=== PATIENT | female | born 1960 | race Caucasian/White ===

== ENCOUNTER 2016-04-06 10:37 | Inpatient (IN) | payer MEDICARE, OTHER ==
[2016-04-06] MEDS ORDERED: IPRATROPIUM-ALBUTEROL 3 ML NEB INHALATION STA (10:44)
[2016-04-06] MEDS ORDERED: SODIUM CHLORIDE 0.9% 1,000 ML IV STA (10:44)
--- NOTE | 2016-04-06 10:55 | ED ---
SOB HPI - General Stated Complaint: CHEST AND ABDOMINAL PAIN Time Seen by Provider: 04/06/16 10:37 Source: patient, EMS, RN notes reviewed Mode of arrival: EMS Limitations: physical limitation - History of Present Illness Initial Comments: This is a 55-year-old female with a recent history of myocardial infarction who states she had the onset at 11 AM yesterday of some nausea some abdominal pain and some shortness of breath. She states it yet worse this morning with associated chest pain about 5:30 AM. She has been dry heaving his apnea keep any fluids down. She was brought in by EMS she was given 4 mg morphine with improvement of the pain from 8/10 down to 6/10. She's had fevers chills and sweats some yellowish phlegm production. No other complaints at this time MD Complaint: shortness of breath, cough - Related Data Home Medications Medication Instructions Recorded Confirmed Amitriptyline HCl [Elavil] 25 mg PO HS 08/28/13 04/06/16 Spironolactone [Aldactone] 12.5 mg PO DAILY 08/28/13 04/06/16 oxyCODONE-APAP 10-325MG [Percocet 1 tab PO QID 08/28/13 04/06/16 10-325 mg] ALPRAZolam [Xanax] 0.5 mg PO HS 10/06/15 04/06/16 Aspirin 81 mg PO HS 10/06/15 04/06/16 Clopidogrel [Plavix] 75 mg PO DAILY 10/06/15 04/06/16 Fish Oil/Dha/Epa [Fish Oil 1,200 3 cap PO TID 10/06/15 04/06/16 mg Fish Oil] Insulin Degludec [Tresiba 56 unit SQ HS 10/06/15 04/06/16 Flextouch U-100] Insulin Lispro [humaLOG Kwikpen] 20 unit SQ W/BRKFST 10/06/15 04/06/16 Morphine Sulfate ER [Ms Contin] 15 mg PO BID 10/06/15 04/06/16 QUEtiapine FUMARATE [SEROquel XR] 50 mg PO HS 10/06/15 04/06/16 Insulin Lispro [humaLOG Kwikpen] 12 unit SQ W/SUPPER 03/02/16 04/06/16 Insulin Lispro [humaLOG Kwikpen] 20 unit SQ W/LUNCH 03/02/16 04/06/16 FLUoxetine HCL [PROzac] 60 mg PO DAILY 04/06/16 04/06/16 Previous Rx's Medication Instructions Recorded Furosemide [Lasix] 40 mg PO DAILY 30 Days 03/07/16 Atorvastatin [Lipitor] 80 mg PO HS #30 tab 03/25/16 Gabapentin [Neurontin] 200 mg PO TID #90 cap 03/25/16 Metoprolol Tartrate [Lopressor] 25 mg PO BID #60 tab 03/25/16 Nitroglycerin Sl Tabs [Nitrostat] 0.4 mg SUBLINGUAL Q5M PRN #25 tab 03/25/16 Allergies Allergy/AdvReac Type Severity Reaction Status Date / Time vancomycin Allergy Rash/Hives Verified 04/06/16 12:57 ciprofloxacin [From Cipro] AdvReac Nausea & Verified 04/06/16 12:57 Vomiting ciprofloxacin HCl AdvReac Nausea & Verified 04/06/16 12:57 [From Cipro] Vomiting Review of Systems ROS Statement: Those systems with pertinent positive or pertinent negative responses have been documented in the HPI. ROS Other: All systems not noted in ROS Statement are negative. Past Medical History Past Medical History: Coronary Artery Disease (CAD), Heart Failure, Diabetes Mellitus, Fibromyalgia, GERD/Reflux, Hearing Disorder / Deafness, Hyperlipidemia , Hypertension, Myocardial Infarction (GA), Musculoskeletal Disorder, Osteoarthritis (OA), Skin Disorder Additional Past Medical History / Comment(s): Coronary artery disease with previous myocardial infarction discussed above. The patient has multiple coronary stents inserted, ischemic myopathy, biventricular AICD, chronic renal failure, nephrolithiasis and kidney stones, peripheral vascular disease with a above-knee amputation on the right, degenerative disc disease, diabetes mellitus , hyperlipidemia, hypertension, fibromyalgia, GERD, chronic back pain, diabetic foot ulcer involving the left lower extremity. Last Myocardial Infarction Date:: 2006 History of Any Multi-Drug Resistant Organisms: MRSA Date of last positivie culture/infection: 02/24/16 LT FOOT-VERIFIED PER DR VASQUEZ OFFICE MDRO Source:: LT FOOT Past Surgical History: AICD, Section, Heart Catheterization, Heart Catheterization With Stent, Orthopedic Surgery, Pacemaker, Tonsillectomy Additional Past Surgical History / Comment(s): Right rotator cuff surgery 2, bilateral carpal tunnel release, cardiac catheterization multiple occasions and insertion of multiple stents, above-knee amputation of the right lower extremity , incision and debridement of diabetic wounds, Biventricular AICD placement Past Anesthesia/Blood Transfusion Reactions: No Reported Reaction Date of Last Stent Placement:: 2006 Type of Cardiac Device: AICD Device Placement Date:: 2010 Past Psychological History: Anxiety, Depression Smoking Status: Former smoker Past Alcohol Use History: None Reported Additional Past Alcohol Use History / Comment(s): SMOKED 20 YEARS, 1 PPD, QUIT . Past Drug Use History: Marijuana Additional Drug Use History / Comment(s): OCC MEDICAL MARIJUANA - Past Family History Sister(s) Family Medical History: Cancer Additional Family Medical History / Comment(s): 2 SISTERS Mother Family Medical History: Coronary Artery Disease (CAD), Hyperlipidemia, Hypertension Additional Family Medical History / Comment(s): CABG Father Family Medical History: CVA/TIA, Hyperlipidemia, Hypertension, Myocardial Infarction (GA) General Exam - General Exam Comments Initial Comments: This is a well-developed well-nourished awake alert oriented 3 female Limitations: physical limitation General appearance: alert, in no apparent distress Head exam: Present: atraumatic, normocephalic, normal inspection Eye exam: Present: normal appearance, PERRL, EOMI. Absent: scleral icterus, conjunctival injection, periorbital swelling ENT exam: Present: mucous membranes dry Neck exam: Present: normal inspection. Absent: tenderness, meningismus, lymphadenopathy Respiratory exam: Present: decreased breath sounds, other (Left lower lobe crackles). Absent: respiratory distress, wheezes, rales, rhonchi, stridor Cardiovascular Exam: Present: regular rate, normal rhythm, normal heart sounds. Absent: systolic murmur, diastolic murmur, rubs, gallop, clicks GI/Abdominal exam: Present: soft, tenderness (Some epigastric tenderness also some right left lower quadrant crampy pain), normal bowel sounds. Absent: distended, guarding, rebound, rigid Extremities exam: Present: full ROM, normal capillary refill, other (Right lower extremity above the knee"). Absent: tenderness, pedal edema, joint swelling, calf tenderness Back exam: Present: normal inspection Neurological exam: Present: alert, oriented X3, CN II-XII intact Psychiatric exam: Present: normal affect, normal mood Skin exam: Present: warm, dry, intact, normal color. Absent: rash Course Vital Signs 04/06/16 04/06/16 04/06/16 10:38 11:00 11:01 Temperature 99.9 F H Pulse Rate 84 76 Respiratory 20 20 Rate Blood Pressure 134/72 O2 Sat by Pulse 92 L Oximetry 04/06/16 04/06/16 04/06/16 11:08 12:10 13:40 Temperature 98.5 F Pulse Rate 76 78 86 Respiratory 20 16 Rate Blood Pressure 108/55 119/64 O2 Sat by Pulse 95 92 L Oximetry - Reevaluation(s) Reevaluation #1: 04/06/16 14:45 Evaluation after the initial updraft reveals some improvement the patient did demonstrate bilateral basilar rales Reevaluation #2: 04/06/16 14:45 I did reevaluate the patient she had some more improvement. Medical Decision Making - Medical Decision Making I did reveal the findings to the patient regarding the x-rays and labs. Patient is feeling somewhat better no chest pain she will be admitted I did discuss the case with Dr. Nelson. Patient be started on treatment for congestive heart failure additionally due to the fever and the symptoms - Lab Data Result diagrams: 04/06/16 10:55 04/06/16 10:55 Lab Results 04/06/16 04/06/16 04/06/16 Range/Units 10:55 10:55 10:55 WBC 9.1 (3.8-10.6) k/uL RBC 3.04 L (3.80-5.40) m/uL Hgb 9.3 L (11.4-16.0) gm/dL Hct 29.9 L (34.0-46.0) % MCV 98.3 (80.0-100.0) fL MCH 30.4 (25.0-35.0) pg MCHC 31.0 (31.0-37.0) g/dL RDW 20.0 H (11.5-15.5) % Plt Count 262 (150-450) k/uL Neutrophils % 87 % Lymphocytes % 8 % Monocytes % 3 % Eosinophils % 0 % Basophils % 0 % Neutrophils # 7.9 H (1.3-7.7) k/uL Lymphocytes # 0.8 L (1.0-4.8) k/uL Monocytes # 0.3 (0-1.0) k/uL Eosinophils # 0.0 (0-0.7) k/uL Basophils # 0.0 (0-0.2) k/uL Hypochromasia Moderate Poikilocytosis Slight Anisocytosis Moderate Macrocytosis Slight PT (9.0-12.0) sec INR (<1.1) APTT (22.0-30.0) sec Sodium 141 (137-145) mmol/L Potassium 4.1 (3.5-5.1) mmol/L Chloride 105 (98-107) mmol/L Carbon Dioxide 23 (22-30) mmol/L Anion Gap 13 mmol/L BUN 37 H (7-17) mg/dL Creatinine 1.30 H (0.52-1.04) mg/dL Est GFR (MDRD) Af Amer 51 (>60 ml/min/1.73 sqM) Est GFR (MDRD) Non-Af 42 (>60 ml/min/1.73 sqM) Glucose 213 H (74-99) mg/dL Calcium 9.6 (8.4-10.2) mg/dL Magnesium 1.9 (1.6-2.3) mg/dL Total Bilirubin 0.9 (0.2-1.3) mg/dL AST 30 (14-36) U/L ALT 33 (9-52) U/L Alkaline Phosphatase 76 (38-126) U/L Total Creatine Kinase 103 (30-135) U/L CK-MB (CK-2) 1.4 (0.0-2.4) ng/mL CK-MB (CK-2) Rel Index 1.4 Troponin I 0.040 H* (0.000-0.034) ng/mL NT-Pro-B Natriuret Pep pg/mL Total Protein 7.0 (6.3-8.2) g/dL Albumin 3.9 (3.5-5.0) g/dL Amylase 55 (30-110) U/L Lipase 103 (23-300) U/L 04/06/16 04/06/16 Range/Units 10:55 10:55 WBC (3.8-10.6) k/uL RBC (3.80-5.40) m/uL Hgb (11.4-16.0) gm/dL Hct (34.0-46.0) % MCV (80.0-100.0) fL MCH (25.0-35.0) pg MCHC (31.0-37.0) g/dL RDW (11.5-15.5) % Plt Count (150-450) k/uL Neutrophils % % Lymphocytes % % Monocytes % % Eosinophils % % Basophils % % Neutrophils # (1.3-7.7) k/uL Lymphocytes # (1.0-4.8) k/uL Monocytes # (0-1.0) k/uL Eosinophils # (0-0.7) k/uL Basophils # (0-0.2) k/uL Hypochromasia Poikilocytosis Anisocytosis Macrocytosis PT 12.1 H (9.0-12.0) sec INR 1.2 (<1.1) APTT 23.3 (22.0-30.0) sec Sodium (137-145) mmol/L Potassium (3.5-5.1) mmol/L Chloride (98-107) mmol/L Carbon Dioxide (22-30) mmol/L Anion Gap mmol/L BUN (7-17) mg/dL Creatinine (0.52-1.04) mg/dL Est GFR (MDRD) Af Amer (>60 ml/min/1.73 sqM) Est GFR (MDRD) Non-Af (>60 ml/min/1.73 sqM) Glucose (74-99) mg/dL Calcium (8.4-10.2) mg/dL Magnesium (1.6-2.3) mg/dL Total Bilirubin (0.2-1.3) mg/dL AST (14-36) U/L ALT (9-52) U/L Alkaline Phosphatase (38-126) U/L Total Creatine Kinase (30-135) U/L CK-MB (CK-2) (0.0-2.4) ng/mL CK-MB (CK-2) Rel Index Troponin I (0.000-0.034) ng/mL NT-Pro-B Natriuret Pep 82693 pg/mL Total Protein (6.3-8.2) g/dL Albumin (3.5-5.0) g/dL Amylase (30-110) U/L Lipase (23-300) U/L - EKG Data -: EKG Interpreted by Me (Pacer rhythm rate was 79. Interval 176 QRS duration 114 daily since QTC of) - Radiology Data Radiology results: report reviewed (I did review the x-ray report is evidence of CHF exacerbation with worsening cardiomegaly no alveolar edema is suspected) , image reviewed Critical Care Time Critical Care Time: Yes Critical Care Time: 39 minutes of critical care time which included the initial a bolus report as well as discussion with paramedics history physical x-ray and labs review the above. Repeat evaluation to responsive therapy. This review of old charts. Discussion with the admitting physician. Documentation of the above. Disposition Clinical Impression: Congestive heart failure (CHF), Pneumonitis, Acute exacerbation of chronic obstructive airways disease Disposition: ADMITTED IP TO THIS HOSP Condition: Stable
[2016-04-06 11:14] LABS: Anisocytosis Moderate; Basophils % (A) 0 %; CH 31.2; CHCM 32.2; Eosinophils % (A) 0 %; HCT 29.9 % (34.0-46.0); HGB 9.3 gm/dL (11.4-16.0); Hypochromasia Moderate; Luc # (Auto) 0.08; Luc % (Auto) 1; Lymphocytes # (A) 0.8 k/uL (1.0-4.8); Lymphocytes % (A) 8 %; MCH 30.4 pg (25.0-35.0); MCV 98.3 fL (80.0-100.0); Macrocytosis Slight; Mean Platelet Volume 8.2; Monocytes # (A) 0.3 k/uL (0-1.0); Monocytes % (A) 3 %; Neutrophils # (A) 7.9 k/uL (1.3-7.7); Neutrophils % (A) 87 %; Poikilocytosis Slight; RBC 3.04 m/uL (3.80-5.40); WBC 9.1 k/uL (3.8-10.6); WBC (Perox) 9.62
[2016-04-06 11:25] LABS: Calcium 9.6 mg/dL (8.4-10.2); INR 1.2 (<1.1); Magnesium 1.9 mg/dL (1.6-2.3); Partial Thromboplastin Time 23.3 sec (22.0-30.0); Potassium 4.1 mmol/L (3.5-5.1); Prothrombin Time 12.1 sec (9.0-12.0); Total Bilirubin 0.9 mg/dL (0.2-1.3)
--- NOTE | 2016-04-06 11:48 | XR ---
EXAMINATION TYPE: XR chest 2V DATE OF EXAM: 04/06/2016 11:39 AM COMPARISON: Chest x-ray March 23, 2016 HISTORY: History of COPD presents with shortness of breath TECHNIQUE: Frontal and lateral views of the chest are obtained. FINDINGS: There is persistent cardiomegaly with multilead pacemaker/AICD that is more prominent. Ther e is worsening perihilar opacities felt to reflect moderate central vascular congestion and central e vanessa. No new large pleural effusion or pneumothorax is seen bilaterally. There is partial visualizati on of surgical change in the right humeral head. Underlying emphysematous change is felt present. IMPRESSION: Suspect CHF exacerbation as there is worsening cardiomegaly with new moderate central vas cular congestion and mild central alveolar edema suspected. Clinical correlation advised.
[2016-04-06 11:50] LABS: Creatine Kinase MB 1.4 ng/mL (0.0-2.4)
[2016-04-06 11:54] LABS: Troponin I 0.04 ng/mL (0.000-0.034)
[2016-04-06] MEDS ORDERED: NITROGLYCERIN OINT 1 INCH/GM PACKET TOPICAL STA (12:09)
[2016-04-06] MEDS ORDERED: FUROSEMIDE 10 MG/ML 4 ML VIAL IV STA (12:09)
[2016-04-06] MEDS ORDERED: ACETAMINOPHEN TAB 500 MG TAB PO STA (13:37)
[2016-04-06] MEDS ORDERED: DHA PO SCH (16:00)
[2016-04-06] MEDS ORDERED: FISH OIL PO SCH (16:00)
[2016-04-06] MEDS ORDERED: EPA PO SCH (16:00)
[2016-04-06] MEDS: SODIUM CHLORIDE 0.9% 1,000 ML IV SCH (18:23)
[2016-04-06] MEDS: oxyCODONE-APAP 10-325MG 1 EACH TAB PO SCH (18:28)
[2016-04-06] MEDS: HEPARIN SODIUM,PORCINE 5,000 UNIT/ML 1 ML VIAL SQ SCH ×2 (18:29→21:23)
[2016-04-06] MEDS: INSULIN LISPRO (humaLOG) 300 UNIT/3 ML VIAL SQ SCH (18:44)
[2016-04-06] MEDS: GABAPENTIN 100 MG CAP PO SCH ×2 (18:45→21:22)
[2016-04-06] MEDS: NITROGLYCERIN OINT 1 INCH/GM PACKET TOPICAL SCH ×2 (18:45→21:23)
[2016-04-06] MEDS: IPRATROPIUM-ALBUTEROL 3 ML NEB INHALATION SCH ×2 (21:02)
[2016-04-06] MEDS ORDERED: IPRATROPIUM-ALBUTEROL 3 ML NEB INHALATION PRN (21:04)
[2016-04-06 21:10] LABS: Glucose,Whole Blood 128 mg/dL (75-99)
[2016-04-06] MEDS: AMITRIPTYLINE HCL 25 MG TAB PO SCH (21:21)
[2016-04-06] MEDS: FUROSEMIDE 10 MG/ML 4 ML VIAL IV SCH (21:22)
[2016-04-06] MEDS: ASPIRIN 81 MG CHEW PO SCH (21:22)
[2016-04-06] MEDS: ATORVASTATIN 80 MG TAB PO SCH (21:22)
[2016-04-06] MEDS: METOPROLOL TARTRATE 25 MG TAB PO SCH (21:22)
[2016-04-06] MEDS: MORPHINE SULFATE ER 15 MG TABLET PO SCH (21:34)
[2016-04-06] MEDS: ALPRAZolam 0.5 MG TAB PO SCH (21:34)
[2016-04-06] MEDS: INSULIN DEGLUDEC 56 UNIT SQ SCH (21:35)
--- NOTE | 2016-04-06 21:40 | HP ---
DATE OF ADMISSION: 04/06/2016 CHIEF COMPLAINTS: Chest pain and abdominal pain. HISTORY OF PRESENT ILLNESS: This 55-year-old woman with a past medical history of multiple medical problems, including CAD, history of CHF, diabetes mellitus, fibromyalgia, GERD, hypertension, hyperlipidemia, history of myocardial infarction, history of AICD, being followed by Dr. Thomas in the outpatient setting, was recently admitted to [facility] last month with CHF as well as acute myocardial infarction. Patient underwent cardiac catheterization, PTCA and stenting of a complex calcified lesion involving the circumflex coronary artery in 3 separate areas using a drug-eluting stent by Dr. Bradley Gibson. The patient went home. Currently the patient is complaining of vomiting for the last 2 days. Today the patient had significant shortness of breath. Patient came to [facility] and was admitted for further evaluation and treatment. Patient was found CHF, acute exacerbation. The most recent chest x-ray showed worsening cardiomegaly as well as central venous congestion also noted. There is no history of any fever, rigors, chills. No history of headache, loss of consciousness, seizures. PAST MEDICAL HISTORY: 1. History of recent myocardial infarction and stent. 2. CAD. 3. CHF. 4. History of cardiomyopathy. 5. History of fibromyalgia. 6. GERD. 7. Hearing deficit. 8. Hypertension. 9. History of myocardial infarction. 10. History of AICD. 11. History of multiple stents. 12. History of DJD. HOME MEDICATIONS: 1. Tresiba Flextouch 56 at bedtime. 2. Percocet 10 mg q.i.d. 3. Aldactone 12.5 mg daily. 4. Humalog 20 units subcutaneously with lunch and 12 units with supper and 20 units with breakfast. 5. Seroquel XR 50 mg at bedtime. 6. MS Contin 15 mg b.i.d. 7. Lasix 40 mg p.o. daily. 8. Fish oil 3 capsules p.o. t.i.d. 9. Prozac 60 mg p.o. daily. 10. Plavix 75 mg p.o. daily. 11. Nitrostat 0.4 sublingually p.r.n. 12. Lopressor 25 mg p.o. b.i.d. 13. Aspirin 81 mg p.o. at bedtime. 14. Elavil 25 mg at bedtime. 15. Xanax 0.5 mg at bedtime. 16. Neurontin 200 mg p.o. t.i.d. 17. Lipitor 80 mg p.o. at bedtime. ALLERGIES: 1. VANCOMYCIN. 2. CIPROFLOXACIN. FAMILY HISTORY: History of cancer in 2 sisters. SOCIAL HISTORY: Previous history of smoking. Occasional THC. REVIEW OF SYSTEMS: ENT: No diminished hearing. No diminished vision. CARDIOVASCULAR: As mentioned earlier. RESPIRATORY: As mentioned earlier. GI: As mentioned earlier. : No dysuria. NERVOUS SYSTEM: No numbness or weakness. ALLERGY/IMMUNOLOGY: No asthma or hayfever. MUSCULOSKELETAL: As mentioned earlier. HEMATOLOGY/ONCOLOGY: No history of anemia. ENDOCRINE: Diabetes mellitus. CONSTITUTIONAL: As mentioned earlier. DERMATOLOGY: Negative. RHEUMATOLOGY: Negative. PSYCHIATRY: As mentioned earlier. PHYSICAL EXAMINATION: Alert and oriented x3. Pulse 72, blood pressure 134/52, respiration 18, temperature 98.8, pulse ox 96% on 2 L. HEENT: Conjunctivae normal. Oral mucosa moist. NECK: No jugular venous distention. No carotid bruit. No lymph node enlargement. CARDIOVASCULAR SYSTEM: S1, S2 muffled. No S3. No S4. RESPIRATORY: Breath sounds diminished at the bases. A few bilateral scattered rhonchi and crackles. ABDOMEN: Soft, obese, nontender. No mass palpable. No guarding. No rigidity. LEGS: No edema. No swelling. Right above-knee amputation. Left foot wound also present. NERVOUS SYSTEM: Higher functions as mentioned earlier. Moves all 4 limbs. No focal motor or sensory deficit. LYMPHATICS: No lymph node palpable in neck, axillae or groin. SKIN: No ulcer, rash or bleeding. LABS: WBC 9.1, hemoglobin 9.3. Chest x-ray reviewed. Creatinine is 1.30. Glucose 213. Troponin 0.040. ASSESSMENT: 1. Congestive heart failure, acute exacerbation, with acute on chronic systolic dysfunction, ejection fraction 20% to 25%, with cardiomyopathy, ischemic. 2. Vomiting; possibly acute gastritis. 3. Anemia, normocytic; anemia of chronic disease. 4. Left foot wound and cellulitis. 5. Increased creatinine with possible chronic kidney disease, stage III. 6. Diabetes mellitus, type 2. 7. Troponin 0.046, indeterminate from previous recent myocardial infarction. 8. History of recent acute [id number]-elevation myocardial infarction, status post cardiac catheterization and stenting of the circumflex x3. 9. Anemia, normocytic. 10. History of obesity; body mass index 31.6. 11. Congestive heart failure. 12. Diabetes mellitus. 13. Fibromyalgia. 14. Gastroesophageal reflux disease. 15. Hypertension. 16. Hyperlipidemia. 17. Myocardial infarction. 18. History of degenerative joint disease. 19. History of automatic implantable cardioverter defibrillator. 20. History of nephrolithiasis. 21. History of peripheral arteritis. 22. Above-knee amputation on the right. 23. Chronic back pain. 24. History of diabetic foot ulcer. 25. Anxiety, depression not otherwise specified. 26. Remote history of nicotine dependence. 27. FULL CODE. RECOMMENDATIONS AND DISCUSSION: In this 55-year-old woman who presented with multiple complex medical issues, we will monitor the patient closely, continue the current medication, continue symptomatic treatment. Will initiate IV diuretics. Monitor fluid/electrolyte balance closely. Otherwise, monitor blood sugars closely. Empiric antibiotics have been initiated. Continue to monitor. Prognosis is guarded because of multiple complex medical issues. Home medications have been continued. Further recommendations to follow. MTDD
[2016-04-07] MEDS: oxyCODONE-APAP 10-325MG 1 EACH TAB PO SCH ×5 (00:05→21:58)
[2016-04-07 06:26] LABS: Glucose,Whole Blood 89 mg/dL (75-99)
[2016-04-07 06:52] LABS: Calcium 9.2 mg/dL (8.4-10.2); Potassium 4.1 mmol/L (3.5-5.1)
[2016-04-07] MEDS: INSULIN LISPRO (humaLOG) 300 UNIT/3 ML VIAL SQ SCH ×3 (07:03→17:20)
[2016-04-07 07:12] LABS: Anisocytosis Slight; Basophils % (A) 1 %; CH 30.7; CHCM 31.4; Eosinophils # (A) 0.2 k/uL (0-0.7); Eosinophils % (A) 3 %; HCT 27.8 % (34.0-46.0); HGB 8.6 gm/dL (11.4-16.0); Hypochromasia Marked; Luc # (Auto) 0.19; Luc % (Auto) 3; Lymphocytes # (A) 2.2 k/uL (1.0-4.8); Lymphocytes % (A) 32 %; MCH 30.5 pg (25.0-35.0); MCHC 30.8 g/dL (31.0-37.0); MCV 98.9 fL (80.0-100.0); Macrocytosis Moderate; Mean Platelet Volume 7.5; Monocytes # (A) 0.4 k/uL (0-1.0); Monocytes % (A) 6 %; Neutrophils # (A) 3.8 k/uL (1.3-7.7); Neutrophils % (A) 56 %; Poikilocytosis Slight; RBC 2.81 m/uL (3.80-5.40); RDW 19.7 % (11.5-15.5); WBC 6.8 k/uL (3.8-10.6); WBC (Perox) 7.13
[2016-04-07 08:25] LABS: Appearance,Urine Clear (Clear); Bilirubin,Urine Negative (Negative); Glucose,Urine (UA) Negative (Negative); Ketones,Urine Negative (Negative); Leukocyte Esterase,Urine Negative (Negative); Nitrite,Urine Negative (Negative); PH, Urine 6.5 (5.0-8.0); Protein,Urine Trace (Negative); Specific Gravity,Urine 1.008 (1.001-1.035); UA Billing (MACRO vs. MICRO) CHEM; Urobilinogen,Urine <2.0 mg/dL (<2.0)
[2016-04-07] MEDS: MORPHINE SULFATE ER 15 MG TABLET PO SCH ×2 (08:44→21:58)
[2016-04-07] MEDS: GABAPENTIN 100 MG CAP PO SCH ×3 (08:45→21:27)
[2016-04-07] MEDS: FUROSEMIDE 10 MG/ML 4 ML VIAL IV SCH ×3 (08:45→21:29)
[2016-04-07] MEDS: METOPROLOL TARTRATE 25 MG TAB PO SCH ×2 (08:45→21:27)
[2016-04-07] MEDS: CLOPIDOGREL 75 MG TAB PO SCH (08:46)
[2016-04-07] MEDS: FLUoxetine HCL 20 MG CAP PO SCH (08:46)
[2016-04-07] MEDS: SPIRONOLACTONE 25 MG TAB PO SCH (08:46)
[2016-04-07] MEDS: NITROGLYCERIN OINT 1 INCH/GM PACKET TOPICAL SCH ×4 (08:47→21:27)
[2016-04-07] MEDS: HEPARIN SODIUM,PORCINE 5,000 UNIT/ML 1 ML VIAL SQ SCH ×3 (08:47→21:29)
[2016-04-07] MEDS: IPRATROPIUM-ALBUTEROL 3 ML NEB INHALATION SCH ×4 (08:52→21:34)
[2016-04-07] MEDS ORDERED: FUROSEMIDE 40 MG TAB PO SCH (09:00)
[2016-04-07 09:05] VITALS: RESP 18
--- NOTE | 2016-04-07 09:59 | P.CRDCN ---
History of Present Illness Consult date: 04/07/16 Chief complaint: Shortness of breath History of present illness: This is a pleasant 55-year-old female patient with an extensive past medical history consistent of CAD and prior angioplasty and stenting, severe ischemic cardiomyopathy and status post ICD, PAD and status post right above-the -knee amputation, diabetes, hypertension, and chronic kidney disease, presented to the hospital back complaining of dyspnea. The patient describes progressive exertional dyspnea and orthopnea. She has no edema in the left lower extremities. She denies having any chest pain or chest discomfort. The chest x-ray showed pulmonary vascular congestions. The BNP came in to be quite elevated and more than 20,000's. The cardiac enzymes came in to be slightly elevated but the patient did not experience any symptoms of chest pain or chest discomfort. The EKG showed biventricular pacing. The patient was diagnosed with congestive heart failure exacerbation secondary to systolic dysfunction. She was started on Lasix IV. Past Medical History Past Medical History: Coronary Artery Disease (CAD), Heart Failure, Diabetes Mellitus, Fibromyalgia, GERD/Reflux, Hearing Disorder / Deafness, Hyperlipidemia , Hypertension, Myocardial Infarction (AL), Musculoskeletal Disorder, Osteoarthritis (OA), Skin Disorder Additional Past Medical History / Comment(s): NSTEMI MAR 2016 Coronary artery disease with previous myocardial infarction discussed above. The patient has multiple coronary stents inserted, ischemic myopathy, biventricular AICD, chronic renal failure, nephrolithiasis and kidney stones, peripheral vascular disease with a above-knee amputation on the right, degenerative disc disease, diabetes mellitus, hyperlipidemia, hypertension, fibromyalgia, GERD, chronic back pain, diabetic foot ulcer involving the left lower extremity, WEARS UPPER DENTURE Last Myocardial Infarction Date:: 2015 History of Any Multi-Drug Resistant Organisms: MRSA Date of last positivie culture/infection: 02/24/16 LT FOOT-VERIFIED PER DR VASQUEZ OFFICE MDRO Source:: LT FOOT Past Surgical History: AICD, Section, Heart Catheterization, Heart Catheterization With Stent, Orthopedic Surgery, Pacemaker, Tonsillectomy Additional Past Surgical History / Comment(s): Right rotator cuff surgery 2, bilateral carpal tunnel release, cardiac catheterization multiple occasions and insertion of multiple stents, above-knee amputation of the right lower extremity , incision and debridement of diabetic wounds, Biventricular AICD placement Past Anesthesia/Blood Transfusion Reactions: No Reported Reaction, Motion Sickness Additional Past Anesthesia/Blood Transfusion Reaction / Comment(s): CLAUSTERPHOBIA. PAST BLOOD TRANSFUSION-NO REACTION Date of Last Stent Placement:: 2006 Type of Cardiac Device: AICD Device Placement Date:: 2010 Past Psychological History: Anxiety, Depression Additional Psychological History / Comment(s): PT LIVES AT HOME WITH HER SPOUSE , USES W/C. PT RECEIVING [facility] Smoking Status: Former smoker Past Alcohol Use History: None Reported Additional Past Alcohol Use History / Comment(s): SMOKED 20 YEARS, 1 PPD, QUIT . Past Drug Use History: Marijuana Additional Drug Use History / Comment(s): OCC MEDICAL MARIJUANA - Past Family History Sister(s) Family Medical History: Cancer Additional Family Medical History / Comment(s): 2 SISTERS Mother Family Medical History: Coronary Artery Disease (CAD), Hyperlipidemia, Hypertension Additional Family Medical History / Comment(s): CABG Father Family Medical History: CVA/TIA, Hyperlipidemia, Hypertension, Myocardial Infarction (AL) Medications and Allergies Home Medications Medication Instructions Recorded Confirmed Type Amitriptyline HCl [Elavil] 25 mg PO HS 08/28/13 04/06/16 History Spironolactone [Aldactone] 12.5 mg PO DAILY 08/28/13 04/06/16 History oxyCODONE-APAP 10-325MG [Percocet 1 tab PO QID 08/28/13 04/06/16 History 10-325 mg] ALPRAZolam [Xanax] 0.5 mg PO HS 10/06/15 04/06/16 History Aspirin 81 mg PO HS 10/06/15 04/06/16 History Clopidogrel [Plavix] 75 mg PO DAILY 10/06/15 04/06/16 History Fish Oil/Dha/Epa [Fish Oil 1,200 3 cap PO TID 10/06/15 04/06/16 History mg Fish Oil] Insulin Degludec [Tresiba 56 unit SQ HS 10/06/15 04/06/16 History Flextouch U-100] Insulin Lispro [humaLOG Kwikpen] 20 unit SQ W/BRKFST 10/06/15 04/06/16 History Morphine Sulfate ER [Ms Contin] 15 mg PO BID 10/06/15 04/06/16 History QUEtiapine FUMARATE [SEROquel XR] 50 mg PO HS 10/06/15 04/06/16 History Insulin Lispro [humaLOG Kwikpen] 12 unit SQ W/SUPPER 03/02/16 04/06/16 History Insulin Lispro [humaLOG Kwikpen] 20 unit SQ W/LUNCH 03/02/16 04/06/16 History FLUoxetine HCL [PROzac] 60 mg PO DAILY 04/06/16 04/06/16 History Allergies Allergy/AdvReac Type Severity Reaction Status Date / Time vancomycin Allergy Rash/Hives Verified 04/06/16 12:57 ciprofloxacin [From Cipro] AdvReac Nausea & Verified 04/06/16 12:57 Vomiting ciprofloxacin HCl AdvReac Nausea & Verified 04/06/16 12:57 [From Cipro] Vomiting Physical Exam Vitals: Vital Signs Temp Pulse Pulse Resp BP BP Pulse Ox 04/07/16 09:02 80 04/07/16 08:54 76 04/07/16 08:00 97.5 F L 78 18 102/57 97 04/07/16 04:00 98.2 F 76 17 137/72 95 04/06/16 23:23 98.7 F 70 18 115/63 97 04/06/16 21:06 88 04/06/16 20:55 88 04/06/16 20:00 99.0 F 77 19 115/59 95 04/06/16 18:35 97.8 F 75 18 127/68 97 04/06/16 16:43 97.4 F L 84 18 111/56 95 Intake and Output 04/06/16 04/07/16 04/07/16 22:59 06:59 14:59 Intake Total 100 Output Total 1100 Balance -1000 Intake: IV 100 Sodium Chloride 0.9% 1, 100 000 ml @ 20 mls/hr IV . Q24H [facility] Rx#:[id number] Output: Urine 1100 Other: Voiding Method Bedside Commode Bedside Commode Weight 91 kg - Constitutional General appearance: no acute distress - Respiratory Respiratory: bilateral: diminished - Cardiovascular Rhythm: regular Heart sounds: normal: S1, S2 Results 04/07/16 06:08 04/07/16 06:08 Cardiac Enzymes 04/06/16 04/07/16 Range/Units 19:10 00:54 Troponin I 0.041 H* 0.035 H* (0.000-0.034) ng/mL CBC 04/07/16 Range/Units 06:08 WBC 6.8 (3.8-10.6) k/uL RBC 2.81 L (3.80-5.40) m/uL Hgb 8.6 L (11.4-16.0) gm/dL Hct 27.8 L (34.0-46.0) % Plt Count 245 (150-450) k/uL Comprehensive Metabolic Panel 04/07/16 Range/Units 06:08 Sodium 140 (137-145) mmol/L Potassium 4.1 (3.5-5.1) mmol/L Chloride 103 (98-107) mmol/L Carbon Dioxide 27 (22-30) mmol/L BUN 37 H (7-17) mg/dL Creatinine 1.40 H (0.52-1.04) mg/dL Glucose 88 (74-99) mg/dL Calcium 9.2 (8.4-10.2) mg/dL Current Medications Generic Name Dose Route Start Last Admin Trade Name Freq PRN Reason Stop Dose Admin Albuterol/Ipratropium 3 ml 04/06/16 21:04 Duoneb 0.5 Mg-3 Mg/3 Ml Soln INHALATION RT-QID PRN Shortness Of Breath Or Wheezing Albuterol/Ipratropium 3 ml 04/07/16 08:00 04/07/16 08:52 Duoneb 0.5 Mg-3 Mg/3 Ml Soln INHALATION 3 ml RT-QID [facility] Administration Alprazolam 0.5 mg 04/06/16 21:00 04/06/16 21:34 Xanax PO 0.5 mg HS [facility] Administration Amitriptyline HCl 25 mg 04/06/16 21:00 04/06/16 21:21 Elavil PO 25 mg HS [facility] Administration Aspirin 81 mg 04/06/16 21:00 04/06/16 21:22 Aspirin PO 81 mg HS [facility] Administration Atorvastatin Calcium 80 mg 04/06/16 21:00 04/06/16 21:22 Lipitor PO 80 mg HS [facility] Administration Clopidogrel Bisulfate 75 mg 04/07/16 09:00 04/07/16 08:46 Plavix PO 75 mg DAILY [facility] Administration Fluoxetine HCl 60 mg 04/07/16 09:00 04/07/16 08:46 Prozac PO 60 mg DAILY [facility] Administration Furosemide 40 mg 04/07/16 00:00 04/07/16 08:45 Lasix IV 40 mg Q8HR [facility] Administration Gabapentin 200 mg 04/06/16 16:00 04/07/16 08:45 Neurontin PO 200 mg TID [facility] Administration Heparin Sodium (Porcine) 5,000 unit 04/06/16 16:00 04/07/16 08:47 Heparin SQ 5,000 unit Q8HR [facility] Administration Sodium Chloride 1,000 mls @ 20 mls/hr 04/06/16 10:44 04/06/16 10:55 Saline 0.9% IV 04/07/16 10:43 20 mls/hr .Q24H [facility] Administration Sodium Chloride 1,000 mls @ 20 mls/hr 04/06/16 15:15 04/06/16 18:23 Saline 0.9% IV Not Given .Q24H [facility] Ceftriaxone Sodium 1,000 mg/ 50 mls @ 100 mls/hr 04/07/16 09:00 04/07/16 08: 47 Sodium Chloride IVPB 100 mls/hr Q24HR [facility] Administration Insulin Human Lispro 20 unit 04/07/16 12:30 Humalog SQ W/LUNCH [facility] Insulin Human Lispro 20 unit 04/07/16 07:30 04/07/16 07:03 Humalog SQ 20 unit W/BRKFST [facility] Administration Insulin Human Lispro 12 unit 04/06/16 17:30 04/06/16 18:44 Humalog SQ 12 unit W/SUPPER [facility] Administration Metoprolol Tartrate 25 mg 04/06/16 21:00 04/07/16 08:45 Lopressor PO 25 mg BID [facility] Administration Morphine Sulfate 15 mg 04/06/16 21:00 04/07/16 08:44 Ms Contin PO 15 mg BID [facility] Administration Nitroglycerin 0.5 inch 04/06/16 18:00 04/07/16 08:47 Nitro-Bid Oint TOPICAL Not Given QID [facility] Patient's Own Med: ( 56 unit 04/06/16 21:00 04/06/16 21:35 Insulin Degludec [ SQ 56 unit Tresiba Flextouch U- HS [facility] Administration 200] 56 Unit) Oxycodone/Acetaminophen 1 each 04/06/16 18:00 04/07/16 08:45 Percocet 10-325 PO 1 each QID [facility] Administration Quetiapine Fumarate 50 mg 04/06/16 21:00 04/06/16 21:22 Seroquel Xr PO 50 mg HS [facility] Administration Spironolactone 12.5 mg 04/07/16 09:00 04/07/16 08:46 Aldactone PO 12.5 mg DAILY [facility] Administration Intake and Output 04/06/16 04/07/16 04/07/16 22:59 06:59 14:59 Intake Total 100 Output Total 1100 Balance -1000 Intake: IV 100 Sodium Chloride 0.9% 1, 100 000 ml @ 20 mls/hr IV . Q24H [facility] Rx#:[id number] Output: Urine 1100 Other: Voiding Method Bedside Commode Bedside Commode Weight 91 kg 04/07/16 06:08 04/07/16 06:08 Assessment and Plan Plan: Assessment #1 congestive heart failure exacerbation secondary to systolic dysfunction #2 severe ischemic cardiomyopathy and status post ICD #3 severe CAD and prior angioplasty and stenting #4 chronic kidney disease #5 status post right [id number] amputation #6 multiple comorbid conditions. Plan #1 continue the Lasix IV with continue monitor the kidney function and electrolytes #2 no need for echocardiogram since the patient is known to have cardiomyopathy with an ejection fraction below 35% #3 we'll continue following up with her.
[2016-04-07 10:43] VITALS: BMI 33.3
[2016-04-07 11:46] LABS: Glucose,Whole Blood 90 mg/dL (75-99)
[2016-04-07] MEDS: SODIUM CHLORIDE 0.9% 1,000 ML IV SCH (14:34)
[2016-04-07 16:37] LABS: Glucose,Whole Blood 65 mg/dL (75-99)
[2016-04-07 16:59] LABS: Glucose,Whole Blood 76 mg/dL (75-99)
[2016-04-07 20:59] LABS: Glucose,Whole Blood 88 mg/dL (75-99)
[2016-04-07] MEDS: INSULIN DEGLUDEC 56 UNIT SQ SCH (21:25)
[2016-04-07] MEDS: ASPIRIN 81 MG CHEW PO SCH (21:26)
[2016-04-07] MEDS: AMITRIPTYLINE HCL 25 MG TAB PO SCH (21:26)
[2016-04-07] MEDS: ATORVASTATIN 80 MG TAB PO SCH (21:26)
[2016-04-07] MEDS: ALPRAZolam 0.5 MG TAB PO SCH (21:58)
[2016-04-08 06:37] LABS: Glucose,Whole Blood 124 mg/dL (75-99)
[2016-04-08 07:04] LABS: Anisocytosis Slight; Basophils % (A) 1 %; CH 30.8; CHCM 31.3; Eosinophils # (A) 0.3 k/uL (0-0.7); Eosinophils % (A) 5 %; HCT 31.6 % (34.0-46.0); HDW 3.85; HGB 9.7 gm/dL (11.4-16.0); Hypochromasia Marked; Luc # (Auto) 0.12; Luc % (Auto) 2; Lymphocytes # (A) 1.4 k/uL (1.0-4.8); Lymphocytes % (A) 22 %; MCH 30.7 pg (25.0-35.0); MCHC 30.8 g/dL (31.0-37.0); MCV 99.6 fL (80.0-100.0); Macrocytosis Moderate; Mean Platelet Volume 7.3; Monocytes # (A) 0.3 k/uL (0-1.0); Monocytes % (A) 5 %; Neutrophils # (A) 4.2 k/uL (1.3-7.7); Neutrophils % (A) 66 %; Poikilocytosis Slight; RBC 3.17 m/uL (3.80-5.40); RDW 19.4 % (11.5-15.5); WBC 6.4 k/uL (3.8-10.6); WBC (Perox) 6.83
[2016-04-08 07:15] LABS: Calcium 9.6 mg/dL (8.4-10.2)
--- NOTE | 2016-04-08 08:12 | CONS ---
DATE OF CONSULTATION: 04/07/2016 REASON FOR CONSULTATION: Left diabetic foot ulcer. HISTORY OF PRESENT ILLNESS: The patient is a 55-year-old female who recently had been admitted to [facility] where the patient did have [place]. the patient did have PTCA and stenting to the circumflex artery. At that time the patient also followed by Dr. Hunter for a left diabetic foot ulcer on the dorsum that was treated with Medihoney. Patient said that she did follow with Dr. Hunter on and that the wound was healed up and she did have protective dressing on it. The patient is now presenting back to the [facility] ER with chief complaints of some nausea and abdominal pain and shortness of breath that apparently got worse that morning. The patient also having some dry heaving and unable to keep anything down. Subsequently, the patient has been evaluated by the ER physician. She did have a chest x-ray suggestive of congestive heart failure. The patient's urine was negative. She did have a normal white count. Because of her left foot ulcer, ID was consulted for further recommendation regarding antibiotic therapy. Patient is feeling better at the time of my evaluation this afternoon. The pat denied any pain to the left foot area. There was no significant drainage from it. The dressing has not been changed since when evaluated at the Wound Care. REVIEW OF SYSTEMS: CONSTITUTIONAL: Positive for weakness but no fever has been recorded EYES: No complaint. ENT: No complaint. RESPIRATORY: As per HPI. CARDIOVASCULAR: As per HPI. GENITOURINARY: No complaint. GASTROINTESTINAL: As per HPI. MUSCULOSKELETAL: No complaint. INTEGUMENTARY: As per HPI. PSYCHOLOGICAL: No complaint. ENDOCRINE: No complaint. NEUROLOGICAL: No complaint. PAST MEDICAL HISTORY: Significant for left diabetic foot ulcer, previous history of infection to the right leg requiring amputation, coronary artery disease, diabetes mellitus, fibromyalgia, gastroesophageal reflux disease, hyperlipidemia, hypertension, [place]. PAST SURGICAL HISTORY: Recent PTCA and stenting, AICD placement, , pacemaker placement, tonsillectomy, right rotator cuff repair, bilateral carpal tunnel release, right [id number] amputation, I&D of the diabetic wound. SOCIAL HISTORY: Positive for smoking. She quit back in July 2014. Admits to marijuana use. No drinking. FAMILY HISTORY: Two sisters with history of cancer. Mother with history of coronary artery disease. Father with history of a stroke. ALLERGIES: VANCOMYCIN AND CIPROFLOXACIN. Medications currently include the patient is on DuoNeb, Xanax, Elavil, aspirin, Lipitor, ceftriaxone, Plavix, Prozac, Lasix, Neurontin, heparin, Humalog, Lopressor, MS Contin, Nitro-Bid, Seroquel, Aldactone. On examination, blood pressure is 96/55 with a pulse of 67, temperature 97.2. She is 98% on 2-L nasal cannula. General description is a middle-age female lying in bed in no distress. No tachypnea or accessory muscle of respiration use. HEENT examination showed no pallor or scleral icterus. Oral mucous membranes dry. NECK: Trachea is central. No thyromegaly. LUNGS: Unlabored breathing. Clear to auscultation anteriorly. HEART: S1, S2 regular rate and rhythm. ABDOMEN: Soft, no tenderness. EXTREMITIES: No edema of feet. Examination of the left foot shows a small wound on dorsal aspect with very minimal slough tissue and no surrounding erythema. NEUROLOGICAL: Patient is awake, alert, oriented x3. Mood and affect normal. LABS: BUN of 37, creatinine 1.40, hemoglobin is 8.6, white count 6.8. Chest x-ray with features of CHF. Urine has been negative. DIAGNOSTIC IMPRESSION AND PLAN: Patient admitted with diabetic foot ulcer currently with very minimal slough tissue, but no cellulitis. Recommend local wound care with Medihoney and no need for any systemic antibiotic. PLAN: 1. Rocephin can be safely discontinued. 2. Would apply Medihoney to the left diabetic foot and keep area off the pressure. 3. Patient will be signed out to Dr. Hunter on Saturday as the patient is known to him from the Wound Care. [facility]
[2016-04-08] MEDS: MORPHINE SULFATE ER 15 MG TABLET PO SCH ×2 (08:27→21:17)
[2016-04-08] MEDS: IPRATROPIUM-ALBUTEROL 3 ML NEB INHALATION SCH ×4 (08:27→19:24)
[2016-04-08] MEDS: oxyCODONE-APAP 10-325MG 1 EACH TAB PO SCH ×4 (08:27→21:15)
[2016-04-08] MEDS: GABAPENTIN 100 MG CAP PO SCH ×3 (08:28→21:18)
[2016-04-08] MEDS: CLOPIDOGREL 75 MG TAB PO SCH (08:28)
[2016-04-08] MEDS: SPIRONOLACTONE 25 MG TAB PO SCH (08:28)
[2016-04-08] MEDS: FUROSEMIDE 10 MG/ML 4 ML VIAL IV SCH ×2 (08:29→17:09)
[2016-04-08] MEDS: HEPARIN SODIUM,PORCINE 5,000 UNIT/ML 1 ML VIAL SQ SCH ×2 (08:29→17:09)
[2016-04-08] MEDS: FLUoxetine HCL 20 MG CAP PO SCH (08:29)
[2016-04-08] MEDS: INSULIN LISPRO (humaLOG) 300 UNIT/3 ML VIAL SQ SCH ×3 (08:29→17:13)
[2016-04-08] MEDS: METOPROLOL TARTRATE 25 MG TAB PO SCH ×2 (08:30→21:17)
[2016-04-08] MEDS: NITROGLYCERIN OINT 1 INCH/GM PACKET TOPICAL SCH ×4 (08:30→21:18)
--- NOTE | 2016-04-08 10:40 | PN ---
DATE OF SERVICE: 04/07/2016 This 55-year-old woman was admitted with chest pain, abdominal pain, had features of congestive heart failure exacerbation , severe cardiomyopathy. The patient was vomiting yesterday. Currently the patient is feeling slightly better. Cardiology has seen the patient and recommended to continue with IV diuretics with IV Lasix. The severe CAD was also noted at this time. Lab-calvert the blood sugars have been monitored at this time. Otherwise, hemoglobin is 8.6. Past medical history reviewed. REVIEW OF SYSTEMS: CARDIOVASCULAR: No angina or palpitations. RESPIRATORY: As mentioned earlier. GI: No nausea or vomiting. : No dysuria. Nervous system: No numbness, weakness. ALLERGY/IMMUNOLOGY: No history of asthma or hayfever. The current medications are reviewed and include: 1. DuoNeb q.i.d. and p.r.n. 2. Xanax 0.25 q.h.s. 3. Elavil 25 mg. 4. Aspirin 81 mg. 5. Lipitor 80 mg. 6. Rocephin 1 gram IV daily. 7. Plavix 75 milligrams daily. 8. Prozac 60 mg. 9. Lasix 40 mg IV q.8. 10. Neurontin 200 mg p.o. t.i.d. 11. Heparin 5000 subcu q8. 12. Humalog scale. 13. Lopressor 25 mg b.i.d. 14. MS Contin 15 mg b.i.d., 15. Nitro-Bid ointment. 16. Seroquel XR 50 mg q.h.s. 17. Aldactone 12.5 mg p.o. daily. PHYSICAL EXAMINATION: Patient is alert and oriented times three. Pulse 68, blood pressure 96/52, respiratory rate 18. Temperature 97.5. pulse ox 98% on 2 L. HEENT: Conjunctivae normal. NECK: No jugular venous distention. CARDIOVASCULAR: S1, S2 muffled. RESPIRATORY: Breath sounds diminished at the bases. Bilateral scattered rhonchi, no crackles. ABDOMEN: Soft, obese, nontender. No mass palpable. LEGS: No edema. No swelling. CENTRAL NERVOUS SYSTEM: Higher functions as mentioned earlier. No focal deficits. LABS: Hemoglobin 8.6, creatinine is 1.40. Troponins noted. ASSESSMENT: 1. Congestive heart failure acute exacerbation, with acute on chronic systolic dysfunction, ejection fraction 20-25% with cardiomyopathy, ischemic. 2. vomiting, possible gastritis. 3. Anemia, normocytic anemia of chronic disease. 4. Left foot wound and cellulitis. 5. Increased creatinine with possible chronic kidney disease, stage III. 6. Diabetes mellitus type 2. 7. Troponin 0.040 indeterminate recent myocardial infarction. 8. History of recent acute non-ST segment elevation myocardial infarction, status post cardiac catheterization and stenting of the circumflex x3. 9. Anemia, normocytic. 10. History of obesity, body mass index of 31.6. 11. History of congestive heart failure. 12. Diabetes mellitus type 2. 13. History of fibromyalgia. 14. Gastroesophageal reflux disease. 15. Hypertension. 16. Hyperlipidemia. 17. History of myocardial infarction. 18. History of degenerative joint disease. 19. History of automatic implantable cardioverter-defibrillator. 21. History of peripheral 22. Above knee amputation on the right. 23. Chronic back pain. 24. History of diabetic foot ulcer. 25. Anxiety, depression, not otherwise. 26. Remote history of nicotine dependence. 27. FULL CODE. RECOMMENDATIONS AND DISCUSSION: Recommend to continue with current medications, continue with monitoring, symptomatic treatment. Otherwise, continue current medications. Continue with antibiotics otherwise, I would also recommend . Follow closely with cardiology. The patient is on Lasix 40 mg IV q.8. Intake/output to be managed closely. The is showing however, patient feeling much better. Limit fluid intake. Guarded prognosis because of multiple complex medical issues. Further recommendations to follow. MTDD
[2016-04-08 11:19] LABS: Hemoglobin A1C 5.7 % (4.2-6.1)
[2016-04-08 11:38] LABS: Glucose,Whole Blood 81 mg/dL (75-99)
[2016-04-08] MEDS: SODIUM CHLORIDE 0.9% 1,000 ML IV SCH (14:13)
--- NOTE | 2016-04-08 14:30 | P.PN ---
Subjective Principal diagnosis: CHF This is a pleasant 55-year-old female patient with an extensive past medical history consistent of CAD and prior angioplasty and stenting, severe ischemic cardiomyopathy and status post ICD, PAD and status post right above-the -knee amputation, diabetes, hypertension, and chronic kidney disease, presented to the hospital back complaining of dyspnea. The patient describes progressive exertional dyspnea and orthopnea. She has no edema in the left lower extremities. She denies having any chest pain or chest discomfort. The chest x-ray showed pulmonary vascular congestions. The BNP came in to be quite elevated and more than 20,000's. The cardiac enzymes came in to be slightly elevated but the patient did not experience any symptoms of chest pain or chest discomfort. The EKG showed biventricular pacing. The patient was started on Lasix IV yesterday. On follow-up with her today, she is feeling better. The shortness of breath has improved significantly. She continues not to have any chest pain or discomfort. I am going to continue the patient on IV Lasix for additional 24 hours. She still have bilateral expiratory wheezing. We'll continue monitor the kidney function and electrolytes. Objective - Vital Signs Vital signs: Vital Signs Temp 97.6 F 04/08/16 12:00 Pulse 76 04/08/16 12:00 Resp 18 04/08/16 12:00 BP 124/68 04/08/16 12:00 Pulse Ox 96 04/08/16 12:00 Intake & Output 04/07/16 04/08/16 04/08/16 18:59 06:59 18:59 Intake Total 1334 1398 Output Total 1850 1400 1600 Balance -516 -1400 -202 Weight 91 kg 86 kg Intake: IV 120 160 Sodium Chloride 0.9% 1, 120 160 000 ml @ 20 mls/hr IV . Q24H [facility] Rx#:[id number] Oral 1214 1238 Output: Urine 1850 1400 1600 Other: Voiding Method Bedside Commode - Constitutional General appearance: Present: no acute distress - Respiratory Respiratory: bilateral: wheezing - Cardiovascular Heart sounds: normal: S1, S2 - Labs CBC & Chem 7: 04/08/16 06:40 04/08/16 06:40 Labs: Abnormal Lab Results - Last 24 Hours (Table) 04/07/16 04/08/16 04/08/16 Range/Units 16:34 06:08 06:40 RBC 3.17 L (3.80-5.40) m/uL Hgb 9.7 L (11.4-16.0) gm/dL Hct 31.6 L (34.0-46.0) % MCHC 30.8 L (31.0-37.0) g/dL RDW 19.4 H (11.5-15.5) % BUN (7-17) mg/dL Creatinine (0.52-1.04) mg/dL Glucose (74-99) mg/dL POC Glucose (mg/dL) 65 L 124 H (75-99) mg/dL 04/08/16 Range/Units 06:40 RBC (3.80-5.40) m/uL Hgb (11.4-16.0) gm/dL Hct (34.0-46.0) % MCHC (31.0-37.0) g/dL RDW (11.5-15.5) % BUN 38 H (7-17) mg/dL Creatinine 1.40 H (0.52-1.04) mg/dL Glucose 140 H (74-99) mg/dL POC Glucose (mg/dL) (75-99) mg/dL Assessment and Plan Plan: Assessment #1 acute exacerbation of congestive heart failure secondary to systolic dysfunction #2 severe cardiomyopathy and status post AICD #3 severe underlying CAD #4 severe underlying PAD #5 multiple comorbid conditions Plan #1 the patient dyspnea has improved already #2 she still have bilateral expiratory wheezing #3 I will continue the Lasix IV for additional 24 hours #4 continue following up with her
[2016-04-08 16:40] LABS: Glucose,Whole Blood 83 mg/dL (75-99)
--- NOTE | 2016-04-08 20:19 | XR ---
EXAMINATION TYPE: XR chest 1V portable DATE OF EXAM: 04/08/2016 8:07 PM COMPARISON: 04/06/2016 HISTORY: Heart failure TECHNIQUE: Single frontal view of the chest is obtained. FINDINGS: There is no heart failure nor confluent pneumonic infiltrate. There is a left axillary pac emaker with the lead tips in the right ventricle. There are no hilar masses. There is no pleural effu ar. IMPRESSION: No active cardiopulmonary disease. There is clearing of the mild heart failure compared to old exam.
[2016-04-08 20:57] LABS: Glucose,Whole Blood 95 mg/dL (75-99)
[2016-04-08] MEDS: ATORVASTATIN 80 MG TAB PO SCH (21:15)
[2016-04-08] MEDS: ALPRAZolam 0.5 MG TAB PO SCH (21:15)
[2016-04-08] MEDS: AMITRIPTYLINE HCL 25 MG TAB PO SCH (21:16)
[2016-04-08] MEDS: ASPIRIN 81 MG CHEW PO SCH (21:17)
[2016-04-08] MEDS: INSULIN DEGLUDEC 56 UNIT SQ SCH (21:17)
[2016-04-09 06:45] LABS: Anisocytosis Slight; Basophils # (A) 0.1 k/uL (0-0.2); Basophils % (A) 1 %; CH 31.1; CHCM 31.7; Eosinophils # (A) 0.4 k/uL (0-0.7); Eosinophils % (A) 6 %; HDW 3.78; HGB 11.1 gm/dL (11.4-16.0); Hypochromasia Moderate; Luc # (Auto) 0.13; Luc % (Auto) 2; Lymphocytes # (A) 1.8 k/uL (1.0-4.8); Lymphocytes % (A) 27 %; MCH 29.7 pg (25.0-35.0); MCV 99.2 fL (80.0-100.0); Macrocytosis Moderate; Monocytes # (A) 0.4 k/uL (0-1.0); Monocytes % (A) 7 %; Neutrophils # (A) 3.7 k/uL (1.3-7.7); Neutrophils % (A) 57 %; Poikilocytosis Slight; RBC 3.73 m/uL (3.80-5.40); WBC 6.5 k/uL (3.8-10.6); WBC (Perox) 6.99
[2016-04-09 06:56] LABS: Calcium 10.2 mg/dL (8.4-10.2); Potassium 4.1 mmol/L (3.5-5.1)
[2016-04-09 07:12] LABS: Glucose,Whole Blood 124 mg/dL (75-99)
[2016-04-09] MEDS: INSULIN LISPRO (humaLOG) 300 UNIT/3 ML VIAL SQ SCH ×3 (07:21→17:22)
[2016-04-09] MEDS: IPRATROPIUM-ALBUTEROL 3 ML NEB INHALATION SCH ×4 (08:12→20:29)
[2016-04-09] MEDS: FUROSEMIDE 10 MG/ML 4 ML VIAL IV SCH ×2 (09:09)
[2016-04-09] MEDS: CLOPIDOGREL 75 MG TAB PO SCH (09:09)
[2016-04-09] MEDS: FLUoxetine HCL 20 MG CAP PO SCH (09:10)
[2016-04-09] MEDS: HEPARIN SODIUM,PORCINE 5,000 UNIT/ML 1 ML VIAL SQ SCH ×4 (09:10→23:43)
[2016-04-09] MEDS: GABAPENTIN 100 MG CAP PO SCH ×3 (09:10→21:12)
[2016-04-09] MEDS: SPIRONOLACTONE 25 MG TAB PO SCH (09:11)
[2016-04-09] MEDS: NITROGLYCERIN OINT 1 INCH/GM PACKET TOPICAL SCH ×2 (09:11→11:36)
[2016-04-09] MEDS: METOPROLOL TARTRATE 25 MG TAB PO SCH ×2 (09:12→21:11)
[2016-04-09] MEDS: oxyCODONE-APAP 10-325MG 1 EACH TAB PO SCH ×4 (09:15→21:12)
[2016-04-09] MEDS: MORPHINE SULFATE ER 15 MG TABLET PO SCH ×2 (09:15→21:11)
[2016-04-09 11:50] LABS: Glucose,Whole Blood 78 mg/dL (75-99)
--- NOTE | 2016-04-09 13:18 | P.PN ---
Subjective Principal diagnosis: Systolic congestive heart failure This is a pleasant 55-year-old female with known history of ischemic cardiomyopathy prior AICD implantation, CAD with prior stent placements, hypertension, PAD status post right qyizj-vjf-bgkf amputation, diabetes, chronic kidney disease, hyperlipidemia, she presented to the hospital with symptoms of progressively worsening shortness of breath. Chest x-ray revealed congestive cardiac failure and her BNP came back elevated. Patient was initiated on IV Lasix, her weight today is down 1 kg, creatinine 1.6. At the time of my examination this morning patient states she is feeling much better today, breathing much improved. Objective - Vital Signs Vital signs: Vital Signs Temp 96.4 F L 04/09/16 12:00 Pulse 61 04/09/16 12:00 Resp 18 04/09/16 12:00 BP 133/60 04/09/16 12:00 Pulse Ox 96 04/09/16 12:00 Intake & Output 04/08/16 04/09/16 04/09/16 18:59 06:59 18:59 Intake Total 1856 10 180 Output Total 5019 398 0326 Balance 256 690 -1820 Weight 85.7 kg Intake: IV 160 10 Sodium Chloride 0.9% 1, 160 10 000 ml @ 20 mls/hr IV . Q24H [facility] Rx#:[id number] Oral 1696 180 Output: Urine 6308 085 1193 Other: Voiding Method Bedside Commode # Voids 1 - Exam PHYSICAL EXAMINATION: HEENT: Head is atraumatic, normocephalic. Pupils equal, round. Neck is supple. There is no elevated jugular venous pressure. HEART EXAMINATION: Heart S1, S2 normal. No murmur or gallop heard. CHEST EXAMINATION: Lungs are clear to auscultation and precussion. No chest wall tenderness is noted on palpation or with deep breathing. ABDOMEN: Soft, nontender. Bowel sounds are heard. No organomegaly noted. EXTREMITIES:[1+ peripheral pulses to the left lower extremity with a trace of peripheral edema, patient has a right above the knee amputation NEUROLOGIC patient is awake, alert and oriented -3. . - Labs CBC & Chem 7: 04/09/16 06:18 04/09/16 06:18 Labs: Abnormal Lab Results - Last 24 Hours (Table) 04/09/16 04/09/16 04/09/16 Range/Units 06:18 06:18 06:54 RBC 3.73 L (3.80-5.40) m/uL Hgb 11.1 L (11.4-16.0) gm/dL MCHC 30.0 L (31.0-37.0) g/dL RDW 19.0 H (11.5-15.5) % BUN 47 H (7-17) mg/dL Creatinine 1.66 H (0.52-1.04) mg/dL Glucose 121 H (74-99) mg/dL POC Glucose (mg/dL) 124 H (75-99) mg/dL Assessment and Plan (1) Systolic CHF, acute on chronic Status: Acute (2) CAD (coronary artery disease) Status: Acute (3) AICD (automatic cardioverter/defibrillator) present Status: Acute (4) Ischemic cardiomyopathy Status: Acute (5) PAD (peripheral artery disease) Status: Acute (6) History of right above knee amputation Status: Acute (7) HTN (hypertension) Status: Acute (8) Diabetes Status: Acute (9) Hyperlipemia Status: Acute (10) Renal insufficiency Status: Acute Plan: From cardiology's perspective, repeat chest x-ray performed yesterday did show improvement in congestive cardiac failure. Creatinine today is 1.6, up from 1.3 on admission. We will discontinue the IV Lasix after her second dose today. national coverage specialist to oral diuretics. Check lytes BUN and creatinine in the morning plan for possible discharge home in 24 hours if stable. DNP note has been reviewed, I agree with a documented findings and plan of care. Patient was seen and examined.
--- NOTE | 2016-04-09 13:47 | PN ---
DATE OF SERVICE: 04/08/2016 REASON FOR FOLLOWUP: Left foot wound. INTERVAL HISTORY: The patient is afebrile . The patient is breathing comfortably. Denies having any chest pain or shortness of breath. No cough or diarrhea. On examination, blood pressure is 128/73 with a pulse of 74, temperature 97.6. She is 96% on room air. General description is a middle-age female up in the chair in no distress. RESPIRATORY SYSTEM: Unlabored breathing. Clear to auscultation. HEART: S1, S2. Regular rate and rhythm. ABDOMEN: Soft. No tenderness. The left foot, medial border with the some slough tissue. No surrounding erythema. LABS: Hemoglobin 9.7, white count 6.4. BUN of 38, creatinine 1.4. DIAGNOSTIC IMPRESSION: Patient with left foot ulcer without any surrounding cellulitis. Continue local wound care with [facility]. No need for systemic antibiotic therapy Dr. Hunter will follow this patient as of tomorrow. Continue supportive care. MARGA
[2016-04-09] MEDS: FUROSEMIDE 40 MG TAB PO SCH (15:43)
[2016-04-09] MEDS ORDERED: FUROSEMIDE 10 MG/ML 10 ML VIAL IV STA (16:31)
--- NOTE | 2016-04-09 16:45 | PN ---
DATE OF SERVICE: 04/08/2016 This 55 -year-old woman was admitted with chest pain, and CHF acute exacerbation, is being closely monitored. The patient also has vomiting, acute , The patient improving significantly. No chest pain. No palpitations. No fever. On exam alert and oriented times three. Pulse 74, blood pressure 128/76, respiratory rate 16, temperature 97.6, pulse ox 97% on room air. HEENT: Conjunctivae normal. NECK: No jugular venous distention. CARDIOVASCULAR: S1, S2 muffled. RESPIRATORY: Breath sounds diminished at the bases. A few scattered rhonchi and crackles. ABDOMEN: Soft, obese, nontender. No mass palpable. Legs: No edema, no swelling. Nervous system: Higher functions as mentioned earlier. Labs at this time shows the chest x-ray personally, the initial chest x-ray reviewed. Other labs are shows WBC 6.9, hemoglobin 9.7, creatinine 1.40. ASSESSMENT: 1. Congestive heart failure, acute exacerbation, with acute on chronic systolic dysfunction, ejection fraction 20-25%. 2. Cardiomyopathy, possibly ischemic. 3. Vomiting, possible acute gastritis, present on admission. 4. Anemia, normocytic, anemia of chronic disease. 5. Left foot wound and cellulitis. 6. Increased creatinine with possible chronic kidney disease, stage III. 7. Diabetes mellitus, type II. 8. Troponin 0.046, indeterminate with recent myocardial infarction. 9. History of recent acute non-ST segment elevation myocardial infarction, status post cardiac catheterization and stenting of the circumflex x3. 10. Anemia, normocytic. 11. History of obesity, body mass index 31.6. 12. Congestive heart failure. 13. Diabetes mellitus type 2. 14. History of fibromyalgia. 15. Gastroesophageal reflux disease. 16. Hypertension. 17. Hyperlipidemia. 18. History of myocardial infarction. 19. History of degenerative joint disease. 20. History of automatic implantable cardioverter defibrillator. 21. History of peripheral neuropathy . 22. Above knee amputation on the right. 23. Chronic back pain, degenerative joint disease. 24. History of diabetic foot ulcer. 25. Anxiety, depression, not otherwise specified. 26. Remote history of nicotine dependence. 27. FULL CODE. RECOMMENDATIONS AND DISCUSSION: Recommend to continue current medications. Continue with monitoring. Symptomatic treatment. Otherwise, at this time, continue with diuretics. Monitor renal function closely which is rather stable at this time. Continue the rest of the medications. Guarded prognosis. Further recommendations to follow. Closely follow with cardiology. MARGA
[2016-04-09 17:17] LABS: Glucose,Whole Blood 67 mg/dL (75-99)
[2016-04-09 17:17] LABS: Glucose,Whole Blood 81 mg/dL (75-99)
--- NOTE | 2016-04-09 18:54 | P.PN ---
Subjective Principal diagnosis: Shortness of breath This is a 55-year-old female. She has an extensive history of gangrene of the right foot with necrotizing fasciitis with multiple surgeries including extensive debridements and malleolar amputation. Patient subsequently underwent ujlxi-smc-[id number] amputation with Dr. Valenzuela in October 2013. She now has a diabetic wound on the dorsal surface of the left foot. She has been treated by her primary care physician for approximately the last 3 months and initially was placed on Bactrim followed by clindamycin and was told she had MRSA and E. coli in the wound. She states she completed that course of antibiotics and the wound size seemed to be improving and smaller. Was recently hospitalized and had the ulcer treated with therahoney. The patient was recently Hospital as which point in time she had an acute myocardial infarction. Cardiac catheterization was performed and multiple stents were placed. She has some difficulty to her right groin and this is now doing well this time. Is now presenting to hospital with the significant shortness of breath. Evidence of congestive heart failure by her chest x-ray and a BNP of greater than 20,000.. Considerably better today. Objective - Vital Signs Vital signs: Vital Signs Temp 97.5 F L 04/09/16 16:00 Pulse 63 04/09/16 16:00 Resp 18 04/09/16 16:00 BP 99/64 04/09/16 16:00 Pulse Ox 93 L 04/09/16 16:00 Intake & Output 04/08/16 04/09/16 04/09/16 18:59 06:59 18:59 Intake Total 1856 10 402 Output Total 2769 857 4251 Balance 328 -856 -4224 Weight 85.7 kg Intake: IV 160 10 Sodium Chloride 0.9% 1, 160 10 000 ml @ 20 mls/hr IV . Q24H [facility] Rx#:[id number] Oral 1696 402 Output: Urine 9022 884 7161 Other: Voiding Method Bedside Commode # Voids 1 - Exam Gen: This is a 55-year-old female. She is sitting up in bed and appears to be in no acute distress. HEENT: Head is atraumatic, normocephalic. Pupils equal, round. Sclerae is anicteric. Conjunctiva slightly pale. Mucous members of the mouth are somewhat dry. NECK: Supple. No JVD. No lymphadenopathy. No thyromegaly. LUNGS: Occasional inspiratory wheeze and a few crackles.. No intercostal retractions. HEART: Regular rate and rhythm. Systolic murmur. AICD noted at the left anterior upper chest wall with no signs of tenderness. ABDOMEN: Soft. Bowel sounds are present. No masses. No tenderness. EXTREMITIES: Right pseci-fjh-dhoi amputation. Stump has no signs of erythema, wound. To the left foot, no pedal edema. Diabetic ulcer on the dorsal surface of the left foot at the proximal first metatarsal/mid metatarsal. Measures at 1.3 x 1.2 x 0.1 cm Mild erythema, no purulent drainage. NEUROLOGICAL: Patient is awake, alert and oriented x3 - Labs CBC & Chem 7: 04/09/16 06:18 04/09/16 06:18 Labs: Abnormal Lab Results - Last 24 Hours (Table) 04/09/16 04/09/16 04/09/16 Range/Units 06:18 06:18 06:54 RBC 3.73 L (3.80-5.40) m/uL Hgb 11.1 L (11.4-16.0) gm/dL MCHC 30.0 L (31.0-37.0) g/dL RDW 19.0 H (11.5-15.5) % BUN 47 H (7-17) mg/dL Creatinine 1.66 H (0.52-1.04) mg/dL Glucose 121 H (74-99) mg/dL POC Glucose (mg/dL) 124 H (75-99) mg/dL 04/09/16 Range/Units 16:59 RBC (3.80-5.40) m/uL Hgb (11.4-16.0) gm/dL MCHC (31.0-37.0) g/dL RDW (11.5-15.5) % BUN (7-17) mg/dL Creatinine (0.52-1.04) mg/dL Glucose (74-99) mg/dL POC Glucose (mg/dL) 67 L (75-99) mg/dL Laboratory Results WBC 6.5 k/uL (3.8-10.6) 04/09/16 06:18 RBC 3.73 m/uL (3.80-5.40) L 04/09/16 06:18 Hgb 11.1 gm/dL (11.4-16.0) L 04/09/16 06:18 Hct 37.0 % (34.0-46.0) 04/09/16 06:18 MCV 99.2 fL (80.0-100.0) 04/09/16 06:18 MCH 29.7 pg (25.0-35.0) 04/09/16 06:18 MCHC 30.0 g/dL (31.0-37.0) L 04/09/16 06:18 RDW 19.0 % (11.5-15.5) H 04/09/16 06:18 Plt Count 285 k/uL (150-450) 04/09/16 06:18 Neutrophils % 57 % 04/09/16 06:18 Lymphocytes % 27 % 04/09/16 06:18 Monocytes % 7 % 04/09/16 06:18 Eosinophils % 6 % 04/09/16 06:18 Basophils % 1 % 04/09/16 06:18 Neutrophils # 3.7 k/uL (1.3-7.7) 04/09/16 06:18 Lymphocytes # 1.8 k/uL (1.0-4.8) 04/09/16 06:18 Monocytes # 0.4 k/uL (0-1.0) 04/09/16 06:18 Eosinophils # 0.4 k/uL (0-0.7) 04/09/16 06:18 Basophils # 0.1 k/uL (0-0.2) 04/09/16 06:18 Hypochromasia Moderate 04/09/16 06:18 Poikilocytosis Slight 04/09/16 06:18 Anisocytosis Slight 04/09/16 06:18 Macrocytosis Moderate 04/09/16 06:18 PT 12.1 sec (9.0-12.0) H 04/06/16 10:55 INR 1.2 (<1.1) 04/06/16 10:55 APTT 23.3 sec (22.0-30.0) 04/06/16 10:55 Sodium 142 mmol/L (137-145) 04/09/16 06:18 Potassium 4.1 mmol/L (3.5-5.1) 04/09/16 06:18 Chloride 101 mmol/L (98-107) 04/09/16 06:18 Carbon Dioxide 27 mmol/L (22-30) 04/09/16 06:18 Anion Gap 14 mmol/L 04/09/16 06:18 BUN 47 mg/dL (7-17) H 04/09/16 06:18 Creatinine 1.66 mg/dL (0.52-1.04) H 04/09/16 06:18 Est GFR (MDRD) Af Amer 39 (>60 ml/min/1.73 sqM) 04/09/16 06:18 Est GFR (MDRD) Non-Af 32 (>60 ml/min/1.73 sqM) 04/09/16 06:18 Glucose 121 mg/dL (74-99) H 04/09/16 06:18 POC Glucose (mg/dL) 81 mg/dL (75-99) 04/09/16 17:15 POC Glu [place] SUPRIYA Vera Bedolla 04/09/16 17:[address] Glu mg/dL 117 mg/dL 04/08/16 06:40 Hemoglobin A1c 5.7 % (4.2-6.1) 04/08/16 06:40 Calcium 10.2 mg/dL (8.4-10.2) 04/09/16 06:18 Magnesium 1.9 mg/dL (1.6-2.3) 04/06/16 10:55 Total Bilirubin 0.9 mg/dL (0.2-1.3) 04/06/16 10:55 AST 30 U/L (14-36) 04/06/16 10:55 ALT 33 U/L (9-52) 04/06/16 10:55 Alkaline Phosphatase 76 U/L (38-126) 04/06/16 10:55 Total Creatine Kinase 103 U/L (30-135) 04/06/16 10:55 CK-MB (CK-2) 1.4 ng/mL (0.0-2.4) 04/06/16 10:55 CK-MB (CK-2) Rel Index 1.4 04/06/16 10:55 Troponin I 0.035 ng/mL (0.000-0.034) H* 04/07/16 00:54 NT-Pro-B Natriuret Pep 52132 pg/mL 04/06/16 10:55 Total Protein 7.0 g/dL (6.3-8.2) 04/06/16 10:55 Albumin 3.9 g/dL (3.5-5.0) 04/06/16 10:55 Amylase 55 U/L (30-110) 04/06/16 10:55 Lipase 103 U/L (23-300) 04/06/16 10:55 Urine Color Yellow 04/07/16 07:50 Urine Appearance Clear (Clear) 04/07/16 07:50 Urine pH 6.5 (5.0-8.0) 04/07/16 07:50 Ur Specific [place] 1.008 (1.001-1.035) 04/07/16 07:50 Urine Protein Trace (Negative) H 04/07/16 07:50 Urine Glucose (UA) Negative (Negative) 04/07/16 07:50 Urine Ketones Negative (Negative) 04/07/16 07:50 Urine Blood Negative (Negative) 04/07/16 07:50 Urine Nitrate Negative (Negative) 04/07/16 07:50 Urine Bilirubin Negative (Negative) 04/07/16 07:50 Urine Urobilinogen <2.0 mg/dL (<2.0) 04/07/16 07:50 Ur Leukocyte Esterase Negative (Negative) 04/07/16 07:50 Microbiology 04/06/16 10:55 Blood Blood Culture - Preliminary No Growth after 72 hours Assessment and Plan (1) Congestive heart failure (CHF) Status: Acute (2) Diabetic foot ulcer associated with type 2 diabetes mellitus, with fat layer exposed Narrative/Plan: Pleasant 55 show a presents to Hospital significant shortness of breath. Find evidence of the study and worsening of her congestive heart failure. Is working with her primary care physician and cardiology to determine the best possible course of her diuretic therapy. The chronic kidney disease been somewhat difficult to find a good balance between dehydration and volume overload. Is having some enhanced diuretic therapy and is now considerably improved. Ulceration foot is doing very well. The Iriderm product can be applied to this area to protect it and to allow him to further heal. It is not any significant debridement this point in time. It is not with any evidence of infection and she does not require antibiotic therapy at this point in time. Status: Acute
[2016-04-09] MEDS: SODIUM CHLORIDE 0.9% 1,000 ML IV SCH (19:36)
--- NOTE | 2016-04-09 20:04 | PN ---
DATE OF SERVICE: 04/09/2016 PRESENTING COMPLAINT: Short of breath. INTERVAL HISTORY: This patient presented with CHF exacerbation, exacerbation. The patient was recently in the hospital. Was actually discharged on and has a known ejection fraction 20% to 25%; also diabetic. On last admission had completed a course of antibiotic for left foot dorsum infection. Patient also has underlying chronic kidney disease. Breathing is better. Patient is able to lay down. Edema is going down. Review of systems done for constitutional, cardiovascular, GI, pulmonary; relevant findings as above. Current medications include p.o. Lasix. On examination, temperature 96.4, pulse 53, respiration 18, blood pressure 133/68, pulse ox 96% on room air. GENERAL APPEARANCE: Lying in bed, not in distress. EYES: Pupils equal. Conjunctivae normal. NECK: JVD not raised. RESPIRATORY: Effort normal. LUNGS: Mild wheezing. CARDIOVASCULAR: First and second sounds normal. Decreased edema. ABDOMEN: Soft, nontender. Liver and spleen not palpable. PSYCHIATRY: Alert and oriented x3. Mood and affect normal. INVESTIGATIONS: White count 6.5, hemoglobin 11.1. Potassium 4.1, BUN 47, creatinine 1.66. ASSESSMENT: 1. Acute on chronic congestive heart failure exacerbation from systolic and diastolic dysfunction; ejection fraction 25% from underlying coronary artery disease present on admission. 2. Diabetes mellitus type 2, chronically on insulin, causing peripheral neuropathy. 3. Essential hypertension, chronic. 4. Chronic fibromyalgia. 5. Automatic implantable cardioverter defibrillator, chronic. 6. Primary osteoarthritis of multiple joints. 7. Hyperlipidemia. 8. Chronic right above-knee amputation back in 2013. 9. Left foot dorsum infection, with Methicillin-resistant Staph aureus recently treated and complete course of antibiotic. 10. Chronic kidney disease. 11. Chronic kidney disease probably from diabetic nephropathy and hypertensive nephrosclerosis. 12. Acute non-Q-wave myocardial infarction in a patient with known coronary disease within the last 30 days. 13. Coronary artery disease with history of stent. PLAN: Care was discussed with the patient. The patient is feeling overall better. Accu-Cheks are noted. Patient already on Aldactone. If remains good could hopefully maybe even be discharged tomorrow.
[2016-04-09 20:37] LABS: Glucose,Whole Blood 146 mg/dL (75-99)
[2016-04-09] MEDS: INSULIN DEGLUDEC 56 UNIT SQ SCH (21:10)
[2016-04-09] MEDS: ATORVASTATIN 80 MG TAB PO SCH (21:11)
[2016-04-09] MEDS: ALPRAZolam 0.5 MG TAB PO SCH (21:12)
[2016-04-09] MEDS: AMITRIPTYLINE HCL 25 MG TAB PO SCH (21:13)
[2016-04-09] MEDS: ASPIRIN 81 MG CHEW PO SCH (21:13)
[2016-04-10 06:29] LABS: Glucose,Whole Blood 148 mg/dL (75-99)
--- NOTE | 2016-04-10 07:03 | XR ---
EXAMINATION TYPE: XR chest 2V DATE OF EXAM: 04/10/2016 6:24 AM COMPARISON: 04/08/2016 HISTORY: CHF FINDINGS: The lungs are clear and there is no pneumothorax, pleural effusion, or focal pneumonia. Cardiomegal y and cardiac device noted with coarsened interstitium. Underlying COPD suspected and there is eviden ce of previous surgery involving the right shoulder. IMPRESSION: 1. Stable left perihilar coarse interstitial patchy infiltrate.
[2016-04-10] MEDS: INSULIN LISPRO (humaLOG) 300 UNIT/3 ML VIAL SQ SCH ×2 (07:09→12:27)
[2016-04-10 07:36] LABS: Anisocytosis Slight; Basophils # (A) 0.1 k/uL (0-0.2); Basophils % (A) 1 %; CH 30.7; CHCM 30.9; Eosinophils # (A) 0.5 k/uL (0-0.7); Eosinophils % (A) 7 %; HCT 37.1 % (34.0-46.0); HDW 3.61; HGB 11.5 gm/dL (11.4-16.0); Hypochromasia Marked; Luc # (Auto) 0.21; Luc % (Auto) 3; Lymphocytes # (A) 2.3 k/uL (1.0-4.8); Lymphocytes % (A) 30 %; MCH 31.2 pg (25.0-35.0); MCV 100.7 fL (80.0-100.0); Macrocytosis Moderate; Mean Platelet Volume 7.7; Monocytes # (A) 0.5 k/uL (0-1.0); Monocytes % (A) 6 %; Neutrophils # (A) 4.1 k/uL (1.3-7.7); Neutrophils % (A) 54 %; Poikilocytosis Slight; RBC 3.68 m/uL (3.80-5.40); RDW 18.6 % (11.5-15.5); WBC 7.7 k/uL (3.8-10.6); WBC (Perox) 8.16
[2016-04-10 07:37] LABS: Calcium 10.1 mg/dL (8.4-10.2); Potassium 4.5 mmol/L (3.5-5.1)
[2016-04-10] MEDS: FUROSEMIDE 40 MG TAB PO SCH (09:09)
[2016-04-10] MEDS: HEPARIN SODIUM,PORCINE 5,000 UNIT/ML 1 ML VIAL SQ SCH (09:09)
[2016-04-10] MEDS: CLOPIDOGREL 75 MG TAB PO SCH (09:09)
[2016-04-10] MEDS: FLUoxetine HCL 20 MG CAP PO SCH (09:09)
[2016-04-10] MEDS: GABAPENTIN 100 MG CAP PO SCH (09:10)
[2016-04-10] MEDS: METOPROLOL TARTRATE 25 MG TAB PO SCH (09:10)
[2016-04-10] MEDS: SPIRONOLACTONE 25 MG TAB PO SCH (09:11)
[2016-04-10] MEDS: MORPHINE SULFATE ER 15 MG TABLET PO SCH (09:17)
[2016-04-10] MEDS: oxyCODONE-APAP 10-325MG 1 EACH TAB PO SCH ×2 (09:17→12:32)
[2016-04-10] MEDS: IPRATROPIUM-ALBUTEROL 3 ML NEB INHALATION SCH ×2 (09:40→13:44)
--- NOTE | 2016-04-10 11:14 | P.PN ---
Subjective Principal diagnosis: Systolic congestive heart failure This is a pleasant 55-year-old female with known history of ischemic cardiomyopathy prior AICD implantation, CAD with prior stent placements, hypertension, PAD status post right uwhvn-ust-jdkc amputation, diabetes, chronic kidney disease, hyperlipidemia, she presented to the hospital with symptoms of progressively worsening shortness of breath. Chest x-ray revealed congestive cardiac failure and her BNP came back elevated. Patient was initiated on IV Lasix, her weight today is down 0.5kg, creatinine 1.9. At the time of my examination this morning patient states she is feeling much better today, breathing much improved. We will discontinue the IV Lasix today, and start the patient on oral diuretics. Objective - Vital Signs Vital signs: Vital Signs Temp 99.6 F 04/10/16 08:00 Pulse 76 04/10/16 09:53 Resp 18 04/10/16 08:00 BP 106/63 04/10/16 08:00 Pulse Ox 96 04/10/16 08:00 Intake & Output 04/09/16 04/10/16 04/10/16 18:59 06:59 18:59 Intake Total 402 10 Output Total 2000 Balance -1598 10 Weight 85.5 kg Intake: IV 10 Sodium Chloride 0.9% 1, 10 000 ml @ 20 mls/hr IV . Q24H [facility] Rx#:[id number] Oral 402 Output: Urine 1999 Other: Voiding Method Bedside Commode Bedside Commode - Exam PHYSICAL EXAMINATION: HEENT: Head is atraumatic, normocephalic. Pupils equal, round. Neck is supple. There is no elevated jugular venous pressure. HEART EXAMINATION: Heart S1, S2 normal. No murmur or gallop heard. CHEST EXAMINATION: Lungs are clear with fine expiratory wheezes . No chest wall tenderness is noted on palpation or with deep breathing. ABDOMEN: Soft, nontender. Bowel sounds are heard. No organomegaly noted. EXTREMITIES:[1+ peripheral pulses to the left lower extremity with a trace of peripheral edema, patient has a right above the knee amputation, small ulcerated area noted on the left foot. NEUROLOGIC patient is awake, alert and oriented -3. . - Labs CBC & Chem 7: 04/10/16 06:54 04/10/16 06:46 Labs: Abnormal Lab Results - Last 24 Hours (Table) 04/09/16 04/09/16 04/10/16 Range/Units 16:59 20:35 06:28 RBC (3.80-5.40) m/uL MCV (80.0-100.0) fL RDW (11.5-15.5) % Sodium (137-145) mmol/L Carbon Dioxide (22-30) mmol/L BUN (7-17) mg/dL Creatinine (0.52-1.04) mg/dL Glucose (74-99) mg/dL POC Glucose (mg/dL) 67 L 146 H 148 H (75-99) mg/dL 04/10/16 04/10/16 Range/Units 06:46 06:54 RBC 3.68 L (3.80-5.40) m/uL MCV 100.7 H (80.0-100.0) fL RDW 18.6 H (11.5-15.5) % Sodium 136 L (137-145) mmol/L Carbon Dioxide 21 L (22-30) mmol/L BUN 64 H (7-17) mg/dL Creatinine 1.90 H (0.52-1.04) mg/dL Glucose 147 H (74-99) mg/dL POC Glucose (mg/dL) (75-99) mg/dL Assessment and Plan (1) Systolic CHF, acute on chronic Status: Acute (2) CAD (coronary artery disease) Status: Acute (3) AICD (automatic cardioverter/defibrillator) present Status: Acute (4) Ischemic cardiomyopathy Status: Acute (5) PAD (peripheral artery disease) Status: Acute (6) History of right above knee amputation Status: Acute (7) HTN (hypertension) Status: Acute (8) Diabetes Status: Acute (9) Hyperlipemia Status: Acute (10) Renal insufficiency Status: Acute Plan: From cardiology's perspective, we will discontinue the IV Lasix and start the patient on oral diuretics. She may be able to be discharged home today from cardiology's perspective, to follow-up in the office with Dr. Jauregui. If the patient is discharged today, we will obtain lytes BUN and creatinine in one week. DNP note has been reviewed, I agree with a documented findings and plan of care. Patient was seen and examined.
[2016-04-10 11:50] LABS: Glucose,Whole Blood 99 mg/dL (75-99)
[2016-04-10 13:34] VITALS: BP 117/68; PULSE 75; TEMP 98.3
--- NOTE | 2016-04-10 18:50 | P.PN ---
Subjective Principal diagnosis: Shortness of breath This is a 55-year-old female. She has an extensive history of gangrene of the right foot with necrotizing fasciitis with multiple surgeries including extensive debridements and malleolar amputation. Patient subsequently underwent [id number]-zui-[id number] amputation with Dr. Valenzuela in October 2013. She now has a diabetic wound on the dorsal surface of the left foot. She has been treated by her primary care physician for approximately the last 3 months and initially was placed on Bactrim followed by clindamycin and was told she had MRSA and E. coli in the wound. She states she completed that course of antibiotics and the wound size seemed to be improving and smaller. Was recently hospitalized and had the ulcer treated with therahoney. The patient was recently Hospital as which point in time she had an acute myocardial infarction. Cardiac catheterization was performed and multiple stents were placed. She has some difficulty to her right groin and this is now doing well this time. Is now presenting to hospital with the significant shortness of breath. Evidence of congestive heart failure by her chest x-ray and a BNP of greater than 20,000.. Considerably better today. Looking forward to going home. Objective - Vital Signs Vital signs: Vital Signs Temp 98.3 F 04/10/16 12:00 Pulse 75 04/10/16 12:00 Resp 18 04/10/16 12:00 BP 117/68 04/10/16 12:00 Pulse Ox 97 04/10/16 12:00 Intake & Output 04/09/16 04/10/16 04/10/16 18:59 06:59 18:59 Intake Total 402 10 744 Output Total 1999 2 Balance -1598 10 742 Weight 85.5 kg Intake: IV 10 Sodium Chloride 0.9% 1, 10 000 ml @ 20 mls/hr IV . Q24H [facility] Rx#:[id number] Oral 402 744 Output: Urine 2000 Urine/Stool Mix 2 Other: Voiding Method Bedside Commode Bedside Commode - Exam Gen: This is a 55-year-old female. She is sitting up in bed and appears to be in no acute distress. HEENT: Head is atraumatic, normocephalic. Pupils equal, round. Sclerae is anicteric. Conjunctiva slightly pale. Mucous members of the mouth are somewhat dry. NECK: Supple. No JVD. No lymphadenopathy. No thyromegaly. LUNGS: Occasional inspiratory wheeze and a few crackles.. No intercostal retractions. HEART: Regular rate and rhythm. Systolic murmur. AICD noted at the left anterior upper chest wall with no signs of tenderness. ABDOMEN: Soft. Bowel sounds are present. No masses. No tenderness. EXTREMITIES: Right [id number] amputation. Stump has no signs of erythema, wound. To the left foot, no pedal edema. Diabetic ulcer on the dorsal surface of the left foot at the proximal first metatarsal/mid metatarsal. Measures at 1.3 x 1.2 x 0.1 cm Mild erythema, no purulent drainage. NEUROLOGICAL: Patient is awake, alert and oriented x3 - Labs CBC & Chem 7: 04/10/16 06:54 04/10/16 06:46 Labs: Abnormal Lab Results - Last 24 Hours (Table) 04/09/16 04/10/16 04/10/16 Range/Units 20:35 06:28 06:46 RBC (3.80-5.40) m/uL MCV (80.0-100.0) fL RDW (11.5-15.5) % Sodium 136 L (137-145) mmol/L Carbon Dioxide 21 L (22-30) mmol/L BUN 64 H (7-17) mg/dL Creatinine 1.90 H (0.52-1.04) mg/dL Glucose 147 H (74-99) mg/dL POC Glucose (mg/dL) 146 H 148 H (75-99) mg/dL 04/10/16 Range/Units 06:54 RBC 3.68 L (3.80-5.40) m/uL MCV 100.7 H (80.0-100.0) fL RDW 18.6 H (11.5-15.5) % Sodium (137-145) mmol/L Carbon Dioxide (22-30) mmol/L BUN (7-17) mg/dL Creatinine (0.52-1.04) mg/dL Glucose (74-99) mg/dL POC Glucose (mg/dL) (75-99) mg/dL Assessment and Plan (1) Congestive heart failure (CHF) Status: Acute (2) Diabetic foot ulcer associated with type 2 diabetes mellitus, with fat layer exposed Narrative/Plan: Pleasant 55 show a presents to Hospital significant shortness of breath. Find evidence of the study and worsening of her congestive heart failure. Is working with her primary care physician and cardiology to determine the best possible course of her diuretic therapy. The chronic kidney disease been somewhat difficult to find a good balance between dehydration and volume overload. Is having some enhanced diuretic therapy and is now considerably improved. Ulceration foot is doing very well. The DuoDERM product can be applied to this area to protect it and to allow him to further heal. It is not any significant debridement this point in time. It is not with any evidence of infection and she does not require antibiotic therapy at this point in time. She may follow in the office if she has any further need after discharge. Status: Acute
--- NOTE | 2016-04-11 23:00 | DS ---
DATE OF ADMISSION: 04/06/2016 DATE OF DISCHARGE: 04/10/2016 FINAL DIAGNOSES: 1. Acute on chronic congestive heart failure exacerbation from systolic and diastolic dysfunction; ejection fraction 25%, from underlying coronary artery disease, present on admission. 2. Diabetes mellitus, type 2, chronically on insulin, causing peripheral neuropathy. 3. Essential hypertension, chronic. 4. Chronic fibromyalgia. 5. Automatic implantable cardioverter defibrillator, chronic. 6. Primary osteoarthritis in multiple joints. 7. Hyperlipidemia. 8. Chronic right above-knee amputation back in 2013. 9. Left dorsum infection, methicillin-resistant Staphylococcus aureus, recently treated and has completed a course of antibiotics. 10. Chronic kidney disease, probably from diabetic nephropathy and hypertensive nephrosclerosis. 11. Acute non-Q-wave myocardial infarction in a patient with known coronary artery disease in the last 30 days. 12. Coronary artery disease with history of stent. HOSPITAL COURSE: This patient with recent coronary intervention presented with CHF exacerbation, responded well to diuretics. Doing much better at the time of discharge. Dose of Lasix was adjusted. Patient's BUN and creatinine were 64 and 1.90 at the time of discharge. CONSULTATIONS: 1. Dr. Hunter, Infectious Disease. 2. Dr. Ceballos, Cardiology. On examination, lungs are clear. CARDIOVASCULAR: First and second sounds normal. DISCHARGE MEDICATIONS: 1. Elavil 25 mg p.o. at bedtime. 2. Percocet 10 one tablet p.o. q.i.d. 3. Xanax 0.5 p.o. at bedtime. 4. Aspirin 81 mg a day. 5. Plavix 75 mg a day. 6. Fish oil 1200 mg p.o. 3 capsules p.o. t.i.d. 7. Tresiba Flextouch U-100 56 units subcutaneously at bedtime. 8. Lispro KwikPen 20 units subcutaneously with breakfast. 9. MS Contin ER 50 mg p.o. b.i.d. 10. Seroquel XR 50 mg p.o. at bedtime. 11. Lispro 12 units with supper; 20 units with lunch. 12. Lipitor 80 mg at bedtime. 13. Lopressor 25 mg p.o. b.i.d. 14. Nitrostat 0.4 sublingually q.5 p.r.n. 15. Prozac 60 mg p.o. daily. 16. Lasix 80 mg p.o. daily. 17. Neurontin 100 mg p.o. t.i.d. 18. Aldactone 25 mg p.o. daily. Follow up with Dr. Jauregui on April 27, 2016. Follow up with Dr. Rhona Thomas on April 12, 2016. BMP in 3 days. Care was discussed in detail with the patient. Discharge planning more than 35 minutes.
== END 2016-04-10 15:17 | disposition home health service (06) | DRG 280 ==
LOC: EC 10:37 → 6SEL 15:26
PROVIDERS: ADMIT Internal Medicine; ATTEND Hospitalist
DX: I13.0 Hypertensive heart and chronic kidney disease with heart failure and stage 1 through stage 4 chronic kidney disease, or unspecified chronic kidney disease (principal); I50.43 Acute on chronic combined systolic (congestive) and diastolic (congestive) heart failure; I21.4 Non-ST elevation (NSTEMI) myocardial infarction; E11.21 Type 2 diabetes mellitus with diabetic nephropathy; E11.42 Type 2 diabetes mellitus with diabetic polyneuropathy; Z89.611 Acquired absence of right leg above knee; E11.22 Type 2 diabetes mellitus with diabetic chronic kidney disease; I25.10 Atherosclerotic heart disease of native coronary artery without angina pectoris; L97.522 Non-pressure chronic ulcer of other part of left foot with fat layer exposed; E11.621 Type 2 diabetes mellitus with foot ulcer; R74.8 Abnormal levels of other serum enzymes; I25.5 Ischemic cardiomyopathy; D63.8 Anemia in other chronic diseases classified elsewhere; I25.2 Old myocardial infarction; K29.00 Acute gastritis without bleeding; E11.51 Type 2 diabetes mellitus with diabetic peripheral angiopathy without gangrene; N18.3 Chronic kidney disease, stage 3 (moderate); E86.0 Dehydration; F41.9 Anxiety disorder, unspecified; R50.9 Fever, unspecified; R53.1 Weakness; E78.5 Hyperlipidemia, unspecified; M79.7 Fibromyalgia; M19.91 Primary osteoarthritis, unspecified site; K21.9 Gastro-esophageal reflux disease without esophagitis; G89.29 Other chronic pain; F32.9 Major depressive disorder, single episode, unspecified; M54.9 Dorsalgia, unspecified; F12.90 Cannabis use, unspecified, uncomplicated; H91.90 Unspecified hearing loss, unspecified ear; Z79.82 Long term (current) use of aspirin; Z95.5 Presence of coronary angioplasty implant and graft; Z95.810 Presence of automatic (implantable) cardiac defibrillator; Z79.4 Long term (current) use of insulin; Z87.442 Personal history of urinary calculi; Z87.891 Personal history of nicotine dependence; Z79.02 Long term (current) use of antithrombotics/antiplatelets; Z82.49 Family history of ischemic heart disease and other diseases of the circulatory system; Z86.14 Personal history of Methicillin resistant Staphylococcus aureus infection; Z88.1 Allergy status to other antibiotic agents; Z86.19 Personal history of other infectious and parasitic diseases; Z79.891 Long term (current) use of opiate analgesic; Z79.899 Other long term (current) drug therapy; Z82.3 Family history of stroke; Z80.9 Family history of malignant neoplasm, unspecified
CPT/HCPCS: 36415; 71010; 71020; 80048; 80053; 81003; 82150; 82550; 82553; 83036; 83690; 83735; 83880; 84484; 85025; 85610; 85730; 87040; 93005; 94640; 96374; 96375; 99291

== ENCOUNTER → 2016-10-13 | Outpatient (CLI) | payer MEDICARE, OTHER ==
[2016-10-13 12:07] LABS: Basophils # (A) 0.1 k/uL (0-0.2); Basophils % (A) 1 %; CH 32.4; CHCM 34.5; Eosinophils # (A) 0.5 k/uL (0-0.7); Eosinophils % (A) 4 %; HCT 39.2 % (34.0-46.0); HDW 2.87; HGB 13.4 gm/dL (11.4-16.0); Luc # (Auto) 0.25; Luc % (Auto) 2; Lymphocytes % (A) 37 %; MCH 32.3 pg (25.0-35.0); MCHC 34.2 g/dL (31.0-37.0); MCV 94.5 fL (80.0-100.0); Mean Platelet Volume 7.1; Monocytes # (A) 0.5 k/uL (0-1.0); Monocytes % (A) 5 %; Neutrophils # (A) 5.4 k/uL (1.3-7.7); Neutrophils % (A) 51 %; RBC 4.15 m/uL (3.80-5.40); RDW 15.1 % (11.5-15.5); WBC 10.8 k/uL (3.8-10.6); WBC (Perox) 10.44
[2016-10-13 12:22] LABS: Calcium 9.5 mg/dL (8.4-10.2); Magnesium 1.7 mg/dL (1.6-2.3); Phosphorous 5.1 mg/dL (2.5-4.5); Potassium 4.6 mmol/L (3.5-5.1); Total Bilirubin 0.4 mg/dL (0.2-1.3); Total Protein 7.3 g/dL (6.3-8.2)
[2016-10-13 12:39] LABS: % Iron Saturation 22.6 % (20-50)
== END | disposition home or self-care (01) ==
LOC: LABWHC1 11:36
PROVIDERS: ATTEND Internal Medicine Interventional Cardiology
DX: E78.2 Mixed hyperlipidemia (principal); N18.3 Chronic kidney disease, stage 3 (moderate); E55.9 Vitamin D deficiency, unspecified; D50.9 Iron deficiency anemia, unspecified
CPT/HCPCS: 36415; 80053; 80061; 82306; 82728; 83540; 83550; 83735; 83970; 84100; 85025

== ENCOUNTER 2017-12-12 06:40 | Day surgery (SDC) | payer MEDICARE, OTHER ==
[2017-12-06 16:01] VITALS: BMI 30.7
[~2017-12-12 06:40] MED LIST: LACTATED RINGERS 1,000 ML IV SCH; SODIUM CHLORIDE 0.9% 1,000 ML IV SCH
[2017-12-12 07:20] VITALS: PULSE 94; TEMP 98.6
[2017-12-12 07:24] LABS: Glucose,Whole Blood 97 mg/dL (75-99)
[2017-12-12] MEDS ORDERED: LIDOCAINE 1% INJ 10MG/ML (20 ML MDV) ONE (07:40)
[2017-12-12] MEDS ORDERED: MIDAZOLAM 2 MG/2 ML VIAL ONE (07:40)
[2017-12-12] MEDS ORDERED: PROPOFOL 10 MG/ML 20 ML VIAL IV ONE (07:40)
[2017-12-12 07:48] LABS: Potassium 4.1 mmol/L (3.5-5.1)
[2017-12-12] MEDS ORDERED: IOPAMIDOL-250 50ML BTL IV ONE (07:54)
[2017-12-12] MEDS ORDERED: IV FLUID CONTINUATION 450 ML IV ONE (08:08)
--- NOTE | 2017-12-12 08:28 | P.PCN ---
Preoperative Diagnosis: Diagnosis History of severe cardio myopathy with biventricular ICD, [facility] Since July 2017 has been a gradually rising trend in the impedance of the RV ICD lead as well as thresholds. I thresholds noted in the office Patient brought in for cine fluoroscopy of the leads, left upper extremity venogram for possible implantation of a new ICD lead and DFT testing to check the integrity of the ICD lead Labs reviewed sodium 141 potassium 4.1 BUN 40 creatinine 1.01 GFR 62 Biventricular ICD interrogation reveals RV pacing threshold is 6.5 V at 1.5 ms pacing impedance 7075 ohms high-voltage impedance 74 ohms R-wave sensing 8.6 mV no noise noted LV pacing threshold 2 V at 0.5 ms pacing impedance 690 ohms Cinefluoroscopy of the leads was performed No fractures or breaks noted in relation to the ICD lead Original venous access appears fairly lateral and axillary rather than subclavian Left upper extremity venogram was performed Mild stenosis in the subclavian vein with collaterals but patent enough to accommodate another DFT testing and anesthesia A DC. A shock was used to induce ventricular fibrillation. This was adequately and appropriately detected with 3 dropouts and successfully internally defibrillated with 10 J shock in the interval configuration high- voltage impedance of 74 ohms charge time 1.6 seconds no post shock noise The device was then reprogrammed MADIT RIT programming Since the RV threshold was very high, RV pacing was turned off LV pacing only 3 V at 0.7 ms Increase battery longevity in the process . Reaction time reprogrammed to medium Ventricular Noise reversion mode turned on Plan Yearly DFTs If there is further increase in the impedances, a new ICD lead will be implanted
[2017-12-12 10:41] VITALS: BP 122/70; RESP 18
== END 2017-12-12 10:34 | disposition home or self-care (01) ==
LOC: CATHEP 06:40
PROVIDERS: ATTEND Internal Medicine Clinical Cardiac Electrophysiology
DX: I12.9 Hypertensive chronic kidney disease with stage 1 through stage 4 chronic kidney disease, or unspecified chronic kidney disease (principal); E11.22 Type 2 diabetes mellitus with diabetic chronic kidney disease; N18.9 Chronic kidney disease, unspecified; E11.51 Type 2 diabetes mellitus with diabetic peripheral angiopathy without gangrene; Z79.4 Long term (current) use of insulin; E78.2 Mixed hyperlipidemia; Z95.5 Presence of coronary angioplasty implant and graft; Z82.49 Family history of ischemic heart disease and other diseases of the circulatory system; Z79.02 Long term (current) use of antithrombotics/antiplatelets; Z79.82 Long term (current) use of aspirin; Z79.899 Other long term (current) drug therapy; Z79.891 Long term (current) use of opiate analgesic
CPT/HCPCS: 36005; 93642; 75820; 76000; 80048; J2250; J2001; J2704; Q9966

== ENCOUNTER 2018-02-26 21:27 | Emergency (ER) | payer MEDICARE ==
[2018-02-26] MEDS ORDERED: MORPHINE SULFATE 4 MG/ML SYRINGE IVP STA (21:52)
--- NOTE | 2018-02-26 22:35 | XR ---
EXAMINATION TYPE: XR Hip Complete RT DATE OF EXAM: 02/26/2018 COMPARISON: NONE HISTORY: Fall. Pain. TECHNIQUE: 2 views FINDINGS: Right hip joint appears intact. I see no fracture nor dislocation. There is amputation defo rmity at the mid shaft of the femur. Acetabulum is intact. IMPRESSION: No acute abnormality of the right hip. No fracture seen.
--- NOTE | 2018-02-26 22:39 | ED ---
General Adult HPI - General Chief complaint: Extremity Injury, Lower Stated complaint: fall Time Seen by Provider: 02/26/18 21:40 Source: patient, RN notes reviewed Mode of arrival: EMS Limitations: no limitations - History of Present Illness Initial comments: 49-year-old female with complicated medical history presents to the emergency department for a chief complaint of right lower extremity pain. Patient states she was getting out of the bathtub when she caught her foot on her wheelchair and states that her right lower extremity hit the bar of her wheelchair. Patient states she has an above-knee amputation of the right leg and feels like the "stump" took the full force of the fall. She denies hitting her head or loss of consciousness. Patient denies any back pain or neck pain. She denies any pain besides her right leg. She states she has not taken her pain medications and is due. She denies any dizziness or lightheadedness preceding the fall. Patient has no other complaints at this time including shortness of breath, chest pain, abdominal pain, nausea or vomiting, headache, or visual changes. - Related Data Home Medications Medication Instructions Recorded Confirmed Amitriptyline HCl [Elavil] 25 mg PO HS 08/28/13 02/26/18 oxyCODONE-APAP 10-325MG [Percocet 1 tab PO QID 08/28/13 02/26/18 10-325 mg] ALPRAZolam [Xanax] 0.5 mg PO HS 10/06/15 02/26/18 Aspirin 81 mg PO HS 10/06/15 02/26/18 Clopidogrel [Plavix] 75 mg PO DAILY 10/06/15 02/26/18 Fish Oil/Dha/Epa [Fish Oil 1,200 1 cap PO TID 10/06/15 02/26/18 mg Fish Oil] Morphine Sulfate ER [Ms Contin] 15 mg PO BID 10/06/15 02/26/18 QUEtiapine FUMARATE [SEROquel XR] 50 mg PO HS 10/06/15 02/26/18 Insulin Lispro [humaLOG Kwikpen] 31 - 39 unit SQ TID-W/MEALS 03/02/16 02/26/18 FLUoxetine HCL [PROzac] 60 mg PO DAILY 04/06/16 02/26/18 Furosemide [Lasix] 40 mg PO DAILY 12/06/17 02/26/18 Insulin Glargine,Hum.rec.anlog 83 unit SQ BID 12/06/17 02/26/18 [Toingrid Perla] Cholecalciferol [Vitamin D3] 4,000 unit PO DAILY 02/26/18 02/26/18 Gabapentin [Neurontin] 300 mg PO DAILY 02/26/18 02/26/18 Previous Rx's Medication Instructions Recorded Atorvastatin [Lipitor] 80 mg PO HS #30 tab 03/25/16 Metoprolol Tartrate [Lopressor] 25 mg PO BID #60 tab 03/25/16 Allergies Allergy/AdvReac Type Severity Reaction Status Date / Time vancomycin Allergy Rash/Hives Verified 02/26/18 21:42 ciprofloxacin [From Cipro] AdvReac Nausea & Verified 02/26/18 21:42 Vomiting ciprofloxacin HCl AdvReac Nausea & Verified 02/26/18 21:42 [From Cipro] Vomiting Review of Systems ROS Statement: Those systems with pertinent positive or pertinent negative responses have been documented in the HPI. ROS Other: All systems not noted in ROS Statement are negative. Past Medical History Past Medical History: Coronary Artery Disease (CAD), Heart Failure, Diabetes Mellitus, Fibromyalgia, GERD/Reflux, Hearing Disorder / Deafness, Hyperlipidemia , Hypertension, Myocardial Infarction (MD), Musculoskeletal Disorder, Osteoarthritis (OA), Renal Disease, Skin Disorder, Vascular Disorder Additional Past Medical History / Comment(s): See Dr Durant's H&P, nephrolithiasis and kidney stones, peripheral vascular disease, degenerative disc disease-chronic back pain,Rt AKA-does not use prosthesis r/t phantom pain. Last Myocardial Infarction Date:: 2004,2006, 2015 History of Any Multi-Drug Resistant Organisms: MRSA Date of last positivie culture/infection: 02/24/16 LT FOOT-VERIFIED PER DR VASQUEZ OFFICE MDRO Source:: LT FOOT Past Surgical History: AICD, Section, Heart Catheterization, Heart Catheterization With Stent, Orthopedic Surgery, Pacemaker, Tonsillectomy Additional Past Surgical History / Comment(s): Right rotator cuff surgery 2, bilateral carpal tunnel release,3 cardiac catheterization ,6 stents, above-knee amputation of the right lower extremity, incision and debridement of diabetic wounds, [facility] Biventricular AICD placement Past Anesthesia/Blood Transfusion Reactions: No Reported Reaction, Motion Sickness Additional Past Anesthesia/Blood Transfusion Reaction / Comment(s): CLAUSTERPHOBIA. PAST BLOOD TRANSFUSION-NO REACTION Date of Last Stent Placement:: 2015 Type of Cardiac Device: AICD Device Placement Date:: Past Psychological History: Anxiety, Depression Smoking Status: Former smoker - Past Family History Sister(s) Family Medical History: Cancer Additional Family Medical History / Comment(s): 2 SISTERS Mother Family Medical History: Coronary Artery Disease (CAD), Hyperlipidemia, Hypertension Additional Family Medical History / Comment(s): CABG Father Family Medical History: CVA/TIA, Hyperlipidemia, Hypertension, Myocardial Infarction (MD) General Exam Limitations: no limitations General appearance: alert, in no apparent distress Head exam: Present: atraumatic, normocephalic, normal inspection Eye exam: Present: normal appearance, PERRL, EOMI. Absent: scleral icterus, conjunctival injection, periorbital swelling ENT exam: Present: normal exam, mucous membranes moist Neck exam: Present: normal inspection, full ROM. Absent: tenderness, meningismus, lymphadenopathy Respiratory exam: Present: normal lung sounds bilaterally. Absent: respiratory distress, wheezes, rales, rhonchi, stridor Cardiovascular Exam: Present: regular rate, normal rhythm, normal heart sounds. Absent: systolic murmur, diastolic murmur, rubs, gallop, clicks Extremities exam: Present: full ROM (Patient is moving the right hip without difficulty), tenderness (Tenderness noted in the right proximal lower extremity ), other (No signs of trauma noted in the right lower extremity, patient does have above knee amputation on the right lower extremity.) Course Vital Signs 02/26/18 21:29 Temperature 99.1 F Pulse Rate 66 Respiratory 20 Rate Blood Pressure 139/80 O2 Sat by Pulse 96 Oximetry Medical Decision Making - Medical Decision Making 57-year-old female with computed past medical history and above-knee patient of the right lower extremity presents to the emergency department for right lower extremity pain. Patient fell today getting out of the shower onto the right lower extremity at amputation site. She denies hitting her head or loss of consciousness. No neck or back pain. On exam no tenderness to palpation of the neck thoracic or lumbar spines. She does have some tenderness over the right lower extremity, no signs of trauma such as ecchymosis or lacerations noted. X-ray of the right femur shows no acute abnormality or fracture seen. X -ray of the pelvis shows a negative exam. Patient was given morphine which she takes at home and states her pain is much better. She feels she is ready to go home. Discussed following up with primary care in the next 1-2 days as she may need repeat x-ray if symptoms do not resolve in the next week or so. She will return here if she has any worsening symptoms which she agrees with. Disposition Clinical Impression: Leg pain, right Disposition: HOME SELF-CARE Condition: Good Instructions: Leg Pain (ED) Additional Instructions: Please rest ice and elevate the right leg. Please take your pain medications at home. Please follow-up with primary care in the next 1-2 days. Return to the emergency Department if you have any worsening symptoms. Is patient prescribed a controlled substance at d/c from ED?: No Referrals: Rhona Thomas DO [Primary Care Provider] - 1-2 days Time of Disposition: 23:07
--- NOTE | 2018-02-26 22:42 | XR ---
EXAMINATION TYPE: XR pelvis AP view DATE OF EXAM: 02/26/2018 COMPARISON: NONE HISTORY: Pain after falling TECHNIQUE: Single view FINDINGS: The pelvic ring is intact. Proximal femurs and hip joints are intact. Sacroiliac joints are intact. There is no evidence of a pelvic fracture. IMPRESSION: Negative pelvis x-ray exam.
[2018-02-26 23:17] VITALS: BP 132/75; PULSE 64; RESP 19; TEMP 98.7
== END 2018-02-26 23:32 | disposition home or self-care (01) ==
LOC: EC 21:27
DX: M79.604 Pain in right leg (principal); I25.10 Atherosclerotic heart disease of native coronary artery without angina pectoris; I11.0 Hypertensive heart disease with heart failure; I50.9 Heart failure, unspecified; E11.9 Type 2 diabetes mellitus without complications; M79.7 Fibromyalgia; I25.2 Old myocardial infarction; M19.90 Unspecified osteoarthritis, unspecified site; I73.9 Peripheral vascular disease, unspecified; F41.9 Anxiety disorder, unspecified; F32.9 Major depressive disorder, single episode, unspecified; Z89.611 Acquired absence of right leg above knee; Z86.14 Personal history of Methicillin resistant Staphylococcus aureus infection; Z95.810 Presence of automatic (implantable) cardiac defibrillator; Z95.818 Presence of other cardiac implants and grafts; Z95.5 Presence of coronary angioplasty implant and graft; Z87.891 Personal history of nicotine dependence; Z79.891 Long term (current) use of opiate analgesic; Z79.82 Long term (current) use of aspirin; Z79.02 Long term (current) use of antithrombotics/antiplatelets; Z79.4 Long term (current) use of insulin; Z79.899 Other long term (current) drug therapy; Z88.1 Allergy status to other antibiotic agents; W22.03XA Walked into furniture, initial encounter; Y92.009 Unspecified place in unspecified non-institutional (private) residence as the place of occurrence of the external cause
CPT/HCPCS: 72170; 73502; 99284; 96374; J2270

== ENCOUNTER → 2018-06-14 | Outpatient (CLI) | payer MEDICARE | LOC: LABWHC1 11:46 | PROVIDERS: ATTEND Nurse Practitioner Adult Health | DX: E78.2 Mixed hyperlipidemia (principal) | CPT/HCPCS: 36415; 80061; 84450; 84460 ==

== ENCOUNTER 2018-11-15 10:58 | Emergency (ER) | payer MEDICARE ==
[2018-11-15 11:24] VITALS: BP 175/98; PULSE 88; RESP 18; TEMP 98
[2018-11-15 12:06] LABS: Albumin 4.2 g/dL (3.5-5.0); Calcium 10.2 mg/dL (8.4-10.2); Potassium 4.4 mmol/L (3.5-5.1); Total Bilirubin 0.5 mg/dL (0.2-1.3); Total Protein 7.9 g/dL (6.3-8.2)
[2018-11-15 12:11] LABS: Basophils # (A) 0.1 k/uL (0-0.2); Basophils % (A) 1 %; Eosinophils # (A) 0.3 k/uL (0-0.7); Eosinophils % (A) 5 %; HCT 43.5 % (34.0-46.0); HGB 14.2 gm/dL (11.4-16.0); Lymphocytes % (A) 32 %; MCH 31.4 pg (25.0-35.0); MCHC 32.6 g/dL (31.0-37.0); MCV 96.2 fL (80.0-100.0); Mean Platelet Volume 6.5; Monocytes # (A) 0.4 k/uL (0-1.0); Monocytes % (A) 6 %; Neutrophils # (A) 3.5 k/uL (1.3-7.7); Neutrophils % (A) 54 %; Platelet Count 168 k/uL (150-450); RBC 4.52 m/uL (3.80-5.40); RDW 15.1 % (11.5-15.5); WBC 6.4 k/uL (3.8-10.6)
[2018-11-15] MEDS ORDERED: MORPHINE SULFATE 4 MG/ML SYRINGE IV STA (12:11)
[2018-11-15 12:39] LABS: Appearance,Urine Turbid (Clear); Bacteria,Urine Many /hpf; Bilirubin,Urine Negative (Negative); Blood,Urine Small (Negative); Color,Urine Yellow; Glucose,Urine (UA) Negative (Negative); Ketones,Urine Negative (Negative); Leukocyte Esterase,Urine Large (Negative); Mucus,Urine Rare /hpf; Nitrite,Urine Negative (Negative); PH, Urine 6.5 (5.0-8.0); Protein,Urine 3+ (Negative); RBC,Urine 5 /hpf (0-5); Specific Gravity,Urine 1.016 (1.001-1.035); Squamous Epithelial Cell,Urine 13 /hpf (0-4); Urobilinogen,Urine <2.0 mg/dL (<2.0); WBC,Urine >182 /hpf (0-5)
--- NOTE | 2018-11-15 12:47 | CT ---
EXAMINATION TYPE: CT lumbar spine wo con DATE OF EXAM: 11/15/2018 12:28 PM COMPARISON: None. HISTORY: Low back pain, difficult urination CT DLP: 1673 mGycm Automated exposure control for dose reduction was used. Unenhanced CT of the lumbar spine was performed. Bone and soft tissue window settings are submitted as well as coronal and sagittal reconstructions. FINDINGS: Visualized portions of the lungs are clear. There is moderate atheromatous calcification of the visualized vascular tree. There is a 6 mm calculus in the posterior middle pole calyx of the rig ht kidney. There is a moderate levoscoliosis. There is disc space loss and vacuum phenomena at L3-4, L4-5 and L5 -S1. There is a large partially calcified protrusion at L5-S1 deforming the thecal sac and causing mo derate central canal stenosis at this level. T12-L1, there is disc space loss. There is hypertrophic spondylosis present anteriorly. There is mild right-sided intervertebral foraminal narrowing. There is mild facet arthropathy. L1-L2: There is mild right-sided intervertebral foraminal narrowing. There is no significant compress rufino discopathy. There is facet arthropathy. There is mild trefoiling of the thecal sac. L2-L3: The intervertebral foramina are well maintained. There is a diffuse disc displacement. This hy pertrophic changes within the facets. There is mild to moderate central canal stenosis. L3-L4: There is severe disc space loss. There is hypertrophic spondylosis as well as spondylosis defo rmans. Intervertebral foramina are reasonably well-maintained. There is diffuse disc displacement. Th ere are severe degenerative change in the facets. There is moderate to severe central canal stenosis. L4-L5: Intervertebral foramina are reasonably well-maintained. There is a broad-based disc protrusion . There are hypertrophic changes in the facets. There is moderate to severe central canal compromise. L5-S1: There is severe disc space loss and a vacuum phenomena. This partially calcified broad-based d isc protrusion causing mild to moderate central canal stenosis. There are degenerative changes in the facets. IMPRESSION: 1. SEVERE FACET ARTHROPATHY AND DEGENERATIVE DISC DISEASE. 2. MODERATE LEVOSCOLIOSIS. 3. MULTILEVEL INTERVERTEBRAL FORAMINAL NARROWING. 4. VARYING DEGREES OF CENTRAL CANAL COMPROMISE MOST MARKED AT L4-5.
[2018-11-15] MEDS ORDERED: cefTRIAXone 1,000 MG VIAL (IM USE) IM STA (12:49)
--- NOTE | 2018-11-15 12:52 | ED ---
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 Patient also reports that she has lumbar back pain which is worse than normal, she claims she has numbness and tingling in left lower extremity. Also complains of some paresthesias waxing and waning in R para labial region. Denies any loss of bowel or bladder control. Denies any recent falls or trauma. Patient denies any other complaints at this time. Systemic: Pt denies fatigue, fever/chills, rash. Pt denies weakness, night sweats, weight loss. Neuro: Pt denies headache, visual disturbances, syncope or pre-syncope. HEENT: Pt denies ocular discharge or irritation, otalgia, rhinorrhea, pharyng itis or notable lymphadenopathy. Cardiopulmonary: Pt denies chest pain, SOB, heart palpitations, dyspnea on exertion. Abdominal/GI: Pt denies abdominal pain, n/v/d. : Pt denies dysuria, burning w/ urination, frequency/urgency. Denies new onset urinary or bowel incontinence. MSK: Pt denies loss of strength or function in extremities. Neuro: Pt denies new onset weakness. - Related Data Home Medications Medication Instructions Recorded Confirmed Amitriptyline HCl [Elavil] 25 mg PO HS 08/28/13 02/26/18 oxyCODONE-APAP 10-325MG [Percocet 1 tab PO QID 08/28/13 02/26/18 10-325 mg] ALPRAZolam [Xanax] 0.5 mg PO HS 10/06/15 02/26/18 Aspirin 81 mg PO HS 10/06/15 02/26/18 Clopidogrel [Plavix] 75 mg PO DAILY 10/06/15 02/26/18 Fish Oil/Dha/Epa [Fish Oil 1,200 1 cap PO TID 10/06/15 02/26/18 mg Fish Oil] Morphine Sulfate ER [Ms Contin] 15 mg PO BID 10/06/15 02/26/18 QUEtiapine FUMARATE [SEROquel XR] 50 mg PO HS 10/06/15 02/26/18 Insulin Lispro [humaLOG Kwikpen] 31 - 39 unit SQ TID-W/MEALS 03/02/16 02/26/18 FLUoxetine HCL [PROzac] 60 mg PO DAILY 04/06/16 02/26/18 Furosemide [Lasix] 40 mg PO DAILY 12/06/17 02/26/18 Insulin Glargine,Hum.rec.anlog 83 unit SQ BID 12/06/17 02/26/18 [Toujeo Solostar] Cholecalciferol [Vitamin D3] 4,000 unit PO DAILY 02/26/18 02/26/18 Gabapentin [Neurontin] 300 mg PO DAILY 02/26/18 02/26/18 Previous Rx's Medication Instructions Recorded Atorvastatin [Lipitor] 80 mg PO HS #30 tab 03/25/16 Metoprolol Tartrate [Lopressor] 25 mg PO BID #60 tab 03/25/16 Cephalexin [Keflex] 500 mg PO Q6HR 10 Days cap 11/15/18 Allergies Allergy/AdvReac Type Severity Reaction Status Date / Time vancomycin Allergy Rash/Hives Verified 11/15/18 11:21 ciprofloxacin [From Cipro] AdvReac Nausea & Verified 11/15/18 11:21 Vomiting ciprofloxacin HCl AdvReac Nausea & Verified 11/15/18 11:21 [From Cipro] Vomiting Review of Systems ROS Statement: Those systems with pertinent positive or pertinent negative responses have been documented in the HPI. ROS Other: All systems not noted in ROS Statement are negative. Past Medical History Past Medical History: Coronary Artery Disease (CAD), Heart Failure, Diabetes Mellitus, Fibromyalgia, GERD/Reflux, Hearing Disorder / Deafness, Hyperlipidemia, Hypertension, Myocardial Infarction ([place]), Musculoskeletal Disorder, Osteoarthritis (OA), Renal Disease, Skin Disorder, Vascular Disorder Additional Past Medical History / Comment(s): See Dr Durant's H&P, nephrolithiasis and kidney stones, peripheral vascular disease, degenerative disc disease-chronic back pain,Rt AKA-does not use prosthesis r/t phantom pain. Last Myocardial Infarction Date:: 2004,2006, 2015 History of Any Multi-Drug Resistant Organisms: MRSA Date of last positivie culture/infection: 02/24/16 LT FOOT-VERIFIED PER DR VASQUEZ OFFICE MDRO Source:: LT FOOT Past Surgical History: AICD, Section, Heart Catheterization, Heart C atheterization With Stent, Orthopedic Surgery, Pacemaker, Tonsillectomy Additional Past Surgical History / Comment(s): Right rotator cuff surgery 2, bilateral carpal tunnel release,3 cardiac catheterization ,6 stents, above-knee amputation of the right lower extremity, incision and debridement of diabetic wounds, [employer] Biventricular AICD placement Past Anesthesia/Blood Transfusion Reactions: No Reported Reaction, Motion Sickness Additional Past Anesthesia/Blood Transfusion Reaction / Comment(s): CLAUSTERPHOBIA. PAST BLOOD TRANSFUSION-NO REACTION Date of Last Stent Placement:: 2015 Type of Cardiac Device: AICD Device Placement Date:: Past Psychological History: Anxiety, Depression Smoking Status: Former smoker Past Alcohol Use History: None Reported Past Drug Use History: Marijuana - Past Family History Sister(s) Family Medical History: Cancer Additional Family Medical History / Comment(s): 2 SISTERS Mother Family Medical History: Coronary Artery Disease (CAD), Hyperlipidemia, Hypertension Additional Family Medical History / Comment(s): CABG Father Family Medical History: CVA/TIA, Hyperlipidemia, Hypertension, Myocardial Infarction ([place]) General Exam - General Exam Comments Initial Comments: Constitutional: NAD, AOX3, Pt has pleasant affect. HEENT: NC/AT, trachea midline, neck supple, no lymphadenopathy. Posterior pharynx non erythematous, without exudates. External ears appear normal, without discharge. Mucous membranes moist. Eyes PERRLA, EOM intact. There is no scleral icterus. No pallor noted. Cardiopulmonary: RRR, no murmurs, rubs or gallops, no JVD noted. Lungs CTAB in anterior and posterior enriquez. No peripheral edema. Abdominal exam: Abdomen soft and non-distended. Abdomen non-tender to palpation in all 4 quadrants. Bowel sounds active in LLQ. No hepatosplenomegaly. No ecchymosis Neuro: CN II-XII grossly intact. No nuchal rigidity. No raccon eyes, no simons s ign, no hemotympanum. No cervical spinal tenderness. MSK: No posterior calf tenderness bilaterally, homans sign negative bilaterally. Posterior tibialis and radial pulse LLE. Sensation intact in upper and lower extremities. Full active ROM in upper and lower extremities, 5/5 stregnth. Rectal: Good rectal tone chaperogned by [employer] Limitations: physical limitation Course Vital Signs 11/15/18 11:21 Temperature 98 F Pulse Rate 88 Respiratory 18 Rate Blood Pressure 175/98 O2 Sat by Pulse 93 L Oximetry Medical Decision Making - Medical Decision Making 58-year-old female patient past medical history of type 2 diabetes, chronic back pain, AICD placement, status post right below hip amputation secondary to infection presents ED chief complaint of straining to urinate and painful urination. Patient also reports that she has lumbar back pain which is worse than normal, she claims she has numbness and tingling in left lower extremity. Also complains of some waxing and waning in R para labial region. Denies any loss of bowel or bladder control. Denies any recent falls or trauma. Patient denies any other complaints at this time. Patient vital signs stable, afebrile. Left investigations displayed any function improved from baseline. Mild hyp erglycemia. UA displayed urinary tract infection. Physical exam displayed sensation, strength intact extremities. Good rectal tone. CT lumbar spine displayed severe facet arthropathy and degenerative disc disease, moderate levoscoliosis, multilevel intervertebral foraminal narrowing, varying degrees of central canal compromise most marked at L4-L5. Pt is previously aware of these findings however she was deemed not to be a surgical candidate when she was previously following up with an orthopedic surgeon. Patient's symptoms are chronic, likely not acute. She'll be treated for urinary tract infection, will discharge with close outpatient follow-up with orthopedic surgeon. Case discussed in depth with Dr. Cantu. - Lab Data Result diagrams: 11/15/18 11:43 11/15/18 11:43 Lab Results 11/15/18 11/15/18 11/15/18 Range/Units 11:43 11:43 12:30 WBC 6.4 (3.8-10.6) k/uL RBC 4.52 (3.80-5.40) m/uL Hgb 14.2 (11.4-16.0) gm/dL Hct 43.5 (34.0-46.0) % MCV 96.2 (80.0-100.0) fL MCH 31.4 (25.0-35.0) pg MCHC 32.6 (31.0-37.0) g/dL RDW 15.1 (11.5-15.5) % Plt Count 168 (150-450) k/uL Neutrophils % 54 % Lymphocytes % 32 % Monocytes % 6 % Eosinophils % 5 % Basophils % 1 % Neutrophils # 3.5 (1.3-7.7) k/uL Lymphocytes # 2.0 (1.0-4.8) k/uL Monocytes # 0.4 (0-1.0) k/uL Eosinophils # 0.3 (0-0.7) k/uL Basophils # 0.1 (0-0.2) k/uL Sodium 140 (137-145) mmol/L Potassium 4.4 (3.5-5.1) mmol/L Chloride 105 (98-107) mmol/L Carbon Dioxide 26 (22-30) mmol/L Anion Gap 9 mmol/L BUN 34 H (7-17) mg/dL Creatinine 1.13 H (0.52-1.04) mg/dL Est GFR (CKD-EPI)AfAm 62 (>60 ml/min/1.73 sqM) Est GFR (CKD-EPI)NonAf 53 (>60 ml/min/1.73 sqM) Glucose 230 H (74-99) mg/dL Calcium 10.2 (8.4-10.2) mg/dL Total Bilirubin 0.5 (0.2-1.3) mg/dL AST 60 H (14-36) U/L ALT 36 (9-52) U/L Alkaline Phosphatase 87 (38-126) U/L Total Protein 7.9 (6.3-8.2) g/dL Albumin 4.2 (3.5-5.0) g/dL Urine Color Yellow Urine Appearance Turbid H (Clear) Urine pH 6.5 (5.0-8.0) Ur Specific [place] 1.016 (1.001-1.035) Urine Protein 3+ H (Negative) Urine Glucose (UA) Negative (Negative) Urine Ketones Negative (Negative) Urine Blood Small H (Negative) Urine Nitrite Negative (Negative) Urine Bilirubin Negative (Negative) Urine Urobilinogen <2.0 (<2.0) mg/dL Ur Leukocyte Esterase Large H (Negative) Urine RBC 5 (0-5) /hpf Urine WBC >182 H (0-5) /hpf Urine WBC Clumps Many H (None) /hpf Ur Squamous Epith Cells 13 H (0-4) /hpf Urine Bacteria Many H (None) /hpf Urine Mucus Rare H (None) /hpf Disposition Clinical Impression: UTI (urinary tract infection), Lumbar back pain Disposition: HOME SELF-CARE Condition: Stable Instructions (If sedation given, give patient instructions): Urinary Tract Infection in Women (ED), Acute Low Back Pain (ED) Additional Instructions: Patient to adhere to previously discussed treatment plan and will take medication(s) as directed. Patient to follow up with PCP in 1-2 days. Patient to return to ED if symptoms do not improve. Follow-up with orthopedic surgeon and primary care provider on Saturday. Return to ER conditions worsen. Prescriptions: Cephalexin [Keflex] 500 mg PO Q6HR 10 Days cap Is patient prescribed a controlled substance at d/c from ED?: No Referrals: Rhona Thomas DO [Primary Care Provider] - 1-2 days Mikki Zarco DO [Doctor of Osteopathic Medicine] - 1-2 days
[2018-11-15] MEDS ORDERED: cefTRIAXone IN SWFI 1,000 MG/10 ML SYRINGE IVP STA (12:55)
== END 2018-11-15 14:13 | disposition home or self-care (01) ==
LOC: EC 10:58
DX: N39.0 Urinary tract infection, site not specified (principal); M54.5 Low back pain; M48.061 Spinal stenosis, lumbar region without neurogenic claudication; M51.36 Other intervertebral disc degeneration, lumbar region; M12.88 Other specific arthropathies, not elsewhere classified, other specified site; E11.65 Type 2 diabetes mellitus with hyperglycemia; I11.0 Hypertensive heart disease with heart failure; I50.9 Heart failure, unspecified; I25.10 Atherosclerotic heart disease of native coronary artery without angina pectoris; I25.2 Old myocardial infarction; F41.9 Anxiety disorder, unspecified; M79.7 Fibromyalgia; G89.29 Other chronic pain; F32.9 Major depressive disorder, single episode, unspecified; Z87.891 Personal history of nicotine dependence; Z79.891 Long term (current) use of opiate analgesic; Z79.02 Long term (current) use of antithrombotics/antiplatelets; Z79.4 Long term (current) use of insulin; Z79.82 Long term (current) use of aspirin; Z88.1 Allergy status to other antibiotic agents; Z87.442 Personal history of urinary calculi; Z86.14 Personal history of Methicillin resistant Staphylococcus aureus infection; Z89.611 Acquired absence of right leg above knee; Z95.810 Presence of automatic (implantable) cardiac defibrillator; Z95.5 Presence of coronary angioplasty implant and graft
CPT/HCPCS: 36415; 80053; 85025; 81001; 87086; 87077; 87186; 72131; 99284; 96374; 96375; J2270; J0696

== ENCOUNTER → 2018-12-06 | Outpatient (CLI) | payer MEDICARE ==
[2018-12-06 16:25] LABS: African American GFR (CKD) 43.7 (60.0-200.0); Albumin 3.8 g/dL (3.80-4.90); Albumin/Globulin Ratio 1.46 (1.60-3.17); Anion Gap 7.7 mmol/L (4.00-12.00); BUN/Creat Ratio 33.33 Ratio (12.00-20.00); Calcium 9.2 mg/dL (8.7-10.3); Carbon Dioxide 24.3 mmol/L (21.6-31.8); Chol/HDL Ratio 5.19; Globulin 2.6 g/dL (1.6-3.3); Potassium 4.6 mmol/L (3.5-5.5); Total Bilirubin 0.2 mg/dL (0.2-1.2); Total Protein 6.4 g/dL (6.2-8.2)
[2018-12-06 21:04] LABS: Hemoglobin A1C 8.3 % (4.0-6.0)
== END | disposition home or self-care (01) ==
LOC: LABWHC1 10:42
PROVIDERS: ATTEND Internal Medicine Interventional Cardiology
DX: E78.2 Mixed hyperlipidemia (principal); E11.65 Type 2 diabetes mellitus with hyperglycemia
CPT/HCPCS: 36415; 80053; 80061; 82043; 82570; 83036; 84443

== ENCOUNTER → 2019-01-08 | Outpatient (CLI) | payer MEDICARE ==
[2019-01-08 13:57] VITALS: BP 175/74; PULSE 80
--- NOTE | 2019-01-08 15:26 | P.PAINCN ---
History of Present Illness - Reason for Consult Consult date: 01/08/19 Requesting physician: Mikki Zarco - History of Present Illness This is a 58-year-old with multiple medical comorbidities including type 2 diabetes, ICD placement, multiple stents on Plavix, BK of the right leg. She was referred to us by Dr. Zarco, for potential interventions, she is not a good surgical candidate given her numerous medical comorbidities. She states that she had her pain got much worse one day when she was not able to urinate with straining and felt something pop. Then she has had incredible back and leg pain in bilateral legs including phantom limb pain in her right leg. Her pain is equally distributed between her legs and her back, her leg pain goes down in front of her knee to the top of the foot. However more concerning to her is her stress incontinence and then her constipation and she has been disimpacted 4 times the past month. For her pain she is taking morphine 15 twice a day and Percocet 01/01/2025 up to 4 times a day, described by her primary care doctor. She has multiple medical comorbidities which can be seen in our EMR. He has not had any interventional pain procedures. Past Medical History Past Medical History: Coronary Artery Disease (CAD), Heart Failure, Diabetes Mellitus, Fibromyalgia, GERD/Reflux, Hearing Disorder / Deafness, Hyperlipidemia, Hypertension, Myocardial Infarction ([place]), Musculoskeletal Disorder, Osteoarthritis (OA), Renal Disease, Skin Disorder, Vascular Disorder Additional Past Medical History / Comment(s): nephrolithiasis and kidney stones, peripheral vascular disease, degenerative disc disease-chronic back pain,Rt AKA- obtaining new prosthesis on 01/06/19 Last Myocardial Infarction Date:: 2004,2006, 2015 History of Any Multi-Drug Resistant Organisms: MRSA Year Discovered:: 02/24/16 LT FOOT-VERIFIED PER DR VASQUEZ OFFICE MDRO Source:: LT FOOT Past Surgical History: AICD, Section, Heart Catheterization, Heart Catheterization With Stent, Orthopedic Surgery, Pacemaker, Tonsillectomy Additional Past Surgical History / Comment(s): Right rotator cuff surgery 2, bilateral carpal tunnel release,3 cardiac catheterization ,6 stents, above-knee amputation of the right lower extremity, incision and debridement of diabetic wounds, [employer] Biventricular AICD placement Past Anesthesia/Blood Transfusion Reactions: No Reported Reaction, Motion Sickness Additional Past Anesthesia/Blood Transfusion Reaction / Comm: CLAUSTERPHOBIA. PAST BLOOD TRANSFUSION-NO REACTION Date of Last Stent Placement:: 2015 Type of Cardiac Device: AICD Device Placement Date:: Past Psychological History: Anxiety, Depression Additional Psychological History / Comment(s): use w/c Smoking Status: Former smoker Past Alcohol Use History: None Reported Additional Past Alcohol Use History / Comment(s): SMOKED 20 YEARS, 1 PPD, QUIT 07/2014. Past Drug Use History: Marijuana Additional Drug Use History / Comment(s): MEDICAL MARIJUANA-uses 3-4 nights per week - Past Family History Sister(s) Family Medical History: Cancer Additional Family Medical History / Comment(s): 2 SISTERS Mother Family Medical History: Coronary Artery Disease (CAD), Hyperlipidemia, Hypertension Additional Family Medical History / Comment(s): CABG Father Family Medical History: CVA/TIA, Hyperlipidemia, Hypertension, Myocardial Infarction ([place]) Medications and Allergies Home Medications Medication Instructions Recorded Confirmed Type Amitriptyline HCl [Elavil] 25 mg PO HS 08/28/13 01/08/19 History oxyCODONE-APAP 10-325MG [Percocet 1 tab PO QID 08/28/13 01/08/19 History 10-325 mg] ALPRAZolam [Xanax] 0.5 mg PO HS 10/06/15 01/08/19 History Aspirin 81 mg PO HS 10/06/15 01/08/19 History Clopidogrel [Plavix] 75 mg PO DAILY 10/06/15 01/08/19 History Morphine Sulfate ER [Ms Contin] 15 mg PO BID 10/06/15 01/08/19 History QUEtiapine FUMARATE [SEROquel XR] 50 mg PO HS 10/06/15 01/08/19 History Insulin Lispro [humaLOG Kwikpen] 50 unit SQ BID-W/MEALS 03/02/16 01/08/19 History Atorvastatin [Lipitor] 80 mg PO HS #30 tab 03/25/16 01/08/19 Rx Metoprolol Tartrate [Lopressor] 25 mg PO BID #60 tab 03/25/16 01/08/19 Rx FLUoxetine HCL [PROzac] 60 mg PO HS 04/06/16 01/08/19 History Insulin Glargine,Hum.rec.anlog 80 unit SQ BID 12/06/17 01/08/19 History [Marianne Perla] Gabapentin [Neurontin] 300 mg PO DAILY 02/26/18 01/08/19 History Docusate [Colace] 100 mg PO DAILY 01/05/19 01/08/19 History Ergocalciferol [Vitamin D2] 50,000 unit PO Q7D 01/05/19 01/08/19 History Famotidine 20 mg PO DAILY PRN 01/05/19 01/08/19 History Furosemide [Lasix] 40 mg PO DAILY 01/05/19 01/08/19 History Insulin Lispro [humaLOG Kwikpen] 30 unit SQ W/SUPPER 01/05/19 01/08/19 History Nitroglycerin Sl Tabs [Nitrostat] 0.4 mg SUBLINGUAL Q5M PRN 01/05/19 01/08/19 History Allergies Allergy/AdvReac Type Severity Reaction Status Date / Time vancomycin Allergy Rash/Hives Verified 01/08/19 13:04 ciprofloxacin [From Cipro] AdvReac Nausea & Verified 01/08/19 13:04 Vomiting ciprofloxacin HCl AdvReac Nausea & Verified 01/08/19 13:04 [From Cipro] Vomiting Physical Exam Vitals: Vital Signs Pulse BP 01/08/19 13:08 80 175/74 Vital Signs: Reviewed in EMR GENERAL: Well appearing, in no acute distress, PSYCH: Mood and affect is appropriate, however she was tearful later. Awake, alert, and oriented SKIN: Skin color, texture, turgor normal, no rashes or lesions HEENT: Normocephalic, atraumatic. EOM intact RESP: Respirations are unlabored, no audible wheezing GI: Abdomen non-distended MUSCULOSKELETAL: Bilateral upper and lower extremity strength is normal and symmetric. No atrophy or tone abnormalities are noted. That is post right BKA Lumbar spine: To pain to palpation over the lumbar spine and paraspinous muscles. Gait: Wheelchair bound NEUR: Cranial nerves are grossly intact. Results Results: CT of the lumbar spine reviewed in the EMR. She does have significant facet arthropathy, and moderate to severe spinal stenosis. Assessment and Plan Assessment: Assessment: 1. Spinal stenosis 2. Bowel and bladder dysfunction, she has seen a urologist. He has had a computed tomography scan since these symptoms that started. She has seen a surgeon. This is her most concerning symptoms. 3. Lumbar facet arthropathy 4. Cardiac stents on Plavix 5. ICD in place Plan: 1. Explanation: I explained to her that bowel or bladder dysfunction are very worrisome symptoms to us, she should see a cinder snapper. Cauda equina syndrome is something that was reviewed with her, she has had a computed tomography scan since he symptoms started and has seen a surgeon. 2. Opioid agreement: None 3. Counseling: The patient was counseled extensively on BODY MASS INDEX, EXERCISE. Specifically, the patient was instructed regarding the importance of weight control, and exercise in the context of both chronic pain and overall health. 4. Procedures: After discussion with her we will defer on interventions given her multiple Medical comorbidities. After her GI doctor has seen her, as it has patient may really be related to opioid use, we can reconsider interventions 5. Consultations: None 6. Investigations: Lumbar CT reviewed 7. Medications: Encouraged patient to have discussions with primary care physician 8. Disposition: We can consider seeing her back in clinic after she sees gastroenterology , PQRS Measure Charge Sheet Measure #130: Documentation of Current Meds in Medical Chart: Patient's medications documented in chart Measure #226: Tobacco Use: Screen & Cessation Intervention: Pt not a tobacco user Measure #111: Pneumonia Vaccination: Pneumococcal vaccine administered or previously received Measure #47: Advance Care Plan: Advance care planning discussed & documented, pt chose/unable to give Measure #131: Pain Assessment & Follow-up: Pain positive & plan documented, Follow-up scheduled Measure #431: Unhealthy Alcohol Use Preventative Care & Scrn: Patient not identified as an unhealthy alcohol user PQRS Narrative: Smoking Status Former smoker Blood Pressure 175/74 Pain Intensity [Lower Back] 5 Scale Used Numeric (1 - 10) Hx Alcohol Use (MH) No Home Medications: Ambulatory Orders Amitriptyline HCl [Elavil] 25 mg PO HS 08/28/13 oxyCODONE-APAP 10-325MG [Percocet 10-325 mg] 1 tab PO QID 08/28/13 ALPRAZolam [Xanax] 0.5 mg PO HS 10/06/15 Aspirin 81 mg PO HS 10/06/15 Clopidogrel [Plavix] 75 mg PO DAILY 10/06/15 Morphine Sulfate ER [Ms Contin] 15 mg PO BID 10/06/15 QUEtiapine FUMARATE [SEROquel XR] 50 mg PO HS 07/07/16 Insulin Lispro [humaLOG Kwikpen] 50 unit SQ BID-W/MEALS 03/02/16 Atorvastatin [Lipitor] 80 mg PO HS #30 tab 03/25/16 Metoprolol Tartrate [Lopressor] 25 mg PO BID #60 tab 03/25/16 FLUoxetine HCL [PROzac] 60 mg PO HS 04/06/16 Insulin Glargine,Hum.rec.anlog [Toujeo Solostar] 80 unit SQ BID 12/06/17 Gabapentin [Neurontin] 300 mg PO DAILY 02/26/18 Docusate [Colace] 100 mg PO DAILY 01/05/19 Ergocalciferol [Vitamin D2] 50,000 unit PO Q7D 01/05/19 Famotidine 20 mg PO DAILY PRN 01/05/19 Furosemide [Lasix] 40 mg PO DAILY 01/05/19 Insulin Lispro [humaLOG Kwikpen] 30 unit SQ W/SUPPER 01/05/19 Nitroglycerin Sl Tabs [Nitrostat] 0.4 mg SUBLINGUAL Q5M PRN 01/05/19
== END ==
LOC: PNWHC3 12:48
PROVIDERS: ATTEND Student in an Organized Health Care Education/Training Program
DX: M48.00 Spinal stenosis, site unspecified (principal); N31.9 Neuromuscular dysfunction of bladder, unspecified; M46.96 Unspecified inflammatory spondylopathy, lumbar region; K63.89 Other specified diseases of intestine; Z95.5 Presence of coronary angioplasty implant and graft; Z79.01 Long term (current) use of anticoagulants; Z95.810 Presence of automatic (implantable) cardiac defibrillator; Z87.891 Personal history of nicotine dependence; Z79.899 Other long term (current) drug therapy; Z79.891 Long term (current) use of opiate analgesic; Z79.82 Long term (current) use of aspirin; Z79.4 Long term (current) use of insulin; Z88.1 Allergy status to other antibiotic agents
CPT/HCPCS: 99211

== ENCOUNTER → 2019-05-16 | Outpatient (CLI) | payer MEDICARE ==
[2019-05-16 17:21] LABS: Chol/HDL Ratio 4.89; LDL Cholesterol,Calculated 41.6 mg/dL (0.0-131.0); VLDL Calculation 67.4 mg/dL (5.00-40.00)
== END | disposition home or self-care (01) ==
LOC: LABWHC1 11:43
PROVIDERS: ATTEND Internal Medicine Interventional Cardiology
DX: E78.2 Mixed hyperlipidemia (principal)
CPT/HCPCS: 36415; 80061

== ENCOUNTER → 2019-05-16 | Outpatient (CLI) | payer MEDICARE ==
[2019-05-16 12:35] LABS: Albumin 3.6 g/dL (3.5-5.0); Calcium 9.4 mg/dL (8.4-10.2); Potassium 5.8 mmol/L (3.5-5.1); Total Bilirubin 0.4 mg/dL (0.2-1.3); Total Protein 6.9 g/dL (6.3-8.2)
== END | disposition home or self-care (01) ==
LOC: LABPAT 11:47
PROVIDERS: ATTEND Internal Medicine Clinical Cardiac Electrophysiology
DX: Z01.812 Encounter for preprocedural laboratory examination (principal); I25.10 Atherosclerotic heart disease of native coronary artery without angina pectoris
CPT/HCPCS: 80053

== ENCOUNTER → 2019-05-19 | Day surgery (SDC) | payer MEDICARE ==
[2019-05-14 15:10] VITALS: BMI 32.8
[~2019-05-19] MED LIST changes: +IOPAMIDOL-370 50ML BTL INJ ONE; +PROPOFOL 10 MG/ML 20 ML VIAL IV ONE
[2019-05-19 09:22] VITALS: RESP 16; TEMP 97.8
[2019-05-19 09:47] LABS: Potassium 4.6 mmol/L (3.5-5.1)
[2019-05-19 11:36] VITALS: BP 139/85; PULSE 59
[2019-05-20 12:14] LABS: Glucose,Whole Blood 81 mg/dL (75-99)
--- NOTE | 2019-05-22 06:19 | CE ---
CARDIAC ELECTROPHYSIOLOGY REPORT More Spann is a 59-year-old female who has a biventricular [employer] ICD that was implanted many years back. There was a change in her impedance and RV thresholds noted in the office and she was brought in for DFT testing, fluoroscopy and interrogation. Cinefluoroscopy of the leads was first performed. No fractures or breaks were noted in the atrial lead, in the RV lead or in the LV lead. Left upper extremity venogram was performed and there was moderate stenosis noted in the subclavian vein, but there was definite room for a new lead placement if clinically appropriate. Venous collaterals were noted. The device was interrogated and initially it appeared that the lead thresholds were elevated, especially the RV and LV leads. However, when the patient was placed on the system, there was complete capture and what was misleading us initially was a long stim to QRS time giving in appearance that there was non capture, when there was actually complete capture. The atrial lead threshold was 0.75 V at 0.5 milliseconds. P-waves were 0.4 mV, pacing impedance 360 ohms. The RV pacing threshold was 0.5 V at 0.5 milliseconds. R-waves 8.9 mV, pacing impedance 2325 ohms. There has been a gradual increase in her pacing impedance in the RV lead. The stim to QRS time was long in the RV pacing. The LV pacing threshold was 1.75 V at 0.5 milliseconds, pacing impedance of 650 ohms. High-voltage impedance 77 ohms. Thereafter, DFT testing was performed. A DC fibber shock was used to induce ventricular fibrillation. This was adequately and appropriately detected at least sensitivity and successfully defibrillated. VF was adequately and appropriately detected at least sensitivity and successfully internally defibrillated with a 10-joule shock. Charge time 1.6 seconds. Shocking impedance 80 ohms. No post shock noise. The device was then programmed according to MADIT-RIT programming. The pacing outputs were appropriately programmed. The patient's pacing parameters were DDDR 50 to130 ppm and 3 zones of therapy were provided for tachy therapies. RESULT: 1. 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 2. High RV pacing impedance greater than 2000, which is chronic. 3. Very acceptable pacing thresholds for the atrial lead, RV lead and the LV lead. 4. DFT at or below 10 joules with appropriate detection without any dropouts. PLAN: Continue monitoring for now. No indication for implantation of a new ICD lead. MMODL / IJN: [id number] /
== END ==
LOC: CATHEP 08:38
PROVIDERS: ATTEND Internal Medicine Clinical Cardiac Electrophysiology
DX: Z45.02 Encounter for adjustment and management of automatic implantable cardiac defibrillator (principal); I25.10 Atherosclerotic heart disease of native coronary artery without angina pectoris; I13.0 Hypertensive heart and chronic kidney disease with heart failure and stage 1 through stage 4 chronic kidney disease, or unspecified chronic kidney disease; N18.9 Chronic kidney disease, unspecified; I50.9 Heart failure, unspecified; I25.5 Ischemic cardiomyopathy; Z87.891 Personal history of nicotine dependence; E78.2 Mixed hyperlipidemia; E11.51 Type 2 diabetes mellitus with diabetic peripheral angiopathy without gangrene; Z97.2 Presence of dental prosthetic device (complete) (partial); Z95.5 Presence of coronary angioplasty implant and graft; Z79.4 Long term (current) use of insulin; R06.00 Dyspnea, unspecified; M79.7 Fibromyalgia; H91.90 Unspecified hearing loss, unspecified ear; Z87.442 Personal history of urinary calculi; F40.240 Claustrophobia; Z82.49 Family history of ischemic heart disease and other diseases of the circulatory system; I25.2 Old myocardial infarction; Z79.02 Long term (current) use of antithrombotics/antiplatelets; Z79.82 Long term (current) use of aspirin; Z79.891 Long term (current) use of opiate analgesic; Z79.899 Other long term (current) drug therapy; Z88.1 Allergy status to other antibiotic agents; Z88.7 Allergy status to serum and vaccine
CPT/HCPCS: 93642; 80048; J2704; Q9967

== ENCOUNTER 2020-07-15 13:03 | Inpatient (IN) | payer MEDICARE ==
--- NOTE | 2020-07-15 13:33 | ED ---
General Adult HPI - General Chief complaint: Weakness Stated complaint: lethargy Time Seen by Provider: 07/15/20 13:19 Source: patient, EMS, RN notes reviewed Mode of arrival: EMS Limitations: no limitations - History of Present Illness Initial comments: Patient is a pleasant 60-year-old female presents emergency Department with complaints of general weakness. Onset of symptoms was just today. Patient feels somewhat weak all over. Patient is somewhat a poor historian but denies complaints other than that. Patient does not feel confused. No isolated area of weakness. No fever. No pain or dyspnea. - Related Data Home Medications Medication Instructions Recorded Confirmed Amitriptyline HCl [Elavil] 25 mg PO HS 08/28/13 07/15/20 oxyCODONE-APAP 10-325MG [Percocet 1 tab PO Q6H PRN 08/28/13 07/15/20 10-325 mg] ALPRAZolam [Xanax] 0.5 mg PO HS 10/06/15 07/15/20 Aspirin 81 mg PO DAILY 10/06/15 07/15/20 Clopidogrel [Plavix] 75 mg PO DAILY 10/06/15 07/15/20 Morphine Sulfate ER [Ms Contin] 15 mg PO BID 10/06/15 07/15/20 QUEtiapine FUMARATE [SEROquel XR] 50 mg PO HS 10/06/15 07/15/20 FLUoxetine HCL [PROzac] 60 mg PO HS 04/06/16 07/15/20 Docusate [Colace] 100 mg PO DAILY PRN 01/05/19 07/15/20 Ergocalciferol [Vitamin D2] 50,000 unit PO FR 01/05/19 07/15/20 Famotidine 20 mg PO DAILY PRN 01/05/19 07/15/20 Furosemide [Lasix] 40 mg PO DAILY 01/05/19 07/15/20 Nitroglycerin Sl Tabs [Nitrostat] 0.4 mg SUBLINGUAL Q5M PRN 01/05/19 07/15/20 lisinopriL [Zestril] 10 mg PO DAILY 05/14/19 07/15/20 Albuterol Sulfate [Proair Hfa] 2 puff INHALATION RT-Q4H PRN 07/15/20 07/15/20 INSULIN ASPART (NovoLOG) [NovoLOG See Protocol SQ AC-TID 07/15/20 07/15/20 (formulary)] Insulin Detemir (Levemir) [Levemir] See Protocol SQ DAILY 07/15/20 07/15/20 Previous Rx's Medication Instructions Recorded Atorvastatin [Lipitor] 80 mg PO HS #30 tab 03/25/16 Allergies Allergy/AdvReac Type Severity Reaction Status Date / Time vancomycin Allergy Rash/Hives Verified 07/15/20 14:05 ciprofloxacin [From Cipro] AdvReac Nausea & Verified 07/15/20 14:05 Vomiting ciprofloxacin HCl AdvReac Nausea & Verified 07/15/20 14:05 [From Cipro] Vomiting flu vaccine Allergy Rash/Hives Uncoded 07/15/20 13:09 Review of Systems ROS Statement: Those systems with pertinent positive or pertinent negative responses have been documented in the HPI. ROS Other: All systems not noted in ROS Statement are negative. Constitutional: Denies: fever Eyes: Denies: eye pain ENT: Denies: ear pain Respiratory: Denies: cough Cardiovascular: Denies: chest pain Endocrine: Reports: fatigue Gastrointestinal: Denies: abdominal pain Genitourinary: Denies: urgency Musculoskeletal: Denies: back pain Skin: Denies: rash Neurological: Denies: headache Past Medical History Past Medical History: Coronary Artery Disease (CAD), Heart Failure, Diabetes Mellitus, Fibromyalgia, GERD/Reflux, Hearing Disorder / Deafness, Hyperlipidemia, Hypertension, Myocardial Infarction (NM), Musculoskeletal Disorder, Osteoarthritis (OA), Renal Disease, Skin Disorder, Vascular Disorder Additional Past Medical History / Comment(s): See Dr Durant's H&P nephrolithiasis and kidney stones, peripheral vascular disease, degenerative disc disease-chronic back pain, Rt AKA-working on using prosthesis, going to physical therapy Last Myocardial Infarction Date:: 2004,2006, 2016 History of Any Multi-Drug Resistant Organisms: MRSA Date of last positivie culture/infection: 02/24/16 LT FOOT-VERIFIED PER DR VASQUEZ OFFICE MDRO Source:: LT FOOT Past Surgical History: AICD, Section, Heart Catheterization, Heart Catheterization With Stent, Orthopedic Surgery, Pacemaker, Tonsillectomy Additional Past Surgical History / Comment(s): Right rotator cuff surgery 2, bilateral carpal tunnel release,3 cardiac catheterization 6 stents, above-knee amputation of the right lower extremity, incision and debridement of diabetic wounds, [facility] [employer] Biventricular AICD placement Past Anesthesia/Blood Transfusion Reactions: Motion Sickness Additional Past Anesthesia/Blood Transfusion Reaction / Comment(s): CLAUSTERPHOBIA. PAST BLOOD TRANSFUSION-NO REACTION Date of Last Stent Placement:: 2015 Type of Cardiac Device: AICD Device Placement Date:: Past Psychological History: Anxiety, Depression Past Alcohol Use History: None Reported Past Drug Use History: Marijuana - Past Family History Sister(s) Family Medical History: Cancer Additional Family Medical History / Comment(s): 2 SISTERS Mother Family Medical History: Coronary Artery Disease (CAD), Hyperlipidemia, Hypertension Additional Family Medical History / Comment(s): CABG Father Family Medical History: CVA/TIA, Hyperlipidemia, Hypertension, Myocardial Infarction (NM) General Exam Limitations: no limitations General appearance: alert, in no apparent distress Head exam: Present: normocephalic Eye exam: Present: normal appearance, PERRL, EOMI ENT exam: Present: normal oropharynx Neck exam: Present: normal inspection. Absent: tenderness, meningismus Respiratory exam: Present: normal lung sounds bilaterally Cardiovascular Exam: Present: regular rate, normal rhythm GI/Abdominal exam: Present: soft. Absent: tenderness Extremities exam: Present: other (Right AKA) Neurological exam: Present: alert, oriented X3, CN II-XII intact. Absent: motor sensory deficit Expanded Neurological exam: Present: protecting the airway Patient oriented to: Present: person, place, time Speech: Present: fluid speech Cranial nerves: EOM's Intact: Normal Sensory exam: Upper Extremity Light Touch: Normal Motor strength exam: RUE: 5, LUE: 5, LLE: 5 Eye Response: (4) open spontaneously Motor Response: (6) obeys commands Verbal Response: (5) oriented Psychiatric exam: Present: normal affect, normal mood Skin exam: Present: normal color Course Vital Signs 07/15/20 13:06 Temperature 98.7 F Pulse Rate 74 Respiratory 18 Rate Blood Pressure 101/57 O2 Sat by Pulse 94 L Oximetry EKG Findings - EKG Comments: EKG Findings:: Paced rhythm with a rate of 75. ME 138. QRS 156. QT 46. QTc 542. Right axis. No acute ST change. Medical Decision Making - Medical Decision Making Patient reevaluated and updated. Case was crusted detail with Dr. Antoine, who will admit covering for Dr. Thomas. He does request nephrology consult. Medications have been provided for hyperkalemia. - Lab Data Result diagrams: 07/15/20 13:41 07/15/20 13:41 Lab Results 07/15/20 07/15/20 07/15/20 Range/Units 13:41 13:41 13:41 WBC 8.4 (3.8-10.6) k/uL RBC 4.06 (3.80-5.40) m/uL Hgb 11.1 L (11.4-16.0) gm/dL Hct 35.5 (34.0-46.0) % MCV 87.2 (80.0-100.0) fL MCH 27.3 (25.0-35.0) pg MCHC 31.3 (31.0-37.0) g/dL RDW 16.0 H (11.5-15.5) % Plt Count 194 (150-450) k/uL MPV 7.6 Neutrophils % 77 % Lymphocytes % 15 % Monocytes % 4 % Eosinophils % 3 % Basophils % 1 % Neutrophils # 6.5 (1.3-7.7) k/uL Lymphocytes # 1.3 (1.0-4.8) k/uL Monocytes # 0.3 (0-1.0) k/uL Eosinophils # 0.2 (0-0.7) k/uL Basophils # 0.0 (0-0.2) k/uL PT 10.8 (9.0-12.0) sec INR 1.0 (<1.2) APTT 24.5 (22.0-30.0) sec Sodium 131 L (137-145) mmol/L Potassium 6.4 H* (3.5-5.1) mmol/L Chloride 101 (98-107) mmol/L Carbon Dioxide 20 L (22-30) mmol/L Anion Gap 10 mmol/L BUN 51 H (7-17) mg/dL Creatinine 1.65 H (0.52-1.04) mg/dL Est GFR (CKD-EPI)AfAm 38 (>60 ml/min/1.73 sqM) Est GFR (CKD-EPI)NonAf 33 (>60 ml/min/1.73 sqM) Glucose 128 H (74-99) mg/dL Plasma Lactic Acid Jimmy (0.7-2.0) mmol/L Calcium 9.3 (8.4-10.2) mg/dL Magnesium 2.0 (1.6-2.3) mg/dL Total Bilirubin 0.4 (0.2-1.3) mg/dL AST 31 (14-36) U/L ALT 19 (4-34) U/L Alkaline Phosphatase 103 (38-126) U/L Creatine Kinase 235 H (30-135) U/L Troponin I (0.000-0.034) ng/mL Total Protein 6.9 (6.3-8.2) g/dL Albumin 3.4 L (3.5-5.0) g/dL Coronavirus (PCR) (Not Detectd) 07/15/20 07/15/20 07/15/20 Range/Units 13:41 13:48 13:48 WBC (3.8-10.6) k/uL RBC (3.80-5.40) m/uL Hgb (11.4-16.0) gm/dL Hct (34.0-46.0) % MCV (80.0-100.0) fL MCH (25.0-35.0) pg MCHC (31.0-37.0) g/dL RDW (11.5-15.5) % Plt Count (150-450) k/uL MPV Neutrophils % % Lymphocytes % % Monocytes % % Eosinophils % % Basophils % % Neutrophils # (1.3-7.7) k/uL Lymphocytes # (1.0-4.8) k/uL Monocytes # (0-1.0) k/uL Eosinophils # (0-0.7) k/uL Basophils # (0-0.2) k/uL PT (9.0-12.0) sec INR (<1.2) APTT (22.0-30.0) sec Sodium (137-145) mmol/L Potassium (3.5-5.1) mmol/L Chloride (98-107) mmol/L Carbon Dioxide (22-30) mmol/L Anion Gap mmol/L BUN (7-17) mg/dL Creatinine (0.52-1.04) mg/dL Est GFR (CKD-EPI)AfAm (>60 ml/min/1.73 sqM) Est GFR (CKD-EPI)NonAf (>60 ml/min/1.73 sqM) Glucose (74-99) mg/dL Plasma Lactic Acid Jimmy 1.5 (0.7-2.0) mmol/L Calcium (8.4-10.2) mg/dL Magnesium (1.6-2.3) mg/dL Total Bilirubin (0.2-1.3) mg/dL AST (14-36) U/L ALT (4-34) U/L Alkaline Phosphatase (38-126) U/L Creatine Kinase (30-135) U/L Troponin I <0.012 (0.000-0.034) ng/mL Total Protein (6.3-8.2) g/dL Albumin (3.5-5.0) g/dL Coronavirus (PCR) Not Detected (Not Detectd) - Radiology Data Radiology results: report reviewed (Computed tomography scan of the brain shows mild white matter ischemic changes, chronic), image reviewed (Chest x-ray does show some nonspecific increased lung markings.) Critical Care Time Critical Care Time: Yes Total Critical Care Time: 32 Disposition Clinical Impression: Renal insufficiency, Hyperkalemia Disposition: ADMITTED IP TO THIS [facility] Condition: Serious Is patient prescribed a controlled substance at d/c from ED?: No Referrals: Rhona Thomas DO [Primary Care Provider] - 1-2 days Decision Time: 14:47
[2020-07-15 14:03] LABS: Basophils % (A) 1 %; Eosinophils # (A) 0.2 k/uL (0-0.7); Eosinophils % (A) 3 %; HCT 35.5 % (34.0-46.0); HGB 11.1 gm/dL (11.4-16.0); Lymphocytes # (A) 1.3 k/uL (1.0-4.8); Lymphocytes % (A) 15 %; MCH 27.3 pg (25.0-35.0); MCHC 31.3 g/dL (31.0-37.0); MCV 87.2 fL (80.0-100.0); Mean Platelet Volume 7.6; Monocytes # (A) 0.3 k/uL (0-1.0); Monocytes % (A) 4 %; Neutrophils # (A) 6.5 k/uL (1.3-7.7); Neutrophils % (A) 77 %; Platelet Count 194 k/uL (150-450); RBC 4.06 m/uL (3.80-5.40); WBC 8.4 k/uL (3.8-10.6)
--- NOTE | 2020-07-15 14:08 | XR ---
EXAMINATION TYPE: XR chest 2V DATE OF EXAM: 07/15/2020 COMPARISON: 04/10/2016 INDICATION: Weakness short of breath TECHNIQUE: Frontal and lateral views of the chest are obtained. FINDINGS: The heart size is mildly prominent. The pulmonary vasculature is normal. Mild diffuse infiltrate is present. Pacemaker overlies left chest. IMPRESSION: 1. Mild nonspecific increased subsegmental lung markings. Consider atypical pneumonia.
[2020-07-15 14:10] LABS: Partial Thromboplastin Time 24.5 sec (22.0-30.0); Prothrombin Time 10.8 sec (9.0-12.0)
[2020-07-15 14:15] LABS: Albumin 3.4 g/dL (3.5-5.0); Calcium 9.3 mg/dL (8.4-10.2); Total Bilirubin 0.4 mg/dL (0.2-1.3); Total Protein 6.9 g/dL (6.3-8.2)
[2020-07-15] MEDS: SODIUM CHLORIDE 0.9% 1,000 ML IV STA ×2 (14:19→15:54)
[2020-07-15 14:27] LABS: Potassium 6.4 mmol/L (3.5-5.1)
--- NOTE | 2020-07-15 14:32 | CT ---
EXAMINATION TYPE: CT brain wo con DATE OF EXAM: 07/15/2020 COMPARISON: None INDICATION: weakness DLP: 1132.4 mGycm, Automated exposure control for dose reduction was used. CONTRAST: None CT of the brain is performed utilizing 3 mm thick sections through the posterior fossa and 3 mm thick sections through the remaining calvarium. Study is performed within 24 hours of arrival to the hosp ital. No abnormal hyperdensity is present to suggest an acute intracranial hemorrhage. No mass lesion is evident. No acute infarcts are evident. May be some minimal periventricular white matter hypodensity. Ventricles and sulci are appropriate for the patient age. Paranasal sinuses and mastoid air cells within the [id number] are clear. IMPRESSIONS: 1. Minimal chronic appearing periventricular white matter ischemic type changes.
[2020-07-15] MEDS ORDERED: INSULIN REGULAR 100 UNIT/ML VIAL IV ONE (14:41)
[2020-07-15] MEDS ORDERED: SODIUM POLYSTYRENE SULFONATE 15 GM/60 ML BOTTLE PO ONE (14:41)
[2020-07-15] MEDS ORDERED: CALCIUM GLUCONATE 1 GM in SODIUM CHLORIDE 0.9% 100 ML IVPB ONE (14:41)
[2020-07-15] MEDS ORDERED: ALBUTEROL NEB (CONC) 2.5 MG/0.5 ML INHALATION ONE (14:41)
[2020-07-15] MEDS ORDERED: DEXTROSE 50% SYRINGE 50 ML IVP ONE (14:41)
[2020-07-15] MEDS ORDERED: SODIUM BICARB 8.4% 50 ML SYR (1 MEQ/ML) IV ONE (14:41)
[2020-07-15] MEDS ORDERED: NALOXONE 0.4 MG/ML 1 ML VIAL IV PRN (14:47)
[2020-07-15 15:13] LABS: T4, Free (Free Thyroxine) 0.93 ng/dL (0.78-2.19)
[2020-07-15 15:42] LABS: Appearance,Urine Turbid (Clear); Bacteria,Urine Few /hpf; Bilirubin,Urine Negative (Negative); Blood,Urine Small (Negative); Color,Urine Yellow; Glucose,Urine (UA) Negative (Negative); Ketones,Urine Negative (Negative); Leukocyte Esterase,Urine Large (Negative); Nitrite,Urine Negative (Negative); PH, Urine 7.5 (5.0-8.0); Protein,Urine 2+ (Negative); RBC,Urine 1 /hpf (0-5); Specific Gravity,Urine 1.011 (1.001-1.035); Squamous Epithelial Cell,Urine 3 /hpf (0-4); Urobilinogen,Urine <2.0 mg/dL (<2.0); WBC,Urine >182 /hpf (0-5)
[2020-07-15 19:50] LABS: Calcium 9.1 mg/dL (8.4-10.2); Potassium 5.3 mmol/L (3.5-5.1)
[2020-07-15] MEDS ORDERED: ALBUTEROL NEBULIZED 2.5 MG/3 ML INHALATION PRN (21:09)
[2020-07-15] MEDS ORDERED: ERGOCALCIFEROL 1,250 MCG (50,000 IU) CAPSULE PO SCH (21:30)
[2020-07-15 21:44] LABS: Glucose,Whole Blood 197 mg/dL (75-99)
[2020-07-15] MEDS: AMITRIPTYLINE HCL 25 MG TAB PO SCH (21:53)
[2020-07-15] MEDS: INSULIN ASPART (NovoLOG) 100 UNIT/ML VIAL SQ SCH (21:53)
[2020-07-15] MEDS: ALPRAZolam 0.5 MG TAB PO SCH (21:53)
[2020-07-15] MEDS: ATORVASTATIN 80 MG TAB PO SCH (21:54)
[2020-07-15] MEDS: QUEtiapine 25 MG TAB PO SCH (21:54)
[2020-07-15] MEDS: FLUoxetine HCL 20 MG CAP PO SCH (21:54)
[2020-07-15] MEDS: oxyCODONE-APAP 10-325MG 1 EACH TAB PO PRN (22:23)
[2020-07-15] MEDS: SODIUM CHLORIDE 0.9% 1,000 ML IV SCH (22:31)
[2020-07-16] MEDS: SODIUM CHLORIDE 0.9% 1,000 ML IV SCH ×3 (06:13→20:22)
[2020-07-16 06:26] LABS: Glucose,Whole Blood 140 mg/dL (75-99)
[2020-07-16] MEDS: INSULIN ASPART (NovoLOG) 100 UNIT/ML VIAL SQ SCH ×4 (06:28→21:10)
[2020-07-16] MEDS ORDERED: FAMOTIDINE 20 MG TAB PO PRN (09:00)
[2020-07-16] MEDS: ASPIRIN 81 MG PO SCH (09:21)
[2020-07-16] MEDS: QUEtiapine 25 MG TAB PO SCH ×2 (09:21→20:26)
[2020-07-16] MEDS: CLOPIDOGREL 75 MG TAB PO SCH (09:21)
[2020-07-16] MEDS: oxyCODONE-APAP 10-325MG 1 EACH TAB PO PRN ×2 (09:38→18:13)
[2020-07-16 11:18] LABS: Glucose,Whole Blood 128 mg/dL (75-99)
[2020-07-16 12:46] LABS: Calcium 9.3 mg/dL (8.4-10.2); Potassium 5.4 mmol/L (3.5-5.1)
[2020-07-16] MEDS: ENOXAPARIN 40 MG/0.4 ML SYRINGE SQ SCH (13:08)
[2020-07-16 16:45] LABS: Glucose,Whole Blood 149 mg/dL (75-99)
--- NOTE | 2020-07-16 17:06 | CONS ---
CONSULTATION REASON FOR CONSULT: Renal failure. HISTORY OF PRESENT ILLNESS: Patient is a 60-year-old female who is admitted to the hospital with complaints of increased weakness. She was told that she had a high potassium as outpatient. Her potassium was 6.4 mEq/L when she came in here. The patient states that her kidney function has been borderline. We have a creatinine of 1.65 yesterday and it has come down to 1.08 today. Blood pressure has not been significantly low, although systolic has been around 116- 119 mmHg with further lower readings at 1:01 am mmHg on initial admission. The patient was maintained on PAGE inhibitors at home. She had been using nonsteroidal anti-inflammatory agents but not excessively. No significant change in urine output, although patient did admit to having noticed that it was decreased over the past day or so. No complaints of nausea, vomiting or diarrhea. PAST MEDICAL HISTORY: Hypertension, type 2 diabetes, coronary artery disease, history of CHF, gastroesophageal reflux disease, history of CO, osteoarthritis, nephrolithiasis, peripheral vascular disease. PAST SURGICAL HISTORY: History of AICD, , cardiac catheterization, coronary stent placement, pacemaker, tonsillectomy, right rotator cuff surgery, bilateral carpal tunnel release, right above-knee amputation, multiple I and Ds. SOCIAL HISTORY: Positive for use of marijuana. No history of smoking or drug abuse. MEDICATIONS: Medications prior to admission included Elavil, Percocet, Xanax, Plavix, MS Contin, Seroquel, Prozac Colace, vitamin D2, Pepcid, Lasix Nitrostat, Zestril, ProAir, insulin, Lipitor. ALLERGIES: Include VANCOMYCIN causes rash and hives, CIPRO causes nausea, vomiting, FLU VACCINE causes rash and hives. REVIEW OF SYSTEMS: As per HPI. Other systems negative. EXAMINATION: Patient is comfortable, awake, not in any acute distress. Blood pressure this morning 127/65, heart rate 65 per minute, she is afebrile. Examination of the heart S1, S2. Examination of the lungs, bilateral breath sounds are heard. Decreased breath sounds at bases. Abdomen is soft, nontender. Examination of lower extremities shows no significant edema left lower extremity. Patient has right AKA. ELECTROENCEPHALOGRAM TECHNOLOGIST exam grossly intact. LAB: Show sodium 137, potassium 5.4, chloride 111, CO2 is 18, BUN 45, creatinine 1.08. UA shows 2+ protein, small blood, WBCs more than 182. PCR for coronavirus is negative. ASSESSMENT: 1. Acute kidney injury, prerenal, currently improving with IV hydration. Continue to hold off on the PAGE inhibitors for now. Blood pressure was low on initial admission which also contributed to acute kidney injury. UA shows evidence of underlying urinary tract infection. Urine culture is currently pending. I will check an ultrasound of the kidneys if not done recently. 2. Hyperkalemia associated with acute kidney injury in the setting of use of PAGE inhibitors. The patient is advised against use of NSAIDs. Continue to hold off on the lisinopril for now. This was also exacerbated by underlying metabolic acidosis. Serum potassium has improved. 3. Chronic kidney disease with previous creatinine mostly around 1.1-1.3 mg/dL all the way back to 2019 with multiple episodes of acute kidney injury. Etiology is likely diabetic kidney disease and nephrosclerosis, NKF stage III. 4. Non gap metabolic acidosis associated with renal failure. I will add oral sodium bicarb if the acidosis is worse tomorrow. 5. Peripheral vascular disease. 6. Coronary artery disease with history of coronary stents. 7. History of right above knee amputation. 8. Pyuria with possible underlying urinary tract infection. Urine culture is pending. PLAN: Continue with IV fluids. Repeat labs in a.m. Check ultrasound of the kidneys. Continue to hold off on PAGE inhibitors. Thank you for this consultation. We will continue to follow the patient with you during her hospitalization. MMODL / IJN: [id number] /
--- NOTE | 2020-07-16 17:34 | US ---
EXAMINATION TYPE: US kidneys/renal and bladder DATE OF EXAM: 07/16/2020 COMPARISON: NONE CLINICAL HISTORY: rf. Abnormal labs. Patient states having an external bladder catheter. EXAM MEASUREMENTS: Right Kidney: 11.8 x 4.7 x 5.7 cm Left Kidney: 11.7 x 4.8 x 5.2 cm Right Kidney: Moderate hydronephrosis with possible debris Left Kidney: Moderate hydronephrosis with possible debris Bladder: Distended. Thickened wall. Limited visualization due to patient unable to tolerate pressur e. Bilateral Jets not seen Impression There is moderate bilateral hydronephrosis. Urinary bladder shows large area of increased echogenicit y in the dependent portion that could be blood clot and debris. This measures up to 3 cm in thickness . Bladder mass not excluded.
[2020-07-16] MEDS: FLUoxetine HCL 20 MG CAP PO SCH (20:26)
[2020-07-16] MEDS: ATORVASTATIN 80 MG TAB PO SCH (20:26)
[2020-07-16] MEDS: ALPRAZolam 0.5 MG TAB PO SCH (20:26)
[2020-07-16] MEDS: AMITRIPTYLINE HCL 25 MG TAB PO SCH (20:26)
--- NOTE | 2020-07-16 20:28 | P.HPIM ---
History of Present Illness H&P Date: 07/16/20 Chief Complaint: Tired History of presenting complaint: This is a pleasant 60-year-old patient who follows with Dr. Rhona ryan. Chronic stable medical conditions include coronary artery disease with stent, diabetes, fibromyalgia, GERD, hard of hearing, hypertension, hyperlipidemia, osteoarthritis, nephrolithiasis, peripheral arterial disease, DJD chronic back pain, AICD, pacemaker. Patient presents with feeling really weak diet lethargic for about a day. Having some urinary burning and frequency. Denies any obvious fever. Tired rundown. Decreased appetite. Patient is found to be hyperkalemic and acute kidney injury in the ER. Patient received potassium gluconate, dextrose, insulin sodium bicarbonate in the ER. Also found to have a UTI for which started IV ceftriaxone. Patient feels better this morning. Review of systems: GEN.: Tired rundown EYES: None HEENT: None NECK: None RESPIRATORY: None CARDIOVASCULAR: None GASTROINTESTINAL: None GENITOURINARY: None MUSCULOSKELETAL: Joint pains LYMPHATICS: None HEMATOLOGICAL: None PSYCHIATRY: None NEUROLOGICAL: None Past medical history to include: Coronary artery disease with stent, CHF, diabetes, fibromyalgia, GERD, hard of hearing, hypertension, hyperlipidemia, osteoarthritis, chronic kidney disease, kidney stones, peripheral arterial disease, DJD, chronic low back pain, right above-knee amputation, AICD, pacemaker, anxiety depression Social history: . Does use a wheelchair. Patient smoked a pack a day for 20 years stopped in 2014. Does medical marijuana about 3-4 nights per week. Physical examination: VITAL SIGNS: 98.7, 74, 18, 101/57, 94% room air GENERAL: BMI 31.6, laying in bed, tired. EYES: Pupils equal. Conjunctiva normal. HEENT: External appearance of nose and ears normal, oral cavity grossly normal. NECK: JVD not raised; masses not palpable. HEART: First and second heart sounds are normal; no edema. LUNGS: Respiratory rate normal; clear to auscultation. ABDOMEN: Soft, nontender, liver spleen not palpable, no masses palpable. PSYCH: [Alert and oriented x3; mood and affect tired l. MUSCULAR skeletal: Evidence of OA NEUROLOGICAL: Cranial nerves grossly intact; no facial asymmetry, power and sensation grossly intact. LYMPHATICS: No lymph nodes palpable in the axilla and neck INVESTIGATIONS, reviewed in the clinical context: July 16: Potassium 5.4 bicarb 18 bun 45 creatinine 1.08 Admission labs: WBC 8.4 hemoglobin 11.1 platelets 194 potassium 6.4 bun 51 and creatinine 1.65 Troponin I less than 0.012 UA positive for leukoesterase WBC Coronavirus [PCR]-not detected EKG tracing paced rhythm. Chest x-ray film personally reviewed by me-SAMID, some venous prominence Previous labs: Creatinine 1.1 on 07/11/2020 Assessment and plan: -Acute kidney injury, likely from decreased oral intake Hold Zestril, and Lasix. Gentle hydration. Follow H&H. Nephrology consultation -Acute UTI with cystitis IV ceftriaxone -Coronary artery disease, prior history of stent Continue Plavix Lipitor -Chronic congestive heart failure, EF not known Follow fluid status clinically -Diabetes mellitus type 2 chronically on insulin For Accu-Cheks -Chronic fibromyalgia Pain control when necessary -GERD Pepcid -Hyperlipidemia Lipitor -Essential hypertension Follow blood pressure closely -Primary osteoarthritis Pain control as needed -Chronic kidney disease stage 2 likely nephrosclerosis Follow-up renal function -Peripheral arterial disease Aspirin Lipitor -Right above-knee amputation -AICD with a pacemaker Telemetry Anxiety depression otherwise specified Seroquel XL, Prozac, a Chronic insomnia: elavil Care was discussed with the patient. Encourage oral intake. Follow labs. Nephrology consulted. Past Medical History Past Medical History: Coronary Artery Disease (CAD), Heart Failure, Diabetes Mellitus, Fibromyalgia, GERD/Reflux, Hearing Disorder / Deafness, Hyperlipidemia, Hypertension, Myocardial Infarction (GA), Musculoskeletal Disorder, Osteoarthritis (OA), Renal Disease, Skin Disorder, Vascular Disorder Additional Past Medical History / Comment(s): See Dr Durant's H&P nephrolithiasis and kidney stones, peripheral vascular disease, degenerative disc disease-chronic back pain, Rt AKA-working on using prosthesis, going to physical therapy Last Myocardial Infarction Date:: 2004,2006, 2016 History of Any Multi-Drug Resistant Organisms: MRSA Date of last positivie culture/infection: 02/24/16 LT FOOT-VERIFIED PER DR VASQUEZ OFFICE MDRO Source:: LT FOOT Past Surgical History: AICD, Section, Heart Catheterization, Heart Catheterization With Stent, Orthopedic Surgery, Pacemaker, Tonsillectomy Additional Past Surgical History / Comment(s): Right rotator cuff surgery 2, bilateral carpal tunnel release,3 cardiac catheterization 6 stents, above-knee amputation of the right lower extremity, incision and debridement of diabetic wounds, [facility] Biventricular AICD placement Past Anesthesia/Blood Transfusion Reactions: Motion Sickness Additional Past Anesthesia/Blood Transfusion Reaction / Comment(s): CLAUSTERPHOBIA. PAST BLOOD TRANSFUSION-NO REACTION Date of Last Stent Placement:: 2015 Type of Cardiac Device: AICD Device Placement Date:: Past Psychological History: Anxiety, Depression Additional Psychological History / Comment(s): . Smoking Status: Former smoker Past Alcohol Use History: None Reported Additional Past Alcohol Use History / Comment(s): SMOKED 20 YEARS, 1 PPD, QUIT 07/2014. Past Drug Use History: Marijuana Additional Drug Use History / Comment(s): MEDICAL MARIJUANA-uses 3-4 nights per week. Instructed to hold 24 hrs prior to procedure - Past Family History Sister(s) Family Medical History: Cancer Additional Family Medical History / Comment(s): 2 SISTERS Mother Family Medical History: Coronary Artery Disease (CAD), Hyperlipidemia, Hypertension Additional Family Medical History / Comment(s): CABG Father Family Medical History: CVA/TIA, Hyperlipidemia, Hypertension, Myocardial Infarction (GA) Medications and Allergies Home Medications Medication Instructions Recorded Confirmed Type Amitriptyline HCl [Elavil] 25 mg PO HS 08/28/13 07/15/20 History oxyCODONE-APAP 10-325MG [Percocet 1 tab PO Q6H PRN 08/28/13 07/15/20 History 10-325 mg] ALPRAZolam [Xanax] 0.5 mg PO HS 10/06/15 07/15/20 History Aspirin 81 mg PO DAILY 10/06/15 07/15/20 History Clopidogrel [Plavix] 75 mg PO DAILY 10/06/15 07/15/20 History Morphine Sulfate ER [Ms Contin] 15 mg PO BID 10/06/15 07/15/20 History QUEtiapine FUMARATE [SEROquel XR] 50 mg PO HS 10/06/15 07/15/20 History Atorvastatin [Lipitor] 80 mg PO HS #30 tab 03/25/16 07/15/20 Rx FLUoxetine HCL [PROzac] 60 mg PO HS 04/06/16 07/15/20 History Docusate [Colace] 100 mg PO DAILY PRN 01/05/19 07/15/20 History Ergocalciferol [Vitamin D2] 50,000 unit PO FR 01/05/19 07/15/20 History Famotidine 20 mg PO DAILY PRN 01/05/19 07/15/20 History Furosemide [Lasix] 40 mg PO DAILY 01/05/19 07/15/20 History Nitroglycerin Sl Tabs [Nitrostat] 0.4 mg SUBLINGUAL Q5M PRN 01/05/19 07/15/20 History lisinopriL [Zestril] 10 mg PO DAILY 05/14/19 07/15/20 History Albuterol Sulfate [Proair Hfa] 2 puff INHALATION RT-Q4H PRN 07/15/20 07/15/20 History INSULIN ASPART (NovoLOG) [NovoLOG See Protocol SQ AC-TID 07/15/20 07/15/20 History (formulary)] Insulin Detemir (Levemir) [Levemir] See Protocol SQ DAILY 07/15/20 07/15/20 History Allergies Allergy/AdvReac Type Severity Reaction Status Date / Time vancomycin Allergy Rash/Hives Verified 07/15/20 14:05 ciprofloxacin [From Cipro] AdvReac Nausea & Verified 07/15/20 14:05 Vomiting ciprofloxacin HCl AdvReac Nausea & Verified 07/15/20 14:05 [From Cipro] Vomiting flu vaccine Allergy Rash/Hives Uncoded 07/15/20 13:09 Physical Exam Vitals: Vital Signs Temp Pulse Pulse Resp BP BP Pulse Ox 07/16/20 09:15 98.1 F 65 16 127/65 95 07/16/20 04:30 98.2 F 65 16 119/72 94 L 07/15/20 23:50 98.1 F 60 16 116/71 95 07/15/20 21:00 98.1 F 68 18 128/64 94 L 07/15/20 18:00 98.5 F 64 18 101/55 96 07/15/20 15:40 65 07/15/20 15:25 63 07/15/20 15:00 80 18 102/56 98 07/15/20 13:06 98.7 F 74 18 101/57 94 L Intake and Output 07/15/20 07/16/20 07/16/20 22:59 06:59 14:59 Output Total 250 Balance -250 Output: Urine 250 Other: Voiding Method Bedpan Bedpan # Voids 1 8 Weight 86.183 kg 86 kg Results CBC & Chem 7: 07/15/20 13:41 07/16/20 11:10 Labs: Abnormal Lab Results - Last 24 Hours (Table) 07/15/20 07/15/20 07/15/20 Range/Units 13:41 13:41 15:19 Hgb 11.1 L (11.4-16.0) gm/dL RDW 16.0 H (11.5-15.5) % Sodium 131 L (137-145) mmol/L Potassium 6.4 H* (3.5-5.1) mmol/L Carbon Dioxide 20 L (22-30) mmol/L BUN 51 H (7-17) mg/dL Creatinine 1.65 H (0.52-1.04) mg/dL Glucose 128 H (74-99) mg/dL POC Glucose (mg/dL) (75-99) mg/dL Creatine Kinase 235 H (30-135) U/L Albumin 3.4 L (3.5-5.0) g/dL Urine Appearance Turbid H (Clear) Urine Protein 2+ H (Negative) Urine Blood Small H (Negative) Ur Leukocyte Esterase Large H (Negative) Urine WBC >182 H (0-5) /hpf Urine WBC Clumps Many H (None) /hpf Urine Bacteria Few H (None) /hpf 07/15/20 07/15/20 07/16/20 Range/Units 19:30 21:41 06:25 Hgb (11.4-16.0) gm/dL RDW (11.5-15.5) % Sodium 133 L (137-145) mmol/L Potassium 5.3 H (3.5-5.1) mmol/L Carbon Dioxide (22-30) mmol/L BUN 52 H (7-17) mg/dL Creatinine 1.53 H (0.52-1.04) mg/dL Glucose 129 H (74-99) mg/dL POC Glucose (mg/dL) 197 H 140 H (75-99) mg/dL Creatine Kinase (30-135) U/L Albumin (3.5-5.0) g/dL Urine Appearance (Clear) Urine Protein (Negative) Urine Blood (Negative) Ur Leukocyte Esterase (Negative) Urine WBC (0-5) /hpf Urine WBC Clumps (None) /hpf Urine Bacteria (None) /hpf Microbiology - Last 24 Hours (Table) 07/15/20 15:19 Urine Culture - Preliminary Urine,Voided Thrombosis Risk Factor Assmnt - Choose All That Apply Any of the Below Risk Factors Present?: Yes Each Factor Represents 1 point: History of prior major surgery (<1month), Obesity (BMI >25) Each Risk Factor Represents 2 Points: Age 61-74 years Other congenital or acquired thrombophilia - If yes, enter type in comment: No Thrombosis Risk Factor Assessment Total Risk Factor Score: 4 Thrombosis Risk Factor Assessment Level: Moderate Risk
[2020-07-16] MEDS: MORPHINE SULFATE ER 15 MG TABLET PO SCH (20:33)
[2020-07-16 20:48] LABS: Glucose,Whole Blood 134 mg/dL (75-99)
[2020-07-17] MEDS: SODIUM CHLORIDE 0.9% 1,000 ML IV SCH ×2 (02:33→11:48)
[2020-07-17 06:25] LABS: Glucose,Whole Blood 112 mg/dL (75-99)
[2020-07-17] MEDS: INSULIN ASPART (NovoLOG) 100 UNIT/ML VIAL SQ SCH ×2 (06:25→11:53)
[2020-07-17] MEDS: ASPIRIN 81 MG PO SCH (09:02)
[2020-07-17] MEDS: MORPHINE SULFATE ER 15 MG TABLET PO SCH (09:02)
[2020-07-17] MEDS: CLOPIDOGREL 75 MG TAB PO SCH (09:03)
[2020-07-17] MEDS: ENOXAPARIN 40 MG/0.4 ML SYRINGE SQ SCH (09:03)
[2020-07-17] MEDS: QUEtiapine 25 MG TAB PO SCH (09:03)
[2020-07-17 09:39] LABS: African American GFR (CKD) >90 (>60 ml/min/1.73 sqM); Anion Gap 5 mmol/L; Blood Urea Nitrogen 27 mg/dL (7-17); Calcium 8.9 mg/dL (8.4-10.2); Carbon Dioxide 19 mmol/L (22-30); Chloride 113 mmol/L (98-107); Glucose 165 mg/dL (74-99); Non-African American GFR(CKD) 80 (>60 ml/min/1.73 sqM); Potassium 4.6 mmol/L (3.5-5.1); Sodium 137 mmol/L (137-145)
[2020-07-17 11:28] LABS: Glucose,Whole Blood 156 mg/dL (75-99)
[2020-07-17] MEDS: oxyCODONE-APAP 10-325MG 1 EACH TAB PO PRN (11:48)
--- NOTE | 2020-07-17 11:59 | PN ---
PROGRESS NOTE Patient is seen for followup for acute kidney injury. She is currently doing well, overall feeling much better. The patient's renal function has improved, creatinine down to 0.8 from 1.6 on initial admission. She was maintained on IV fluids. Currently, oral intake is improved. No significant pain. PHYSICAL EXAMINATION: Blood pressure is 132/75, heart rate 83 per minute, she is afebrile. Examination of the heart S1, S2. Examination of the lungs, bilateral breath sounds are heard. Abdomen is soft, nontender. Examination of lower extremities shows right AKA. No edema noted in the left lower extremity. MEDICATION AID exam grossly intact. LAB: Show sodium 137, potassium 4.6, chloride 113, CO2 is 19, BUN 27, creatinine 0.8 mg/dL. Urine culture growing group D Enterococcus. ASSESSMENT: 1. Acute kidney injury, prerenal, currently improved with IV hydration. 2. Urinary tract infection, urine culture growing group D Enterococcus. 3. Hyperkalemia, currently improved, mostly associated with acute kidney injury, use of NSAIDs and PAGE inhibitors. 4. Chronic kidney disease, baseline creatinine 1.1 with multiple episodes of acute kidney injury most likely associated with underlying diabetic kidney disease. 5. Non gap metabolic acidosis associated with renal failure, currently improved. 6. History of right above-knee amputation. 7. Coronary artery disease with history of coronary stents. 8. Moderate bilateral hydronephrosis noted on ultrasound with an area of increased echogenicity in the bladder, we will proceed with urology consult. PLAN: Patient could technically be discharged but she needs to see Urology. Hopefully, she can be evaluated prior to discharge and then follow up with Urology as outpatient. MMODL / IJN: [id number] /
[2020-07-17 12:00] VITALS: BP 136/76; RESP 20; TEMP 98.5
[2020-07-17 12:09] VITALS: PULSE 82
--- NOTE | 2020-07-19 18:33 | P.DS ---
Providers Date of admission: 07/15/20 14:47 Expected date of discharge: 07/17/20 Attending physician: Rasheed Antoine Consults: 07/15/20 14:48 Consult Physician Routine Consulting Provider: Angeles Prado Consult Reason/Comments: Hyperkalemia Do you want consulting provider notified?: Yes 07/17/20 11:29 Consult Physician Routine Consulting Provider: Eddy Mike Consult Reason/Comments: hydronephrosis Do you want consulting provider notified?: Yes Primary care physician: Rhona Ryan [facility] Course: Chief Complaint: Tired History of presenting complaint: This is a pleasant 60-year-old patient who follows with Dr. Rhona ryan. Chronic stable medical conditions include coronary artery disease with stent, diabetes, fibromyalgia, GERD, hard of hearing, hypertension, hyperlipidemia, osteoarthritis, nephrolithiasis, peripheral arterial disease, DJD chronic back pain, AICD, pacemaker. Patient presents with feeling really weak diet lethargic for about a day. Having some urinary burning and frequency. Denies any obvious fever. Tired rundown. Decreased appetite. Patient is found to be hyperkalemic and acute kidney injury in the ER. Patient received potassium gluconate, dextrose, insulin sodium bicarbonate in the ER. Also found to have a UTI for which started IV ceftriaxone. Patient feels better this morning. Admitted with UTI with cystitis. Cultures came back showing VRE. Changed over to amoxicillin. Symptoms better. Also acute kidney injury with a creatinine of 1.65. With hydration came down to 0.8. Zestril and Lasix have been discontinued. Today: Patient feeling much better. Appetite fair. Symptoms much improved. Labs improved Consultation: Dr. Prado from nephrology Past medical history to include: Coronary artery disease with stent, CHF, diabetes, fibromyalgia, GERD, hard of hearing, hypertension, hyperlipidemia, osteoarthritis, chronic kidney disease, kidney stones, peripheral arterial disease, DJD, chronic low back pain, right above-knee amputation, AICD, pacemaker, anxiety depression Social history: . Does use a wheelchair. Patient smoked a pack a day for 20 years stopped in 2014. Does medical marijuana about 3-4 nights per week. Physical examination: VITAL SIGNS: 98.5, 68, 20, 1 36 x 76, 95% room air GENERAL: BMI 31.6, laying in bed, comfortable EYES: Pupils equal. Conjunctiva normal. HEENT: External appearance of nose and ears normal, oral cavity grossly normal. NECK: JVD not raised; masses not palpable. HEART: First and second heart sounds are normal; no edema. LUNGS: Respiratory rate normal; clear to auscultation. ABDOMEN: Soft, nontender, liver spleen not palpable, no masses palpable. PSYCH: [Alert and oriented x3; mood and affect tired l. MUSCULAR skeletal: Evidence of OA INVESTIGATIONS, reviewed in the clinical context: July 17: Potassium 4.6 creatinine 0.80 July 16: Potassium 5.4 bicarb 18 bun 45 creatinine 1.08 Admission labs: WBC 8.4 hemoglobin 11.1 platelets 194 potassium 6.4 bun 51 and creatinine 1.65 Troponin I less than 0.012 UA positive for leukoesterase WBC Urine culture: Enterococcus faecium/VRE Coronavirus [PCR]-not detected EKG tracing paced rhythm. Chest x-ray film personally reviewed by me-AICD, some venous prominence Previous labs: Creatinine 1.1 on 07/11/2020 Assessment and plan: -Acute kidney injury, likely from decreased oral intake-improved Hold Zestril, and Lasix. Gentle hydration. Follow H&H. Nephrology consultation -Acute UTI with cystitis, for VRE IV ceftriaxone-changed to amoxicillin -Coronary artery disease, prior history of stent Continue Plavix Lipitor -Chronic congestive heart failure, EF not known Follow fluid status clinically -Diabetes mellitus type 2 chronically on insulin For Accu-Cheks -Chronic fibromyalgia Pain control when necessary -GERD Pepcid -Hyperlipidemia Lipitor -Essential hypertension Follow blood pressure closely -Primary osteoarthritis Pain control as needed -Chronic kidney disease stage 2 likely nephrosclerosis Follow-up renal function -Peripheral arterial disease Aspirin Lipitor -Right above-knee amputation -AICD with a pacemaker Telemetry Anxiety depression otherwise specified Seroquel XL, Prozac, a Chronic insomnia: elavil Disposition: Home Plan - Discharge Summary Discharge Rx Participant: No New Discharge Prescriptions: New Amoxicillin 250 mg PO Q8H #21 cap Continue oxyCODONE-APAP 10-325MG [Percocet 10-325 mg] 1 tab PO Q6H PRN PRN Reason: Pain Amitriptyline HCl [Elavil] 25 mg PO HS ALPRAZolam [Xanax] 0.5 mg PO HS Aspirin 81 mg PO DAILY Clopidogrel [Plavix] 75 mg PO DAILY Morphine Sulfate ER [Ms Contin] 15 mg PO BID QUEtiapine FUMARATE [SEROquel XR] 50 mg PO HS Atorvastatin [Lipitor] 80 mg PO HS #30 tab FLUoxetine HCL [PROzac] 60 mg PO HS Docusate [Colace] 100 mg PO DAILY PRN PRN Reason: Constipation Ergocalciferol [Vitamin D2 (DRISDOL)] 50,000 unit PO FR Famotidine 20 mg PO DAILY PRN PRN Reason: reflux Nitroglycerin Sl Tabs [Nitrostat] 0.4 mg SUBLINGUAL Q5M PRN PRN Reason: Chest Pain Albuterol Sulfate [Proair Hfa] 2 puff INHALATION RT-Q4H PRN PRN Reason: Shortness Of Breath INSULIN ASPART (NovoLOG) [NovoLOG (formulary)] See Protocol SQ AC-TID Insulin Detemir (Levemir) [Levemir] See Protocol SQ DAILY Discontinued Furosemide [Lasix] 40 mg PO DAILY lisinopriL [Zestril] 10 mg PO DAILY Discharge Medication List Amitriptyline HCl [Elavil] 25 mg PO HS 08/28/13 [History] oxyCODONE-APAP 10-325MG [Percocet 10-325 mg] 1 tab PO Q6H PRN 08/28/13 [History] ALPRAZolam [Xanax] 0.5 mg PO HS 10/06/15 [History] Aspirin 81 mg PO DAILY 10/06/15 [History] Clopidogrel [Plavix] 75 mg PO DAILY 10/06/15 [History] Morphine Sulfate ER [Ms Contin] 15 mg PO BID 10/06/15 [History] QUEtiapine FUMARATE [SEROquel XR] 50 mg PO HS 10/06/15 [History] Atorvastatin [Lipitor] 80 mg PO HS #30 tab 03/25/16 [Rx] FLUoxetine HCL [PROzac] 60 mg PO HS 04/06/16 [History] Docusate [Colace] 100 mg PO DAILY PRN 01/05/19 [History] Ergocalciferol [Vitamin D2 (DRISDOL)] 50,000 unit PO FR 01/05/19 [History] Famotidine 20 mg PO DAILY PRN 01/05/19 [History] Nitroglycerin Sl Tabs [Nitrostat] 0.4 mg SUBLINGUAL Q5M PRN 01/05/19 [History] Albuterol Sulfate [Proair Hfa] 2 puff INHALATION RT-Q4H PRN 07/15/20 [History] INSULIN ASPART (NovoLOG) [NovoLOG (formulary)] See Protocol SQ AC-TID 07/15/20 [History] Insulin Detemir (Levemir) [Levemir] See Protocol SQ DAILY 07/15/20 [History] Amoxicillin 250 mg PO Q8H #21 cap 07/17/20 [Rx] Follow up Appointment(s)/Referral(s): [facility], [NON-STAFF] - () Steven Stewart MD [STAFF PHYSICIAN] - 1 Week (Pt to schedule appointment, as office is closed at time of discharge. Please notify office when calling, that this is a follow up from a hospital visit.) Rhona Ryan DO [Primary Care Provider] - 1-2 days (Pt to schedule appointment, as office is closed at time of discharge. Please notify office when calling, that this is a follow up from a hospital visit.) Patient Instructions/Handouts: Urinary Tract Infection in Women (DC), Chronic Kidney Disease (DC), Hydronephrosis (DC) Activity/Diet/Wound Care/Special Instructions: pt can leave after seen by urology - if not then will see them as outpatient Discharge Disposition: HOME SELF-CARE
== END 2020-07-17 17:09 | disposition home or self-care (01) | DRG 683 ==
LOC: EC 13:03 → 3SCARD 14:47
PROVIDERS: ADMIT Hospitalist; ATTEND Hospitalist
DX: N17.9 Acute kidney failure, unspecified (principal); E87.2 Acidosis; I13.0 Hypertensive heart and chronic kidney disease with heart failure and stage 1 through stage 4 chronic kidney disease, or unspecified chronic kidney disease; N18.2 Chronic kidney disease, stage 2 (mild); N13.6 Pyonephrosis; M79.7 Fibromyalgia; E11.22 Type 2 diabetes mellitus with diabetic chronic kidney disease; E11.51 Type 2 diabetes mellitus with diabetic peripheral angiopathy without gangrene; E78.5 Hyperlipidemia, unspecified; E87.5 Hyperkalemia; F41.8 Other specified anxiety disorders; F51.04 Psychophysiologic insomnia; G89.29 Other chronic pain; H91.90 Unspecified hearing loss, unspecified ear; I25.10 Atherosclerotic heart disease of native coronary artery without angina pectoris; I25.2 Old myocardial infarction; I50.9 Heart failure, unspecified; K21.9 Gastro-esophageal reflux disease without esophagitis; M19.91 Primary osteoarthritis, unspecified site; F12.90 Cannabis use, unspecified, uncomplicated; M54.9 Dorsalgia, unspecified; F40.240 Claustrophobia; Z20.822 Contact with and (suspected) exposure to COVID-19; Z79.02 Long term (current) use of antithrombotics/antiplatelets; Z79.82 Long term (current) use of aspirin; Z79.899 Other long term (current) drug therapy; Z82.49 Family history of ischemic heart disease and other diseases of the circulatory system; Z87.442 Personal history of urinary calculi; Z87.891 Personal history of nicotine dependence; Z89.611 Acquired absence of right leg above knee; Z95.5 Presence of coronary angioplasty implant and graft; Z95.810 Presence of automatic (implantable) cardiac defibrillator
CPT/HCPCS: 36415; 70450; 71046; 76770; 80048; 80053; 81001; 82550; 83605; 83735; 84439; 84443; 84481; 84484; 85025; 85610; 85730; 87077; 87086; 87186; 87635; 93005; 94640; 99291

== ENCOUNTER → 2020-08-11 | Outpatient (CLI) | payer MEDICARE, OTHER ==
--- NOTE | 2020-08-11 14:34 | US ---
EXAMINATION TYPE: US kidneys/renal and bladder DATE OF EXAM: 08/11/2020 COMPARISON: US CLINICAL HISTORY: N30.20 Other chronic cystitis without hematuria. diabetic, folow up hydronephrosis. EXAM MEASUREMENTS: Right Kidney: 12.1 x 6.8 x 6.2 cm Left Kidney: 11.7 x 6.1 x 4.1 cm Post Void Residual Volume: 50.5 mL Right Kidney: mild to moderate hydronephrosis Left Kidney: mild hydronephrosis Bladder: thickened wall noted anteriorly = 0.9cm Bilateral Jets seen: only left ureteral jet was seen within 3 minute observation Normal Post Void Residual: abnormal as volume is greater than 50.0ml. . IMPRESSION: Bilateral hydronephrosis.
== END | disposition home or self-care (01) ==
LOC: RADUSWWP 13:35
PROVIDERS: ATTEND Urology
DX: N30.20 Other chronic cystitis without hematuria (principal); N13.30 Unspecified hydronephrosis
CPT/HCPCS: 76770

== ENCOUNTER 2021-03-20 09:43 | Day surgery (SDC) | payer MEDICARE, OTHER ==
[2021-03-17 11:08] VITALS: BMI 29.6
[~2021-03-20 09:43] MED LIST changes: -IOPAMIDOL-370 50ML BTL INJ ONE; -PROPOFOL 10 MG/ML 20 ML VIAL IV ONE
[2021-03-20 10:25] VITALS: RESP 18; TEMP 98.3
[2021-03-20 10:27] LABS: Glucose,Whole Blood 160 mg/dL (75-99)
[2021-03-20] MEDS ORDERED: IOPAMIDOL-370 50ML BTL INJ ONE (12:12)
[2021-03-20] MEDS ORDERED: KETAMINE 10 MG/ML 20 ML VIAL ONE (12:45)
[2021-03-20] MEDS ORDERED: MIDAZOLAM 2 MG/2 ML VIAL ONE (12:45)
[2021-03-20] MEDS ORDERED: PROPOFOL 10 MG/ML 20 ML VIAL IV ONE (12:45)
--- NOTE | 2021-03-20 13:07 | P.EPPROC ---
- EP Procedure Note Electrophysiology Procedure Note: Diagnosis Edwin device D, [facility] [facility] medical, device malfunction Re: Non-capture RV pacing impedance 2600 and greater than High-voltage impedance normal LV and atrial lead function normal Procedures Left upper extremity venogram was performed. 50 mL IV dye injected in the left arm Mild stenosis at the axillary subcu injunction are fairly patent vein that can accommodate 1 more lead Collaterals noted Cinefluoroscopy of the leads did not reveal any fractures in the RV ICD lead This is a dual coil ICD lead Biventricular ICD interrogation revealed non-capture of the RV lead with pacing impedance of 2600 ohms and greater High-voltage impedance 83 ohms Device was reprogrammed to single zone therapy. There is absolutely no RV capture However RV sensing was between 8 and 9.5 mV without any noise DFT testing was performed to see if we defibrillation function is normal given the normal high-voltage impedance Ventricular fibrillation was induced, successfully detected at least sensitivity without any dropouts Successfully internally defibrillated with 10 J shock No post shock noise The device was then reprogrammed to LV pacing only, DDDR with a short AV delay RV defibrillation sensing was reprogrammed to 0.5 mV Single zone therapy provided at 200 beats a minute All antitachycardia pacing disabled Plan Implantation of a new ICD lead New ICD generator
[2021-03-20 14:43] VITALS: BP 154/74; PULSE 64
== END 2021-03-20 14:20 | disposition home or self-care (01) ==
LOC: CATHEP 09:43
PROVIDERS: ATTEND Internal Medicine Clinical Cardiac Electrophysiology
DX: T82.111A Breakdown (mechanical) of cardiac pulse generator (battery), initial encounter (principal); I25.5 Ischemic cardiomyopathy; I49.01 Ventricular fibrillation; E78.2 Mixed hyperlipidemia; I25.10 Atherosclerotic heart disease of native coronary artery without angina pectoris; Z20.822 Contact with and (suspected) exposure to COVID-19; I12.9 Hypertensive chronic kidney disease with stage 1 through stage 4 chronic kidney disease, or unspecified chronic kidney disease; E11.22 Type 2 diabetes mellitus with diabetic chronic kidney disease; N18.9 Chronic kidney disease, unspecified; M19.90 Unspecified osteoarthritis, unspecified site; Z95.5 Presence of coronary angioplasty implant and graft; Z87.891 Personal history of nicotine dependence; Z88.1 Allergy status to other antibiotic agents
CPT/HCPCS: 36005; 93642; 75820; 87635; J2250; J2704; Q9967

== ENCOUNTER 2021-05-30 10:34 | Day surgery (SDC) | payer MEDICARE, OTHER ==
[2021-05-29 10:34] VITALS: BMI 29.9
[~2021-05-30 10:34] MED LIST changes: +CLINDAMYCIN 600 MG in SODIUM CHLORIDE 0.9% 250 ML IRRIGATION PRN; +CLINDAMYCIN 900 MG in DEXTROSE 5% IN WATER 50 ML IVPB PRN; +DAPTOmycin 500 MG in SODIUM CHLORIDE 0.9% 50 ML IVPB PRN; -LACTATED RINGERS 1,000 ML IV SCH; -SODIUM CHLORIDE 0.9% 1,000 ML IV SCH; +ceFAZolin 1 GM in SODIUM CHLORIDE 0.9% IRRIG BTL 250 ML IRRIGATION PRN
[2021-05-30] MEDS ORDERED: SODIUM CHLORIDE 0.9% 1,000 ML IV ONE (10:54)
[2021-05-30 11:54] LABS: Glucose,Whole Blood 129 mg/dL (75-99)
[2021-05-30 12:25] LABS: Basophils # (A) 0.1 k/uL (0-0.2); Basophils % (A) 1 %; Eosinophils # (A) 0.6 k/uL (0-0.7); Eosinophils % (A) 6 %; HCT 37.8 % (34.0-46.0); HGB 12.6 gm/dL (11.4-16.0); Lymphocytes # (A) 2.8 k/uL (1.0-4.8); Lymphocytes % (A) 31 %; MCH 31.3 pg (25.0-35.0); MCHC 33.4 g/dL (31.0-37.0); MCV 93.8 fL (80.0-100.0); Mean Platelet Volume 7.2; Monocytes # (A) 0.5 k/uL (0-1.0); Monocytes % (A) 5 %; Neutrophils % (A) 55 %; Platelet Count 221 k/uL (150-450); RBC 4.03 m/uL (3.80-5.40); RDW 14.8 % (11.5-15.5)
[2021-05-30] MEDS ORDERED: fentaNYL (PF) 50 MCG/ML 2 ML AMP ONE (13:30)
[2021-05-30] MEDS ORDERED: PROPOFOL 10 MG/ML 20 ML VIAL IV ONE (13:30)
[2021-05-30] MEDS ORDERED: MIDAZOLAM 2 MG/2 ML VIAL ONE (13:30)
[2021-05-30] MEDS ORDERED: LIDOCAINE 1% INJ 10MG/ML (20 ML MDV) ONE (13:53)
[2021-05-30] MEDS ORDERED: IOPAMIDOL-370 50ML BTL INJ ONE (13:57)
[2021-05-30] MEDS ORDERED: LIDOCAINE 1% INJ 10MG/ML (20 ML MDV) SQ ONE ×2 (14:28→15:04)
[2021-05-30] MEDS ORDERED: ACETAMINOPHEN TAB 325 MG TAB PO PRN (16:28)
[2021-05-30] MEDS ORDERED: ALBUTEROL NEBULIZED 2.5 MG/3 ML INHALATION PRN (16:37)
[2021-05-30 17:05] LABS: Glucose,Whole Blood 94 mg/dL (75-99)
--- NOTE | 2021-05-30 17:13 | P.EPPROC ---
- EP Procedure Note Electrophysiology Procedure Note: Diagnosis RV non-capture with high impedances, likely RV ICD lead fracture Status post IV ICD implant Systolic LV dysfunction with heart failure class II Resolving infected wound in the foot Details Patient was brought to the EP lab area. She had already received IV daptomycin prior to entering the EP lab. 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 Gradual Serial Veno- Dilatation Was Performed from 5F up to 10-Micronesian size Following That an 8-Micronesian Long Sheath Was Placed into the SVC RA A [facility] [facility] ICD Was Implanted, 8-Micronesian Single Coil OPTISURE ICD lead, 58 cm in length Successfully implanted in the RV apex The old, chronic ICD lead had been implanted in the RV septum and was a safe distance away from the new lead The 2 leads were not touching each other in the RV or RA RV sensing 11.6 mV, excellent coronary injury, pacing threshold 0.75 V at 0.5 ms and pacing impedance 560 ohms The chronic atrial lead and the chronic LV lead were functioning normally The chronic LV lead is a bipolar lead The new generator was implanted An antibiotic TYRX bag was used, The leads and the generator were placed in the subfascial pocket was closed in 3 layers and dressed per protocol Defibrillation level testing was performed. Ventricular fibrillations induced and successfully detected without any dropouts and then successfully internally defibrillated with 10 J shock, Hold polarity Charge time 1.6 seconds High-voltage impedance 73 ohms No post shock noise The device was then programmed according to the [facility] programming with appropriate antitachycardia pacing cardioversion and defibrillation Pacing DDDR 50 to 130 bpm within AV delay 120 ms and simultaneous LV-RV pacing Patient tolerance the procedure well without any acute complications
[2021-05-30] MEDS: SODIUM CHLORIDE 0.9% 1,000 ML IV SCH ×12 (18:12→23:05)
[2021-05-30] MEDS: METOPROLOL SUCCINATE (ER) 50 MG TAB.ER.24H PO SCH (18:21)
[2021-05-30] MEDS ORDERED: oxyCODONE-APAP 10-325MG 1 EACH TAB PO PRN (18:38)
[2021-05-30] MEDS ORDERED: tiZANidine 4 MG TAB PO PRN (18:38)
--- NOTE | 2021-05-30 19:04 | XR ---
EXAMINATION TYPE: XR chest 1V portable DATE OF EXAM: 05/30/2021 COMPARISON: 07/15/2020 HISTORY: Check lead placement TECHNIQUE: Single view FINDINGS: Heart appears enlarged. There is left axillary pacemaker curve with the lead tips over the right ventricle. Location of the wires is difficult to evaluate with multiple overlapping wires. Ther e are chest leads. There is mild pulmonary congestion. IMPRESSION: Mild pulmonary congestion similar to last exam and could be minimal heart failure. There is change of the pacemaker compared to last exam.
[2021-05-30 20:01] LABS: Glucose,Whole Blood 187 mg/dL (75-99)
[2021-05-30] MEDS: INSULIN ASPART (NovoLOG) 100 UNIT/ML VIAL SQ SCH (20:25)
[2021-05-30] MEDS: MORPHINE SULFATE ER 30 MG TABLET PO SCH (20:26)
[2021-05-30] MEDS: QUEtiapine 25 MG TAB PO SCH (20:26)
[2021-05-30] MEDS ORDERED: FLUoxetine HCL 20 MG CAP PO SCH (21:00)
[2021-05-30] MEDS ORDERED: ALPRAZolam 0.5 MG TAB PO SCH (21:00)
[2021-05-30] MEDS ORDERED: AMITRIPTYLINE HCL 25 MG TAB PO SCH (21:00)
[2021-05-30] MEDS ORDERED: INSULIN DETEMIR (LEVEMIR) 100 UNIT/ML SYR SQ SCH (21:00)
[2021-05-30] MEDS ORDERED: ASPIRIN 81 MG PO SCH (21:00)
[2021-05-30] MEDS ORDERED: ATORVASTATIN 80 MG TAB PO SCH (21:00)
[2021-05-31] MEDS: INSULIN ASPART (NovoLOG) 100 UNIT/ML VIAL SQ SCH (06:15)
[2021-05-31 06:27] LABS: Glucose,Whole Blood 126 mg/dL (75-99)
[2021-05-31 07:57] VITALS: BP 91/59; PULSE 60; RESP 18; TEMP 97.7
[2021-05-31] MEDS: METOPROLOL SUCCINATE (ER) 50 MG TAB.ER.24H PO SCH (08:02)
[2021-05-31] MEDS: MORPHINE SULFATE ER 30 MG TABLET PO SCH (08:02)
[2021-05-31] MEDS: QUEtiapine 25 MG TAB PO SCH (08:02)
[2021-05-31] MEDS ORDERED: NON FORMULARY DRUG (Dapagliflozin Propanediol [Farxiga] 10 MG Tablet) PO SCH (09:00)
[2021-05-31] MEDS ORDERED: FAMOTIDINE 20 MG TAB PO SCH (09:00)
[2021-05-31] MEDS ORDERED: polyethylene glycoL 3350 17 GM POWD.PACK PO SCH (09:00)
[2021-05-31] MEDS ORDERED: CLOPIDOGREL 75 MG TAB PO SCH (09:00)
[2021-05-31] MEDS ORDERED: FUROSEMIDE 40 MG TAB PO SCH (09:00)
[2021-05-31] MEDS ORDERED: lisinopriL 10 MG TAB PO SCH ×2 (09:00→21:00)
[2021-05-31] MEDS ORDERED: NITROFURANTOIN MONOHYD/M-CRYST 100 MG CAP PO SCH (09:00)
--- NOTE | 2021-05-31 10:42 | P.DS ---
Providers Attending physician: Jaquan Durant Primary care physician: Rhona Selby [facility] Course: Patient is resting comfortably in bed. Minimal discomfort in the ICD incision site No chest discomfort No shortness of breath at rest in the supine position Normal heart sounds normal S1 normal S2 No murmurs Lungs decreased breath sounds bilaterally Blood pressure 106 06 9 mmHg pulse rate in the 70s afebrile Impression History of cardio myopathy and congestive heart failure class II Status post biventricular ICD many years back ICD lead fracture Implantation of a new ICD lead in the RV apex. Lead in stable position and chest x-ray Chest x-ray shows increased lung markings consistent with interstitial lung disease Patient is on nitrofurantoin chronically Suggest Patient may go home today after antibiotics are complete and biventricular ICD interrogation is within normal limits Given the finding of increased, coarse lung markings on chest x-ray, I would recommend stopping nitrofurantoin This is associated with pulmonary fibrosis and hypersensitivity pneumonitis This x-ray is abnormal and does not merely represent congestive heart failure. From a clinical standpoint this lady has very well compensated CHF I would recommend discontinuing nitrofurantoin completely Patient Condition at Discharge: Stable Plan - Discharge Summary Discharge Rx Participant: No New Discharge Prescriptions: New Metoprolol Succinate (ER) [Toprol XL] 50 mg PO DAILY #90 tab Continue oxyCODONE-APAP 10-325MG [Percocet 10-325 mg] 1 tab PO Q6H PRN PRN Reason: Pain Amitriptyline HCl [Elavil] 25 mg PO HS ALPRAZolam [Xanax] 0.5 mg PO HS Aspirin 81 mg PO HS Clopidogrel [Plavix] 75 mg PO DAILY Morphine Sulfate ER [Ms Contin] 30 mg PO BID QUEtiapine FUMARATE [SEROquel XR] 50 mg PO HS Atorvastatin [Lipitor] 80 mg PO HS #30 tab FLUoxetine HCL [PROzac] 60 mg PO HS Ergocalciferol [Vitamin D2 (DRISDOL)] 50,000 unit PO FR Famotidine 20 mg PO DAILY Nitroglycerin Sl Tabs [Nitrostat] 0.4 mg SUBLINGUAL Q5M PRN PRN Reason: Chest Pain Albuterol Sulfate [Proair Hfa] 2 puff INHALATION Q4H PRN PRN Reason: Shortness Of Breath INSULIN ASPART (NovoLOG) [NovoLOG (formulary)] See Protocol SQ AC-TID tiZANidine [Zanaflex] 4 mg PO TID PRN PRN Reason: Pain/MUSCLE SPASM Naloxone [Narcan] 2 mg IM ONETIME PRN PRN Reason: OVERDOSE polyethylene glycoL 3350 [Miralax] 17 gm PO DAILY Insulin Detemir (Levemir) [Levemir] 35 unit SQ HS Lisinopril [Zestril] 10 mg PO QAM Furosemide [Lasix] 40 mg PO QAM Nitrofurantoin Macrocrystal [Nitrofurantoin] 100 mg PO DAILY Dapagliflozin Propanediol [Farxiga] 10 mg PO DAILY Discontinued Metoprolol Tartrate [Lopressor] 50 mg PO QAM Discharge Medication List Amitriptyline HCl [Elavil] 25 mg PO HS 08/28/13 [History] oxyCODONE-APAP 10-325MG [Percocet 10-325 mg] 1 tab PO Q6H PRN 08/28/13 [History] ALPRAZolam [Xanax] 0.5 mg PO HS 10/06/15 [History] Aspirin 81 mg PO HS 10/06/15 [History] Clopidogrel [Plavix] 75 mg PO DAILY 10/06/15 [History] Morphine Sulfate ER [Ms Contin] 30 mg PO BID 10/06/15 [History] QUEtiapine FUMARATE [SEROquel XR] 50 mg PO HS 10/06/15 [History] Atorvastatin [Lipitor] 80 mg PO HS #30 tab 03/25/16 [Rx] FLUoxetine HCL [PROzac] 60 mg PO HS 04/06/16 [History] Ergocalciferol [Vitamin D2 (DRISDOL)] 50,000 unit PO FR 01/05/19 [History] Famotidine 20 mg PO DAILY 01/05/19 [History] Nitroglycerin Sl Tabs [Nitrostat] 0.4 mg SUBLINGUAL Q5M PRN 01/05/19 [History] Albuterol Sulfate [Proair Hfa] 2 puff INHALATION Q4H PRN 07/15/20 [History] INSULIN ASPART (NovoLOG) [NovoLOG (formulary)] See Protocol SQ AC-TID 07/15/20 [History] Insulin Detemir (Levemir) [Levemir] 35 unit SQ HS 07/15/20 [History] Furosemide [Lasix] 40 mg PO QAM 03/17/21 [History] Lisinopril [Zestril] 10 mg PO QAM 03/17/21 [History] Nitrofurantoin Macrocrystal [Nitrofurantoin] 100 mg PO DAILY 03/17/21 [History] tiZANidine [Zanaflex] 4 mg PO TID PRN 03/17/21 [History] Dapagliflozin Propanediol [Farxiga] 10 mg PO DAILY 05/15/21 [History] Naloxone [Narcan] 2 mg IM ONETIME PRN 05/29/21 [History] Metoprolol Succinate (ER) [Toprol XL] 50 mg PO DAILY #90 tab 05/30/21 [Rx] polyethylene glycoL 3350 [Miralax] 17 gm PO DAILY 05/30/21 [History] Follow up Appointment(s)/Referral(s): Germán Jauregui MD [STAFF PHYSICIAN] - 1 Week Patient Instructions/Handouts: Pacemaker (DC) Activity/Diet/Wound Care/Special Instructions: PATIENT EDUCATION MATERIAL Instructions following a heart rhythm device implant. 1. Keep dressing DRY for 5 DAYS. You may cover the area with Saran or Cling Wrap, prior to a shower. 2. The dressing will be removed in the Device Clinic at [facility]. Absorbable sutures were used to close the wound. 3. Avoid raising the left arm above the shoulder level. 4 week restriction 4. Avoid arm movements, like backscratching, rubbing the head, or pulling on a cord. 4 weeks restriction 5. Gentle range of motion movements of the shoulder, closest to the incision should be performed to avoid a frozen shoulder. (Pendulum exercises of the shoulder) 6. The opposite arm may be used freely. 7. Avoid driving for 7 days. 8. Avoid activities such as golfing, swimming, weed whacking, lifting more than 10 pounds weight, bowling, gymnastics and weight training/lifting. (6 weeks restriction) 9. Activities such as wood chopping with an axe, pull-ups in the gymnasium, power lifting, arc-welding, being close to home induction cooktops will always be a problem. 10. Arm sling is only a reminder not to raise the arm above the head. You do not need to keep the arm completely immobilized. Your free to move the arm and use it and for normal activities. In case of any problems, please call [facility], Roselyn Brady, @ [phone], Attention: Device Clinic Device clinic follow-up in 7 days Follow-up with primary fibrous plasterer in 2-3 months Switched to metoprolol succinate 50 mrem by mouth daily. Stop metoprolol tartrate Consider risks of nitrofurantoin namely pulmonary fibrosis, versus the benefits for chronic UTI Discussed with the patient Discharge Disposition: HOME SELF-CARE
[2021-06-02] MEDS ORDERED: ERGOCALCIFEROL 1,250 MCG (50,000 IU) CAPSULE PO SCH (09:00)
== END 2021-05-31 11:14 | disposition home or self-care (01) ==
LOC: CATHEP 10:34 → 6NMEDSUR 15:55 → 3SCARD 16:22 → 6NMEDSUR 05-31 06:35 → CATHEP 05-31 11:14
PROVIDERS: ATTEND Internal Medicine Clinical Cardiac Electrophysiology
DX: R09.89 Other specified symptoms and signs involving the circulatory and respiratory systems (principal); I50.9 Heart failure, unspecified; I25.2 Old myocardial infarction; I10 Essential (primary) hypertension; M19.90 Unspecified osteoarthritis, unspecified site; F32.A Depression, unspecified; K21.9 Gastro-esophageal reflux disease without esophagitis; Z79.82 Long term (current) use of aspirin; I73.9 Peripheral vascular disease, unspecified; Z20.822 Contact with and (suspected) exposure to COVID-19
CPT/HCPCS: 93641; 33249; 84132; 85025; 87635; 71045; C1769 ×5; C1892 ×2; C1882; C1777; J0690 ×2; J2001; Q9967

== ENCOUNTER 2023-10-23 09:22 | Inpatient (IN) | payer MEDICARE, OTHER ==
[2023-10-23] MEDS: SODIUM CHLORIDE 0.9% 1,000 ML IV STA (10:02)
[2023-10-23] MEDS: ONDANSETRON 4 MG/2 ML VIAL IVP STA (10:03)
--- NOTE | 2023-10-23 10:10 | ED ---
Abdominal Pain HPI <Oscar Garner - Last Filed: 10/23/23 11:42> - General Source: patient, EMS, RN notes reviewed Mode of arrival: EMS Limitations: no limitations <Kyrie Zambrano - Last Filed: 10/23/23 14:47> - General Chief Complaint: Abdominal Pain Stated Complaint: vomiting Time Seen by Provider: 10/23/23 09:31 - History of Present Illness Initial Comments: 63-year-old female presents emergency room via EMS chief complaint of weakness. Patient states that she has had increasing weakness, nausea vomiting. Patient has chronic Cortes because she developed kidney issues also she had a right AKA. Patient states that she is just generalized weak, fell out of bed denies any head injury she states that she is still very nauseated she been having ongoing vomiting issues. Significant other in the room states that she has had some confusion. (Kyrie Zambrano) - Related Data Home Medications Medication Instructions Recorded Confirmed Amitriptyline HCl [Elavil] 25 mg PO HS 08/28/13 10/23/23 oxyCODONE-APAP 10-325MG [Percocet 1 tab PO TID PRN 08/28/13 10/23/23 10-325 mg] ALPRAZolam [Xanax] 0.5 mg PO HS 10/06/15 10/23/23 Clopidogrel [Plavix] 75 mg PO DAILY 10/06/15 10/23/23 QUEtiapine FUMARATE [SEROquel XR] 50 mg PO HS 10/06/15 10/23/23 Nitroglycerin Sl Tabs [Nitrostat] 0.4 mg SUBLINGUAL Q5M PRN 01/05/19 10/23/23 INSULIN ASPART (NovoLOG) [NovoLOG 15 - 20 unit SQ AC-TID 07/15/20 10/23/23 (formulary)] Furosemide [Lasix] 40 mg PO DAILY 03/17/21 10/23/23 tiZANidine [Zanaflex] 4 mg PO BID PRN 03/17/21 10/23/23 Dapagliflozin Propanediol [Farxiga] 10 mg PO DAILY 05/15/21 10/23/23 Docusate [Colace] 100 mg PO Q48H 10/23/23 10/23/23 Ergocalciferol (Vitamin D2) 1,250 mcg PO FR 10/23/23 10/23/23 [Drisdol (50,000 Iu)] Escitalopram Oxalate [Lexapro] 20 mg PO HS 10/23/23 10/23/23 Finerenone [Kerendia] 5 mg PO DAILY 10/23/23 10/23/23 Insulin Degludec [Tresiba 35 units SQ HS 10/23/23 10/23/23 Flextouch U-200 Pen] Isosorbide Mononitrate ER [Imdur] 30 mg PO DAILY 10/23/23 10/23/23 Morphine Sulfate [Ms Contin] 30 mg PO Q12HR 10/23/23 10/23/23 calcitrioL [Rocaltrol] 0.25 mcg PO FR 10/23/23 10/23/23 Previous Rx's Medication Instructions Recorded Atorvastatin [Lipitor] 80 mg PO HS #30 tab 03/25/16 Metoprolol Succinate (ER) [Toprol 50 mg PO DAILY #90 tab 05/30/21 XL] Allergies Allergy/AdvReac Type Severity Reaction Status Date / Time vancomycin Allergy Rash/Hives Verified 10/23/23 13:31 ciprofloxacin [From Cipro] AdvReac Nausea & Verified 10/23/23 13:31 Vomiting ciprofloxacin HCl AdvReac Nausea & Verified 10/23/23 13:31 [From Cipro] Vomiting flu vaccine Allergy Rash/Hives Uncoded 10/23/23 13:31 Review of Systems ROS Other: All systems not noted in ROS Statement are negative. <Oscar Garner - Last Filed: 10/23/23 11:42> ROS Other: All systems not noted in ROS Statement are negative. <Kyrie Zambrano - Last Filed: 10/23/23 14:47> ROS Statement: Those systems with pertinent positive or pertinent negative responses have been documented in the HPI. Past Medical History Past Medical History: Coronary Artery Disease (CAD), Heart Failure, Diabetes Mellitus, Fibromyalgia, GERD/Reflux, Hearing Disorder / Deafness, Hyper lipidemia, Hypertension, Myocardial Infarction (RI), Musculoskeletal Disorder, Osteoarthritis (OA), Renal Disease, Skin Disorder, Vascular Disorder Additional Past Medical History / Comment(s): See Dr Durant's H&P nephrolithiasis and kidney stones- chronic Cortes, peripheral vascular disease, degenerative disc disease-chronic back pain, Rt AKA-working on using prosthesis, going to physical therapy Last Myocardial Infarction Date:: 2004,2006, 2015 History of Any Multi-Drug Resistant Organisms: MRSA Date of last positivie culture/infection: 02/24/16 LT FOOT-VERIFIED PER DR VASQUEZ OFFICE MDRO Source:: LT FOOT Past Surgical History: AICD, Section, Heart Catheterization, Heart Catheterization With Stent, Orthopedic Surgery, Pacemaker, Tonsillectomy Additional Past Surgical History / Comment(s): Right rotator cuff surgery 2, bilateral carpal tunnel release,3 cardiac catheterization 6 stents, above-knee amputation of the right lower extremity, incision and debridement of diabetic wounds, [facility] Biventricular AICD placement Past Anesthesia/Blood Transfusion Reactions: Motion Sickness Additional Past Anesthesia/Blood Transfusion Reaction / Comment(s): C LAUSTERPHOBIA. PAST BLOOD TRANSFUSION-NO REACTION Date of Last Stent Placement:: 2015 Type of Cardiac Device: AICD Device Placement Date:: Past Psychological History: Anxiety, Depression Smoking Status: Former smoker - Past Family History Sister(s) Family Medical History: Cancer Additional Family Medical History / Comment(s): 2 SISTERS HAD CANCER. Mother Family Medical History: Coronary Artery Disease (CAD), Hyperlipidemia, Hypertension Additional Family Medical History / Comment(s): CABG. Father Family Medical History: CVA/TIA, Hyperlipidemia, Hypertension, Myocardial Infarction (RI) Brother(s) Family Medical History: Cancer Additional Family Medical History / Comment(s): Breast cancer. <GhassandaljitKyrie M - Last Filed: 10/23/23 14:47> General Exam General appearance: alert, in no apparent distress Head exam: Present: atraumatic, normocephalic, normal inspection ENT exam: Present: normal exam, mucous membranes moist Neck exam: Present: normal inspection, full ROM. Absent: tenderness, men ingismus, lymphadenopathy Respiratory exam: Present: normal lung sounds bilaterally. Absent: respiratory distress, wheezes, rales, rhonchi, stridor Cardiovascular Exam: Present: regular rate, normal rhythm, normal heart sounds. Absent: systolic murmur, diastolic murmur, rubs, gallop, clicks GI/Abdominal exam: Present: soft, normal bowel sounds. Absent: distended, tenderness, guarding, rebound, rigid Extremities exam: Present: other (Right AKA) Neurological exam: Present: alert, oriented X3 <Kyrie Zambrano M - Last Filed: 10/23/23 14:47> Course Vital Signs 10/23/23 10/23/23 10/23/23 09:26 09:30 10:05 Temperature 98.4 F Pulse Rate 79 74 Respiratory 18 17 Rate Blood Pressure 101/75 106/86 82/60 O2 Sat by Pulse 90 L 97 Oximetry 10/23/23 10/23/23 10/23/23 10:30 10:45 11:02 Temperature Pulse Rate 69 Respiratory 16 Rate Blood Pressure 72/49 66/43 69/44 O2 Sat by Pulse 99 Oximetry 10/23/23 10/23/23 10/23/23 11:18 11:20 11:30 Temperature Pulse Rate 71 Respiratory 17 Rate Blood Pressure 76/56 91/58 O2 Sat by Pulse 90 L 95 Oximetry 10/23/23 10/23/23 10/23/23 11:40 11:50 12:05 Temperature Pulse Rate 69 66 Respiratory 18 17 Rate Blood Pressure 83/58 77/47 80/52 O2 Sat by Pulse 98 97 Oximetry 10/23/23 10/23/23 10/23/23 12:06 12:25 12:30 Temperature 97.9 F Pulse Rate 81 Respiratory 18 Rate Blood Pressure 79/57 119/77 105/55 O2 Sat by Pulse 99 Oximetry 10/23/23 10/23/23 10/23/23 12:45 13:00 13:15 Temperature Pulse Rate Respiratory Rate Blood Pressure 114/70 114/66 108/68 O2 Sat by Pulse Oximetry 10/23/23 10/23/23 10/23/23 13:25 13:45 14:00 Temperature Pulse Rate 75 Respiratory 18 Rate Blood Pressure 108/55 111/62 110/67 O2 Sat by Pulse 97 Oximetry 10/23/23 14:28 Temperature 97.7 F Pulse Rate 80 Respiratory 20 Rate Blood Pressure 110/72 O2 Sat by Pulse 97 Oximetry Procedures - Central Line Placement Right Femoral Consent Obtained: verbal consent, emergent situation Patient Placed on Monitor/Pulse Ox: Yes Prep: mask, gown, gloves Central Line Prep: Chlorhexidine scrub Local Anesthesia Used: Lidocaine 1%, Lidocaine 2%, with Epi Ultrasound Used for Placement: Yes Central Line Lumen Inserted: triple Bloods Obtained for Lab: No Central Line Position: good blood return, all ports aspirated, flushed, capped, sutured in place with 3-0 nylon Dressing Applied: Tegaderm Post Procedure X-Ray: tip of catheter in good position Patient Tolerated Procedure: well Complications: none <Oscar Garner - Last Filed: 10/23/23 11:42> - Sepsis Sepsis Focused Exam #1 Sepsis Focused Exam Date: 10/23/23 Sepsis Focused Exam Time: 11:38 Sepsis Focused Exam Complete: Yes Vital Signs & RN Notes Reviewed: Yes Capillary Refill: < 2 Seconds: Fingers, Toes (Only assessed on the left patient had right AKA) Peripheral Pulses: Absent: Posterior Tibialis (R), Dorsalis Pedis (R), Weak: Posterior Tibialis (L), Dorsalis Pedis (L), Normal: Radial (R), Radial (L) Skin Color: Normal for Patient Respiratory Exam: normal lung sounds, respiratory distress Cardiovascular Exam: regular rate, normal rhythm <Kyrie Zambrano - Last Filed: 10/23/23 14:47> Medical Decision Making - Lab Data Result diagrams: 10/23/23 09:55 10/23/23 09:55 <Oscar Garner - Last Filed: 10/23/23 11:42> - Lab Data Result diagrams: 10/23/23 09:55 10/23/23 09:55 - EKG Data -: EKG Interpreted by Me EKG shows normal: sinus rhythm <Kyrie Zambrano - Last Filed: 10/23/23 14:47> - Medical Decision Making Patient seen along with physician golf player assistantKyrie. Briefly, patient 63-year-old female presents very ill-appearing. Suspect urosepsis. Patient has had low blood pressures despite fluid hydration. Patient had central venous catheter line placed in the right femoral groin. Critical care time 77 minutes (Oscar Garner) Was pt. sent in by a medical professional or institution ([facility]UB[facility] Lind, [employer], urgent care, hospital, or [place] health care facility...) When possible be specific @ -No Did you speak to anyone other than the patient for history (EMS, parent, family, police, friend...)? What history was obtained from this source @ -No Did you review nursing and triage notes (agree or disagree)? Why? @ -I reviewed and agree with nursing and triage notes Were old charts reviewed (outside hosp., previous admission, EMS record, old EKG, old radiological studies, urgent care reports/EKG's, [place] health care facility records)? Report findings @ -[Reviewed urinalysis, CBC and comp Differential Diagnosis (chest pain, altered mental status, abdominal pain women, abdominal pain men, vaginal bleeding, weakness, fever, dyspnea, syncope, headache, dizziness, GI bleed, back pain, seizure, CVA, palpatations, mental hea lth, musculoskeletal)? @ -Differential Weakness: Hypoglycemia, shock, sepsis, hyponatremia, anemia, infection, RI, ETOH, adverse medicine reaction, overdose, stroke, this is not meant to be an all-inclusive list. EKG interpreted by me (3pts min.). @ -As above X-rays interpreted by me (1pt min.). @ -Chest shows left lower lobe pneumonia CT interpreted by me (1pt min.). @ -None done U/S interpreted by me (1pt. min.). @ -None done What testing was considered but not performed or refused? (CT, X-rays, U/S, labs)? Why? @ -None What meds were considered but not given or refused? Why? @ -None Did you discuss the management of the patient with other professionals (professionals i.e. , PA, [employer], lab, RT, psych nurse, social media community manager, newspaper managing editor, teacher, animal control officer, nurse case manager)? Give summary @ -[facility] for admission, Dr. Harvey for ICU Was smoking cessation discussed for >3mins.? @ -No Was critical care preformed (if so, how long)? @ -77 Were there social determinants of health that impacted care today? How? (Homelessness, low income, unemployed, alcoholism, drug addiction, transportation, low edu. Level, literacy, decrease access to med. care, prison, rehab)? @ -No Was there de-escalation of care discussed even if they declined (Discuss DNR or withdrawal of care, Hospice)? DNR status @ -No What co-morbidities impacted this encounter? (DM, HTN, Smoking, COPD, CAD, Cancer, CVA, ARF, Chemo, Hep., AIDS, mental health diagnosis, sleep apnea, morbid obesity)? @ -[HTN, CHF, DM, renal disease Was patient admitted / discharged? Hospital course, mention meds given and route, prescriptions, significant lab abnormalities, going to OR and other pertinent info. @ -Admitted patient presented for increasing weakness, abdominal pain, nausea vomiting. Patient has Cortes catheter that needs to be exchanged. Patient has UTI patient developed hypotension throughout her hospitalization after IV fluid hydration. Patient was started on IV pressors Levophed Case discussed with admitting EM, Dr. Allen ICU patient was blood cultures, mild lactic acidosis, patient given 2 g Rocephin patient appears to have hepatorenal syndrome with moderately elevated LFTs no localized right upper quadrant pain. Undiagnosed new problem with uncertain prognosis? @ -No Drug Therapy requiring intensive monitoring for toxicity (Heparin, Nitro, Insulin, Cardizem)? @ -No Were any procedures done? @ -No Diagnosis/symptom? @ -UTI, sepsis, acute on chronic renal failure, Acute, or Chronic, or Acute on Chronic? @ -Acute Uncomplicated (without systemic symptoms) or Complicated (systemic symptoms)? @ -Complicated Side effects of treatment? @ -No Exacerbation, Progression, or Severe Exacerbation? @ -No Poses a threat to life or bodily function? How? (Chest pain, USA, RI, pneumonia, PE, COPD, DKA, ARF, appy, cholecystitis, CVA, Diverticulitis, Homicidal, Suicidal, threat to staff... and all critical care pts) @ -Yes urosepsis (Kyrie Zambrano) - Lab Data Lab Results 10/23/23 10/23/23 10/23/23 Range/Units 09:55 09:55 09:55 WBC 8.2 (3.8-10.6) k/uL RBC 3.46 L (3.80-5.40) m/uL Hgb 9.3 L (11.4-16.0) gm/dL Hct 30.1 L (34.0-46.0) % MCV 87.0 (80.0-100.0) fL MCH 26.8 (25.0-35.0) pg MCHC 30.8 L (31.0-37.0) g/dL RDW 17.2 H (11.5-15.5) % Plt Count 217 (150-450) k/uL MPV 8.0 Neutrophils % 80 % Lymphocytes % 11 % Monocytes % 6 % Eosinophils % 0 % Basophils % 0 % Neutrophils # 6.5 (1.3-7.7) k/uL Lymphocytes # 0.9 L (1.0-4.8) k/uL Monocytes # 0.5 (0-1.0) k/uL Eosinophils # 0.0 (0-0.7) k/uL Basophils # 0.0 (0-0.2) k/uL Hypochromasia Marked Anisocytosis Slight Sodium 131 L (137-145) mmol/L Potassium 4.0 (3.5-5.1) mmol/L Chloride 102 (98-107) mmol/L Carbon Dioxide 16 L (22-30) mmol/L Anion Gap 13 mmol/L BUN 60 H (7-17) mg/dL Creatinine 2.54 H (0.52-1.04) mg/dL Est GFR (CKD-EPI)AfAm 22 (>60 ml/min/1.73 sqM) Est GFR (CKD-EPI)NonAf 19 (>60 ml/min/1.73 sqM) Glucose 266 H (74-99) mg/dL Lactic Ac Sepsis Rflx Plasma Lactic Acid Jimmy (0.7-2.0) mmol/L Calcium 8.7 (8.4-10.2) mg/dL Total Bilirubin 0.7 (0.2-1.3) mg/dL AST 485 H (14-36) U/L ALT 321 H (4-34) U/L Alkaline Phosphatase 111 (38-126) U/L Total Protein 6.9 (6.3-8.2) g/dL Albumin 3.0 L (3.5-5.0) g/dL Lipase 130 (23-300) U/L Urine Color Yellow Urine Appearance Turbid H (Clear) Urine pH 5.5 (5.0-8.0) Ur Specific Waller 1.015 (1.001-1.035) Urine Protein 2+ H (Negative) Urine Glucose (UA) 2+ H (Negative) Urine Ketones Negative (Negative) Urine Blood Moderate H (Negative) Urine Nitrite Negative (Negative) Urine Bilirubin Negative (Negative) Urine Urobilinogen <2.0 (<2.0) mg/dL Ur Leukocyte Esterase Large H (Negative) Urine RBC 62 H (0-5) /hpf Urine WBC >182 H (0-5) /hpf Urine WBC Clumps Many H (None) /hpf Urine Bacteria Many H (None) /hpf Urine Mucus Few H (None) /hpf 10/23/23 10/23/23 Range/Units 09:55 11:03 WBC (3.8-10.6) k/uL RBC (3.80-5.40) m/uL Hgb (11.4-16.0) gm/dL Hct (34.0-46.0) % MCV (80.0-100.0) fL MCH (25.0-35.0) pg MCHC (31.0-37.0) g/dL RDW (11.5-15.5) % Plt Count (150-450) k/uL MPV Neutrophils % % Lymphocytes % % Monocytes % % Eosinophils % % Basophils % % Neutrophils # (1.3-7.7) k/uL Lymphocytes # (1.0-4.8) k/uL Monocytes # (0-1.0) k/uL Eosinophils # (0-0.7) k/uL Basophils # (0-0.2) k/uL Hypochromasia Anisocytosis Sodium (137-145) mmol/L Potassium (3.5-5.1) mmol/L Chloride (98-107) mmol/L Carbon Dioxide (22-30) mmol/L Anion Gap mmol/L BUN (7-17) mg/dL Creatinine (0.52-1.04) mg/dL Est GFR (CKD-EPI)AfAm (>60 ml/min/1.73 sqM) Est GFR (CKD-EPI)NonAf (>60 ml/min/1.73 sqM) Glucose (74-99) mg/dL Lactic Ac Sepsis Rflx Y Plasma Lactic Acid Jimmy 3.2 H* (0.7-2.0) mmol/L Calcium (8.4-10.2) mg/dL Total Bilirubin (0.2-1.3) mg/dL AST (14-36) U/L ALT (4-34) U/L Alkaline Phosphatase (38-126) U/L Total Protein (6.3-8.2) g/dL Albumin (3.5-5.0) g/dL Lipase (23-300) U/L Urine Color Urine Appearance (Clear) Urine pH (5.0-8.0) Ur Specific Waller (1.001-1.035) Urine Protein (Negative) Urine Glucose (UA) (Negative) Urine Ketones (Negative) Urine Blood (Negative) Urine Nitrite (Negative) Urine Bilirubin (Negative) Urine Urobilinogen (<2.0) mg/dL Ur Leukocyte Esterase (Negative) Urine RBC (0-5) /hpf Urine WBC (0-5) /hpf Urine WBC Clumps (None) /hpf Urine Bacteria (None) /hpf Urine Mucus (None) /hpf - EKG Data EKG Comments: EKG performed at 9: 38 ventricular paced rate of 79 NM 99 QRS 201 QT/QTc 439/474 (Kyrie Zambrano) Critical Care Time Critical Care Time: Yes Total Critical Care Time: 77 <Kyrie Zambrano - Last Filed: 10/23/23 14:47> Critical Care Time: 77 (Kyrie Zambrano) Disposition <Oscar Garner - Last Filed: 10/23/23 11:42> Time of Disposition: 12:21 <Kyrie Zambrano - Last Filed: 10/23/23 14:47> Clinical Impression: UTI (urinary tract infection), Sepsis, Hypotension, Pneumonia Disposition: ADMITTED IP TO THIS HOSP Condition: Serious
--- NOTE | 2023-10-23 10:26 | XR ---
EXAMINATION TYPE: XR chest 2V DATE OF EXAM: 10/23/2023 COMPARISON: 05/30/2021 TECHNIQUE: PA and lateral views submitted. HISTORY: Weakness FINDINGS: Heart size enlarged as a multilead cardiac device. Diffuse interstitial pattern with findings suggest rufino of COPD. Previous rotator cuff repair surgery on the right. Degenerative changes of the spine. IMPRESSION: 1. Cardiomegaly correlate for mild venous congestion or chronic interstitial lung disease\pulmonary f ibrosis. 2. More confluent area of consolidation in the left perihilar and upper lobe. Early infiltrate or johnna plasm not excluded. Consider follow-up CT chest.
[2023-10-23 10:50] LABS: Appearance,Urine Turbid (Clear); Bacteria,Urine Many /hpf; Bilirubin,Urine Negative (Negative); Blood,Urine Moderate (Negative); Color,Urine Yellow; Glucose,Urine (UA) 2+ (Negative); Ketones,Urine Negative (Negative); Leukocyte Esterase,Urine Large (Negative); Mucus,Urine Few /hpf; Nitrite,Urine Negative (Negative); PH, Urine 5.5 (5.0-8.0); Protein,Urine 2+ (Negative); RBC,Urine 62 /hpf (0-5); Specific Gravity,Urine 1.015 (1.001-1.035); Urobilinogen,Urine <2.0 mg/dL (<2.0); WBC,Urine >182 /hpf (0-5)
[2023-10-23 11:02] LABS: ALT 321 U/L (4-34); AST 485 U/L (14-36); African American GFR (CKD) 22 (>60 ml/min/1.73 sqM); Alkaline Phosphatase 111 U/L (38-126); Anion Gap 13 mmol/L; Blood Urea Nitrogen 60 mg/dL (7-17); Calcium 8.7 mg/dL (8.4-10.2); Carbon Dioxide 16 mmol/L (22-30); Chloride 102 mmol/L (98-107); Glucose 266 mg/dL (74-99); Lipase 130 U/L (23-300); Non-African American GFR(CKD) 19 (>60 ml/min/1.73 sqM); Sodium 131 mmol/L (137-145); Total Bilirubin 0.7 mg/dL (0.2-1.3); Total Protein 6.9 g/dL (6.3-8.2)
[2023-10-23] MEDS: SODIUM CHLORIDE 0.9% 500 ML 500 ML IV ONE (11:09)
[2023-10-23 11:17] LABS: Anisocytosis Slight; Basophils % (A) 0 %; Eosinophils % (A) 0 %; HCT 30.1 % (34.0-46.0); HGB 9.3 gm/dL (11.4-16.0); Hypochromasia Marked; Lymphocytes # (A) 0.9 k/uL (1.0-4.8); Lymphocytes % (A) 11 %; MCH 26.8 pg (25.0-35.0); MCHC 30.8 g/dL (31.0-37.0); Monocytes # (A) 0.5 k/uL (0-1.0); Monocytes % (A) 6 %; Neutrophils # (A) 6.5 k/uL (1.3-7.7); Neutrophils % (A) 80 %; Platelet Count 217 k/uL (150-450); RBC 3.46 m/uL (3.80-5.40); RDW 17.2 % (11.5-15.5); WBC 8.2 k/uL (3.8-10.6)
[2023-10-23] MEDS: NOREPINEPHRINE 32 MG in SODIUM CHLORIDE 0.9% 218 ML IV ONE (11:42)
[2023-10-23] MEDS ORDERED: NALOXONE 0.4 MG/ML 1 ML VIAL IV PRN ×2 (12:23→13:54)
[2023-10-23] MEDS ORDERED: ACETAMINOPHEN TAB 325 MG TAB PO PRN (12:23)
[2023-10-23] MEDS: SODIUM CHLORIDE 0.9% 1,000 ML IV SCH (12:29)
[2023-10-23] MEDS ORDERED: DEXTROSE 50% SYRINGE 50 ML IVP PRN ×2 (13:53)
--- NOTE | 2023-10-23 13:54 | P.HPIM ---
History of Present Illness H&P Date: 10/23/23 History of present illness; patient is 63-year-old lady with past medical history significant for coronary artery disease with stent placement, diabetes mellitus, fibromyalgia, GERD, hypertension, hyperlipidemia, osteoarthritis, who presented to hospital for generalized weakness. Patient relates she has not been feeling her usual self for the last 3 to 4 days. Patient complains of increased weakness. Patient also having nausea and vomiting. Patient was also complaining of lower quadrant abdominal pain. Patient history of chronic Cortes in the last Cortes was changed 2 weeks back. Patient denied any fever but complaining of chills at home. Patient was also complaining of loss of appetite . Denied any chest pain or shortness of breath. Patient was complaining of being confused and lethargic as well. Because of the symptoms, patient was brought to the ER Initial lab work done in the ER showed WBC 8.2, hemoglobin 9.3, platelet count 217, sodium 131, potassium 4, BUN 60, creatinine 2.54, glucose 266, lactate 3.2 AST 485, ALT 321, Chest x-ray done in the ER showed cardiomegaly: From mild venous congestion or chronic distal lung disease/pulm fibrosis Patient admitted to internal medicine service REVIEW OF SYSTEMS: CONSTITUTIONAL: As mentioned above HEENT: No recent visual problems or hearing problems. Denied any sore throat. CARDIOVASCULAR: No chest pain, orthopnea, PND, no palpitations, no syncope. PULMONARY: As mentioned above GASTROINTESTINAL: As mentioned above NEUROLOGICAL: No headaches, no weakness, no numbness. HEMATOLOGICAL: Denies any bleeding or petechiae. GENITOURINARY: As mentioned above MUSCULOSKELETAL/RHEUMATOLOGICAL: Denies any joint pain, swelling, or any muscle pain. ENDOCRINE: Denies any polyuria or polydipsia. The rest of the 14-point review of systems is negative. PHYSICAL EXAMINATION: GENERAL: The patient is alert but lethargic. Ill looking HEENT: Pupils are round and equally reacting to light. EOMI. No scleral icterus. Dry oral mucosa CARDIOVASCULAR: S1 and S2 present. No murmurs, rubs, or gallops. PULMONARY: Chest is clear to auscultation, no wheezing or crackles. ABDOMEN: Soft, nontender, nondistended, normoactive bowel sounds. No palpable organomegaly. MUSCULOSKELETAL: No joint swelling or deformity. EXTREMITIES: No cyanosis, clubbing, right AKA NEUROLOGICAL: Gross neurological examination did not reveal any focal deficits. SKIN: No rashes. Assessment and plan Septic shock UTI PACHECO Lactic acidosis Acute transaminitis Diabetes mellitus Coronary artery disease Hypertension Hyperlipidemia GERD Monitor vital signs Monitor CBC Monitor CMP Continue telemetry monitoring Ordered blood cultures Order urine culture Serial lactate levels Ordered CRP, ESR, Pro-Chuck Ordered IV antibiotics Ordered IV pressors Ordered IV fluids Ordered ultrasound kidneys Ordered ultrasound abdomin Consult ID Consult nephrology Consult ICU for critical care management Labs and medication were reviewed.. Continue same treatment. Continue with symptomatic treatment. Resume home medication. Monitor labs and vitals. DVT and GI prophylaxis. Further recommendations as per clinical course of the patient Dictation was produced using inD[employer] dictation software. please excuse any grammatical, word or spelling errors. Past Medical History Past Medical History: Coronary Artery Disease (CAD), Heart Failure, Diabetes Mellitus, Fibromyalgia, GERD/Reflux, Hearing Disorder / Deafness, Hyperlip idemia, Hypertension, Myocardial Infarction ([place]), Musculoskeletal Disorder, Osteoarthritis (OA), Renal Disease, Skin Disorder, Vascular Disorder Additional Past Medical History / Comment(s): See Dr Durant's H&P nephrolithiasis and kidney stones- chronic Cortes, peripheral vascular disease, degenerative disc disease-chronic back pain, Rt AKA-working on using prosthesis, going to physical therapy Last Myocardial Infarction Date:: 2004,2006, 2015 History of Any Multi-Drug Resistant Organisms: MRSA Date of last positivie culture/infection: 02/24/16 LT FOOT-VERIFIED PER DR VASQUEZ OFFICE MDRO Source:: LT FOOT Past Surgical History: AICD, Section, Heart Catheterization, Heart Catheterization With Stent, Orthopedic Surgery, Pacemaker, Tonsillectomy Additional Past Surgical History / Comment(s): Right rotator cuff surgery 2, bilateral carpal tunnel release,3 cardiac catheterization 6 stents, above-knee amputation of the right lower extremity, incision and debridement of diabetic wounds, [facility] Biventricular AICD placement Past Anesthesia/Blood Transfusion Reactions: Motion Sickness Additional Past Anesthesia/Blood Transfusion Reaction / Comment(s): MADELYN STERPHOBIA. PAST BLOOD TRANSFUSION-NO REACTION Date of Last Stent Placement:: 2015 Type of Cardiac Device: AICD Device Placement Date:: Past Psychological History: Anxiety, Depression Smoking Status: Former smoker - Past Family History Sister(s) Family Medical History: Cancer Additional Family Medical History / Comment(s): 2 SISTERS HAD CANCER. Mother Family Medical History: Coronary Artery Disease (CAD), Hyperlipidemia, Hypertension Additional Family Medical History / Comment(s): CABG. Father Family Medical History: CVA/TIA, Hyperlipidemia, Hypertension, Myocardial Infarction ([place]) Brother(s) Family Medical History: Cancer Additional Family Medical History / Comment(s): Breast cancer. Medications and Allergies Home Medications Medication Instructions Recorded Confirmed Type Amitriptyline HCl [Elavil] 25 mg PO HS 08/28/13 05/30/21 History oxyCODONE-APAP 10-325MG [Percocet 1 tab PO Q6H PRN 08/28/13 05/30/21 History 10-325 mg] ALPRAZolam [Xanax] 0.5 mg PO HS 10/06/15 05/30/21 History Aspirin 81 mg PO HS 10/06/15 05/30/21 History Clopidogrel [Plavix] 75 mg PO DAILY 10/06/15 05/30/21 History Morphine Sulfate ER [Ms Contin] 30 mg PO BID 10/06/15 05/30/21 History QUEtiapine FUMARATE [SEROquel XR] 50 mg PO HS 10/06/15 05/30/21 History Atorvastatin [Lipitor] 80 mg PO HS #30 tab 03/25/16 05/30/21 Rx FLUoxetine HCL [PROzac] 60 mg PO HS 04/06/16 05/30/21 History Ergocalciferol [Vitamin D2 50,000 unit PO FR 01/05/19 05/30/21 History (DRISDOL)] Famotidine 20 mg PO DAILY 01/05/19 05/30/21 History Nitroglycerin Sl Tabs [Nitrostat] 0.4 mg SUBLINGUAL Q5M PRN 01/05/19 05/29/21 History Albuterol Sulfate [Proair Hfa] 2 puff INHALATION Q4H PRN 07/15/20 05/30/21 History INSULIN ASPART (NovoLOG) [NovoLOG See Protocol SQ AC-TID 07/15/20 05/30/21 Hi story (formulary)] Insulin Detemir (Levemir) [Levemir] 35 unit SQ HS 07/15/20 05/30/21 History Furosemide [Lasix] 40 mg PO QAM 03/17/21 05/30/21 History lisinopriL [Zestril] 10 mg PO QAM 03/17/21 05/30/21 History nitrofurantoin macrocrystaL 100 mg PO DAILY 03/17/21 05/30/21 History tiZANidine [Zanaflex] 4 mg PO TID PRN 03/17/21 05/30/21 History Dapagliflozin Propanediol [Farxiga] 10 mg PO DAILY 05/15/21 05/29/21 History Naloxone [Narcan] 2 mg IM ONETIME PRN 05/29/21 05/29/21 History Metoprolol Succinate (ER) [Toprol 50 mg PO DAILY #90 tab 05/30/21 Rx XL] polyethylene glycoL 3350 [Miralax] 17 gm PO DAILY 05/30/21 05/30/21 History Allergies Allergy/AdvReac Type Severity Reaction Status Date / Time vancomycin Allergy Rash/Hives Verified 10/23/23 13:31 ciprofloxacin [From Cipro] AdvReac Nausea & Verified 10/23/23 13:31 Vomiting ciprofloxacin HCl AdvReac Nausea & Verified 10/23/23 13:31 [From Cipro] Vomiting flu vaccine Allergy Rash/Hives Uncoded 10/23/23 13:31 Physical Exam Vitals: Vital Signs Temp Pulse Resp BP Pulse Ox 10/23/23 13:25 75 18 108/55 97 10/23/23 13:15 108/68 10/23/23 13:00 114/66 10/23/23 12:45 114/70 10/23/23 12:30 105/55 10/23/23 12:25 97.9 F 81 18 119/77 99 10/23/23 12:06 79/57 10/23/23 12:05 66 17 80/52 97 10/23/23 11:50 69 18 77/47 98 10/23/23 11:40 83/58 10/23/23 11:30 91/58 10/23/23 11:20 71 17 76/56 95 10/23/23 11:18 90 L 10/23/23 11:02 69 16 69/44 99 10/23/23 10:45 66/43 10/23/23 10:30 72/49 10/23/23 10:05 74 17 82/60 97 10/23/23 09:30 106/86 10/23/23 09:26 98.4 F 79 18 101/75 90 L Intake and Output 10/22/23 10/23/23 10/23/23 22:59 06:59 14:59 Intake Total 0.444 Output Total 5 Balance -4.556 Intake: Intake, IV Titration 0.444 Amount Norepinephrine 32 mg In 0.444 Sodium Chloride 0.9% 218 ml @ 0.03 MCG/KG/MIN 1. 065 mls/hr IV .Q24H ONE Rx#:[id number] Output: Urine 5 Uretheral (Cortes) 5 Other: Weight 75.75 kg Results CBC & Chem 7: 10/23/23 09:55 10/23/23 09:55 Labs: Abnormal Lab Results - Last 24 Hours (Table) 10/23/23 10/23/23 10/23/23 Range/Units 09:55 09:55 09:55 RBC 3.46 L (3.80-5.40) m/uL Hgb 9.3 L (11.4-16.0) gm/dL Hct 30.1 L (34.0-46.0) % MCHC 30.8 L (31.0-37.0) g/dL RDW 17.2 H (11.5-15.5) % Lymphocytes # 0.9 L (1.0-4.8) k/uL Sodium 131 L (137-145) mmol/L Carbon Dioxide 16 L (22-30) mmol/L BUN 60 H (7-17) mg/dL Creatinine 2.54 H (0.52-1.04) mg/dL Glucose 266 H (74-99) mg/dL Plasma Lactic Acid Jimmy (0.7-2.0) mmol/L AST 485 H (14-36) U/L ALT 321 H (4-34) U/L Albumin 3.0 L (3.5-5.0) g/dL Urine Appearance Turbid H (Clear) Urine Protein 2+ H (Negative) Urine Glucose (UA) 2+ H (Negative) Urine Blood Moderate H (Negative) Ur Leukocyte Esterase Large H (Negative) Urine RBC 62 H (0-5) /hpf Urine WBC >182 H (0-5) /hpf Urine WBC Clumps Many H (None) /hpf Urine Bacteria Many H (None) /hpf Urine Mucus Few H (None) /hpf 10/23/23 Range/Units 09:55 RBC (3.80-5.40) m/uL Hgb (11.4-16.0) gm/dL Hct (34.0-46.0) % MCHC (31.0-37.0) g/dL RDW (11.5-15.5) % Lymphocytes # (1.0-4.8) k/uL Sodium (137-145) mmol/L Carbon Dioxide (22-30) mmol/L BUN (7-17) mg/dL Creatinine (0.52-1.04) mg/dL Glucose (74-99) mg/dL Plasma Lactic Acid Jimmy 3.2 H* (0.7-2.0) mmol/L AST (14-36) U/L ALT (4-34) U/L Albumin (3.5-5.0) g/dL Urine Appearance (Clear) Urine Protein (Negative) Urine Glucose (UA) (Negative) Urine Blood (Negative) Ur Leukocyte Esterase (Negative) Urine RBC (0-5) /hpf Urine WBC (0-5) /hpf Urine WBC Clumps (None) /hpf Urine Bacteria (None) /hpf Urine Mucus (None) /hpf
--- NOTE | 2023-10-23 15:05 | US ---
EXAMINATION TYPE: US abd limited kidneys/bladder DATE OF EXAM: 10/23/2023 COMPARISON: 08/11/20 CLINICAL INDICATION: Female, 63 years old with history of LFTs elevated; elevated LFT's TECHNIQUE: Multiple sonographic images of the right upper quadrant, bilateral kidneys, and bladder ar e obtained. FINDINGS: EXAM MEASUREMENTS: Liver Length: 16.7 cm Gallbladder Wall: 0.22 cm CBD: 0.73 cm Right Kidney: 10.8 x 4.4 x 5.0 cm Left Kidney: 12.7 x 3.9 x 5.4 cm Pancreas: duct measuring 2.5mm Liver: wnl Gallbladder: pericholecystic fluid seen, GB filled with echogenic sludge CBD: Slightly dilated at 7 mm Right Kidney: hydro seen (hx of hydro) Left Kidney: Mild hydro seen Bladder: Not seen due to grider Bilateral Jets Seen No IMPRESSION: 1. There is pericholecystic fluid and gallbladder sludge. Distal CBD is dilated measuring 7 mm. Dista l obstruction not excluded. Correlate for cholecystitis. Consider follow-up HIDA scan. 2. Mild bilateral hydronephrosis.
[2023-10-23] MEDS: HEPARIN SODIUM,PORCINE 5,000 UNIT/ML 1 ML VIAL SQ SCH (15:10)
--- NOTE | 2023-10-23 15:12 | P.CNPUL ---
History of Present Illness Consult date: 10/23/23 Requesting physician: Montana Butterfield Reason for consult: other (Critical care management) Chief complaint: Generalized weakness, nausea, vomiting History of present illness: This is a 63-year-old female patient with a known history of coronary artery disease with multiple previous stent placements, cardiomyopathy status post AICD placement, nephrolithiasis, hearing disorder, hypertension, hyperlipidemia, diabetes mellitus, [id number] amputation on the right, former smoker, chronic Cortes due to kidney issues. She presented here to the emergency room earlier this morning with complaints of generalized weakness, nausea vomiting and fall. Chest x-ray revealed cardiomegaly with mild venous congestion or chronic interstitial lung disease/pulmonary fibrosis. More confluent area of consolidation in the left perihilar and upper lobes. Neoplasm not excluded. EKG reveals atrial sensing and ventricular pacing. Ultrasound of the abdomen/bladder is pending. White count 8.2. Hemoglobin 9.3. Platelets 217. Sodium 131. Potassium 4.0. Bicarb 16. BUN 60. Creatinine 2.54. Lactic acid 3.2. Glucose 266. AST 45. ALT 321. Urinalysis turbid with moderate blood. Large leukocyte esterase, greater than 182 WBCs many WBC clumps many bacteria. Culture pending. Procalcitonin pending. She has been initiated on ceftriaxone. She is seen today in consultation in the emergency department. She was having issues with hypotension and is requiring norepinephrine and ICU admission. She is awake and alert. Maintaining O2 saturations in the 90s on 2 L/min per nasal cannula. Currently on norepinephrine at 0.02 mcg/kg/min. He has received 1.5 L of fluid resuscitation. Normal saline at 75 MLS per hour. Review of Systems REVIEW OF SYSTEMS: CONSTITUTIONAL: Positive for generalized weakness. Denies any recent significant weight loss or weight gain. EYES: Denies change in vision. EARS, NOSE, MOUTH, THROAT: Denies headaches, denies sore throat. CARDIOVASCULAR: Denies chest pain, palpitations or syncopal episodes. RESPIRATORY: Denies shortness of breath, cough, congestion or hemoptysis. GASTROINTESTINAL: Positive for nausea and vomiting GENITOURINARY: Positive for infections. MUSKULOSKELETAL: Denies pain, denies swelling. INTEGUMENTARY: Denies rash, denies eczema. NEUROLOGICAL: Denies recent memory loss, no recent seizure activity. PSYCHIATRIC: Denies anxiety, denies depression. HEMATOLOGIC/LYMPHATIC: Denies anemia, denies enlarged lymph nodes. Past Medical History Past Medical History: Coronary Artery Disease (CAD), Heart Failure, Diabetes Mellitus, Fibromyalgia, GERD/Reflux, Hearing Disorder / Deafness, Hyperlipidemia, Hypertension, Myocardial Infarction ([place]), Musculoskeletal Disorder, Osteoarthritis (OA), Renal Disease, Skin Disorder, Vascular Disorder Additional Past Medical History / Comment(s): See Dr Durant's H&P nephrolithiasis and kidney stones- chronic Cortes, peripheral vascular disease, degenerative disc disease-chronic back pain, Rt AKA-working on using prosthesis, going to physical therapy Last Myocardial Infarction Date:: 2004,2006, 2015 History of Any Multi-Drug Resistant Organisms: MRSA Date of last positivie culture/infection: 02/24/16 LT FOOT-VERIFIED PER DR VASQUEZ OFFICE MDRO Source:: LT FOOT Past Surgical History: AICD, Section, Heart Catheterization, Heart Catheterization With Stent, Orthopedic Surgery, Pacemaker, Tonsillectomy Additional Past Surgical History / Comment(s): Right rotator cuff surgery 2, bilateral carpal tunnel release,3 cardiac catheterization 6 stents, above-knee amputation of the right lower extremity, incision and debridement of diabetic wounds, [facility] Biventricular AICD placement Past Anesthesia/Blood Transfusion Reactions: Motion Sickness Additional Past Anesthesia/Blood Transfusion Reaction / Comment(s): CLAUSTERPHOBIA. PAST BLOOD TRANSFUSION-NO REACTION Date of Last Stent Placement:: 2015 Type of Cardiac Device: AICD Device Placement Date:: Past Psychological History: Anxiety, Depression Smoking Status: Former smoker - Past Family History Sister(s) Family Medical History: Cancer Additional Family Medical History / Comment(s): 2 SISTERS HAD CANCER. Mother Family Medical History: Coronary Artery Disease (CAD), Hyperlipidemia, Hypertension Additional Family Medical History / Comment(s): CABG. Father Family Medical History: CVA/TIA, Hyperlipidemia, Hypertension, Myocardial Infarction ([place]) Brother(s) Family Medical History: Cancer Additional Family Medical History / Comment(s): Breast cancer. Medications and Allergies Home Medications Medication Instructions Recorded Confirmed Type Amitriptyline HCl [Elavil] 25 mg PO HS 08/28/13 10/23/23 History oxyCODONE-APAP 10-325MG [Percocet 1 tab PO TID PRN 08/28/13 10/23/23 History 10-325 mg] ALPRAZolam [Xanax] 0.5 mg PO HS 10/06/15 10/23/23 History Clopidogrel [Plavix] 75 mg PO DAILY 10/06/15 10/23/23 History QUEtiapine FUMARATE [SEROquel XR] 50 mg PO HS 10/06/15 10/23/23 History Atorvastatin [Lipitor] 80 mg PO HS #30 tab 03/25/16 10/23/23 Rx Nitroglycerin Sl Tabs [Nitrostat] 0.4 mg SUBLINGUAL Q5M PRN 01/05/19 10/23/23 History INSULIN ASPART (NovoLOG) [NovoLOG 15 - 20 unit SQ AC-TID 07/15/20 10/23/23 Hi story (formulary)] Furosemide [Lasix] 40 mg PO DAILY 03/17/21 10/23/23 History tiZANidine [Zanaflex] 4 mg PO BID PRN 03/17/21 10/23/23 History Dapagliflozin Propanediol [Farxiga] 10 mg PO DAILY 05/15/21 10/23/23 History Metoprolol Succinate (ER) [Toprol 50 mg PO DAILY #90 tab 05/30/21 10/23/23 Rx XL] Docusate [Colace] 100 mg PO Q48H 10/23/23 10/23/23 History Ergocalciferol (Vitamin D2) 1,250 mcg PO FR 10/23/23 10/23/23 History [Drisdol (50,000 Iu)] Escitalopram Oxalate [Lexapro] 20 mg PO HS 10/23/23 10/23/23 History Finerenone [Kerendia] 5 mg PO DAILY 10/23/23 10/23/23 History Insulin Degludec [Tresiba 35 units SQ HS 10/23/23 10/23/23 History Flextouch U-200 Pen] Isosorbide Mononitrate ER [Imdur] 30 mg PO DAILY 10/23/23 10/23/23 History Morphine Sulfate [Ms Contin] 30 mg PO Q12HR 10/23/23 10/23/23 History calcitrioL [Rocaltrol] 0.25 mcg PO FR 10/23/23 10/23/23 History Allergies Allergy/AdvReac Type Severity Reaction Status Date / Time vancomycin Allergy Rash/Hives Verified 10/23/23 13:31 ciprofloxacin [From Cipro] AdvReac Nausea & Verified 10/23/23 13:31 Vomiting ciprofloxacin HCl AdvReac Nausea & Verified 10/23/23 13:31 [From Cipro] Vomiting flu vaccine Allergy Rash/Hives Uncoded 10/23/23 13:31 Physical Exam Vitals: Vital Signs Temp Pulse Resp BP Pulse Ox 10/23/23 14:45 74 18 107/67 96 10/23/23 14:28 97.7 F 80 20 110/72 97 10/23/23 14:00 110/67 10/23/23 13:45 111/62 10/23/23 13:25 75 18 108/55 97 10/23/23 13:15 108/68 10/23/23 13:00 114/66 10/23/23 12:45 114/70 10/23/23 12:30 105/55 10/23/23 12:25 97.9 F 81 18 119/77 99 10/23/23 12:06 79/57 10/23/23 12:05 66 17 80/52 97 10/23/23 11:50 69 18 77/47 98 10/23/23 11:40 83/58 10/23/23 11:30 91/58 10/23/23 11:20 71 17 76/56 95 10/23/23 11:18 90 L 10/23/23 11:02 69 16 69/44 99 10/23/23 10:45 66/43 10/23/23 10:30 72/49 10/23/23 10:05 74 17 82/60 97 10/23/23 09:30 106/86 10/23/23 09:26 98.4 F 79 18 101/75 90 L Intake and Output 10/22/23 10/23/23 10/23/23 22:59 06:59 14:59 Intake Total 3.042 Output Total 5 Balance -1.958 Intake: Intake, IV Titration 3.042 Amount Norepinephrine 32 mg In 3.042 Sodium Chloride 0.9% 218 ml @ 0.03 MCG/KG/MIN 1. 065 mls/hr IV .Q24H ONE Rx#:[id number] Output: Urine 5 Uretheral (Cortes) 5 Other: Weight 75.75 kg GENERAL EXAM: Alert, 63-year-old female, on 2 L nasal cannula, fairly comfortable in no apparent distress. HEAD: Normocephalic. EYES: Normal reaction of pupils, equal size. NOSE: Clear with pink turbinates. THROAT: No erythema or exudates. NECK: No masses, no JVD. CHEST: No chest wall deformity. LUNGS: Equal air entry with few scattered rhonchi. CVS: S1 and S2 normal with no audible murmur, regular rhythm. ABDOMEN: No hepatosplenomegaly, normal bowel sounds, no guarding or rigidity. SPINE: No scoliosis or deformity SKIN: No rashes CENTRAL NERVOUS SYSTEM: No focal deficits, tone is normal in all 4 extremities. EXTREMITIES: Right [id number] amputation. There is no peripheral edema. No clubbing, no cyanosis. Peripheral pulses are intact. Results - Laboratory Findings CBC and BMP: 10/23/23 09:55 10/23/23 09:55 Abnormal lab findings: Abnormal Labs 10/23/23 10/23/23 10/23/23 09:55 09:55 09:55 RBC 3.46 L Hgb 9.3 L Hct 30.1 L MCHC 30.8 L RDW 17.2 H Lymphocytes # 0.9 L Sodium 131 L Carbon Dioxide 16 L BUN 60 H Creatinine 2.54 H Glucose 266 H Plasma Lactic Acid Jimmy AST 485 H ALT 321 H Albumin 3.0 L Urine Appearance Turbid H Urine Protein 2+ H Urine Glucose (UA) 2+ H Urine Blood Moderate H Ur Leukocyte Esterase Large H Urine RBC 62 H Urine WBC >182 H Urine WBC Clumps Many H Urine Bacteria Many H Urine Mucus Few H 10/23/23 09:55 RBC Hgb Hct MCHC RDW Lymphocytes # Sodium Carbon Dioxide BUN Creatinine Glucose Plasma Lactic Acid Jimmy 3.2 H* AST ALT Albumin Urine Appearance Urine Protein Urine Glucose (UA) Urine Blood Ur Leukocyte Esterase Urine RBC Urine WBC Urine WBC Clumps Urine Bacteria Urine Mucus - Diagnostic Findings Chest x-ray: image reviewed Assessment and Plan Assessment: Generalized weakness with fall, nausea vomiting suspect secondary to urinary tract infection Acute urinary tract infection, culture pending Chronic Cortes due to urinary retention Sepsis with septic shock requiring pressor support secondary to above Acute hypoxemic respiratory failure secondary to mild venous congestion Coronary artery disease with multiple stent placements Ischemic cardiomyopathy status post biventricular AICD placement Obesity Diabetes mellitus Peripheral vascular disease [id number] amputation of the right lower extremity Hyperlipidemia Anxiety/depression Plan: The patient was seen and evaluated Chest x-ray, labs and medications reviewed Will plan for CT scan of the chest possibly tomorrow Continue with ceftriaxone Check a procalcitonin Urine culture pending, blood cultures pending Titrate the norepinephrine as tolerated Admit to the intensive care unit We will continue to follow and make further recommendations based on her clinical status I have personally seen and examined the patient, performed the documentation and the assessment and plan as written. Number of minutes spent on the visit: 20.
[2023-10-23 15:56] LABS: C Reactive Protein 21.9 mg/dL (<1.0)
[2023-10-23 16:44] LABS: Glucose,Whole Blood 294 mg/dL (70-110)
[2023-10-23] MEDS: INSULIN ASPART (NovoLOG) 100 UNIT/ML VIAL SQ SCH (16:52)
[2023-10-23] MEDS: HEPARIN SOD,PORK IN 0.45% NACL 25,000 UNIT in 0.45% NACL 1 250ML.BAG IV SCH (16:55)
[2023-10-23] MEDS: HEPARIN SODIUM 1,000 UN/ML (10ML VL) IV ONE (16:55)
[2023-10-23] MEDS: HYDROcodone/APAP 5-325MG 1 EACH TAB PO PRN (19:36)
[2023-10-23 21:02] LABS: Glucose,Whole Blood 277 mg/dL (70-110)
[2023-10-24] MEDS: oxyCODONE-APAP 10-325MG 1 EACH TAB PO PRN (01:07)
--- NOTE | 2023-10-24 07:02 | P.CONS ---
History of Present Illness - Reason for Consult Consult date: 10/23/23 Sepsis Requesting physician: Montana Butterfield - Chief Complaint Weakness and nausea vomiting x few days - History of Present Illness Patient is a 63-year-old female with a past medical history significant for diabetes mellitus hypertension hyperlipidemia coronary artery disease, did have history of right diabetic foot infection requiring right [id number] amputation patient presenting to the hospital for evaluation of weakness that has been progressive getting worse for the last few days also complaining of nausea and vomiting patient denies having abdominal pain and denies having any diarrhea or constipation patient did have some chills denies high-grade fever no headache or URI symptoms no chest pain shortness of breath or cough patient presenting to the hospital was afebrile patient was not tachycardic he was mildly hypotensive and hypoxic requiring supplemental oxygen patient did have a white count of 8.2 BUN/creatinine has been mildly elevated liver isms mildly elevated urine has been positive blood urine culture has been amputation currently pending patient was started on Rocephin infectious disease was consulted for further management of antibiotic therapy patient did have a chest x-ray cardiomegaly correlate for mild venous congestion more confluent area of consolidation left perihilar and upper lobe early infiltrate or neoplasm not excluded patient did have a ultrasound of the gallbladder concerning for pericholecystic fluid and gallbladder sludge mild bilateral hydronephrosis Review of Systems Positive point and negatives has been mentioned in the HPI, complete review of systems was performed and all other systems are negative Past Medical History Past Medical History: Coronary Artery Disease (CAD), Heart Failure, Diabetes Mellitus, Fibromyalgia, GERD/Reflux, Hearing Disorder / Deafness, Hyperlipidemia, Hypertension, Myocardial Infarction (GA), Musculoskeletal Disorder, Osteoarthritis (OA), Renal Disease, Skin Disorder, Vascular Disorder Additional Past Medical History / Comment(s): See Dr Durant's H&P nephrolithiasis and kidney stones- chronic Cortes, peripheral vascular disease, degenerative disc disease-chronic back pain, Rt AKA-working on using prosthesis, going to physical therapy Last Myocardial Infarction Date:: 2004,2006, 2016 History of Any Multi-Drug Resistant Organisms: MRSA Year Discovered:: 02/24/16 LT FOOT-VERIFIED PER DR VASQUEZ OFFICE MDRO Source:: LT FOOT Past Surgical History: AICD, Section, Heart Catheterization, Heart Catheterization With Stent, Orthopedic Surgery, Pacemaker, Tonsillectomy Additional Past Surgical History / Comment(s): Right rotator cuff surgery 2, bilateral carpal tunnel release,3 cardiac catheterization 6 stents, above-knee amputation of the right lower extremity, incision and debridement of diabetic wounds, [facility] Biventricular AICD placement Past Anesthesia/Blood Transfusion Reactions: Motion Sickness Additional Past Anesthesia/Blood Transfusion Reaction / Comm: CLAUSTERPHOBIA. PAST BLOOD TRANSFUSION-NO REACTION Date of Last Stent Placement:: 2015 Type of Cardiac Device: AICD Device Placement Date:: Past Psychological History: Anxiety, Depression Smoking Status: Former smoker - Past Family History Sister(s) Family Medical History: Cancer Additional Family Medical History / Comment(s): 2 SISTERS HAD CANCER. Mother Family Medical History: Coronary Artery Disease (CAD), Hyperlipidemia, Hypertension Additional Family Medical History / Comment(s): CABG. Father Family Medical History: CVA/TIA, Hyperlipidemia, Hypertension, Myocardial Infarction ([place]) Brother(s) Family Medical History: Cancer Additional Family Medical History / Comment(s): Breast cancer. Medications and Allergies Home Medications Medication Instructions Recorded Confirmed Type Amitriptyline HCl [Elavil] 25 mg PO HS 08/28/13 10/23/23 History oxyCODONE-APAP 10-325MG [Percocet 1 tab PO TID PRN 08/28/13 10/23/23 History 10-325 mg] ALPRAZolam [Xanax] 0.5 mg PO HS 10/06/15 10/23/23 History Clopidogrel [Plavix] 75 mg PO DAILY 10/06/15 10/23/23 History QUEtiapine FUMARATE [SEROquel XR] 50 mg PO HS 10/06/15 10/23/23 History Atorvastatin [Lipitor] 80 mg PO HS #30 tab 03/25/16 10/23/23 Rx Nitroglycerin Sl Tabs [Nitrostat] 0.4 mg SUBLINGUAL Q5M PRN 01/05/19 10/23/23 History INSULIN ASPART (NovoLOG) [NovoLOG 15 - 20 unit SQ AC-TID 07/15/20 10/23/23 History (formulary)] Furosemide [Lasix] 40 mg PO DAILY 03/17/21 10/23/23 History tiZANidine [Zanaflex] 4 mg PO BID PRN 03/17/21 10/23/23 History Dapagliflozin Propanediol [Farxiga] 10 mg PO DAILY 05/15/21 10/23/23 History Metoprolol Succinate (ER) [Toprol 50 mg PO DAILY #90 tab 05/30/21 10/23/23 Rx XL] Docusate [Colace] 100 mg PO Q48H 10/23/23 10/23/23 History Ergocalciferol (Vitamin D2) 1,250 mcg PO FR 10/23/23 10/23/23 History [Drisdol (50,000 Iu)] Escitalopram Oxalate [Lexapro] 20 mg PO HS 10/23/23 10/23/23 History Finerenone [Kerendia] 5 mg PO DAILY 10/23/23 10/23/23 History Insulin Degludec [Tresiba 35 units SQ HS 10/23/23 10/23/23 History Flextouch U-200 Pen] Isosorbide Mononitrate ER [Imdur] 30 mg PO DAILY 10/23/23 10/23/23 History Morphine Sulfate [Ms Contin] 30 mg PO Q12HR 10/23/23 10/23/23 History calcitrioL [Rocaltrol] 0.25 mcg PO FR 10/23/23 10/23/23 History Allergies Allergy/AdvReac Type Severity Reaction Status Date / Time vancomycin Allergy Rash/Hives Verified 10/23/23 13:31 ciprofloxacin [From Cipro] AdvReac Nausea & Verified 10/23/23 13:31 Vomiting ciprofloxacin HCl AdvReac Nausea & Verified 10/23/23 13:31 [From Cipro] Vomiting flu vaccine Allergy Rash/Hives Uncoded 10/23/23 13:31 Physical Exam Vitals: Vital Signs Temp Pulse Resp BP Pulse Ox 10/23/23 16:15 76 17 99/68 96 10/23/23 16:03 97.6 F 74 17 104/63 98 10/23/23 15:45 116/74 10/23/23 15:30 80 17 103/64 98 10/23/23 15:15 106/80 10/23/23 15:00 97.5 F L 68 16 86/58 95 10/23/23 14:45 74 18 107/67 96 10/23/23 14:28 97.7 F 80 20 110/72 97 10/23/23 14:00 110/67 10/23/23 13:45 111/62 10/23/23 13:25 75 18 108/55 97 10/23/23 13:15 108/68 10/23/23 13:00 114/66 10/23/23 12:45 114/70 10/23/23 12:30 105/55 10/23/23 12:25 97.9 F 81 18 119/77 99 10/23/23 12:06 79/57 10/23/23 12:05 66 17 80/52 97 10/23/23 11:50 69 18 77/47 98 10/23/23 11:40 83/58 10/23/23 11:30 91/58 10/23/23 11:20 71 17 76/56 95 10/23/23 11:18 90 L 10/23/23 11:02 69 16 69/44 99 10/23/23 10:45 66/43 10/23/23 10:30 72/49 10/23/23 10:05 74 17 82/60 97 10/23/23 09:30 106/86 10/23/23 09:26 98.4 F 79 18 101/75 90 L Intake and Output 10/23/23 10/23/23 10/23/23 06:59 14:59 22:59 Intake Total 3.042 1.479 Output Total 5 60 Balance -1.958 -58.521 Intake: Intake, IV Titration 3.042 1.479 Amount Norepinephrine 32 mg In 3.042 1.479 Sodium Chloride 0.9% 218 ml @ 0.03 MCG/KG/MIN 1. 065 mls/hr IV .Q24H ONE Rx#:[id number] Output: Urine 5 60 Uretheral (Cortes) 5 60 Other: Weight 75.75 kg GENERAL DESCRIPTION: Middle-aged female lying in bed, no distress. No tachypnea or accessory muscle of respiration use. HEENT: Shows Pallor , no scleral icterus. Oral mucous membrane is dry. No pharyngeal erythema or thrush NECK: Trachea central, no thyromegaly. LUNGS: Unlabored breathing. Decreased breath sound the base HEART: S1, S2, regular rate and rhythm. No loud murmur ABDOMEN: Soft, no tenderness , guarding or rigidity, EXTREMITIES: No edema of left foot. SKIN: No rash, no masses palpable. NEUROLOGICAL: The patient is awake, alert, oriented x3, mood and affect normal. Results CBC & Chem 7: 10/23/23 09:55 10/23/23 09:55 Labs: Abnormal Lab Results - Last 24 Hours (Table) 10/23/23 10/23/23 10/23/23 Range/Units 09:55 09:55 09:55 RBC 3.46 L (3.80-5.40) m/uL Hgb 9.3 L (11.4-16.0) gm/dL Hct 30.1 L (34.0-46.0) % MCHC 30.8 L (31.0-37.0) g/dL RDW 17.2 H (11.5-15.5) % Lymphocytes # 0.9 L (1.0-4.8) k/uL Sodium 131 L (137-145) mmol/L Carbon Dioxide 16 L (22-30) mmol/L BUN 60 H (7-17) mg/dL Creatinine 2.54 H (0.52-1.04) mg/dL Glucose 266 H (74-99) mg/dL Plasma Lactic Acid Jimmy (0.7-2.0) mmol/L AST 485 H (14-36) U/L ALT 321 H (4-34) U/L Troponin I (0.000-0.034) ng/mL C-Reactive Protein (<1.0) mg/dL Albumin 3.0 L (3.5-5.0) g/dL Urine Appearance Turbid H (Clear) Urine Protein 2+ H (Negative) Urine Glucose (UA) 2+ H (Negative) Urine Blood Moderate H (Negative) Ur Leukocyte Esterase Large H (Negative) Urine RBC 62 H (0-5) /hpf Urine WBC >182 H (0-5) /hpf Urine WBC Clumps Many H (None) /hpf Urine Bacteria Many H (None) /hpf Urine Mucus Few H (None) /hpf 10/23/23 10/23/23 10/23/23 Range/Units 09:55 14:43 14:43 RBC (3.80-5.40) m/uL Hgb (11.4-16.0) gm/dL Hct (34.0-46.0) % MCHC (31.0-37.0) g/dL RDW (11.5-15.5) % Lymphocytes # (1.0-4.8) k/uL Sodium (137-145) mmol/L Carbon Dioxide (22-30) mmol/L BUN (7-17) mg/dL Creatinine (0.52-1.04) mg/dL Glucose (74-99) mg/dL Plasma Lactic Acid Jimmy 3.2 H* (0.7-2.0) mmol/L AST (14-36) U/L ALT (4-34) U/L Troponin I 15.800 H* (0.000-0.034) ng/mL C-Reactive Protein 21.9 H (<1.0) mg/dL Albumin (3.5-5.0) g/dL Urine Appearance (Clear) Urine Protein (Negative) Urine Glucose (UA) (Negative) Urine Blood (Negative) Ur Leukocyte Esterase (Negative) Urine RBC (0-5) /hpf Urine WBC (0-5) /hpf Urine WBC Clumps (None) /hpf Urine Bacteria (None) /hpf Urine Mucus (None) /hpf Assessment and Plan (1) Sepsis Current Visit: Yes Status: Acute Code(s): A41.9 - SEPSIS, UNSPECIFIED ORGANISM SNOMED Code(s): 49337150 (2) UTI (urinary tract infection) Current Visit: Yes Status: Acute Code(s): N39.0 - URINARY TRACT INFECTION, SITE NOT SPECIFIED SNOMED Code(s): 67429827 (3) Allergy to multiple antibiotics Current Visit: Yes Status: Acute Code(s): Z88.1 - ALLERGY STATUS TO OTHER ANTIBIOTIC AGENTS SNOMED Code(s): 655477405 Plan: 1patient presented to hospital with sepsis in this patient who did have a hypotension generalized weakness most likely combination of catheters urinary tract infection" cholecystitis not entirely excluded however the patient did not have significant tenderness to the right upper quadrant area 2-patient with multiple antibiotic ALLERGIES that would limit the number of antibiotic safe to use 3-Rocephin 2 g daily while waiting for the culture and workup to be completed We will follow on clinical condition and cultures to further adjust medication if needed Thank you for this consultation we will follow the patient along with you Dictation was produced using [employer] dictation software. please excuse any grammatical, word or spelling errors. Time with Patient: Greater than 30
[2023-10-24 07:21] LABS: Glucose,Whole Blood 136 mg/dL (70-110)
[2023-10-24 07:33] LABS: Anisocytosis Slight; HCT 28.3 % (34.0-46.0); HGB 8.3 gm/dL (11.4-16.0); Hypochromasia Marked; MCHC 29.2 g/dL (31.0-37.0); Mean Platelet Volume 7.9; Platelet Count 216 k/uL (150-450); RBC 3.07 m/uL (3.80-5.40); RDW 16.9 % (11.5-15.5); WBC 6.4 k/uL (3.8-10.6)
[2023-10-24 07:41] LABS: INR 1.4 (<1.2); Prothrombin Time 14.4 sec (10.0-12.5)
[2023-10-24 07:53] LABS: MCV 92.2 fL (80.0-100.0)
[2023-10-24 07:57] LABS: ALT 229 U/L (4-34); AST 191 U/L (14-36); African American GFR (CKD) 21 (>60 ml/min/1.73 sqM); Albumin 2.6 g/dL (3.5-5.0); Alkaline Phosphatase 91 U/L (38-126); Anion Gap 9 mmol/L; Blood Urea Nitrogen 65 mg/dL (7-17); Calcium 8.5 mg/dL (8.4-10.2); Carbon Dioxide 16 mmol/L (22-30); Chloride 106 mmol/L (98-107); Glucose 127 mg/dL (74-99); Non-African American GFR(CKD) 18 (>60 ml/min/1.73 sqM); Potassium 3.8 mmol/L (3.5-5.1); Sodium 131 mmol/L (137-145); Total Bilirubin 0.5 mg/dL (0.2-1.3); Total Protein 6.2 g/dL (6.3-8.2)
[2023-10-24 08:35] LABS: Band Neutrophils % 1 %; Lymphocytes # (M) 1.66 k/uL (1.0-4.8); Monocytes # (M) 0.26 k/uL (0-1.0); Neutrophils % (M) 69 %; Nucleated Red Blood Cells 0 /100 WBC (0-0); Total Cells Counted 100
[2023-10-24] MEDS: HEPARIN SODIUM 1,000 UN/ML (10ML VL) IV PRN (08:35)
--- NOTE | 2023-10-24 09:01 | CDI ---
Documentation Clarification Form Date: 10/24/2023 From: Maricarmen Juarez Phone: [phone] Admit Date: 10/23/2023 01:30:00 PM Patient Name: More Spann Visit Number: [id number] Discharge Date: ATTENTION: The Clinical Documentation Specialists (CDI) and [facility] Coding Staff appreciate your assistance in clarifying documentation. Please respond to the clarification below the line at the bottom and electronically sign. The CDI & [facility] Coding staff will review the response and follow-up if needed. Please note: Queries are made part of the Legal Health Record. If you have any questions, please contact the author of this message via ITS. Doctor/Provider: Montana Butterfield MD: UTI is documented in the H&P 10/22 and patient has a chronic indwelling Cortes catheter. Additional clarification regarding the etiology of the UTI is requested. History/Risk Factors: 63-year-old female with a history of CAD, DM2, HTN and chronic indwelling Cortes catheter who presented with generalized weakness found to have UTI Clinical Indicators: 10/22 H&P, HPI: "Patient history of chronic Cortes in the last Cortes was changed 2 weeks back." Assessment and plan: "UTI" 10/22 ID Consult, Plan:" 1patient presented to hospital with sepsis in this patient who did have a hypotension generalized weakness most likely combination of catheters urinary tract infection" 10/22, 10/23 WBC: 8.2, 6.4 10/22 Lactic acid: 3.2, 1.9 10/22 Urinalysis: Color: Yellow, Appearance: Turbid, Protein: 2+, Blood: Moderate, Leukocyte Esterase: Large, RBC: 62, WBC:>182, Bacteria: Many, Mucus: Few Treatment: Consult ID Normal Saline IV 75cc/hour start 10/22 Rocephin 2gram IV once 10/22 then Q24 hours to start 10/23 Please clarify the etiology of the UTI, if known: [x ] Cortes catheter [ ] UTI not related to catheter [ ] Other condition, please specify [ ] Unable to determine MTDD
[2023-10-24] MEDS: CEFEPIME 2 GM in SODIUM CHLORIDE 0.9% 100 ML IVPB SCH (09:12)
--- NOTE | 2023-10-24 09:13 | CDI ---
Documentation Clarification Form Date: 10/24/2023 From: Maricarmen Juarez Phone: [phone] Admit Date: 10/23/2023 01:30:00 PM Patient Name: More Spann Visit Number: [id number] Discharge Date: ATTENTION: The Clinical Documentation Specialists (CDI) and [facility] Coding Staff appreciate your assistance in clarifying documentation. Please respond to the clarification below the line at the bottom and electronically sign. The CDI & [facility] Coding staff will review the response and follow-up if needed. Please note: Queries are made part of the Legal Health Record. If you have any questions, please contact the author of this message via ITS. Doctor/Provider: Montana Butterfield MD: Pneumonia is documented in the ED note 10/22 but is not noted in subsequent documentation. Clarification is requested. History/Risk Factors: 63-year-old female with a history of CAD, DM2, HTN and chronic indwelling Cortes catheter who presented with generalized weakness found to have UTI Clinical Indicators: 10/22 Triage VS: 101/75, 98.4, 79, 18, 90% room air 10/22 ED note, Clinical Impression: "UTI (urinary tract infection), Sepsis, Hypotension, Pneumonia" 10/22 Pulmonary consult, Assessment: "Acute hypoxemic respiratory failure secondary to mild venous congestion." 10/22, 10/23 WBC: 8.2, 6.4 10/22 Lactic acid: 3.2, 1.9 10/22 Procalcitonin: 2.06 C-Reactive Protein: 21.9 10/22 Chest X Ray, Impression: "1. Cardiomegaly correlate for mild venous congestion or chronic interstitial lung disease pulmonary fibrosis. 2. More confluent area of consolidation in the left perihilar and upper lobe. Early infiltrate or neoplasm not excluded." Treatment: Normal Saline IV 75cc/hour start 10/22 Rocephin 2gram IV once 10/22 then Q24 hours to start 10/23 Please clarify if the pneumonia is: [ x ] Pneumonia confirmed, remains under treatment [ ] Pneumonia confirmed, resolved [ ] Pneumonia ruled out [ ] Other condition, please specify [ ] Unable to determine MTDD
[2023-10-24 10:03] LABS: Glucose,Whole Blood 113 mg/dL (70-110)
[2023-10-24] MEDS: ASPIRIN 81 MG PO SCH (10:21)
[2023-10-24] MEDS: CLOPIDOGREL 75 MG TAB PO SCH (10:21)
[2023-10-24] MEDS: METOPROLOL TARTRATE 12.5 MG TAB PO SCH (10:21)
--- NOTE | 2023-10-24 12:06 | P.CRDCN ---
History of Present Illness History of present illness: HISTORY OF PRESENT ILLNESS: This is a 63 year old female with a past medical history significant for coronary artery disease with previous stenting, peripheral vascular disease, hypertension, hyperlipidemia, and diabetes. Patient follows in the office with Dr. Jauregui. We have been asked to see the patient in consultation for evaded troponin. Patient examined at the bedside. Patient states on Saturday she had a family republican and after everybody left she began to have episodes of nausea and vomiting. She also reports after she was vomiting she began to have pain in her chest. She states it felt like a stabbing sensation that lasted for about 15 minutes. Patient was initially hypotensive and requiring vasopressor support which has since been weaned off. She currently denies chest pain or pressure. She denies shortness of breath. DIAGNOSTICS: - EKG reveals paced rhythm with right bundle branch block. - Chest xray cardiomegaly. Correlate for mild venous congestion or chronic interstitial lung disease/pulmonary fibrosis. - Laboratory data: WBC 6.4. Hemoglobin 8.3. Platelet count 216. Sodium 131. Potassium 3.8. BUN 65. Creatinine 2.71. AST 191. ALT 229. Troponin 15.8. 14.4. - Current home cardiac medications include Lipitor 80 mg at night, Plavix 75 mg daily, Farxiga 10 mg daily, Lasix 40 mg daily, Imdur 30 mg daily, metoprolol succinate 50 mg daily. - Most recent echocardiogram obtained in March 2022 revealed ejection fraction 37%, moderate MR, moderate AR, mild TR - Cardiac catheterization history: 2016 with stenting of the circumflex. Patient was found to have widely patent LAD at the site of previous stenting. RCA at the site of stenting is patent but distally there is 60 to 70% significant stenosis. Circumflex has separate areas of disease, one is 60 to 70% the next two are about 80 to 90%. REVIEW OF SYSTEMS: At the time of my exam: CONSTITUTIONAL: Denies fever or chills. HEENT: Denies blurred vision, vision changes, or eye pain. Denies hemoptysis CARDIOVASCULAR: Denies chest pain. Denies orthopnea. Denies PND. Denies palpitations RESPIRATORY: Denies shortness of breath. GASTROINTESTINAL: Denies abdominal pain. Denies nausea or vomiting. HEMATOLOGIC: Denies bleeding disorders. GENITOURINARY: Denies any blood in urine. SKIN: Denies pruitis. Denies rash. PHYSICAL EXAM: VITAL SIGNS: Reviewed. GENERAL: Well-developed in no acute distress. HEENT: Head is normocephalic. Pupils are equal, round. Sclerae anicteric. Mucous membranes of the mouth are moist. Neck supple. No JVD or thyromegaly LUNGS: Respirations even and unlabored. Lungs essentially clear to auscultation bilaterally. HEART: Regular rate and rhythm. S1 and S2 heard. Systolic murmur noted. ABDOMEN: Soft. Nondistended. Nontender. EXTREMITIES: Normal range of motion. No clubbing or cyanosis. Peripheral pulses intact. Right [id number] amputation NEUROLOGIC: Awake and alert. Oriented x 3. ASSESSMENT: Sepsis with septic shock requiring vasopressor support Urinary tract infection with chronic indwelling urinary catheter Non-STEMI Acute on chronic kidney disease Transaminitis Coronary artery disease with previous stenting, most recently in 2016 to the circumflex Ischemic cardiomyopathy, ejection fraction 37% History of AICD implantation Hypertension Hyperlipidemia Diabetes Right [id number] amputation, patient states unable to walk due to lack of prosthetic PLAN: Obtain 2D echo to assess cardiac structure and function Continue IV heparin Add aspirin 81 mg daily and Plavix 75 mg daily Hold statin therapy secondary to transaminitis Begin low-dose metoprolol 12.5mg BID Hold home antihypertensive medications No plans for cardiac catheterization at this time due to multiple acute issues. Continue with conservative management. Further recommendations pending patient course Nurse practitioner note has been reviewed by physician. Signing provider agrees with the documented findings, assessment, and plan of care documented by ACCOUNTING PROFESSIONAL as a scribe. Past Medical History Past Medical History: Coronary Artery Disease (CAD), Heart Failure, Diabetes Mellitus, Fibromyalgia, GERD/Reflux, Hyperlipidemia, Hypertension, Myocardial Infarction (DE), Musculoskeletal Disorder, Osteoarthritis (OA), Renal Disease, Skin Disorder, Vascular Disorder Additional Past Medical History / Comment(s): Nephrolithiasis and kidney stones- chronic Cortes, peripheral vascular disease, degenerative disc disease-chronic back pain, going to physical therapy, DM type 2, LLE neuropathy Last Myocardial Infarction Date:: 2004,2006, 2015 History of Any Multi-Drug Resistant Organisms: MRSA Date of last positivie culture/infection: 02/24/16 LT FOOT MDRO Source:: LT FOOT Past Surgical History: AICD, Section, Heart Catheterization, Heart Catheterization With Stent, Orthopedic Surgery, Pacemaker, Tonsillectomy Additional Past Surgical History / Comment(s): Right rotator cuff surgery 2, bilateral carpal tunnel release, 3 cardiac catheterization 6 stents, above-knee amputation of the right lower extremity, incision and debridement of diabetic wounds, [facility] [employer] Biventricular AICD placement, Right AKA in 2013 Past Anesthesia/Blood Transfusion Reactions: No Reported Reaction Additional Past Anesthesia/Blood Transfusion Reaction / Comment(s): CLAUSTERPHOBIA. PAST BLOOD TRANSFUSION-NO REACTION Date of Last Stent Placement:: 2015 Type of Cardiac Device: AICD Device Placement Date:: Past Psychological History: Anxiety, Depression Smoking Status: Former smoker Past Alcohol Use History: None Reported Additional Past Alcohol Use History / Comment(s): SMOKED 20 YEARS, 1 PPD, QUIT 2013 Past Drug Use History: Marijuana Additional Drug Use History / Comment(s): MEDICAL MARIJUANA-uses 3-4 nights per week. - Past Family History Sister(s) Family Medical History: Cancer Additional Family Medical History / Comment(s): 2 SISTERS HAD CANCER. Mother Family Medical History: Coronary Artery Disease (CAD), Hyperlipidemia, Hypertension Additional Family Medical History / Comment(s): CABG, heart disease Father Family Medical History: CVA/TIA, Hyperlipidemia, Hypertension, Myocardial Infar ction (DE) Brother(s) Family Medical History: Cancer Additional Family Medical History / Comment(s): Breast cancer. Medications and Allergies Home Medications Medication Instructions Recorded Confirmed Type Amitriptyline HCl [Elavil] 25 mg PO HS 08/28/13 10/23/23 History oxyCODONE-APAP 10-325MG [Percocet 1 tab PO TID PRN 08/28/13 10/23/23 History 10-325 mg] ALPRAZolam [Xanax] 0.5 mg PO HS 10/06/15 10/23/23 History Clopidogrel [Plavix] 75 mg PO DAILY 10/06/15 10/23/23 History QUEtiapine FUMARATE [SEROquel XR] 50 mg PO HS 10/06/15 10/23/23 History Atorvastatin [Lipitor] 80 mg PO HS #30 tab 03/25/16 10/23/23 Rx Nitroglycerin Sl Tabs [Nitrostat] 0.4 mg SUBLINGUAL Q5M PRN 01/05/19 10/23/23 History INSULIN ASPART (NovoLOG) [NovoLOG 15 - 20 unit SQ AC-TID 07/15/20 10/23/23 History (formulary)] Furosemide [Lasix] 40 mg PO DAILY 03/17/21 10/23/23 History tiZANidine [Zanaflex] 4 mg PO BID PRN 03/17/21 10/23/23 History Dapagliflozin Propanediol [Farxiga] 10 mg PO DAILY 05/15/21 10/23/23 History Metoprolol Succinate (ER) [Toprol 50 mg PO DAILY #90 tab 05/30/21 10/23/23 Rx XL] Docusate [Colace] 100 mg PO Q48H 10/23/23 10/23/23 History Ergocalciferol (Vitamin D2) 1,250 mcg PO FR 10/23/23 10/23/23 History [Drisdol (50,000 Iu)] Escitalopram Oxalate [Lexapro] 20 mg PO HS 10/23/23 10/23/23 History Finerenone [Kerendia] 5 mg PO DAILY 10/23/23 10/23/23 History Insulin Degludec [Tresiba 35 units SQ HS 10/23/23 10/23/23 History Flextouch U-200 Pen] Isosorbide Mononitrate ER [Imdur] 30 mg PO DAILY 10/23/23 10/23/23 History Morphine Sulfate [Ms Contin] 30 mg PO Q12HR 10/23/23 10/23/23 History calcitrioL [Rocaltrol] 0.25 mcg PO FR 10/23/23 10/23/23 History Allergies Allergy/AdvReac Type Severity Reaction Status Date / Time vancomycin Allergy Rash/Hives Verified 10/23/23 13:31 ciprofloxacin [From Cipro] AdvReac Nausea & Verified 10/23/23 13:31 Vomiting ciprofloxacin HCl AdvReac Nausea & Verified 10/23/23 13:31 [From Cipro] Vomiting flu vaccine Allergy Rash/Hives Uncoded 10/23/23 13:31 Physical Exam Vitals: Vital Signs Temp Pulse Pulse Resp BP BP Pulse Ox 10/24/23 10:56 91 10/24/23 10:27 97.6 F 91 16 114/65 100 10/24/23 09:17 98 20 120/70 100 10/24/23 08:00 97.9 F 72 15 102/56 98 07//24 07:14 75 16 102/56 96 24 07:00 71 14 111/65 99 10/23/24 06:45 74 13 118/67 99 07//24 06:30 79 14 118/67 100 //24 06:15 72 14 115/71 100 07//24 06:00 73 13 111/54 99 10/23/24 05:45 64 13 112/54 100 10/23/24 05:30 70 13 109/51 100 07//24 05:15 70 14 106/61 100 07//24 05:00 69 14 114/70 100 10/23/24 04:45 67 13 116/66 100 10/23/24 04:30 63 14 115/63 100 10/23/24 04:15 65 14 123/68 99 24 04:00 68 14 122/67 100 10/23/24 03:45 73 13 118/62 100 24 03:30 66 15 114/62 100 24 03:15 64 15 105/51 100 24 03:00 72 18 108/56 100 10/23/24 02:30 70 16 100/57 99 10/24/23 02:15 74 16 109/66 99 10/24/23 02:00 74 16 102/52 99 10/23/24 01:45 75 15 110/63 98 10/24/23 01:30 78 17 107/66 98 10/24/23 01:15 77 19 123/101 100 24 01:08 85 16 122/68 98 24 01:00 122/80 100 0724 00:45 107/64 100 24 00:30 73 110/78 99 10/23/24 00:23 78 18 93/64 99 24 00:15 0 L 100/67 100 24 00:00 75 93/64 98 07/24 23:45 78 102/65 98 24 23:30 71 16 81/56 99 10/22/24 23:20 79 18 80/54 97 24 23:15 78 34 H 81/55 80 L 10/23/23 23:00 68 22 74/47 99 10/23/23 22:45 74 15 84/52 98 10/23/23 22:30 73 13 84/38 98 10/23/23 22:15 77 18 93/62 100 10/23/23 22:00 78 15 83/53 99 10/23/23 21:45 71 19 89/54 98 10/23/23 21:30 73 20 90/55 97 10/23/23 21:15 80 22 111/69 98 10/23/23 21:00 80 13 99/63 97 10/23/23 20:56 84 18 99/63 96 10/23/23 20:45 79 21 104/66 98 10/23/23 20:30 81 23 81/51 97 10/23/23 20:17 69 16 81/51 97 10/23/23 20:15 70 18 86/53 97 10/23/23 20:00 72 20 102/61 98 10/23/23 19:45 86 21 107/57 97 10/23/23 19:31 83 19 107/57 98 10/23/23 19:30 80 11 L 70/47 98 10/23/23 19:28 84 18 70/47 97 10/23/23 19:15 80 10 L 82/58 95 10/23/23 19:05 97.9 F 75 18 82/58 96 10/23/23 19:00 74 30 H 99/50 96 10/23/23 18:45 83 6 L 112/55 87 L 10/23/23 18:30 92 16 113/69 98 10/23/23 18:15 81 13 106/66 97 10/23/23 18:00 97.8 F 82 23 102/65 96 10/23/23 17:45 84 0 L 112/71 97 10/23/23 17:30 80 20 104/80 76 L 10/23/23 17:15 80 26 H 106/71 91 L 10/23/23 17:03 97.7 F 78 18 106/71 98 10/23/23 17:00 80 17 95/64 98 10/23/23 16:45 81 6 L 92/61 98 10/23/23 16:30 77 14 99/68 96 10/23/23 16:15 79 6 L 104/63 97 10/23/23 16:03 97.6 F 74 17 104/63 98 10/23/23 16:00 74 19 116/74 97 10/23/23 15:45 76 26 H 103/64 98 10/23/23 15:30 76 12 106/80 97 10/23/23 15:15 86 20 86/58 95 10/23/23 15:00 97.5 F L 72 17 107/67 95 10/23/23 14:45 74 18 107/67 96 10/23/23 14:28 97.7 F 80 20 110/72 97 10/23/23 14:00 110/67 10/23/23 13:45 111/62 10/23/23 13:25 75 18 108/55 97 10/23/23 13:15 108/68 10/23/23 13:00 114/66 10/23/23 12:45 114/70 10/23/23 12:30 105/55 10/23/23 12:25 97.9 F 81 18 119/77 99 10/23/23 12:06 79/57 10/23/23 12:05 66 17 80/52 97 Intake and Output 10/23/23 10/24/23 10/24/23 22:59 06:59 14:59 Intake Total 1.905 5.734 142.107 Output Total 160 50 125 Balance -158.095 -44.266 17.107 Intake: Intake, IV Titration 1.905 5.734 142.107 Amount Heparin Sod,Pork in 0.45% 142.107 NaCl 25,000 unit In 0.45 % NaCl 1 250ml.bag @ 12 UNITS/KG/HR 9.09 mls/hr IV .Q24H [facility] Rx#: [id number] Norepinephrine 32 mg In 1.905 5.734 Sodium Chloride 0.9% 218 ml @ 0.03 MCG/KG/MIN 1. 065 mls/hr IV .Q24H ONE Rx#:[id number] Output: Urine 160 50 125 Uretheral (Cortes) 160 50 Other: Voiding Method Indwelling Catheter Weight 75.75 kg Results 10/24/23 06:14 10/24/23 06:14 Cardiac Enzymes 10/23/23 10/23/23 10/24/23 Range/Units 14:43 17:50 06:14 AST 191 H (14-36) U/L Troponin I 15.800 H* 14.400 H* (0.000-0.034) ng/mL Coagulation 10/23/23 10/24/23 10/24/23 Range/Units 23:12 06:14 06:14 PT 14.4 H (10.0-12.5) sec APTT 45.4 H 33.9 H (22.0-30.0) sec CBC 10/24/23 Range/Units 06:14 WBC 6.4 (3.8-10.6) k/uL RBC 3.07 L (3.80-5.40) m/uL Hgb 8.3 L (11.4-16.0) gm/dL Hct 28.3 L (34.0-46.0) % Plt Count 216 (150-450) k/uL Comprehensive Metabolic Panel 10/24/23 Range/Units 06:14 Sodium 131 L (137-145) mmol/L Potassium 3.8 (3.5-5.1) mmol/L Chloride 106 (98-107) mmol/L Carbon Dioxide 16 L (22-30) mmol/L BUN 65 H (7-17) mg/dL Creatinine 2.71 H (0.52-1.04) mg/dL Glucose 127 H (74-99) mg/dL Calcium 8.5 (8.4-10.2) mg/dL AST 191 H (14-36) U/L ALT 229 H (4-34) U/L Alkaline Phosphatase 91 (38-126) U/L Total Protein 6.2 L (6.3-8.2) g/dL Albumin 2.6 L (3.5-5.0) g/dL Current Medications Generic Name Dose Route Start Last Admin Trade Name Freq PRN Reason Stop Dose Admin Acetaminophen 650 mg 10/23/23 12:23 Acetaminophen Tab 325 Mg Tab PO Q4HR PRN Fever and/or Mild Pain Al Hydroxide/Mg Hydroxide 15 ml 10/23/23 13:54 Mag Hydrox/Al Hydrox/Simeth 30 Ml Cup PO Q6HR PRN Indigestion Aspirin 81 mg 10/24/23 10:00 10/24/23 10:21 Aspirin 81 Mg PO 81 mg DAILY KOMAL Administration Clopidogrel Bisulfate 75 mg 10/24/23 10:15 10/24/23 10:21 Clopidogrel 75 Mg Tab PO 75 mg DAILY KOMAL Administration Dextrose/Water 25 ml 10/23/23 13:53 Dextrose 50% Syringe 50 Ml IVP PER PROTOCOL PRN Hypoglycemia Protocol Dextrose/Water 50 ml 10/23/23 13:53 Dextrose 50% Syringe 50 Ml IVP PER PROTOCOL PRN Hypoglycemia Protocol Heparin Sodium (Porcine) 0 unit 10/23/23 16:43 10/24/23 08:35 Heparin Sodium 1,000 Un/Ml (10ml Vl) IV 3,787 unit PER PROTOCOL PRN Administration Low PTT Protocol Sodium Chloride 1,000 mls @ 75 mls/hr 10/23/23 12:30 10/24/23 10:27 Saline 0.9% IV 75 mls/hr .[id number] KOMAL Administration Heparin Sodium/Sodium Chloride 250 mls @ 9.09 mls/hr 10/23/23 16:45 10/24/23 08:33 25,000 unit/ Sodium Chloride IV 15 units/kg/hr .Q24H KOMAL 11.363 mls/hr Titration Protocol 12 UNITS/KG/HR Cefepime HCl 2 gm/ Sodium 100 mls @ 25 mls/hr 10/24/23 09:15 10/24/23 09:12 Chloride IVPB 25 mls/hr Q12HR KOMAL Administration Insulin Aspart 0 unit 10/23/23 17:30 10/24/23 11:15 Insulin Aspart (Novolog) 100 Unit/Ml Vial SQ Not Given ACHS KOMAL Protocol Melatonin 3 mg 10/23/23 13:54 Melatonin 3 Mg Tablet PO HS PRN Insomnia Metoprolol Tartrate 12.5 mg 10/24/23 10:15 10/24/23 10:21 Metoprolol Tartrate 12.5 Mg Tab PO 12.5 mg BID KOMAL Administration Naloxone HCl 0.2 mg 10/23/23 12:23 Naloxone 0.4 Mg/Ml 1 Ml Vial IV Q2M PRN Opioid Reversal Naloxone HCl 0.2 mg 10/23/23 13:54 Naloxone 0.4 Mg/Ml 1 Ml Vial IV Q2M PRN Opioid Reversal Oxycodone/Acetaminophen 1 each 10/24/23 00:57 10/24/23 10:21 Oxycodone-Apap 10-325mg 1 Each Tab PO 1 each Q6HR PRN Administration Pain Intake and Output 10/23/23 10/24/23 10/24/23 22:59 06:59 14:59 Intake Total 1.905 5.734 142.107 Output Total 160 50 125 Balance -158.095 -44.266 17.107 Intake: Intake, IV Titration 1.905 5.734 142.107 Amount Heparin Sod,Pork in 0.45% 142.107 NaCl 25,000 unit In 0.45 % NaCl 1 250ml.bag @ 12 UNITS/KG/HR 9.09 mls/hr IV .Q24H [facility] Rx#: [id number] Norepinephrine 32 mg In 1.905 5.734 Sodium Chloride 0.9% 218 ml @ 0.03 MCG/KG/MIN 1. 065 mls/hr IV .Q24H [facility] Rx#:[id number] Output: Urine 160 50 125 Uretheral (Cortes) 160 50 Other: Voiding Method Indwelling Catheter Weight 75.75 kg Patient Weight 10/25/23 06:59 Weight 75.75 kg 10/24/23 06:14 10/24/23 06:14
--- NOTE | 2023-10-24 12:16 | P.PN ---
Subjective Progress Note Date: 10/24/23 This is a 63-year-old female patient with a known history of coronary artery disease with multiple previous stent placements, cardiomyopathy status post AICD placement, nephrolithiasis, hearing disorder, hypertension, hyperlipidemia, diabetes mellitus, [id number]-azzr amputation on the right, former smoker, chronic Cortes due to kidney issues. She presented here to the emergency room earlier this morning with complaints of generalized weakness, nausea vomiting and fall. Chest x-ray revealed cardiomegaly with mild venous congestion or chronic interstitial lung disease/pulmonary fibrosis. More confluent area of consolidation in the left perihilar and upper lobes. Neoplasm not excluded. EKG reveals atrial sensing and ventricular pacing. Ultrasound of the abdomen/bladder is pending. White count 8.2. Hemoglobin 9.3. Platelets 217. Sodium 131. Potassium 4.0. Bicarb 16. BUN 60. Creatinine 2.54. Lactic acid 3.2. Glucose 266. AST 45. ALT 321. Urinalysis turbid with moderate blood. L arge leukocyte esterase, greater than 182 WBCs many WBC clumps many bacteria. Culture pending. Procalcitonin pending. She has been initiated on ceftriaxone. She is seen today in consultation in the emergency department. She was having issues with hypotension and is requiring norepinephrine and ICU admission. She is awake and alert. Maintaining O2 saturations in the 90s on 2 L/min per nasal cannula. Currently on norepinephrine at 0.02 mcg/kg/min. He has received 1.5 L of fluid resuscitation. Normal saline at 75 MLS per hour. The patient is seen today October 24, 2023 in follow-up in the emergency department. She is currently awake and alert in no acute distress. She is feeling a bit better today compared to yesterday. She did have issues with chest pain yesterday and was found to have elevated troponins and is currently on a heparin drip. Her mean arterial pressures have been in the 70s and 80s. She is off the norepinephrine. She is afebrile. She is maintaining good O2 sa turations up to 100% on 3 L/min per nasal cannula. She is afebrile. Hemodynamically stable. White count 6.4. Hemoglobin 8.3. Platelets 216. Sodium 131. Potassium 3.8. Bicarb 16. BUN 65. Creatinine 2.71. Glucose 127. AST 191. ALT 229. Blood cultures are positive for gram-negative bacilli. She remains. Objective - Vital Signs Vital signs: Vital Signs Temp 97.6 F 10/24/23 10:27 Pulse 91 10/24/23 10:56 Resp 16 10/24/23 10:27 BP 114/65 10/24/23 10:27 Pulse Ox 100 10/24/23 10:27 FiO2 Intake & Output 10/23/23 10/24/23 10/24/23 18:59 06:59 18:59 Intake Total 4.947 5.734 142.107 Output Total 65 150 125 Balance -60.053 -144.266 17.107 Weight 75.75 kg 75.75 kg Intake: Intake, IV Titration 4.947 5.734 142.107 Amount Heparin Sod,Pork in 0.45% 142.107 NaCl 25,000 unit In 0.45 % NaCl 1 250ml.bag @ 12 UNITS/KG/HR 9.09 mls/hr IV .Q24H [facility] Rx#: [id number] Norepinephrine 32 mg In 4.947 5.734 Sodium Chloride 0.9% 218 ml @ 0.03 MCG/KG/MIN 1. 065 mls/hr IV .Q24H [facility] Rx#:[id number] Output: Urine 65 150 125 Uretheral (Cortes) 65 150 Other: Voiding Method Indwelling Catheter - Exam GENERAL EXAM: Alert, pleasant 63-year-old female, on 2 L nasal cannula, comfortable in no apparent distress. HEAD: Normocephalic. EYES: Normal reaction of pupils, equal size. NOSE: Clear with pink turbinates. THROAT: No erythema or exudates. NECK: No masses, no JVD. CHEST: No chest wall deformity. LUNGS: Equal air entry with few scattered rhonchi. CVS: S1 and S2 normal with no audible murmur, regular rhythm. ABDOMEN: No hepatosplenomegaly, normal bowel sounds, no guarding or rigidity. SPINE: No scoliosis or deformity SKIN: No rashes CENTRAL NERVOUS SYSTEM: No focal deficits, tone is normal in all 4 extremities. EXTREMITIES: Right zrpuu-mdz-[id number] amputation. There is no peripheral edema. No clubbing, no cyanosis. Peripheral pulses are intact. - Labs CBC & Chem 7: 10/24/23 06:14 10/24/23 06:14 Labs: Abnormal Lab Results - Last 24 Hours (Table) 10/23/23 10/23/23 10/23/23 Range/Units 14:43 14:43 14:43 RBC (3.80-5.40) m/uL Hgb (11.4-16.0) gm/dL Hct (34.0-46.0) % MCHC (31.0-37.0) g/dL RDW (11.5-15.5) % ESR 48 H (0-30) mm/Hr PT (10.0-12.5) sec INR (<1.2) APTT (22.0-30.0) sec Sodium (137-145) mmol/L Carbon Dioxide (22-30) mmol/L BUN (7-17) mg/dL Creatinine (0.52-1.04) mg/dL Glucose (74-99) mg/dL POC Glucose (mg/dL) (70-110) mg/dL Hemoglobin A1c (<=6.0) % AST (14-36) U/L ALT (4-34) U/L Troponin I (0.000-0.034) ng/mL C-Reactive Protein 21.9 H (<1.0) mg/dL Total Protein (6.3-8.2) g/dL Albumin (3.5-5.0) g/dL Procalcitonin 2.06 H (0.02-0.09) ng/mL 10/23/23 10/23/23 10/23/23 Range/Units 14:43 16:42 17:50 RBC (3.80-5.40) m/uL Hgb (11.4-16.0) gm/dL Hct (34.0-46.0) % MCHC (31.0-37.0) g/dL RDW (11.5-15.5) % ESR (0-30) mm/Hr PT (10.0-12.5) sec INR (<1.2) APTT (22.0-30.0) sec Sodium (137-145) mmol/L Carbon Dioxide (22-30) mmol/L BUN (7-17) mg/dL Creatinine (0.52-1.04) mg/dL Glucose (74-99) mg/dL POC Glucose (mg/dL) 294 H (70-110) mg/dL Hemoglobin A1c (<=6.0) % AST (14-36) U/L ALT (4-34) U/L Troponin I 15.800 H* 14.400 H* (0.000-0.034) ng/mL C-Reactive Protein (<1.0) mg/dL Total Protein (6.3-8.2) g/dL Albumin (3.5-5.0) g/dL Procalcitonin (0.02-0.09) ng/mL 10/23/23 10/23/23 10/24/23 Range/Units 20:59 23:12 06:14 RBC (3.80-5.40) m/uL Hgb (11.4-16.0) gm/dL Hct (34.0-46.0) % MCHC (31.0-37.0) g/dL RDW (11.5-15.5) % ESR (0-30) mm/Hr PT (10.0-12.5) sec INR (<1.2) APTT 45.4 H (22.0-30.0) sec Sodium (137-145) mmol/L Carbon Dioxide (22-30) mmol/L BUN (7-17) mg/dL Creatinine (0.52-1.04) mg/dL Glucose (74-99) mg/dL POC Glucose (mg/dL) 277 H (70-110) mg/dL Hemoglobin A1c 7.7 H (<=6.0) % AST (14-36) U/L ALT (4-34) U/L Troponin I (0.000-0.034) ng/mL C-Reactive Protein (<1.0) mg/dL Total Protein (6.3-8.2) g/dL Albumin (3.5-5.0) g/dL Procalcitonin (0.02-0.09) ng/mL 10/24/23 10/24/23 10/24/23 Range/Units 06:14 06:14 06:14 RBC 3.07 L (3.80-5.40) m/uL Hgb 8.3 L (11.4-16.0) gm/dL Hct 28.3 L (34.0-46.0) % MCHC 29.2 L (31.0-37.0) g/dL RDW 16.9 H (11.5-15.5) % ESR (0-30) mm/Hr PT 14.4 H (10.0-12.5) sec INR 1.4 H (<1.2) APTT (22.0-30.0) sec Sodium 131 L (137-145) mmol/L Carbon Dioxide 16 L (22-30) mmol/L BUN 65 H (7-17) mg/dL Creatinine 2.71 H (0.52-1.04) mg/dL Glucose 127 H (74-99) mg/dL POC Glucose (mg/dL) (70-110) mg/dL Hemoglobin A1c (<=6.0) % AST 191 H (14-36) U/L ALT 229 H (4-34) U/L Troponin I (0.000-0.034) ng/mL C-Reactive Protein (<1.0) mg/dL Total Protein 6.2 L (6.3-8.2) g/dL Albumin 2.6 L (3.5-5.0) g/dL Procalcitonin (0.02-0.09) ng/mL 10/24/23 10/24/23 10/24/23 Range/Units 06:14 07:20 10:01 RBC (3.80-5.40) m/uL Hgb (11.4-16.0) gm/dL Hct (34.0-46.0) % MCHC (31.0-37.0) g/dL RDW (11.5-15.5) % ESR (0-30) mm/Hr PT (10.0-12.5) sec INR (<1.2) APTT 33.9 H (22.0-30.0) sec Sodium (137-145) mmol/L Carbon Dioxide (22-30) mmol/L BUN (7-17) mg/dL Creatinine (0.52-1.04) mg/dL Glucose (74-99) mg/dL POC Glucose (mg/dL) 136 H 113 H (70-110) mg/dL Hemoglobin A1c (<=6.0) % AST (14-36) U/L ALT (4-34) U/L Troponin I (0.000-0.034) ng/mL C-Reactive Protein (<1.0) mg/dL Total Protein (6.3-8.2) g/dL Albumin (3.5-5.0) g/dL Procalcitonin (0.02-0.09) ng/mL Microbiology - Last 24 Hours (Table) 10/23/23 11:45 Blood Culture Gram Stain - Preliminary Blood Blood Culture - Preliminary Molecular ID 10/23/23 11:30 Blood Culture Gram Stain - Preliminary Blood Assessment and Plan Assessment: Generalized weakness with fall, nausea, vomiting suspect secondary to urinary tract infection Acute urinary tract infection, culture pending Acute kidney injury secondary to dehydration, hypotension Chronic Cortes due to urinary retention Bacteremia secondary to gram-negative bacilli, currently on cefepime Sepsis with septic shock requiring pressor support secondary to above, improved and off pressors Acute hypoxemic respiratory failure secondary to mild venous congestion Non-ST segment elevation myocardial infarction, currently on a heparin drip Transaminitis, statins on hold Coronary artery disease with multiple stent placements Ischemic cardiomyopathy status post biventricular AICD placement Obesity Diabetes mellitus Peripheral vascular disease 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 Continue with cefepime Currently stable and off pressors Could downgrade to the selective care unit Condition is guarded due to the above-mentioned multiple comorbidities We will continue to follow I have personally seen and examined the patient, performed the documentation and the assessment and plan as written. Number of minutes spent on the visit: 10.
[2023-10-24] MEDS: LACTULOSE 20 GM/30 ML CUP PO ONE (12:27)
--- NOTE | 2023-10-24 12:56 | P.NPCON ---
History of Present Illness - Reason for Consult acute renal failure - History of Present Illness Patient is a 63-year-old female with history of chronic kidney disease stage IV with baseline creatinine about 1.8-1.7 mg/dL secondary to diabetic kidney disease. Patient is admitted to the hospital with complaints of increased weakness and fatigue. She has also had decreased oral intake associated with nausea and vomiting. Patient has a chronic indwelling Cortes catheter since November 2022 for urinary retention. She has a home visiting nurse and the catheter is changed every 4 weeks. Blood cultures are positive for gram-negative bacilli. UA is positive for significant pyuria. Patient was hypotensive on admission with systolic blood pressure as low as 70 mmHg. Currently maintained on IV fluids and antibiotics. Patient states she is feeling better. Review of Systems as per HPI Past Medical History Past Medical History: Coronary Artery Disease (CAD), Heart Failure, Diabetes Mellitus, Fibromyalgia, GERD/Reflux, Hyperlipidemia, Hypertension, Myocardial Infarction (NM), Musculoskeletal Disorder, Osteoarthritis (OA), Renal Disease, Skin Disorder, Vascular Disorder Additional Past Medical History / Comment(s): Nephrolithiasis and kidney stones- chronic Cortes, peripheral vascular disease, degenerative disc disease-chronic back pain, going to physical therapy, DM type 2, LLE neuropathy Last Myocardial Infarction Date:: 2004,2006, 2015 History of Any Multi-Drug Resistant Organisms: MRSA Date of last positivie culture/infection: 02/24/16 LT FOOT MDRO Source:: LT FOOT Past Surgical History: AICD, Section, Heart Catheterization, Heart Catheterization With Stent, Orthopedic Surgery, Pacemaker, Tonsillectomy Additional Past Surgical History / Comment(s): Right rotator cuff surgery 2, bilateral carpal tunnel release, 3 cardiac catheterization 6 stents, above-knee amputation of the right lower extremity, incision and debridement of diabetic wounds, [facility] Biventricular AICD placement, Right AKA in 2013 Past Anesthesia/Blood Transfusion Reactions: No Reported Reaction Additional Past Anesthesia/Blood Transfusion Reaction / Comment(s): CLAUSTERPHOBIA. PAST BLOOD TRANSFUSION-NO REACTION Date of Last Stent Placement:: 2015 Type of Cardiac Device: AICD Device Placement Date:: Past Psychological History: Anxiety, Depression Smoking Status: Former smoker Past Alcohol Use History: None Reported Additional Past Alcohol Use History / Comment(s): SMOKED 20 YEARS, 1 PPD, QUIT 2013 Past Drug Use History: Marijuana Additional Drug Use History / Comment(s): MEDICAL MARIJUANA-uses 3-4 nights per week. - Past Family History Sister(s) Family Medical History: Cancer Additional Family Medical History / Comment(s): 2 SISTERS HAD CANCER. Mother Family Medical History: Coronary Artery Disease (CAD), Hyperlipidemia, Hypertension Additional Family Medical History / Comment(s): CABG, heart disease Father Family Medical History: CVA/TIA, Hyperlipidemia, Hypertension, Myocardial Infarc tion (NM) Brother(s) Family Medical History: Cancer Additional Family Medical History / Comment(s): Breast cancer. Medications and Allergies Home Medications Medication Instructions Recorded Confirmed Type Amitriptyline HCl [Elavil] 25 mg PO HS 08/28/13 10/23/23 History oxyCODONE-APAP 10-325MG [Percocet 1 tab PO TID PRN 08/28/13 10/23/23 History 10-325 mg] ALPRAZolam [Xanax] 0.5 mg PO HS 10/06/15 10/23/23 History Clopidogrel [Plavix] 75 mg PO DAILY 10/06/15 10/23/23 History QUEtiapine FUMARATE [SEROquel XR] 50 mg PO HS 10/06/15 10/23/23 History Atorvastatin [Lipitor] 80 mg PO HS #30 tab 03/25/16 10/23/23 Rx Nitroglycerin Sl Tabs [Nitrostat] 0.4 mg SUBLINGUAL Q5M PRN 01/05/19 10/23/23 History INSULIN ASPART (NovoLOG) [NovoLOG 15 - 20 unit SQ AC-TID 07/15/20 10/23/23 History (formulary)] Furosemide [Lasix] 40 mg PO DAILY 03/17/21 10/23/23 History tiZANidine [Zanaflex] 4 mg PO BID PRN 03/17/21 10/23/23 History Dapagliflozin Propanediol [Farxiga] 10 mg PO DAILY 05/15/21 10/23/23 History Metoprolol Succinate (ER) [Toprol 50 mg PO DAILY #90 tab 05/30/21 10/23/23 Rx XL] Docusate [Colace] 100 mg PO Q48H 10/23/23 10/23/23 History Ergocalciferol (Vitamin D2) 1,250 mcg PO FR 10/23/23 10/23/23 History [Drisdol (50,000 Iu)] Escitalopram Oxalate [Lexapro] 20 mg PO HS 10/23/23 10/23/23 History Finerenone [Kerendia] 5 mg PO DAILY 10/23/23 10/23/23 History Insulin Degludec [Tresiba 35 units SQ HS 10/23/23 10/23/23 History Flextouch U-200 Pen] Isosorbide Mononitrate ER [Imdur] 30 mg PO DAILY 10/23/23 10/23/23 History Morphine Sulfate [Ms Contin] 30 mg PO Q12HR 10/23/23 10/23/23 History calcitrioL [Rocaltrol] 0.25 mcg PO FR 10/23/23 10/23/23 History Allergies Allergy/AdvReac Type Severity Reaction Status Date / Time vancomycin Allergy Rash/Hives Verified 10/23/23 13:31 ciprofloxacin [From Cipro] AdvReac Nausea & Verified 10/23/23 13:31 Vomiting ciprofloxacin HCl AdvReac Nausea & Verified 10/23/23 13:31 [From Cipro] Vomiting flu vaccine Allergy Rash/Hives Uncoded 10/23/23 13:31 Physical Exam Vitals: Vital Signs Temp Pulse Pulse Resp BP BP Pulse Ox 10/24/23 11:29 97.5 F L 85 16 102/67 99 10/24/23 10:56 91 10/24/23 10:27 97.6 F 91 16 114/65 100 10/24/23 09:17 98 20 120/70 100 10/24/23 08:00 97.9 F 72 15 102/56 98 10/24/23 07:14 75 16 102/56 96 10/24/23 07:00 71 14 111/65 99 10/24/23 06:45 74 13 118/67 99 10/24/23 06:30 79 14 118/67 100 10/24/23 06:15 72 14 115/71 100 10/24/23 06:00 73 13 111/54 99 10/24/23 05:45 64 13 112/54 100 10/24/23 05:30 70 13 109/51 100 10/24/23 05:15 70 14 106/61 100 10/24/23 05:00 69 14 114/70 100 07/25/24 04:45 67 13 116/66 100 07//24 04:30 63 14 115/63 100 07/24 04:15 65 14 123/68 99 24 04:00 68 14 122/67 100 07/24 03:45 73 13 118/62 100 10/23/24 03:30 66 15 114/62 100 07/24 03:15 64 15 105/51 100 24 03:00 72 18 108/56 100 24 02:30 70 16 100/57 99 24 02:15 74 16 109/66 99 24 02:00 74 16 102/52 99 24 01:45 75 15 110/63 98 10/24/23 01:30 78 17 107/66 98 10/24/23 01:15 77 19 123/101 100 10/24/23 01:08 85 16 122/68 98 10/24/23 01:00 122/80 100 10/24/23 00:45 107/64 100 10/24/23 00:30 73 110/78 99 24 00:23 78 18 93/64 99 24 00:15 0 L 100/67 100 24 00:00 75 93/64 98 24 23:45 78 102/65 98 24 23:30 71 16 81/56 99 24 23:20 79 18 80/54 97 10/22/24 23:15 78 34 H 81/55 80 L 10/23/23 23:00 68 22 74/47 99 24 22:45 74 15 84/52 98 10/22/24 22:30 73 13 84/38 98 10/22/24 22:15 77 18 93/62 100 07/24 22:00 78 15 83/53 99 24 21:45 71 19 89/54 98 10/22/24 21:30 73 20 90/55 97 10/22/24 21:15 80 22 111/69 98 //24 21:00 80 13 99/63 97 /24/24 20:56 84 18 99/63 96 10/22/24 20:45 79 21 104/66 98 07/24/24 20:30 81 23 81/51 97 10/23/23 20:17 69 16 81/51 97 10/23/23 20:15 70 18 86/53 97 10/23/23 20:00 72 20 102/61 98 10/23/23 19:45 86 21 107/57 97 10/23/23 19:31 83 19 107/57 98 10/23/23 19:30 80 11 L 70/47 98 10/23/23 19:28 84 18 70/47 97 10/23/23 19:15 80 10 L 82/58 95 10/23/23 19:05 97.9 F 75 18 82/58 96 10/23/23 19:00 74 30 H 99/50 96 10/23/23 18:45 83 6 L 112/55 87 L 10/23/23 18:30 92 16 113/69 98 10/23/23 18:15 81 13 106/66 97 10/23/23 18:00 97.8 F 82 23 102/65 96 10/23/23 17:45 84 0 L 112/71 97 10/23/23 17:30 80 20 104/80 76 L 10/23/23 17:15 80 26 H 106/71 91 L 10/23/23 17:03 97.7 F 78 18 106/71 98 10/23/23 17:00 80 17 95/64 98 10/23/23 16:45 81 6 L 92/61 98 10/23/23 16:30 77 14 99/68 96 10/23/23 16:15 79 6 L 104/63 97 10/23/23 16:03 97.6 F 74 17 104/63 98 10/23/23 16:00 74 19 116/74 97 10/23/23 15:45 76 26 H 103/64 98 10/23/23 15:30 76 12 106/80 97 10/23/23 15:15 86 20 86/58 95 10/23/23 15:00 97.5 F L 72 17 107/67 95 10/23/23 14:45 74 18 107/67 96 10/23/23 14:28 97.7 F 80 20 110/72 97 10/23/23 14:00 110/67 10/23/23 13:45 111/62 10/23/23 13:25 75 18 108/55 97 10/23/23 13:15 108/68 10/23/23 13:00 114/66 Intake and Output 10/23/23 10/24/23 10/24/23 22:59 06:59 14:59 Intake Total 1.905 5.734 142.107 Output Total 160 50 125 Balance -158.095 -44.266 17.107 Intake: Intake, IV Titration 1.905 5.734 142.107 Amount Heparin Sod,Pork in 0.45% 142.107 NaCl 25,000 unit In 0.45 % NaCl 1 250ml.bag @ 12 UNITS/KG/HR 9.09 mls/hr IV .Q24H [facility] Rx#: [id number] Norepinephrine 32 mg In 1.905 5.734 Sodium Chloride 0.9% 218 ml @ 0.03 MCG/KG/MIN 1. 065 mls/hr IV .Q24H ONE Rx#:[id number] Output: Urine 160 50 125 Uretheral (Cortes) 160 50 Other: Voiding Method Indwelling Catheter Weight 75.75 kg patient is awake, comfortable, no acute distress. 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 Acute kidney injury, ATN secondary to sepsis and hypotension, nonoliguric. UA is suggestive of UTI.ultrasound shows mild bilateral hydronephrosis. This is not new and patient has chronic indwelling Cortes catheter. 2. UTI with sepsis 3. Gram-negative sepsis with blood cultures growing gram-negative bacilli 4. Peripheral vascular disease status post right AKA 5. CK D stage IV secondary to diabetic kidney disease. Baseline creatinine 1.7-1.8 mg/dL. 6. Non-gap metabolic acidosis secondary to acute kidney injury 7. Anemia rule out iron deficiency. Component of anemia of chronic disease as well as Plan: change IV fluids to Ringer lactate Add oral sodium bicarb Continue with antibiotics Continue with indwelling Cortes catheter. Repeat labs in a.m. Continue to avoid nephrotoxic agents Check iron profile Add Aranesp next Thank you for the consultation. We will continue to follow the patient with you during her hospitalization.
[2023-10-24] MEDS: LACTATED RINGERS 1,000 ML IV SCH (13:49)
[2023-10-24] MEDS: DARBEPOETIN ALFA 60 MCG/0.3 ML SYRINGE SQ SCH (14:28)
--- NOTE | 2023-10-24 15:30 | P.PN ---
Subjective Progress Note Date: 10/24/23 Principal diagnosis: Reason for follow-up is UTI and bacteremia Patient is a 63-year-old female with a past medical history significant for diabetes mellitus hypertension hyperlipidemia coronary artery disease, did have history of right diabetic foot infection requiring right [id number] amputation also with a history of urinary Retention requiring Cortes catheter placed that was last changed about 10 days before presentation to the hospital patient presenting with weakness and has been diagnosed with sepsis secondary To UTI blood cultures came back positive with Enterobacter. On today's evaluation that is 10/24/2023, patient has been afebrile, patient is breathing comfortably and is currently on 3 L nasal cannula oxygen, patient denies having any significant cough no chest pain shortness of breath, patient denies nausea vomiting or diarrhea and no abdominal pain. Patient white count 6.4 creatinine is 2.71 blood culture with Enterobacter Objective - Vital Signs Vital signs: Vital Signs Temp 97.5 F L 10/24/23 11:29 Pulse 85 10/24/23 13:40 Resp 16 10/24/23 11:29 BP 102/67 10/24/23 11:29 Pulse Ox 99 10/24/23 11:29 FiO2 Intake & Output 10/23/23 10/24/23 10/24/23 18:59 06:59 18:59 Intake Total 4.947 5.734 217.482 Output Total 65 150 550 Balance -60.053 -144.266 -332.518 Weight 75.75 kg 75.75 kg Intake: Intake, IV Titration 4.947 5.734 217.482 Amount Heparin Sod,Pork in 0.45% 217.482 NaCl 25,000 unit In 0.45 % NaCl 1 250ml.bag @ 12 UNITS/KG/HR 9.09 mls/hr IV .Q24H [facility] Rx#: [id number] Norepinephrine 32 mg In 4.947 5.734 Sodium Chloride 0.9% 218 ml @ 0.03 MCG/KG/MIN 1. 065 mls/hr IV .Q24H ONE Rx#:[id number] Output: Urine 65 150 550 Uretheral (Cortes) 65 150 Other: Voiding Method Indwelling Catheter - Exam GENERAL DESCRIPTION: Middle-aged female up in the chair in no distress RESPIRATORY SYSTEM: Unlabored breathing , decreased breath sounds at bases HEART: S1 S2 regular rate and rhythm , ABDOMEN: Soft , no tenderness EXTREMITIES: No edema feet - Labs CBC & Chem 7: 10/24/23 06:14 10/24/23 06:14 Labs: Abnormal Lab Results - Last 24 Hours (Table) 10/23/23 10/23/23 10/23/23 Range/Units 14:43 14:43 14:43 RBC (3.80-5.40) m/uL Hgb (11.4-16.0) gm/dL Hct (34.0-46.0) % MCHC (31.0-37.0) g/dL RDW (11.5-15.5) % ESR 48 H (0-30) mm/Hr PT (10.0-12.5) sec INR (<1.2) APTT (22.0-30.0) sec Sodium (137-145) mmol/L Carbon Dioxide (22-30) mmol/L BUN (7-17) mg/dL Creatinine (0.52-1.04) mg/dL Glucose (74-99) mg/dL POC Glucose (mg/dL) (70-110) mg/dL Hemoglobin A1c (<=6.0) % AST (14-36) U/L ALT (4-34) U/L Troponin I (0.000-0.034) ng/mL C-Reactive Protein 21.9 H (<1.0) mg/dL Total Protein (6.3-8.2) g/dL Albumin (3.5-5.0) g/dL Procalcitonin 2.06 H (0.02-0.09) ng/mL 10/23/23 10/23/23 10/23/23 Range/Units 14:43 16:42 17:50 RBC (3.80-5.40) m/uL Hgb (11.4-16.0) gm/dL Hct (34.0-46.0) % MCHC (31.0-37.0) g/dL RDW (11.5-15.5) % ESR (0-30) mm/Hr PT (10.0-12.5) sec INR (<1.2) APTT (22.0-30.0) sec Sodium (137-145) mmol/L Carbon Dioxide (22-30) mmol/L BUN (7-17) mg/dL Creatinine (0.52-1.04) mg/dL Glucose (74-99) mg/dL POC Glucose (mg/dL) 294 H (70-110) mg/dL Hemoglobin A1c (<=6.0) % AST (14-36) U/L ALT (4-34) U/L Troponin I 15.800 H* 14.400 H* (0.000-0.034) ng/mL C-Reactive Protein (<1.0) mg/dL Total Protein (6.3-8.2) g/dL Albumin (3.5-5.0) g/dL Procalcitonin (0.02-0.09) ng/mL 10/23/23 10/23/23 10/24/23 Range/Units 20:59 23:12 06:14 RBC (3.80-5.40) m/uL Hgb (11.4-16.0) gm/dL Hct (34.0-46.0) % MCHC (31.0-37.0) g/dL RDW (11.5-15.5) % ESR (0-30) mm/Hr PT (10.0-12.5) sec INR (<1.2) APTT 45.4 H (22.0-30.0) sec Sodium (137-145) mmol/L Carbon Dioxide (22-30) mmol/L BUN (7-17) mg/dL Creatinine (0.52-1.04) mg/dL Glucose (74-99) mg/dL POC Glucose (mg/dL) 277 H (70-110) mg/dL Hemoglobin A1c 7.7 H (<=6.0) % AST (14-36) U/L ALT (4-34) U/L Troponin I (0.000-0.034) ng/mL C-Reactive Protein (<1.0) mg/dL Total Protein (6.3-8.2) g/dL Albumin (3.5-5.0) g/dL Procalcitonin (0.02-0.09) ng/mL 10/24/23 10/24/23 10/24/23 Range/Units 06:14 06:14 06:14 RBC 3.07 L (3.80-5.40) m/uL Hgb 8.3 L (11.4-16.0) gm/dL Hct 28.3 L (34.0-46.0) % MCHC 29.2 L (31.0-37.0) g/dL RDW 16.9 H (11.5-15.5) % ESR (0-30) mm/Hr PT 14.4 H (10.0-12.5) sec INR 1.4 H (<1.2) APTT (22.0-30.0) sec Sodium 131 L (137-145) mmol/L Carbon Dioxide 16 L (22-30) mmol/L BUN 65 H (7-17) mg/dL Creatinine 2.71 H (0.52-1.04) mg/dL Glucose 127 H (74-99) mg/dL POC Glucose (mg/dL) (70-110) mg/dL Hemoglobin A1c (<=6.0) % AST 191 H (14-36) U/L ALT 229 H (4-34) U/L Troponin I (0.000-0.034) ng/mL C-Reactive Protein (<1.0) mg/dL Total Protein 6.2 L (6.3-8.2) g/dL Albumin 2.6 L (3.5-5.0) g/dL Procalcitonin (0.02-0.09) ng/mL 10/24/23 10/24/23 10/24/23 Range/Units 06:14 07:20 10:01 RBC (3.80-5.40) m/uL Hgb (11.4-16.0) gm/dL Hct (34.0-46.0) % MCHC (31.0-37.0) g/dL RDW (11.5-15.5) % ESR (0-30) mm/Hr PT (10.0-12.5) sec INR (<1.2) APTT 33.9 H (22.0-30.0) sec Sodium (137-145) mmol/L Carbon Dioxide (22-30) mmol/L BUN (7-17) mg/dL Creatinine (0.52-1.04) mg/dL Glucose (74-99) mg/dL POC Glucose (mg/dL) 136 H 113 H (70-110) mg/dL Hemoglobin A1c (<=6.0) % AST (14-36) U/L ALT (4-34) U/L Troponin I (0.000-0.034) ng/mL C-Reactive Protein (<1.0) mg/dL Total Protein (6.3-8.2) g/dL Albumin (3.5-5.0) g/dL Procalcitonin (0.02-0.09) ng/mL Microbiology - Last 24 Hours (Table) 10/23/23 09:55 Urine Culture - Preliminary Urine,Voided Gram Neg Bacilli 10/23/23 11:45 Blood Culture Gram Stain - Preliminary Blood Blood Culture - Preliminary Molecular ID 10/23/23 11:30 Blood Culture Gram Stain - Preliminary Blood Assessment and Plan (1) Sepsis Current Visit: Yes Status: Acute Code(s): A41.9 - SEPSIS, UNSPECIFIED ORGANISM SNOMED Code(s): 36087886 (2) UTI (urinary tract infection) Current Visit: Yes Status: Acute Code(s): N39.0 - URINARY TRACT INFECTION, SITE NOT SPECIFIED SNOMED Code(s): 78010506 (3) Allergy to multiple antibiotics Current Visit: Yes Status: Acute Code(s): Z88.1 - ALLERGY STATUS TO OTHER ANTIBIOTIC AGENTS SNOMED Code(s): 633440308 (4) Bacteremia Current Visit: Yes Status: Acute Code(s): R78.81 - BACTEREMIA SNOMED Code(s): 7560924 Plan: 1patient presented to hospital with sepsis in this patient who did have a hypotension generalized weakness most likely combination of catheters urinary tract infection" cholecystitis not entirely excluded however the patient did not have significant tenderness to the right upper quadrant area 2-patient with multiple antibiotic ALLERGIES that would limit the number of antibiotic safe to use 3-blood culture positive for Enterobacter that is resistant to Rocephin 4Rocephin has been discontinued cefepime has been added will monitor clinical course closely Dictation was produced using [employer] dictation software. please excuse any grammatical, word or spelling errors. Time with Patient: Less than 30
[2023-10-24] MEDS ORDERED: tiZANidine 4 MG TAB PO PRN (16:21)
[2023-10-24 16:23] LABS: Glucose,Whole Blood 256 mg/dL (70-110)
--- NOTE | 2023-10-24 16:32 | P.PN ---
Progress Note - Text Progress Note Date: 10/24/23 History of present illness; patient is 63-year-old lady with past medical history significant for coronary artery disease with stent placement, diabetes mellitus, fibromyalgia, GERD, hypertension, hyperlipidemia, osteoarthritis, who presented to hospital for generalized weakness. Patient relates she has not been feeling her usual self for the last 3 to 4 days. Patient complains of increased weakness. Patient also having nausea and vomiting. Patient was also complaining of lower quadrant abdominal pain. Patient history of chronic Cortes in the last Cortes was changed 2 weeks back. Patient denied any fever but complaining of chills at home. Patient was also complaining of loss of appe tite. Denied any chest pain or shortness of breath. Patient was complaining of being confused and lethargic as well. Because of the symptoms, patient was brought to the ER Initial lab work done in the ER showed WBC 8.2, hemoglobin 9.3, platelet count 217, sodium 131, potassium 4, BUN 60, creatinine 2.54, glucose 266, lactate 3.2 AST 485, ALT 321, Chest x-ray done in the ER showed cardiomegaly: From mild venous congestion or chronic distal lung disease/pulm fibrosis Patient admitted to internal medicine service October 23: Admitted with septic shock. UTI. Now on the medical floor. Patient's had a Cortes catheter since January 2023. Does feel a bit depressed. Has a powered wheelchair at home. at home is good stage IV cancer. Feeling Roxanna low and a bit suicidal earlier today. Discussed at length. Sitter. Psychiatry consulted. Social history: . Does use a motorized wheelchair. Patient smoked a pack a day for 20 years stopped in 2014. Physical examination: VITAL SIGNS: 97.5, 85, 16, 102/67, 99% on 3 L GENERAL: Laying in bed, tired, bed withdrawn EYES: Pupils equal. Conjunctiva normal. HEENT: External appearance of nose and ears normal, oral cavity grossly normal. NECK: JVD not raised; masses not palpable. HEART: First and second heart sounds are normal; no edema. LUNGS: Respiratory rate normal; clear to auscultation. ABDOMEN: Soft, nontender, liver spleen not palpable, no masses palpable. Cortes catheter PSYCH: [Alert and oriented x3; mood and affect low MUSCULAR skeletal: Evidence of OA INVESTIGATIONS, reviewed in the clinical context: October 23: White count 6.4 hemoglobin 8.3 platelets 216 sodium 131 potassium 3.8 BUN 65 creatinine 2.71 AST 191 ALT 229 October 22: AST 45 ALT 321 troponin I 14.4 UA positive for leukoesterase Urine culture: Gram-negative bacilli Blood culture: Gram-negative bacilli Abdominal ultrasound: Pericholecystic fluid and gallbladder sludge. Distal CBD's dilated at 7 mm. Distal obstruction was occluded. Mild bilateral hydronephrosis Previous labs: May 2023 creatinine 1.7 Assessment and plan: -Septic shock secondary to bacteremia from UTI: Better Patient required pressors, fluids -Sepsis with blood cultures positive for gram-negative bacilli IV fluids. IV cefepime -Acute kidney injury, ATN from septic shock: Slow to respond Baseline creatinine 1.7 in May 2023. -Acute UTI with cystitis, secondary to chronic Cortes catheter, causing septic shock IV cefepime -Coronary artery disease, prior history of stent Aspirin Plavix -Chronic congestive heart failure, EF not known Follow clinically -Diabetes mellitus type 2 chronically on insulin For Accu-Cheks with sliding scale -Chronic fibromyalgia Pain control when necessary -Chronic Cortes catheter for bladder dysfunction since January 2023 -Acute non-ST elevation OR. Precipitated by septic shock. Known underlying CAD. IV heparin. Plavix. Aspirin. Lopressor Cardiology following -IV heparin monitoring Follow PTT -GERD Pepcid -Hyperlipidemia Lipitor-hold for now because of elevated LFTs -Essential hypertension Lopressor -Acute ischemic hepatitis from septic shock: Slowly improving -Primary osteoarthritis Pain control -Chronic kidney disease stage 3 likely nephrosclerosis and diabetic nephropathy Creatinine 1.06 June 2023 -Peripheral arterial disease Aspirin Lipitor -Right above-knee amputation -AICD with a pacemaker Telemetry Anxiety depression otherwise specified, for some acute flareup, with some suicidal ideation Consult psychiatry add sitter Resume home medications Lexapro, Seroquel, Xanax, Chronic insomnia: elavil -Chronic medical debility. Does use a motorized wheelchair -Full code Care discussed at length with the patient. Past Medical History Past Medical History: Coronary Artery Disease (CAD), Heart Failure, Diabetes Mellitus, Fibromyalgia, GERD/Reflux, Hearing Disorder / Deafness, Hyperlipidemia, Hypertension, Myocardial Infarction (OR), Musculoskeletal Disorder, Osteoarthritis (OA), Renal Disease, Skin Disorder, Vascular Disorder Additional Past Medical History / Comment(s): See Dr Durant's H&P nephrolithiasis and kidney stones- chronic Cortes, peripheral vascular disease, degenerative disc disease-chronic back pain, Rt AKA-working on using prosthesis, going to physical therapy Last Myocardial Infarction Date:: 2004,2006, 2015 History of Any Multi-Drug Resistant Organisms: MRSA Date of last positivie culture/infection: 02/24/16 LT FOOT-VERIFIED PER DR VASQUEZ OFFICE MDRO Source:: LT FOOT Past Surgical History: AICD, Section, Heart Catheterization, Heart Catheterization With Stent, Orthopedic Surgery, Pacemaker, Tonsillectomy Additional Past Surgical History / Comment(s): Right rotator cuff surgery 2, bilateral carpal tunnel release,3 cardiac catheterization 6 stents, above-knee amputation of the right lower extremity, incision and debridement of diabetic wounds, [facility] Biventricular AICD placement Past Anesthesia/Blood Transfusion Reactions: Motion Sickness Additional Past Anesthesia/Blood Transfusion Reaction / Comment(s): CLAUSTERPHOBIA. PAST BLOOD TRANSFUSION-NO REACTION Date of Last Stent Placement:: 2015 Type of Cardiac Device: AICD Device Placement Date:: Past Psychological History: Anxiety, Depression Smoking Status: Former smoker
[2023-10-24] MEDS: INSULIN ASPART (NovoLOG) 100 UNIT/ML VIAL SQ SCH (16:33)
[2023-10-24] MEDS: DAPAGLIFLOZIN PROPANEDIOL 10 MG TABLET PO SCH (16:33)
--- NOTE | 2023-10-24 17:20 | CA ---
Transthoracic Echo Report Name: More Spann Age: 63 Gender: F : 1960 Exam Date: 10/24/2023 15:39 Exam Location: [facility] Ht (in): 65 Wt (lb): 167 Ordering Physician: Yosef Jones Attending/Referring Phys: Gmat Tutor Monserrat Hernandez RDCS Procedure CPT: Indications: evaluate LV function Cardiac Hx: Technical Quality: Technically difficult study Contrast 1: Definity Total Dose (mL): 2 Contrast 2: Total Dose (mL): MEASUREMENTS (Male / Female) Normal Values 2D ECHO LV Diastolic Diameter PLAX 5.4 cm 4.2 - 5.9 / 3.9 - 5.3 cm LV Systolic Diameter PLAX 4.3 cm IVS Diastolic Thickness 1.1 cm 0.6 - 1.0 / 0.6 - 0.9 cm LVPW Diastolic Thickness 1.2 cm 0.6 - 1.0 / 0.6 - 0.9 cm LV Relative Wall Thickness 0.4 RV Internal Dim ED PLAX 3.0 cm LV Diastolic Volume MOD BP 119.0 cm??? 67 - 155 / 56 - 104 cm??? LV Systolic Volume MOD BP 104.0 cm??? 22 - 58 / 19 - 49 cm??? LV Ejection Fraction MOD BP 12.5 % >= 55 % LV Cardiac Index MOD BP 626.2 cm???/min???m??? LV Diastolic Volume MOD 4C 163.0 cm??? LV Systolic Volume MOD 4C 138.0 cm??? LV Ejection Fraction MOD 4C 15.3 % LV Cardiac Index MOD 4C 1049.2 cm???/min???m??? LV Diastolic Length 4C 9.1 cm LV Systolic Length 4C 9.0 cm LV Diastolic Volume MOD 2C 70.2 cm??? LV Systolic Volume MOD 2C 70.5 cm??? LV Ejection Fraction MOD 2C -0.4 % LV Cardiac Index MOD 2C -13.2 cm???/min???m??? LV Diastolic Length 2C 7.3 cm LV Systolic Length 2C 7.8 cm LA Volume 65.1 cm??? 18 - 58 / 22 - 52 cm??? LA Volume Index 34.6 cm???/m??? 16 - 28 cm???/m??? M-MODE Aortic Root Diameter MM 3.2 cm LA Systolic Diameter MM 4.8 cm LA Ao Ratio MM 1.5 AV Cusp Separation MM 1.4 cm DOPPLER AV Peak Velocity 122.8 cm/s AV Peak Gradient 6.0 mmHg AV Mean Velocity 75.8 cm/s AV Mean Gradient 2.8 mmHg AV Velocity Time Integral 19.9 cm AI Peak Velocity 302.6 cm/s AI Peak Gradient 36.6 mmHg AI Pressure Half Time 564.4 ms LVOT Peak Velocity 85.0 cm/s LVOT Peak Gradient 2.9 mmHg LVOT Velocity Time Integral 13.4 cm MV Area PHT 4.1 cm??? Mitral E Point Velocity 80.3 cm/s Mitral A Point Velocity 97.4 cm/s Mitral E to A Ratio 0.8 MV Deceleration Time 186.1 ms TR Peak Velocity 308.5 cm/s TR Peak Gradient 38.1 mmHg Right Ventricular Systolic Press 43.1 mmHg FINDINGS Left Ventricle Mildly increased septal wall thickness. Mildly increased posterior wall thickness. Moderately increased left ventricular diastolic volume. Severely increased left ventricular systolic volume. Severely decreased left ventricular ejection fraction. Severely reduced global left ventricular systolic function. Left ventricular ejection fraction is estimated at 20-25 %. Grade 2 diastolic dysfunction. Right Ventricle Normal right ventricular size and function. Mild pulmonary hypertension. Right Atrium Normal right atrial size. Left Atrium Moderately increased left atrial volume. Mitral Valve Structurally normal mitral valve. Mitral valve thickened. Moderate mitral annular calcification. Erqbmyrr-vs-zyhqzr mitral regurgitation. Aortic Valve No aortic stenosis. Vtog-pe-tyiqpugc aortic regurgitation. Tricuspid Valve Structurally normal tricuspid valve. Zhmv-mm-ptlskhbt tricuspid regurgitation. Pulmonic Valve Structurally normal pulmonic valve. Pericardium No pericardial effusion. Aorta Normal size aortic root and proximal ascending aorta. CONCLUSIONS Severe LV systolic dysfunction with an ejection fraction of 20-25% Moderate to severe mitral regurgitation Mild to moderate tricuspid regurgitation Mild to moderate aortic regurgitation Previewed by: Dr. Jose Milian MD (Electronically Signed) Final Date: 24 October 2023 17:19
[2023-10-24 19:57] LABS: Glucose,Whole Blood 258 mg/dL (70-110)
[2023-10-24] MEDS: ALPRAZolam 0.5 MG TAB PO SCH (20:08)
[2023-10-24] MEDS: ESCITALOPRAM 20 MG TAB PO SCH (20:08)
[2023-10-24] MEDS: SODIUM BICARBONATE TAB 650 MG TAB PO SCH (20:08)
[2023-10-24] MEDS: INSULIN DETEMIR (LEVEMIR) 100 UNIT/ML SYR SQ SCH (20:09)
[2023-10-24] MEDS: QUEtiapine 25 MG TAB PO SCH (20:09)
[2023-10-24] MEDS: AMITRIPTYLINE HCL 25 MG TAB PO SCH (20:09)
[2023-10-24] MEDS: NYSTATIN 100,000 UNIT/GM POWD 15 GM TOPICAL SCH (20:10)
[2023-10-25 02:58] LABS: % Iron Saturation 12.15 (12.00-45.00)
[2023-10-25 05:51] LABS: Glucose,Whole Blood 133 mg/dL (70-110)
[2023-10-25 07:03] LABS: ALT 168 U/L (4-34); AST 86 U/L (14-36); African American GFR (CKD) 25 (>60 ml/min/1.73 sqM); Albumin 2.6 g/dL (3.5-5.0); Alkaline Phosphatase 126 U/L (38-126); Anion Gap 9 mmol/L; Blood Urea Nitrogen 63 mg/dL (7-17); Calcium 8.2 mg/dL (8.4-10.2); Carbon Dioxide 18 mmol/L (22-30); Chloride 108 mmol/L (98-107); Glucose 117 mg/dL (74-99); Non-African American GFR(CKD) 22 (>60 ml/min/1.73 sqM); Potassium 3.6 mmol/L (3.5-5.1); Sodium 135 mmol/L (137-145); Total Bilirubin 0.5 mg/dL (0.2-1.3); Total Protein 6.2 g/dL (6.3-8.2)
--- NOTE | 2023-10-25 07:51 | XR ---
EXAMINATION TYPE: XR chest 1V portable DATE OF EXAM: 10/25/2023 COMPARISON: 10/23/2023 HISTORY: Shortness of breath TECHNIQUE: Single frontal view of the chest is obtained. FINDINGS: Heart size enlarged and there is a multilead cardiac device. Diffuse interstitial pattern with findings suggestive of COPD. Previous rotator cuff repair surgery on the right. Degenerative kyung nges of the spine. IMPRESSION: 1. Cardiomegaly with findings suggestive of pulmonary fibrosis. More localized consolidation or mass in the left lobe. Findings stable.
[2023-10-25 09:16] LABS: Anisocytosis Slight; Basophils % (A) 0 %; Eosinophils # (A) 0.2 k/uL (0-0.7); Eosinophils % (A) 2 %; HCT 28.3 % (34.0-46.0); HGB 8.7 gm/dL (11.4-16.0); Hypochromasia Marked; Lymphocytes # (A) 1.4 k/uL (1.0-4.8); Lymphocytes % (A) 18 %; MCH 27.6 pg (25.0-35.0); MCHC 30.6 g/dL (31.0-37.0); MCV 89.9 fL (80.0-100.0); Mean Platelet Volume 8.1; Monocytes # (A) 0.5 k/uL (0-1.0); Monocytes % (A) 7 %; Neutrophils # (A) 5.9 k/uL (1.3-7.7); Neutrophils % (A) 72 %; Platelet Count 241 k/uL (150-450); RBC 3.14 m/uL (3.80-5.40); RDW 17.2 % (11.5-15.5); WBC 8.3 k/uL (3.8-10.6)
--- NOTE | 2023-10-25 11:17 | P.PN ---
Subjective Progress Note Date: 10/25/23 Principal diagnosis: This is a 63-year-old female patient with a known history of coronary artery disease with multiple previous stent placements, cardiomyopathy status post AICD placement, nephrolithiasis, hearing disorder, hypertension, hyperlipidemia, diabetes mellitus, whevf-[id number] amputation on the right, former smoker, chronic Grider due to kidney issues. She presented here to the emergency room earlier this morning with complaints of generalized weakness, nausea vomiting and fall. Chest x-ray revealed cardiomegaly with mild venous congestion or chronic interstitial lung disease/pulmonary fibrosis. More confluent area of consolidation in the left perihilar and upper lobes. Neoplasm not excluded. EKG reveals atrial sensing and ventricular pacing. Ultrasound of the abdomen/bladder is pending. White count 8.2. Hemoglobin 9.3. Platelets 217. Sodium 131. Potassium 4.0. Bicarb 16. BUN 60. Creatinine 2.54. Lactic acid 3.2. Glucose 266. AST 45. ALT 321. Urinalysis turbid with moderate blood. Large leukocyte esterase, greater than 182 WBCs many WBC clumps many bacteria. Culture pending. Procalcitonin pending. She has been initiated on ceftriaxone. She is seen today in consultation in the emergency department. She was having issues with hypotension and is requiring norepinephrine and ICU admission. She is awake and alert. Maintaining O2 saturations in the 90s on 2 L/min per nasal cannula. Currently on norepinephrine at 0.02 mcg/kg/min. He has received 1.5 L of fluid resuscitation. Normal saline at 75 MLS per hour. The patient is seen today October 24, 2023 in follow-up in the emergency department. She is currently awake and alert in no acute distress. She is feeling a bit better today compared to yesterday. She did have issues with chest pain yesterday and was found to have elevated troponins and is currently on a heparin drip. Her mean arterial pressures have been in the 70s and 80s. She is off the norepinephrine. She is afebrile. She is maintaining good O2 saturations up to 100% on 3 L/min per nasal cannula. She is afebrile. Hemodynamically stable. White count 6.4. Hemoglobin 8.3. Platelets 216. Sodium 131. Potassium 3.8. Bicarb 16. BUN 65. Creatinine 2.71. Glucose 127. AST 191. ALT 229. Blood cultures are positive for gram-negative bacilli. She remains on Cefepime. Patient is seen today October 25, 2023 in room 374. She is resting comfortably in bed this morning eating her breakfast. She is satting well on room air. She states her breathing is comfortable and denies any shortness of breath or chest pain. She remains on the heparin drip for the elevated troponins. She remains afebrile. She is hemodynamically stable. White count 8.3. Hemogrlobin 8.7. Platelets 241. Sodium 135, Potassium 3.6, Bicard 18. BUN 63. Creatinine 2.29. Glucose 117. Blood cultures show gram-negative bacilli & Enterobacter Cloacae. She remains on Cefepime. Objective - Vital Signs Vital signs: Vital Signs Temp 98.0 F 10/25/23 08:54 Pulse 94 10/25/23 08:55 Resp 18 10/25/23 08:55 BP 137/85 10/25/23 08:54 Pulse Ox 92 L 10/25/23 08:56 FiO2 Intake & Output 10/24/23 10/25/23 10/25/23 18:59 06:59 18:59 Intake Total 399.482 240 358 Output Total 775 800 Balance -375.518 -560 358 Weight 75.75 kg 72 kg Intake: Intake, IV Titration 217.482 Amount Heparin Sod,Pork in 0.45% 217.482 NaCl 25,000 unit In 0.45 % NaCl 1 250ml.bag @ 12 UNITS/KG/HR 9.09 mls/hr IV .Q24H [facility] Rx#: [id number] Oral 182 240 358 Output: Urine 775 800 Other: Voiding Method Indwelling Catheter Indwelling Catheter Indwelling Catheter # Bowel Movements 1 - Exam GENERAL EXAM: Alert, pleasant 63-year-old female, comfortable in no apparent distress. HEAD: Normocephalic. EYES: Normal reaction of pupils, equal size. NOSE: Clear with pink turbinates. THROAT: No erythema or exudates. NECK: No masses, no JVD. CHEST: No chest wall deformity. LUNGS: Equal air entry with few scattered rhonchi. CVS: S1 and S2 normal with no audible murmur, regular rhythm. ABDOMEN: No hepatosplenomegaly, normal bowel sounds, no guarding or rigidity. SPINE: No scoliosis or deformity SKIN: No rashes CENTRAL NERVOUS SYSTEM: No focal deficits, tone is normal in all 4 extremities. EXTREMITIES: Right wbfle-iwf-tqqz amputation. There is no peripheral edema. No clubbing, no cyanosis. Peripheral pulses are intact. - Labs CBC & Chem 7: 10/25/23 05:42 10/25/23 05:42 Labs: Abnormal Lab Results - Last 24 Hours (Table) 10/24/23 10/24/23 10/24/23 Range/Units 06:14 15:34 15:34 RBC (3.80-5.40) m/uL Hgb (11.4-16.0) gm/dL Hct (34.0-46.0) % MCHC (31.0-37.0) g/dL RDW (11.5-15.5) % APTT 53.8 H (22.0-30.0) sec Sodium (137-145) mmol/L Chloride (98-107) mmol/L Carbon Dioxide (22-30) mmol/L BUN (7-17) mg/dL Creatinine (0.52-1.04) mg/dL Glucose (74-99) mg/dL POC Glucose (mg/dL) (70-110) mg/dL Hemoglobin A1c 7.7 H (<=6.0) % Calcium (8.4-10.2) mg/dL Iron 26 L (50-170) UG/DL TIBC 214 L (228-460) UG/DL Transferrin 153.0 L (204.0-354.0) mg/dL AST (14-36) U/L ALT (4-34) U/L Total Protein (6.3-8.2) g/dL Albumin (3.5-5.0) g/dL 10/24/23 10/24/23 10/25/23 Range/Units 16:21 19:56 05:42 RBC 3.14 L (3.80-5.40) m/uL Hgb 8.7 L (11.4-16.0) gm/dL Hct 28.3 L (34.0-46.0) % MCHC 30.6 L (31.0-37.0) g/dL RDW 17.2 H (11.5-15.5) % APTT (22.0-30.0) sec Sodium (137-145) mmol/L Chloride (98-107) mmol/L Carbon Dioxide (22-30) mmol/L BUN (7-17) mg/dL Creatinine (0.52-1.04) mg/dL Glucose (74-99) mg/dL POC Glucose (mg/dL) 256 H 258 H (70-110) mg/dL Hemoglobin A1c (<=6.0) % Calcium (8.4-10.2) mg/dL Iron (50-170) UG/DL TIBC (228-460) UG/DL Transferrin (204.0-354.0) mg/dL AST (14-36) U/L ALT (4-34) U/L Total Protein (6.3-8.2) g/dL Albumin (3.5-5.0) g/dL 10/25/23 10/25/23 10/25/23 Range/Units 05:42 05:42 05:48 RBC (3.80-5.40) m/uL Hgb (11.4-16.0) gm/dL Hct (34.0-46.0) % MCHC (31.0-37.0) g/dL RDW (11.5-15.5) % APTT 51.9 H (22.0-30.0) sec Sodium 135 L (137-145) mmol/L Chloride 108 H (98-107) mmol/L Carbon Dioxide 18 L (22-30) mmol/L BUN 63 H (7-17) mg/dL Creatinine 2.29 H (0.52-1.04) mg/dL Glucose 117 H (74-99) mg/dL POC Glucose (mg/dL) 133 H (70-110) mg/dL Hemoglobin A1c (<=6.0) % Calcium 8.2 L (8.4-10.2) mg/dL Iron (50-170) UG/DL TIBC (228-460) UG/DL Transferrin (204.0-354.0) mg/dL AST 86 H (14-36) U/L ALT 168 H (4-34) U/L Total Protein 6.2 L (6.3-8.2) g/dL Albumin 2.6 L (3.5-5.0) g/dL Microbiology - Last 24 Hours (Table) 10/23/23 11:45 Blood Culture Gram Stain - Preliminary Blood Blood Culture - Preliminary Molecular ID 10/23/23 09:55 Urine Culture - Preliminary Urine,Voided Gram Neg Bacilli 10/23/23 11:30 Blood Culture Gram Stain - Preliminary Blood Assessment and Plan Assessment: Weakness, nausea, vomiting suspected secondarily to UTI Acute UTI suspect chronic grider PACHECO secondary to hypotension, dehydration Elevated troponins r/o ACS Chronic grider d/t urinary retention Hx of CAD multiple stents Hx of obesity, DM, PVD, HLD Plan: Labs & Medications Reviewed Chest XR reviewed Continue Cefepime Heparin drip for elevated troponins Cardio following added Plavix & Aspirin, no plans for cardiac cath at this time Nephro following added Aranesp & Bicarb Will continue to follow
--- NOTE | 2023-10-25 11:22 | P.PN ---
Subjective HISTORY OF PRESENT ILLNESS: This is a 63 year old female with a past medical history significant for coronary artery disease with previous stenting, peripheral vascular disease, hypertension, hyperlipidemia, and diabetes. Patient follows in the office with Dr. Jauregui. We have been asked to see the patient in consultation for evaded troponin. Patient examined at the bedside. Patient states on Saturday she had a family libertarian and after everybody left she began to have episodes of nausea and vomiting. She also reports after she was vomiting she began to have pain in her chest. She states it felt like a stabbing sensation that lasted for about 15 minutes. Patient was initially hypotensive and requiring vasopressor support which has since been weaned off. She currently denies chest pain or pressure. She denies shortness of breath. DIAGNOSTICS: - EKG reveals paced rhythm with right bundle branch block. - Chest xray cardiomegaly. Correlate for mild venous congestion or chronic interstitial lung disease/pulmonary fibrosis. - Laboratory data: WBC 6.4. Hemoglobin 8.3. Platelet count 216. Sodium 131. Potassium 3.8. BUN 65. Creatinine 2.71. AST 191. ALT 229. Troponin 15.8. 14.4. - Current home cardiac medications include Lipitor 80 mg at night, Plavix 75 mg daily, Farxiga 10 mg daily, Lasix 40 mg daily, Imdur 30 mg daily, metoprolol succinate 50 mg daily. - Most recent echocardiogram obtained in March 2022 revealed ejection fraction 37%, moderate MR, moderate AR, mild TR - Cardiac catheterization history: 2016 with stenting of the circumflex. Patient was found to have widely patent LAD at the site of previous stenting. RCA at the site of stenting is patent but distally there is 60 to 70% significant stenosis. Circumflex has separate areas of disease, one is 60 to 70% the next two are about 80 to 90%. 10/25/2023 Patient examined this morning at the bedside. Patient currently denies chest pain or pressure. She denies shortness of breath. Vital signs are stable. Telemetry reveals paced rhythm. Echocardiogram completed revealing ejection fraction 20 to 25%, mild pulmonary hypertension, moderate to severe MR, mild to moderate TR PHYSICAL EXAM: VITAL SIGNS: Reviewed. GENERAL: Well-developed in no acute distress. HEENT: Head is normocephalic. Pupils are equal, round. Sclerae anicteric. Mucous membranes of the mouth are moist. Neck supple. No JVD or thyromegaly LUNGS: Respirations even and unlabored. Lungs essentially clear to auscultation bilaterally. HEART: Regular rate and rhythm. S1 and S2 heard. Systolic murmur noted. ABDOMEN: Soft. Nondistended. Nontender. EXTREMITIES: Normal range of motion. No clubbing or cyanosis. Peripheral pulses intact. Right sorve-isa-hquy amputation NEUROLOGIC: Awake and alert. Oriented x 3. ASSESSMENT: Sepsis with septic shock requiring vasopressor support Urinary tract infection with chronic indwelling urinary catheter Non-STEMI Acute on chronic kidney disease Transaminitis Coronary artery disease with previous stenting, most recently in 2015 to the circumflex Ischemic cardiomyopathy, ejection fraction 37%, now 2024 History of AICD implantation Hypertension Hyperlipidemia Diabetes Right lphvr-tjn-kxix amputation, patient states unable to walk due to lack of prosthetic Moderate to severe mitral regurgitation PLAN: Continue IV heparin until this afternoon which will be 48 hours. Then begin heparin subcu Hold statin therapy secondary to transaminitis Continue current dose of metoprolol Hold home antihypertensive medications due to hypotension upon admission requiring vasopressors No plans for cardiac catheterization at this time due to multiple acute issues. Continue with conservative management. Further recommendations pending patient course Nurse practitioner note has been reviewed by physician. Signing provider agrees with the documented findings, assessment, and plan of care documented by STREET SUPERINTENDENT as a scribe. Objective - Vital Signs Vital signs: Vital Signs Temp 98.0 F 10/25/23 08:54 Pulse 94 10/25/23 08:55 Resp 18 10/25/23 08:55 BP 137/85 10/25/23 08:54 Pulse Ox 92 L 10/25/23 08:56 FiO2 Intake & Output 10/24/23 10/25/23 10/25/23 18:59 06:59 18:59 Intake Total 399.482 240 358 Output Total 775 800 Balance -375.518 -560 358 Weight 75.75 kg 72 kg Intake: Intake, IV Titration 217.482 Amount Heparin Sod,Pork in 0.45% 217.482 NaCl 25,000 unit In 0.45 % NaCl 1 250ml.bag @ 12 UNITS/KG/HR 9.09 mls/hr IV .Q24H [facility] Rx#: [id number] Oral 182 240 358 Output: Urine 775 800 Other: Voiding Method Indwelling Catheter Indwelling Catheter Indwelling Catheter # Bowel Movements 1 - Labs CBC & Chem 7: 10/25/23 05:42 10/25/23 05:42 Labs: Abnormal Lab Results - Last 24 Hours (Table) 10/24/23 10/24/23 10/24/23 Range/Units 15:34 15:34 16:21 RBC (3.80-5.40) m/uL Hgb (11.4-16.0) gm/dL Hct (34.0-46.0) % MCHC (31.0-37.0) g/dL RDW (11.5-15.5) % APTT 53.8 H (22.0-30.0) sec Sodium (137-145) mmol/L Chloride (98-107) mmol/L Carbon Dioxide (22-30) mmol/L BUN (7-17) mg/dL Creatinine (0.52-1.04) mg/dL Glucose (74-99) mg/dL POC Glucose (mg/dL) 256 H (70-110) mg/dL Calcium (8.4-10.2) mg/dL Iron 26 L (50-170) UG/DL TIBC 214 L (228-460) UG/DL Transferrin 153.0 L (204.0-354.0) mg/dL AST (14-36) U/L ALT (4-34) U/L Total Protein (6.3-8.2) g/dL Albumin (3.5-5.0) g/dL 10/24/23 10/25/23 10/25/23 Range/Units 19:56 05:42 05:42 RBC 3.14 L (3.80-5.40) m/uL Hgb 8.7 L (11.4-16.0) gm/dL Hct 28.3 L (34.0-46.0) % MCHC 30.6 L (31.0-37.0) g/dL RDW 17.2 H (11.5-15.5) % APTT (22.0-30.0) sec Sodium 135 L (137-145) mmol/L Chloride 108 H (98-107) mmol/L Carbon Dioxide 18 L (22-30) mmol/L BUN 63 H (7-17) mg/dL Creatinine 2.29 H (0.52-1.04) mg/dL Glucose 117 H (74-99) mg/dL POC Glucose (mg/dL) 258 H (70-110) mg/dL Calcium 8.2 L (8.4-10.2) mg/dL Iron (50-170) UG/DL TIBC (228-460) UG/DL Transferrin (204.0-354.0) mg/dL AST 86 H (14-36) U/L ALT 168 H (4-34) U/L Total Protein 6.2 L (6.3-8.2) g/dL Albumin 2.6 L (3.5-5.0) g/dL 10/25/23 10/25/23 Range/Units 05:42 05:48 RBC (3.80-5.40) m/uL Hgb (11.4-16.0) gm/dL Hct (34.0-46.0) % MCHC (31.0-37.0) g/dL RDW (11.5-15.5) % APTT 51.9 H (22.0-30.0) sec Sodium (137-145) mmol/L Chloride (98-107) mmol/L Carbon Dioxide (22-30) mmol/L BUN (7-17) mg/dL Creatinine (0.52-1.04) mg/dL Glucose (74-99) mg/dL POC Glucose (mg/dL) 133 H (70-110) mg/dL Calcium (8.4-10.2) mg/dL Iron (50-170) UG/DL TIBC (228-460) UG/DL Transferrin (204.0-354.0) mg/dL AST (14-36) U/L ALT (4-34) U/L Total Protein (6.3-8.2) g/dL Albumin (3.5-5.0) g/dL Microbiology - Last 24 Hours (Table) 10/23/23 09:55 Urine Culture - Final Urine,Voided Klebsiella pneumoniae Pseudomonas aeruginosa 10/23/23 11:30 Blood Culture Gram Stain - Preliminary Blood Blood Culture - Preliminary Enterobacter cloacae Complex 10/23/23 11:45 Blood Culture Gram Stain - Preliminary Blood Blood Culture - Preliminary Enterobacter cloacae Complex Molecular ID
[2023-10-25 11:28] LABS: Glucose,Whole Blood 195 mg/dL (70-110)
--- NOTE | 2023-10-25 13:19 | P.PN ---
Subjective patient is seen for follow-up for acute kidney injury and chronic kidney disease. She is feeling better. Maintained on antibiotics for gram-negative sepsis. Blood cultures are growing Enterobacter cloacae and urine cultures is growing Klebsiella pneumonia and Pseudomonas serum creatinine decreased to 2.29. Good urine output. Objective - Vital Signs Vital signs: Vital Signs Temp 98.0 F 10/25/23 08:54 Pulse 84 10/25/23 12:14 Resp 18 10/25/23 12:14 BP 110/71 10/25/23 12:14 Pulse Ox 92 L 10/25/23 12:14 FiO2 Intake & Output 10/24/23 10/25/23 10/25/23 18:59 06:59 18:59 Intake Total 399.482 240 358 Output Total 775 800 Balance -375.518 -560 358 Weight 75.75 kg 72 kg Intake: Intake, IV Titration 217.482 Amount Heparin Sod,Pork in 0.45% 217.482 NaCl 25,000 unit In 0.45 % NaCl 1 250ml.bag @ 12 UNITS/KG/HR 9.09 mls/hr IV .Q24H [facility] Rx#: [id number] Oral 182 240 358 Output: Urine 775 800 Other: Voiding Method Indwelling Catheter Indwelling Catheter Indwelling Catheter # Bowel Movements 1 - Exam patient is awake, comfortable, no acute distress. Examination of the heart S1 and S2 Examination of the lungs bilateral breath sounds are heard Abdomen is soft nontender Examination of lower extremities shows no edema, right AKA FUNCTIONAL TESTER exam grossly intact - Labs CBC & Chem 7: 10/25/23 05:42 10/25/23 05:42 Labs: Abnormal Lab Results - Last 24 Hours (Table) 10/24/23 10/24/23 10/24/23 Range/Units 15:34 15:34 16:21 RBC (3.80-5.40) m/uL Hgb (11.4-16.0) gm/dL Hct (34.0-46.0) % MCHC (31.0-37.0) g/dL RDW (11.5-15.5) % APTT 53.8 H (22.0-30.0) sec Sodium (137-145) mmol/L Chloride (98-107) mmol/L Carbon Dioxide (22-30) mmol/L BUN (7-17) mg/dL Creatinine (0.52-1.04) mg/dL Glucose (74-99) mg/dL POC Glucose (mg/dL) 256 H (70-110) mg/dL Calcium (8.4-10.2) mg/dL Iron 26 L (50-170) UG/DL TIBC 214 L (228-460) UG/DL Transferrin 153.0 L (204.0-354.0) mg/dL AST (14-36) U/L ALT (4-34) U/L Total Protein (6.3-8.2) g/dL Albumin (3.5-5.0) g/dL 10/24/23 10/25/23 10/25/23 Range/Units 19:56 05:42 05:42 RBC 3.14 L (3.80-5.40) m/uL Hgb 8.7 L (11.4-16.0) gm/dL Hct 28.3 L (34.0-46.0) % MCHC 30.6 L (31.0-37.0) g/dL RDW 17.2 H (11.5-15.5) % APTT (22.0-30.0) sec Sodium 135 L (137-145) mmol/L Chloride 108 H (98-107) mmol/L Carbon Dioxide 18 L (22-30) mmol/L BUN 63 H (7-17) mg/dL Creatinine 2.29 H (0.52-1.04) mg/dL Glucose 117 H (74-99) mg/dL POC Glucose (mg/dL) 258 H (70-110) mg/dL Calcium 8.2 L (8.4-10.2) mg/dL Iron (50-170) UG/DL TIBC (228-460) UG/DL Transferrin (204.0-354.0) mg/dL AST 86 H (14-36) U/L ALT 168 H (4-34) U/L Total Protein 6.2 L (6.3-8.2) g/dL Albumin 2.6 L (3.5-5.0) g/dL 10/25/23 10/25/23 10/25/23 Range/Units 05:42 05:48 11:27 RBC (3.80-5.40) m/uL Hgb (11.4-16.0) gm/dL Hct (34.0-46.0) % MCHC (31.0-37.0) g/dL RDW (11.5-15.5) % APTT 51.9 H (22.0-30.0) sec Sodium (137-145) mmol/L Chloride (98-107) mmol/L Carbon Dioxide (22-30) mmol/L BUN (7-17) mg/dL Creatinine (0.52-1.04) mg/dL Glucose (74-99) mg/dL POC Glucose (mg/dL) 133 H 195 H (70-110) mg/dL Calcium (8.4-10.2) mg/dL Iron (50-170) UG/DL TIBC (228-460) UG/DL Transferrin (204.0-354.0) mg/dL AST (14-36) U/L ALT (4-34) U/L Total Protein (6.3-8.2) g/dL Albumin (3.5-5.0) g/dL Microbiology - Last 24 Hours (Table) 10/23/23 09:55 Urine Culture - Final Urine,Voided Klebsiella pneumoniae Pseudomonas aeruginosa 10/23/23 11:30 Blood Culture Gram Stain - Preliminary Blood Blood Culture - Preliminary Enterobacter cloacae Complex 10/23/23 11:45 Blood Culture Gram Stain - Preliminary Blood Blood Culture - Preliminary Enterobacter cloacae Complex Molecular ID Assessment and Plan Assessment: 1. Acute kidney injury, ATN secondary to sepsis and hypotension, nonoliguric. UA is suggestive of UTI. ultrasound shows mild bilateral hydronephrosis. This is not new and patient has chronic indwelling Cortes catheter. 2. UTI with sepsis, urine culture is growing Klebsiella pneumonia and Pseudomonas 3. Gram-negative sepsis with blood cultures growing Enterobacter cloacae 4. Peripheral vascular disease status post right AKA 5. CK D stage IV secondary to diabetic kidney disease. Baseline creatinine 1.7-1.8 mg/dL. 6. Non-gap metabolic acidosis secondary to acute kidney injury 7. Anemia rule out iron deficiency. Component of anemia of chronic disease as well as Plan: continue with IV fluids continue oral sodium bicarb Continue with antibiotics Continue with indwelling Cortes catheter. Repeat labs in a.m. Continue to avoid nephrotoxic agents continue Aranesp
[2023-10-25] MEDS: ONDANSETRON 4 MG/2 ML VIAL IVP PRN (13:46)
--- NOTE | 2023-10-25 16:14 | P.PN ---
Subjective Progress Note Date: 10/25/23 Principal diagnosis: Reason for follow-up is UTI and bacteremia Patient is a 63-year-old female with a past medical history significant for diabetes mellitus hypertension hyperlipidemia coronary artery disease, did have history of right diabetic foot infection requiring right xiymn-jmv-gxdy amputation also with a history of urinary Retention requiring Cortes catheter placed that was last changed about 10 days before presentation to the hospital patient presenting with weakness and has been diagnosed with sepsis secondary To UTI blood cultures came back positive with Enterobacter. On today's evaluation that is 10/25/2023, Patient is afebrile this morning patient denies having any chest pain shortness of breath or cough, the patient is breathing comfortably and currently on room air, patient denies any abdominal pain no diarrhea no nausea no vomiting, mention feeling better. Patient white count is 8.3, creatinine is 2.29 urine with Klebsiella and Pseudomonas blood culture with Enterobacter Objective - Vital Signs Vital signs: Vital Signs Temp 97.3 F L 10/25/23 15:13 Pulse 83 10/25/23 15:13 Resp 18 10/25/23 15:13 BP 121/78 10/25/23 15:13 Pulse Ox 97 10/25/23 15:13 FiO2 Intake & Output 10/24/23 10/25/23 10/25/23 18:59 06:59 18:59 Intake Total 399.482 240 607.986 Output Total 775 800 Balance -375.518 -560 607.986 Weight 75.75 kg 72 kg Intake: Intake, IV Titration 217.482 249.986 Amount Heparin Sod,Pork in 0.45% 217.482 249.986 NaCl 25,000 unit In 0.45 % NaCl 1 250ml.bag @ 12 UNITS/KG/HR 9.09 mls/hr IV .Q24H [facility] Rx#: [id number] Oral 182 240 358 Output: Urine 775 800 Other: Voiding Method Indwelling Catheter Indwelling Catheter Indwelling Catheter # Bowel Movements 1 - Exam GENERAL DESCRIPTION: Middle-aged female up in the chair in no distress RESPIRATORY SYSTEM: Unlabored breathing , decreased breath sounds at bases HEART: S1 S2 regular rate and rhythm , ABDOMEN: Soft , no tenderness EXTREMITIES: No edema feet - Labs CBC & Chem 7: 10/25/23 05:42 10/25/23 05:42 Labs: Abnormal Lab Results - Last 24 Hours (Table) 10/24/23 10/24/23 10/24/23 Range/Units 15:34 15:34 16:21 RBC (3.80-5.40) m/uL Hgb (11.4-16.0) gm/dL Hct (34.0-46.0) % MCHC (31.0-37.0) g/dL RDW (11.5-15.5) % APTT 53.8 H (22.0-30.0) sec Sodium (137-145) mmol/L Chloride (98-107) mmol/L Carbon Dioxide (22-30) mmol/L BUN (7-17) mg/dL Creatinine (0.52-1.04) mg/dL Glucose (74-99) mg/dL POC Glucose (mg/dL) 256 H (70-110) mg/dL Calcium (8.4-10.2) mg/dL Iron 26 L (50-170) UG/DL TIBC 214 L (228-460) UG/DL Transferrin 153.0 L (204.0-354.0) mg/dL AST (14-36) U/L ALT (4-34) U/L Total Protein (6.3-8.2) g/dL Albumin (3.5-5.0) g/dL 10/24/23 10/25/23 10/25/23 Range/Units 19:56 05:42 05:42 RBC 3.14 L (3.80-5.40) m/uL Hgb 8.7 L (11.4-16.0) gm/dL Hct 28.3 L (34.0-46.0) % MCHC 30.6 L (31.0-37.0) g/dL RDW 17.2 H (11.5-15.5) % APTT (22.0-30.0) sec Sodium 135 L (137-145) mmol/L Chloride 108 H (98-107) mmol/L Carbon Dioxide 18 L (22-30) mmol/L BUN 63 H (7-17) mg/dL Creatinine 2.29 H (0.52-1.04) mg/dL Glucose 117 H (74-99) mg/dL POC Glucose (mg/dL) 258 H (70-110) mg/dL Calcium 8.2 L (8.4-10.2) mg/dL Iron (50-170) UG/DL TIBC (228-460) UG/DL Transferrin (204.0-354.0) mg/dL AST 86 H (14-36) U/L ALT 168 H (4-34) U/L Total Protein 6.2 L (6.3-8.2) g/dL Albumin 2.6 L (3.5-5.0) g/dL 10/25/23 10/25/23 10/25/23 Range/Units 05:42 05:48 11:27 RBC (3.80-5.40) m/uL Hgb (11.4-16.0) gm/dL Hct (34.0-46.0) % MCHC (31.0-37.0) g/dL RDW (11.5-15.5) % APTT 51.9 H (22.0-30.0) sec Sodium (137-145) mmol/L Chloride (98-107) mmol/L Carbon Dioxide (22-30) mmol/L BUN (7-17) mg/dL Creatinine (0.52-1.04) mg/dL Glucose (74-99) mg/dL POC Glucose (mg/dL) 133 H 195 H (70-110) mg/dL Calcium (8.4-10.2) mg/dL Iron (50-170) UG/DL TIBC (228-460) UG/DL Transferrin (204.0-354.0) mg/dL AST (14-36) U/L ALT (4-34) U/L Total Protein (6.3-8.2) g/dL Albumin (3.5-5.0) g/dL Microbiology - Last 24 Hours (Table) 10/23/23 09:55 Urine Culture - Final Urine,Voided Klebsiella pneumoniae Pseudomonas aeruginosa 10/23/23 11:30 Blood Culture Gram Stain - Preliminary Blood Blood Culture - Preliminary Enterobacter cloacae Complex 10/23/23 11:45 Blood Culture Gram Stain - Preliminary Blood Blood Culture - Preliminary Enterobacter cloacae Complex Molecular ID Assessment and Plan (1) Sepsis Current Visit: Yes Status: Acute Code(s): A41.9 - SEPSIS, UNSPECIFIED ORGANI SM SNOMED Code(s): 84729471 (2) UTI (urinary tract infection) Current Visit: Yes Status: Acute Code(s): N39.0 - URINARY TRACT INFECTION, SITE NOT SPECIFIED SNOMED Code(s): 58812655 (3) Allergy to multiple antibiotics Current Visit: Yes Status: Acute Code(s): Z88.1 - ALLERGY STATUS TO OTHER ANTIBIOTIC AGENTS SNOMED Code(s): 199780346 (4) Bacteremia Current Visit: Yes Status: Acute Code(s): R78.81 - BACTEREMIA SNOMED Code(s): 1820782 Plan: 1patient presented to hospital with sepsis in this patient who did have a hypotension generalized weakness most likely combination of catheters urinary tract infection" cholecystitis not entirely excluded however the patient did not have significant tenderness to the right upper quadrant area 2-patient with multiple antibiotic ALLERGIES that would limit the number of antibiotic safe to use 3-blood culture positive for Enterobacter urine is growing Enterobacter and Pseudomonas 4patient to continue with cefepime and monitor clinical course closely Dictation was produced using [employer] dictation software. please excuse any grammatical, word or spelling errors. Time with Patient: Less than 30
[2023-10-25 16:50] LABS: Glucose,Whole Blood 163 mg/dL (70-110)
--- NOTE | 2023-10-25 17:14 | P.PN ---
Progress Note - Text Progress Note Date: 10/25/23 History of present illness; patient is 63-year-old lady with past medical history significant for coronary artery disease with stent placement, diabetes mellitus, fibromyalgia, GERD, hypertension, hyperlipidemia, osteoarthritis, who presented to hospital for generalized weakness. Patient relates she has not been feeling her usual self for the last 3 to 4 days. Patient complains of increased weakness. Patient also having nausea and vomiting. Patient was also complaining of lower quadrant abdominal pain. Patient history of chronic Cortes in the last Cortes was changed 2 weeks back. Patient denied any fever but complaining of chills at home. Patient was also complaining of loss of appe tite. Denied any chest pain or shortness of breath. Patient was complaining of being confused and lethargic as well. Because of the symptoms, patient was brought to the ER Initial lab work done in the ER showed WBC 8.2, hemoglobin 9.3, platelet count 217, sodium 131, potassium 4, BUN 60, creatinine 2.54, glucose 266, lactate 3.2 AST 485, ALT 321, Chest x-ray done in the ER showed cardiomegaly: From mild venous congestion or chronic distal lung disease/pulm fibrosis Patient admitted to internal medicine service October 23: Admitted with septic shock. UTI. Now on the medical floor. Patient's had a Cortes catheter since January 2023. Does feel a bit depressed. Has a powered wheelchair at home. at home is good stage IV cancer. Feeling Roxanna low and a bit suicidal earlier today. Discussed at length. Sitter. Psychiatry consulted. October 24: Patient feeling better this morning. Did eat better. Did sit up in a chair yesterday. Blood culture positive for Enterobacter cloacae and urine culture positive for Klebsiella pneumonia and Pseudomonas. Antibiotics to continue. LFTs coming down Active Medications Acetaminophen (Acetaminophen Tab 325 Mg Tab) 650 mg PO Q4HR PRN PRN Reason: Fever and/or Mild Pain Al Hydroxide/Mg Hydroxide (Mag Hydrox/Al Hydrox/Simeth 30 Ml Cup) 15 ml PO Q6HR PRN PRN Reason: Indigestion Alprazolam (Alprazolam 0.5 Mg Tab) 0.5 mg PO [facility] Last Admin: 10/24/23 20:08 Dose: 0.5 mg Amitriptyline HCl (Amitriptyline Hcl 25 Mg Tab) 25 mg PO [facility] Last Admin: 10/24/23 20:09 Dose: 25 mg Aspirin (Aspirin 81 Mg) 81 mg PO DAILY [facility] Last Admin: 10/25/23 08:59 Dose: 81 mg Calcitriol (Calcitriol 0.25 Mcg Cap) 0.25 mcg PO FR [facility] Last Admin: 10/25/23 08:59 Dose: 0.25 mcg Clopidogrel Bisulfate (Clopidogrel 75 Mg Tab) 75 mg PO DAILY [facility] Last Admin: 10/25/23 08:59 Dose: 75 mg Dapagliflozin (Dapagliflozin Propanediol 10 Mg Tablet) 10 mg PO DAILY [facility] Last Admin: 10/25/23 08:59 Dose: 10 mg Darbepoetin Karl (Darbepoetin Karl 60 Mcg/0.3 Ml Syringe) 60 mcg SQ Q7D [facility] Last Admin: 10/24/23 14:28 Dose: 60 mcg Dextrose/Water (Dextrose 50% Syringe 50 Ml) 25 ml IVP PER PROTOCOL PRN; Protocol PRN Reason: Hypoglycemia Dextrose/Water (Dextrose 50% Syringe 50 Ml) 50 ml IVP PER PROTOCOL PRN; Protocol PRN Reason: Hypoglycemia Escitalopram Oxalate (Escitalopram 20 Mg Tab) 20 mg PO [facility] Last Admin: 10/24/23 20:08 Dose: 20 mg Heparin Sodium (Porcine) (Heparin Sodium,Porcine 5,000 Unit/Ml 1 Ml Vial) 5,000 unit SQ Q8HR [facility] Cefepime HCl 2 gm/ Sodium (Chloride) 100 mls @ 25 mls/hr IVPB Q12HR [facility] Last Admin: 10/25/23 08:59 Dose: 25 mls/hr Lactated Ringer's (Lactated Ringers) 1,000 mls @ 75 mls/hr IV .[id number] [facility] Last Admin: 10/25/23 05:50 Dose: 75 mls/hr Insulin Aspart (Insulin Aspart (Novolog) 100 Unit/Ml Vial) 0 unit SQ ACHS [facility]; Protocol Last Admin: 10/25/23 12:15 Dose: 1 unit Insulin Aspart (Insulin Aspart (Novolog) 100 Unit/Ml Vial) 5 unit SQ AC-TID [facility] Last Admin: 10/25/23 14:27 Dose: Not Given Insulin Detemir (Insulin Detemir (Levemir) 100 Unit/Ml Syr) 20 unit SQ [facility] Last Admin: 10/24/23 20:09 Dose: 20 unit Melatonin (Melatonin 3 Mg Tablet) 3 mg PO HS PRN PRN Reason: Insomnia Metoprolol Tartrate (Metoprolol Tartrate 12.5 Mg Tab) 12.5 mg PO BID [facility] Last Admin: 10/25/23 08:59 Dose: 12.5 mg Naloxone HCl (Naloxone 0.4 Mg/Ml 1 Ml Vial) 0.2 mg IV Q2M PRN PRN Reason: Opioid Reversal Nystatin (Nystatin 100,000 Unit/Gm Powd 15 Gm) 1 applic TOPICAL BID [facility]; Protocol Last Admin: 10/25/23 09:00 Dose: 1 applic Ondansetron HCl (Ondansetron 4 Mg/2 Ml Vial) 4 mg IVP Q8HR PRN PRN Reason: Nausea And Vomiting Last Admin: 10/25/23 13:46 Dose: 4 mg Oxycodone/Acetaminophen (Oxycodone-Apap 10-325mg 1 Each Tab) 1 each PO Q6HR PRN PRN Reason: Pain Last Admin: 10/25/23 07:05 Dose: 1 each Quetiapine Fumarate (Quetiapine 25 Mg Tab) 25 mg PO BID [facility] Last Admin: 10/25/23 08:59 Dose: 25 mg Sodium Bicarbonate (Sodium Bicarbonate Tab 650 Mg Tab) 650 mg PO BID [facility] Last Admin: 10/25/23 08:59 Dose: 650 mg Tizanidine HCl (Tizanidine 4 Mg Tab) 4 mg PO BID PRN PRN Reason: Muscle pain/spasm Social history: . Does use a motorized wheelchair. Patient smoked a pack a day for 20 years stopped in 2014. Physical examination: VITAL SIGNS: 97.3, 83, 18, 121/78, 97% room air GENERAL: Laying in bed, tired, appears a bit more cheerful EYES: Pupils equal. Conjunctiva normal. HEENT: External appearance of nose and ears normal, oral cavity grossly normal. NECK: JVD not raised; masses not palpable. HEART: First and second heart sounds are normal; no edema. LUNGS: Respiratory rate normal; clear to auscultation. ABDOMEN: Soft, nontender, liver spleen not palpable, no masses palpable. Cortes catheter PSYCH: [Alert and oriented x3; mood and affect l are better MUSCULAR skeletal: Evidence of OA INVESTIGATIONS, reviewed in the clinical context: October 24: White count 8.3 hemoglobin 8.7 platelets 241 sodium 135 BUN 63 creatinine 2.29. AST 86 ALT 168 October 23: White count 6.4 hemoglobin 8.3 platelets 216 sodium 131 potassium 3.8 BUN 65 creatinine 2.71 AST 191 ALT 229 October 22: AST 45 ALT 321 troponin I 14.4 UA positive for leukoesterase Urine culture: Klebsiella pneumoniae, Pseudomonas aeruginosa Blood culture: Enterobacter cloacae Abdominal ultrasound: Pericholecystic fluid and gallbladder sludge. Distal CBD's dilated at 7 mm. Distal obstruction was occluded. Mild bilateral hydronephrosis Previous labs: May 2023 creatinine 1.7 Assessment and plan: -Septic shock secondary to bacteremia from UTI: Better Patient required pressors, fluids -Sepsis with blood cultures positive for Enterobacter cloacae IV fluids. IV cefepime -Acute kidney injury, ATN from septic shock: Slow to respond Baseline creatinine 1.7 in May 2023. -Acute UTI with cystitis cultures positive for Klebsiella pneumonia and Pseudomonas aeruginosa, secondary to chronic Cortes catheter, causing septic shock IV cefepime -Coronary artery disease, prior history of stent Aspirin Plavix -Chronic congestive heart failure, EF not known Follow clinically -Diabetes mellitus type 2 chronically on insulin For Accu-Cheks with sliding scale -Chronic fibromyalgia Pain control when necessary -Chronic Cortes catheter for bladder dysfunction since January 2023 -Acute non-ST elevation MO. Precipitated by septic shock. Known underlying CAD. IV heparin-discontinued. Plavix. Aspirin. Lopressor Cardiology following -Metabolic acidosis from kidney injury Sodium bicarbonate -GERD Pepcid -Hyperlipidemia Lipitor-hold for now because of elevated LFTs -Essential hypertension Lopressor -Acute ischemic hepatitis from septic shock: improving Continue to hold Lipitor -Primary osteoarthritis Pain control -Chronic kidney disease stage 3 likely nephrosclerosis and diabetic nephropathy Creatinine 1.06 June 2023 -Peripheral arterial disease Aspirin Lipitor -Right above-knee amputation -AICD with a pacemaker Telemetry Anxiety depression otherwise specified, for some acute flareup, with some suicidal ideation Consult psychiatry add sitter Resume home medications Lexapro, Seroquel, Xanax, Chronic insomnia: elavil -Chronic medical debility. Does use a motorized wheelchair -Full code Discussed with the patient. Past Medical History Past Medical History: Coronary Artery Disease (CAD), Heart Failure, Diabetes Mellitus, Fibromyalgia, GERD/Reflux, Hearing Disorder / Deafness, Hyperlipidemia, Hypertension, Myocardial Infarction (MO), Musculoskeletal Disorder, Osteoarthritis (OA), Renal Disease, Skin Disorder, Vascular Disorder Additional Past Medical History / Comment(s): See Dr Durant's H&P nephrolithiasis and kidney stones- chronic Cortes, peripheral vascular disease, degenerative disc disease-chronic back pain, Rt AKA-working on using prosthesis, going to physical therapy Last Myocardial Infarction Date:: 2004,2006, 2015 History of Any Multi-Drug Resistant Organisms: MRSA Date of last positivie culture/infection: 02/24/16 LT FOOT-VERIFIED PER DR VASQUEZ OFFICE MDRO Source:: LT FOOT Past Surgical History: AICD, Section, Heart Catheterization, Heart Catheterization With Stent, Orthopedic Surgery, Pacemaker, Tonsillectomy Additional Past Surgical History / Comment(s): Right rotator cuff surgery 2, bilateral carpal tunnel release,3 cardiac catheterization 6 stents, above-knee amputation of the right lower extremity, incision and debridement of diabetic wounds, [facility] Biventricular AICD placement Past Anesthesia/Blood Transfusion Reactions: Motion Sickness Additional Past Anesthesia/Blood Transfusion Reaction / Comment(s): CLAUSTERPHOBIA. PAST BLOOD TRANSFUSION-NO REACTION Date of Last Stent Placement:: 2015 Type of Cardiac Device: AICD Device Placement Date:: Past Psychological History: Anxiety, Depression Smoking Status: Former smoker
[2023-10-25 20:06] LABS: Glucose,Whole Blood 239 mg/dL (70-110)
[2023-10-25] MEDS: HEPARIN SODIUM,PORCINE 5,000 UNIT/ML 1 ML VIAL SQ SCH (23:12)
[2023-10-26 05:57] LABS: Glucose,Whole Blood 136 mg/dL (70-110)
[2023-10-26 07:03] LABS: ALT 117 U/L (4-34); AST 50 U/L (14-36); African American GFR (CKD) 32 (>60 ml/min/1.73 sqM); Albumin 2.6 g/dL (3.5-5.0); Alkaline Phosphatase 125 U/L (38-126); Anion Gap 7 mmol/L; Blood Urea Nitrogen 56 mg/dL (7-17); Calcium 8.6 mg/dL (8.4-10.2); Carbon Dioxide 17 mmol/L (22-30); Chloride 112 mmol/L (98-107); Glucose 126 mg/dL (74-99); Non-African American GFR(CKD) 28 (>60 ml/min/1.73 sqM); Potassium 3.8 mmol/L (3.5-5.1); Sodium 136 mmol/L (137-145); Total Bilirubin 0.6 mg/dL (0.2-1.3); Total Protein 6.2 g/dL (6.3-8.2)
--- NOTE | 2023-10-26 09:24 | P.PN ---
Subjective Principal diagnosis: This is a 63-year-old female patient with a known history of coronary artery disease with multiple previous stent placements, cardiomyopathy status post AICD placement, nephrolithiasis, hearing disorder, hypertension, hyperlipidemia, diabetes mellitus, [id number]-jjr-[id number] amputation on the right, former smoker, chronic Grider due to kidney issues. She presented here to the emergency room earlier this morning with complaints of generalized weakness, nausea vomiting and fall. Chest x-ray revealed cardiomegaly with mild venous congestion or chronic interstitial lung disease/pulmonary fibrosis. More confluent area of consolidation in the left perihilar and upper lobes. Neoplasm not excluded. EKG reveals atrial sensing and ventricular pacing. Ultrasound of the abdomen/bladder is pending. White count 8.2. Hemoglobin 9.3. Platelets 217. Sodium 131. Potassium 4.0. Bicarb 16. BUN 60. Creatinine 2.54. Lactic acid 3.2. Glucose 266. AST 45. ALT 321. Urinalysis turbid with moderate blood. Large leukocyte esterase, greater than 182 WBCs many WBC clumps many bacteria. Culture pending. Procalcitonin pending. She has been initiated on ceftriaxone. She is seen today in consultation in the emergency department. She was having issues with hypotension and is requiring norepinephrine and ICU admission. She is awake and alert. Maintaining O2 saturations in the 90s on 2 L/min per nasal cannula. Currently on norepinephrine at 0.02 mcg/kg/min. He has received 1.5 L of fluid resuscitation. Normal saline at 75 MLS per hour. The patient is seen today October 24, 2023 in follow-up in the emergency department. She is currently awake and alert in no acute distress. She is feeling a bit better today compared to yesterday. She did have issues with chest pain yesterday and was found to have elevated troponins and is currently on a heparin drip. Her mean arterial pressures have been in the 70s and 80s. She is off the norepinephrine. She is afebrile. She is maintaining good O2 saturations up to 100% on 3 L/min per nasal cannula. She is afebrile. Hemodynamically stable. White count 6.4. Hemoglobin 8.3. Platelets 216. Sodium 131. Potassium 3.8. Bicarb 16. BUN 65. Creatinine 2.71. Glucose 127. AST 191. ALT 229. Blood cultures are positive for gram-negative bacilli. She remains on Cefepime. Patient is seen today October 25, 2023 in room 374. She is resting comfortably in bed this morning eating her breakfast. She is satting well on room air. She states her breathing is comfortable and denies any shortness of breath or chest pain. She remains on the heparin drip for the elevated troponins. She remains afebrile. She is hemodynamically stable. White count 8.3. Hemoglobin 8.7. Platelets 241. Sodium 135, Potassium 3.6, Bicard 18. BUN 63. Creatinine 2.29. Glucose 117. Blood cultures show gram-negative bacilli & Enterobacter Cloacae. She remains on Cefepime. Patient is seen today October 26, 2023 in room 374. He is resting comfortably in bed awake alert and in no acute distress. She is satting 90s on room air. He denies any chest shortness of breath or chest pain. She is on subcutaneous heparin per protocol. She remains afebrile. Hemodynamically stable. Sodium 136, potassium 3.8, chloride 112, bicarb 17, BUN 56, creatinine 1.88, glucose 126. He remains on LR at a rate of 75 an hour. Urine culture shows Klebsiella pneumoniae and Pseudomonas aeruginosa. Blood culture shows Enterobacter cloacae. Remains on cefepime which was started on 10/23. Chest x-ray shows stable cardiomegaly with findings suggestive of pulmonary fibrosis. Objective - Vital Signs Vital signs: Vital Signs Temp 97.6 F 10/26/23 08:13 Pulse 95 10/26/23 08:13 Resp 18 10/26/23 08:13 BP 126/80 10/26/23 08:13 Pulse Ox 93 L 10/26/23 08:13 FiO2 Intake & Output 10/25/23 10/26/23 10/26/23 18:59 06:59 18:59 Intake Total 725.986 118 Output Total 1000 1500 Balance -274.014 -1500 118 Weight 72 kg Intake: Intake, IV Titration 249.986 Amount Heparin Sod,Pork in 0.45% 249.986 NaCl 25,000 unit In 0.45 % NaCl 1 250ml.bag @ 12 UNITS/KG/HR 9.09 mls/hr IV .Q24H [facility] Rx#: [id number] Oral 476 118 Output: Urine 1000 1500 Other: Voiding Method Indwelling Catheter Indwelling Catheter # Bowel Movements 0 - Exam GENERAL EXAM: Alert, pleasant 63-year-old female, comfortable in no apparent distress. HEAD: Normocephalic. EYES: Normal reaction of pupils, equal size. NOSE: Clear with pink turbinates. THROAT: No erythema or exudates. NECK: No masses, no JVD. CHEST: No chest wall deformity. LUNGS: Equal air entry with few scattered rhonchi. CVS: S1 and S2 normal with no audible murmur, regular rhythm. ABDOMEN: No hepatosplenomegaly, normal bowel sounds, no guarding or rigidity. SPINE: No scoliosis or deformity SKIN: No rashes CENTRAL NERVOUS SYSTEM: No focal deficits, tone is normal in all 4 extremities. EXTREMITIES: Right [id number]-[id number] amputation. There is no peripheral edema. No clubbing, no cyanosis. Peripheral pulses are intact. - Labs CBC & Chem 7: 10/25/23 05:42 10/26/23 06:19 Labs: Abnormal Lab Results - Last 24 Hours (Table) 10/25/23 10/25/23 10/25/23 Range/Units 05:42 11:27 16:48 RBC 3.14 L (3.80-5.40) m/uL Hgb 8.7 L (11.4-16.0) gm/dL Hct 28.3 L (34.0-46.0) % MCHC 30.6 L (31.0-37.0) g/dL RDW 17.2 H (11.5-15.5) % Sodium (137-145) mmol/L Chloride (98-107) mmol/L Carbon Dioxide (22-30) mmol/L BUN (7-17) mg/dL Creatinine (0.52-1.04) mg/dL Glucose (74-99) mg/dL POC Glucose (mg/dL) 195 H 163 H (70-110) mg/dL AST (14-36) U/L ALT (4-34) U/L Total Protein (6.3-8.2) g/dL Albumin (3.5-5.0) g/dL 10/25/23 10/26/23 10/26/23 Range/Units 20:05 05:56 06:19 RBC (3.80-5.40) m/uL Hgb (11.4-16.0) gm/dL Hct (34.0-46.0) % MCHC (31.0-37.0) g/dL RDW (11.5-15.5) % Sodium 136 L (137-145) mmol/L Chloride 112 H (98-107) mmol/L Carbon Dioxide 17 L (22-30) mmol/L BUN 56 H (7-17) mg/dL Creatinine 1.88 H (0.52-1.04) mg/dL Glucose 126 H (74-99) mg/dL POC Glucose (mg/dL) 239 H 136 H (70-110) mg/dL AST 50 H (14-36) U/L ALT 117 H (4-34) U/L Total Protein 6.2 L (6.3-8.2) g/dL Albumin 2.6 L (3.5-5.0) g/dL Microbiology - Last 24 Hours (Table) 10/23/23 09:55 Urine Culture - Final Urine,Voided Klebsiella pneumoniae Pseudomonas aeruginosa 10/23/23 11:30 Blood Culture Gram Stain - Preliminary Blood Blood Culture - Preliminary Enterobacter cloacae Complex 10/23/23 11:45 Blood Culture Gram Stain - Preliminary Blood Blood Culture - Preliminary Enterobacter cloacae Complex Molecular ID Assessment and Plan Assessment: Weakness, nausea, vomiting suspected secondarily to UTI resolved Acute UTI suspect chronic grider on Cefepime PACHECO secondary to hypotension, dehydration NSTEMI Hx of CAD multiple stents Hx of obesity, DM, PVD, HLD Plan: Labs & Medications Reviewed Chest XR reviewed Continue Cefepime Heparin SC per protocol q8 Cardio following continue Plavix & Aspirin, no plans for cardiac cath at this time Nephro following continue Aranesp & Bicarb Will continue to follow Prognosis guarded due to multiple comorbidities Time with Patient: Less than 30
--- NOTE | 2023-10-26 10:27 | P.PN ---
Subjective Progress Note Date: 10/26/23 This is a 63-year-old female patient with a past medical history significant for CAD with prior percutaneous revascularization as well as cardiomyopathy and valvular heart disease with mitral regurgitation as well as chronic kidney disease and diabetes and hypertension and dyslipidemia who was admitted to the hospital with UTI/sepsis and we consulted to see the patient because of abnormal troponin which has been treated medically. October 26, 2023 The patient was seen and evaluated this morning which she is feeling better. No cardiovascular symptoms. Hemodynamically she is stable. Currently she is on dual antiplatelet therapy. She is not on a statin because of elevated liver function test. She is not on PAGE inhibitor because she had history of hypotension with PAGE inhibitor before. Kidney function has been improving. The examination is remarkable for regular rhythm with soft systolic murmur at the apical area and clear breathing sounds bilaterally. Assessment UTI/sepsis Acute on chronic renal failure Evidence of myocardial injury with no evidence of ischemia Cardiomyopathy Valvular heart disease with mitral regurgitation Multiple comorbid conditions Plan Continue dual antiplatelet therapy Continue beta-cristopher Consider adding statin down the line Consider maximize medical treatment for cardiomyopathy Possibly consider an angiogram as well once the sepsis is improved and kidney function improved as well Objective - Vital Signs Vital signs: Vital Signs Temp 97.6 F 10/26/23 08:13 Pulse 95 10/26/23 08:13 Resp 18 10/26/23 08:13 BP 126/80 10/26/23 08:13 Pulse Ox 93 L 10/26/23 08:13 FiO2 Intake & Output 10/25/23 10/26/23 10/26/23 18:59 06:59 18:59 Intake Total 725.986 118 Output Total 1000 1500 Balance -274.014 -1500 118 Weight 72 kg Intake: Intake, IV Titration 249.986 Amount Heparin Sod,Pork in 0.45% 249.986 NaCl 25,000 unit In 0.45 % NaCl 1 250ml.bag @ 12 UNITS/KG/HR 9.09 mls/hr IV .Q24H [facility] Rx#: [id number] Oral 476 118 Output: Urine 1000 1500 Other: Voiding Method Indwelling Catheter Indwelling Catheter # Bowel Movements 0 - Labs CBC & Chem 7: 10/25/23 05:42 10/26/23 06:19 Labs: Abnormal Lab Results - Last 24 Hours (Table) 10/25/23 10/25/23 10/25/23 Range/Units 11:27 16:48 20:05 Sodium (137-145) mmol/L Chloride (98-107) mmol/L Carbon Dioxide (22-30) mmol/L BUN (7-17) mg/dL Creatinine (0.52-1.04) mg/dL Glucose (74-99) mg/dL POC Glucose (mg/dL) 195 H 163 H 239 H (70-110) mg/dL AST (14-36) U/L ALT (4-34) U/L Total Protein (6.3-8.2) g/dL Albumin (3.5-5.0) g/dL 10/26/23 10/26/23 Range/Units 05:56 06:19 Sodium 136 L (137-145) mmol/L Chloride 112 H (98-107) mmol/L Carbon Dioxide 17 L (22-30) mmol/L BUN 56 H (7-17) mg/dL Creatinine 1.88 H (0.52-1.04) mg/dL Glucose 126 H (74-99) mg/dL POC Glucose (mg/dL) 136 H (70-110) mg/dL AST 50 H (14-36) U/L ALT 117 H (4-34) U/L Total Protein 6.2 L (6.3-8.2) g/dL Albumin 2.6 L (3.5-5.0) g/dL Microbiology - Last 24 Hours (Table) 10/23/23 09:55 Urine Culture - Final Urine,Voided Klebsiella pneumoniae Pseudomonas aeruginosa 10/23/23 11:30 Blood Culture Gram Stain - Preliminary Blood Blood Culture - Preliminary Enterobacter cloacae Complex 10/23/23 11:45 Blood Culture Gram Stain - Preliminary Blood Blood Culture - Preliminary Enterobacter cloacae Complex Molecular ID
[2023-10-26 11:36] LABS: Glucose,Whole Blood 322 mg/dL (70-110)
--- NOTE | 2023-10-26 13:05 | P.PN ---
Subjective patient is seen for follow-up for acute kidney injury and chronic kidney disease. She is feeling better. Maintained on antibiotics for gram-negative sepsis. Blood cultures are growing Enterobacter cloacae and urine cultures is growing Klebsiella pneumonia and Pseudomonas serum creatinine decreased to 1.8. Good urine output. Objective - Vital Signs Vital signs: Vital Signs Temp 97.6 F 10/26/23 08:13 Pulse 79 10/26/23 12:08 Resp 18 10/26/23 12:08 BP 128/76 10/26/23 12:08 Pulse Ox 94 L 10/26/23 12:08 FiO2 Intake & Output 10/25/23 10/26/23 10/26/23 18:59 06:59 18:59 Intake Total 725.986 118 Output Total 1000 1500 Balance -274.014 -1500 118 Weight 72 kg Intake: Intake, IV Titration 249.986 Amount Heparin Sod,Pork in 0.45% 249.986 NaCl 25,000 unit In 0.45 % NaCl 1 250ml.bag @ 12 UNITS/KG/HR 9.09 mls/hr IV .Q24H [facility] Rx#: [id number] Oral 476 118 Output: Urine 1000 1500 Other: Voiding Method Indwelling Catheter Indwelling Catheter Indwelling Catheter # Voids 650 # Bowel Movements 0 - Exam patient is awake, comfortable, no acute distress. 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 - Labs CBC & Chem 7: 10/25/23 05:42 10/26/23 06:19 Labs: Abnormal Lab Results - Last 24 Hours (Table) 10/25/23 10/25/23 10/26/23 Range/Units 16:48 20:05 05:56 Sodium (137-145) mmol/L Chloride (98-107) mmol/L Carbon Dioxide (22-30) mmol/L BUN (7-17) mg/dL Creatinine (0.52-1.04) mg/dL Glucose (74-99) mg/dL POC Glucose (mg/dL) 163 H 239 H 136 H (70-110) mg/dL AST (14-36) U/L ALT (4-34) U/L Total Protein (6.3-8.2) g/dL Albumin (3.5-5.0) g/dL 10/26/23 10/26/23 Range/Units 06:19 11:34 Sodium 136 L (137-145) mmol/L Chloride 112 H (98-107) mmol/L Carbon Dioxide 17 L (22-30) mmol/L BUN 56 H (7-17) mg/dL Creatinine 1.88 H (0.52-1.04) mg/dL Glucose 126 H (74-99) mg/dL POC Glucose (mg/dL) 322 H (70-110) mg/dL AST 50 H (14-36) U/L ALT 117 H (4-34) U/L Total Protein 6.2 L (6.3-8.2) g/dL Albumin 2.6 L (3.5-5.0) g/dL Microbiology - Last 24 Hours (Table) 10/23/23 11:30 Blood Culture Gram Stain - Final Blood Blood Culture - Final Enterobacter cloacae Complex 10/23/23 11:45 Blood Culture Gram Stain - Final Blood Blood Culture - Final Enterobacter cloacae Complex Molecular ID 10/23/23 09:55 Urine Culture - Final Urine,Voided Klebsiella pneumoniae Pseudomonas aeruginosa Assessment and Plan Assessment: 1. Acute kidney injury, ATN secondary to sepsis and hypotension, nonoliguric. UA is suggestive of UTI. ultrasound shows mild bilateral hydronephrosis. This is not new and patient has chronic indwelling Cortes catheter. 2. UTI with sepsis, urine culture is growing Klebsiella pneumonia and Pseudomonas 3. Gram-negative sepsis with blood cultures growing Enterobacter cloacae 4. Peripheral vascular disease status post right AKA 5. CK D stage IV secondary to diabetic kidney disease. Baseline creatinine 1.7-1.8 mg/dL. 6. Non-gap metabolic acidosis secondary to acute kidney injury 7. Anemia of chronic disease with mild iron deficiency. I will hold off on IV iron due to active infection. Continue with Aranesp Plan: continue with IV fluids, decrease rate continue oral sodium bicarb Continue with antibiotics Continue with indwelling Cortes catheter. Repeat labs in a.m. Continue to avoid nephrotoxic agents continue Aranesp Hold IV iron due to ongoing active infection.
--- NOTE | 2023-10-26 14:01 | P.PN ---
Subjective Progress Note Date: 10/26/23 Principal diagnosis: Reason for follow-up is UTI and bacteremia Patient is a 63-year-old female with a past medical history significant for diabetes mellitus hypertension hyperlipidemia coronary artery disease, did have history of right diabetic foot infection requiring right [id number] amputation also with a history of urinary Retention requiring Cortes catheter placed that was last changed about 10 days before presentation to the hospital patient presenting with weakness and has been diagnosed with sepsis secondary To UTI blood cultures came back positive with Enterobacter. On today's evaluation that is 10/26/2023,the patient remains to be afebrile the patient is breathing comfortably room air in no distress patient was sleepy did not answer any question no vomiting diarrhea or any other change reported by the nursing staff. Patient creatinine is 1.88 blood culture with Enterobacter urine showing Klebsiella and Pseudomonas Objective - Vital Signs Vital signs: Vital Signs Temp 97.6 F 10/26/23 08:13 Pulse 79 10/26/23 12:08 Resp 18 10/26/23 12:08 BP 128/76 10/26/23 12:08 Pulse Ox 94 L 10/26/23 12:08 FiO2 Intake & Output 10/25/23 10/26/23 10/26/23 18:59 06:59 18:59 Intake Total 725.986 118 Output Total 1000 1500 900 Balance -274.014 -1500 -782 Weight 72 kg Intake: Intake, IV Titration 249.986 Amount Heparin Sod,Pork in 0.45% 249.986 NaCl 25,000 unit In 0.45 % NaCl 1 250ml.bag @ 12 UNITS/KG/HR 9.09 mls/hr IV .Q24H [facility] Rx#: [id number] Oral 476 118 Output: Urine 1000 1500 900 Other: Voiding Method Indwelling Catheter Indwelling Catheter Indwelling Catheter # Voids 650 # Bowel Movements 0 - Exam GENERAL DESCRIPTION: Middle-aged female up in the chair in no distress RESPIRATORY SYSTEM: Unlabored breathing , decreased breath sounds at bases HEART: S1 S2 regular rate and rhythm , ABDOMEN: Soft , no tenderness EXTREMITIES: No edema feet - Labs CBC & Chem 7: 10/25/23 05:42 10/26/23 06:19 Labs: Abnormal Lab Results - Last 24 Hours (Table) 10/25/23 10/25/23 10/26/23 Range/Units 16:48 20:05 05:56 Sodium (137-145) mmol/L Chloride (98-107) mmol/L Carbon Dioxide (22-30) mmol/L BUN (7-17) mg/dL Creatinine (0.52-1.04) mg/dL Glucose (74-99) mg/dL POC Glucose (mg/dL) 163 H 239 H 136 H (70-110) mg/dL AST (14-36) U/L ALT (4-34) U/L Total Protein (6.3-8.2) g/dL Albumin (3.5-5.0) g/dL 10/26/23 10/26/23 Range/Units 06:19 11:34 Sodium 136 L (137-145) mmol/L Chloride 112 H (98-107) mmol/L Carbon Dioxide 17 L (22-30) mmol/L BUN 56 H (7-17) mg/dL Creatinine 1.88 H (0.52-1.04) mg/dL Glucose 126 H (74-99) mg/dL POC Glucose (mg/dL) 322 H (70-110) mg/dL AST 50 H (14-36) U/L ALT 117 H (4-34) U/L Total Protein 6.2 L (6.3-8.2) g/dL Albumin 2.6 L (3.5-5.0) g/dL Microbiology - Last 24 Hours (Table) 10/23/23 11:30 Blood Culture Gram Stain - Final Blood Blood Culture - Final Enterobacter cloacae Complex 10/23/23 11:45 Blood Culture Gram Stain - Final Blood Blood Culture - Final Enterobacter cloacae Complex Molecular ID 10/23/23 09:55 Urine Culture - Final Urine,Voided Klebsiella pneumoniae Pseudomonas aeruginosa Assessment and Plan (1) Sepsis Current Visit: Yes Status: Acute Code(s): A41.9 - SEPSIS, UNSPECIFIED ORGANISM SNOMED Code(s): 39308511 (2) UTI (urinary tract infection) Current Visit: Yes Status: Acute Code(s): N39.0 - URINARY TRACT INFECTION, SITE NOT SPECIFIED SNOMED Code(s): 00288008 (3) Allergy to multiple antibiotics Current Visit: Yes Status: Acute Code(s): Z88.1 - ALLERGY STATUS TO OTHER ANTIBIOTIC AGENTS SNOMED Code(s): 529650345 (4) Bacteremia Current Visit: Yes Status: Acute Code(s): R78.81 - BACTEREMIA SNOMED Code(s): 3775695 Plan: 1patient presented to hospital with sepsis in this patient who did have a hypotension generalized weakness most likely combination of catheters urinary tract infection" cholecystitis not entirely excluded however the patient did not have significant tenderness to the right upper quadrant area 2-patient with multiple antibiotic ALLERGIES that would limit the number of antibiotic safe to use 3-blood culture positive for Enterobacter urine is growing Enterobacter and Pseudomonas 4patient to continue with cefepime we will repeat a UA and culture as the patient growing different pathogen in the urine and then in the blood we will get a CT of abdominal pelvis with oral contrast to make sure no evidence of any intra-abdominal source for this positive blood culture Dictation was produced using [employer] dictation software. please excuse any grammatical, word or spelling errors. Time with Patient: Less than 30
[2023-10-26] MEDS: IOPAMIDOL CONTRAST (ORAL USE) VIAL PO PRN (14:16)
[2023-10-26 16:58] LABS: Glucose,Whole Blood 147 mg/dL (70-110)
--- NOTE | 2023-10-26 17:11 | CT ---
EXAMINATION TYPE: CT abdomen pelvis wo con DATE OF EXAM: 10/26/2023 COMPARISON: None HISTORY: infection CT DLP: 979.6 mGycm Examination of the solid and hollow viscera is limited given the lack of contrast. FINDINGS: LUNG BASES: No evidence for nodule. There is evidence of cardiomegaly with trace effusion seen bilate rally. Interstitial infiltrates are seen which could reflect interstitial edema. LIVER/GB: There is evidence of cholelithiasis with layering sludge noted as well. No space-occupying hepatic lesion. PANCREAS: No pancreatic mass identified. No inflammatory process seen. SPLEEN: No evidence for splenomegaly. No intrasplenic lesions seen. ADRENALS: No adrenal nodules identified. No evidence for thickening. KIDNEYS: No evidence for renal mass. No nephrolithiasis. Right-sided hydronephrosis of uncertain etio logy. Radiopaque calculus not seen with certainty. There is perinephric stranding bilaterally. Mild f ullness of the left renal collecting system noted. Cortes catheter is in place. BOWEL: Appendix has a normal appearance. No evidence of bowel obstruction. No inflammatory process. S igmoid diverticulosis without diverticulitis. Lymph nodes: No evidence for adenopathy greater than 1 cm. Abdominal aorta: Atheromatous changes seen. No evidence for aneurysm. Genital organs: No significant abnormality. Other: Small amount of ascites adjacent to the liver. IMPRESSION: 1. Interstitial prominence at the lung bases with small effusions. 2. Cholelithiasis with layering sludge
[2023-10-26 17:42] LABS: Appearance,Urine Cloudy (Clear); Bacteria,Urine Few /hpf; Bilirubin,Urine Negative (Negative); Blood,Urine Moderate (Negative); Budding Yeast,Urine Many /hpf; Color,Urine Colorless; Glucose,Urine (UA) 2+ (Negative); Ketones,Urine Negative (Negative); Leukocyte Esterase,Urine Large (Negative); Mucus,Urine Rare /hpf; Nitrite,Urine Negative (Negative); Protein,Urine 1+ (Negative); RBC,Urine 61 /hpf (0-5); Specific Gravity,Urine 1.009 (1.001-1.035); Squamous Epithelial Cell,Urine <1 /hpf (0-4); Urobilinogen,Urine <2.0 mg/dL (<2.0); WBC,Urine 148 /hpf (0-5)
--- NOTE | 2023-10-26 18:07 | P.PN ---
Progress Note - Text Progress Note Date: 10/26/23 History of present illness; patient is 63-year-old lady with past medical history significant for coronary artery disease with stent placement, diabetes mellitus, fibromyalgia, GERD, hypertension, hyperlipidemia, osteoarthritis, who presented to hospital for generalized weakness. Patient relates she has not been feeling her usual self for the last 3 to 4 days. Patient complains of increased weakness. Patient also having nausea and vomiting. Patient was also complaining of lower quadrant abdominal pain. Patient history of chronic Cortes in the last Cortes was changed 2 weeks back. Patient denied any fever but complaining of chills at home. Patient was also complaining of loss of appe tite. Denied any chest pain or shortness of breath. Patient was complaining of being confused and lethargic as well. Because of the symptoms, patient was brought to the ER Initial lab work done in the ER showed WBC 8.2, hemoglobin 9.3, platelet count 217, sodium 131, potassium 4, BUN 60, creatinine 2.54, glucose 266, lactate 3.2 AST 485, ALT 321, Chest x-ray done in the ER showed cardiomegaly: From mild venous congestion or chronic distal lung disease/pulm fibrosis Patient admitted to internal medicine service October 23: Admitted with septic shock. UTI. Now on the medical floor. Patient's had a Cortes catheter since January 2023. Does feel a bit depressed. Has a powered wheelchair at home. at home is good stage IV cancer. Feeling Roxanna low and a bit suicidal earlier today. Discussed at length. Sitter. Psychiatry consulted. October 24: Patient feeling better this morning. Did eat better. Did sit up in a chair yesterday. Blood culture positive for Enterobacter cloacae and urine culture positive for Klebsiella pneumonia and Pseudomonas. Antibiotics to continue. LFTs coming down October 25: Oral intake good. Getting IV cefepime. Tired. Creatinine slowly coming down Active Medications Acetaminophen (Acetaminophen Tab 325 Mg Tab) 650 mg PO Q4HR PRN PRN Reason: Fever and/or Mild Pain Al Hydroxide/Mg Hydroxide (Mag Hydrox/Al Hydrox/Simeth 30 Ml Cup) 15 ml PO Q6HR PRN PRN Reason: Indigestion Alprazolam (Alprazolam 0.5 Mg Tab) 0.5 mg PO HS [facility] Last Admin: 10/25/23 21:01 Dose: 0.5 mg Amitriptyline HCl (Amitriptyline Hcl 25 Mg Tab) 25 mg PO HS [facility] Last Admin: 10/25/23 21:01 Dose: 25 mg Aspirin (Aspirin 81 Mg) 81 mg PO DAILY [facility] Last Admin: 10/26/23 08:17 Dose: 81 mg Calcitriol (Calcitriol 0.25 Mcg Cap) 0.25 mcg PO FR [facility] Last Admin: 10/25/23 08:59 Dose: 0.25 mcg Clopidogrel Bisulfate (Clopidogrel 75 Mg Tab) 75 mg PO DAILY [facility] Last Admin: 10/26/23 08:17 Dose: 75 mg Dapagliflozin (Dapagliflozin Propanediol 10 Mg Tablet) 10 mg PO DAILY [facility] Last Admin: 10/26/23 08:17 Dose: 10 mg Darbepoetin Karl (Darbepoetin Karl 60 Mcg/0.3 Ml Syringe) 60 mcg SQ Q7D [facility] Last Admin: 10/24/23 14:28 Dose: 60 mcg Dextrose/Water (Dextrose 50% Syringe 50 Ml) 25 ml IVP PER PROTOCOL PRN; Protocol PRN Reason: Hypoglycemia Dextrose/Water (Dextrose 50% Syringe 50 Ml) 50 ml IVP PER PROTOCOL PRN; Protocol PRN Reason: Hypoglycemia Escitalopram Oxalate (Escitalopram 20 Mg Tab) 20 mg PO [facility] Last Admin: 10/25/23 21:01 Dose: 20 mg Heparin Sodium (Porcine) (Heparin Sodium,Porcine 5,000 Unit/Ml 1 Ml Vial) 5,000 unit SQ Q8HR [facility] Last Admin: 10/26/23 17:07 Dose: 5,000 unit Cefepime HCl 2 gm/ Sodium (Chloride) 100 mls @ 25 mls/hr IVPB Q12HR [facility] Last Admin: 10/26/23 08:17 Dose: 25 mls/hr Lactated Ringer's (Lactated Ringers) 1,000 mls @ 50 mls/hr IV .Q20H [facility] Last Admin: 10/26/23 13:32 Dose: 50 mls/hr Insulin Aspart (Insulin Aspart (Novolog) 100 Unit/Ml Vial) 0 unit SQ ACHS [facility]; Protocol Last Admin: 10/26/23 17:02 Dose: Not Given Insulin Aspart (Insulin Aspart (Novolog) 100 Unit/Ml Vial) 5 unit SQ AC-TID [facility] Last Admin: 10/26/23 17:08 Dose: 5 unit Insulin Detemir (Insulin Detemir (Levemir) 100 Unit/Ml Syr) 20 unit SQ HS [facility] Last Admin: 10/25/23 21:01 Dose: 20 unit Melatonin (Melatonin 3 Mg Tablet) 3 mg PO HS PRN PRN Reason: Insomnia Metoprolol Tartrate (Metoprolol Tartrate 12.5 Mg Tab) 12.5 mg PO BID [facility] Last Admin: 10/26/23 08:17 Dose: 12.5 mg Naloxone HCl (Naloxone 0.4 Mg/Ml 1 Ml Vial) 0.2 mg IV Q2M PRN PRN Reason: Opioid Reversal Nystatin (Nystatin 100,000 Unit/Gm Powd 15 Gm) 1 applic TOPICAL BID [facility]; Protocol Last Admin: 10/26/23 08:17 Dose: 1 applic Ondansetron HCl (Ondansetron 4 Mg/2 Ml Vial) 4 mg IVP Q8HR PRN PRN Reason: Nausea And Vomiting Last Admin: 10/25/23 13:46 Dose: 4 mg Oxycodone/Acetaminophen (Oxycodone-Apap 10-325mg 1 Each Tab) 1 each PO Q6HR PRN PRN Reason: Pain Last Admin: 10/26/23 17:07 Dose: 1 each Quetiapine Fumarate (Quetiapine 25 Mg Tab) 25 mg PO BID [facility] Last Admin: 10/26/23 08:17 Dose: 25 mg Sodium Bicarbonate (Sodium Bicarbonate Tab 650 Mg Tab) 650 mg PO BID [facility] Last Admin: 10/26/23 08:17 Dose: 650 mg Tizanidine HCl (Tizanidine 4 Mg Tab) 4 mg PO BID PRN PRN Reason: Muscle pain/spasm Social history: . Does use a motorized wheelchair. Patient smoked a pack a day for 20 years stopped in 2014. Physical examination: VITAL SIGNS: 97.6, 77, 18, 141/87, 99% room air GENERAL: Laying in bed, tired, EYES: Pupils equal. Conjunctiva normal. HEENT: External appearance of nose and ears normal, oral cavity grossly normal. NECK: JVD not raised; masses not palpable. HEART: First and second heart sounds are normal; no edema. LUNGS: Respiratory rate normal; clear to auscultation. ABDOMEN: Soft, nontender, liver spleen not palpable, no masses palpable. Cortes catheter PSYCH: [Alert and oriented x3; mood and affect l are better MUSCULAR skeletal: Evidence of OA INVESTIGATIONS, reviewed in the clinical context: October 25: Potassium 3.8 BUN 56 creatinine 1.88 bicarb 17 AST 50 ALT 117 October 24: White count 8.3 hemoglobin 8.7 platelets 241 sodium 135 BUN 63 creatinine 2.29. AST 86 ALT 168 October 23: White count 6.4 hemoglobin 8.3 platelets 216 sodium 131 potassium 3.8 BUN 65 creatinine 2.71 AST 191 ALT 229 October 22: AST 45 ALT 321 troponin I 14.4 UA positive for leukoesterase Urine culture: Klebsiella pneumoniae, Pseudomonas aeruginosa Blood culture: Enterobacter cloacae Abdominal ultrasound: Pericholecystic fluid and gallbladder sludge. Distal CBD's dilated at 7 mm. Distal obstruction was occluded. Mild bilateral hydronephrosis Previous labs: May 2023 creatinine 1.7 Assessment and plan: -Septic shock secondary to bacteremia from UTI: Resolved Patient required pressors, fluids -Sepsis with blood cultures positive for Enterobacter cloacae IV fluids. IV cefepime -Acute kidney injury, ATN from septic shock: Improving Baseline creatinine 1.7 in May 2023. Admission creatinine 2.54 -Acute UTI with cystitis cultures positive for Klebsiella pneumonia and Pseudomonas aeruginosa, secondary to chronic Cortes catheter, causing septic shock IV cefepime -Coronary artery disease, prior history of stent Aspirin Plavix -Chronic congestive heart failure, EF not known Follow clinically -Diabetes mellitus type 2 chronically on insulin For Accu-Cheks with sliding scale. Levemir. NovoLog. -Chronic fibromyalgia Pain control when necessary -Chronic Cortes catheter for bladder dysfunction since January 2023 -Acute non-ST elevation CO. Precipitated by septic shock. Known underlying CAD. IV heparin-discontinued. Plavix. Aspirin. Lopressor Cardiology following -Metabolic acidosis from kidney injury Sodium bicarbonate -GERD Pepcid -Hyperlipidemia Lipitor-hold for now because of elevated LFTs -Essential hypertension Lopressor -Acute ischemic hepatitis from septic shock: improving Continue to hold Lipitor -Primary osteoarthritis Pain control -Chronic kidney disease stage 3 likely nephrosclerosis and diabetic nephropathy Creatinine 1.06 June 2023 -Peripheral arterial disease Aspirin Lipitor -Right above-knee amputation -AICD with a pacemaker Telemetry Anxiety depression otherwise specified, for some acute flareup, with some suicidal ideation Consult psychiatry add sitter Resume home medications Lexapro, Seroquel, Xanax, Chronic insomnia: elavil -Chronic medical debility. Does use a motorized wheelchair -Full code Continue current medication treatment plan. Creatinine continues to improve. LFTs coming down. Past Medical History Past Medical History: Coronary Artery Disease (CAD), Heart Failure, Diabetes Mellitus, Fibromyalgia, GERD/Reflux, Hearing Disorder / Deafness, Hyperlipidemia, Hypertension, Myocardial Infarction (CO), Musculoskeletal Disorder, Osteoarthritis (OA), Renal Disease, Skin Disorder, Vascular Disorder Additional Past Medical History / Comment(s): See Dr Durant's H&P nephrolithiasis and kidney stones- chronic Cortes, peripheral vascular disease, degenerative disc disease-chronic back pain, Rt AKA-working on using prosthesis, going to physical therapy Last Myocardial Infarction Date:: 2004,2006, 2015 History of Any Multi-Drug Resistant Organisms: MRSA Date of last positivie culture/infection: 02/24/16 LT FOOT-VERIFIED PER DR VASQUEZ OFFICE MDRO Source:: LT FOOT Past Surgical History: AICD, Section, Heart Catheterization, Heart Catheterization With Stent, Orthopedic Surgery, Pacemaker, Tonsillectomy Additional Past Surgical History / Comment(s): Right rotator cuff surgery 2, bilateral carpal tunnel release,3 cardiac catheterization 6 stents, above-knee amputation of the right lower extremity, incision and debridement of diabetic wounds, [facility] Biventricular AICD placement Past Anesthesia/Blood Transfusion Reactions: Motion Sickness Additional Past Anesthesia/Blood Transfusion Reaction / Comment(s): CLAUSTERPHOBIA. PAST BLOOD TRANSFUSION-NO REACTION Date of Last Stent Placement:: 2015 Type of Cardiac Device: AICD Device Placement Date:: Past Psychological History: Anxiety, Depression Smoking Status: Former smoker
[2023-10-26 19:52] LABS: Glucose,Whole Blood 245 mg/dL (70-110)
[2023-10-26] MEDS: INSULIN DETEMIR (LEVEMIR) 100 UNIT/ML SYR SQ SCH (20:47)
--- NOTE | 2023-10-27 00:10 | P.CN ---
Psychiatric Consult - . Consult date: 10/25/23 Consult:: 10/25/23 00:09 CONSULTATION Reason for consult: Depression and suicidality. identifying Data: The patient is 63 years old, , white female, who lives in [place], [place] with her . Reason for admission: Weakness. The patient presented to emergency room via EMS with chief complaint of weakness. Patient stated that she has had increasing weakness, nausea vomiting. Patient fell out of bed. She stated that she has nausea and ongoing issue with vomiting. Family members reported some confusion. After initial examination and other work-up, the patient was transferred to medical floor for further managem ent. The nursing staff on the unit stated that the patient was feeling depressed on Saturday and stated suicidal intent with plan. She was placed on suicide precautions. During this evaluation, the patient reported the patient vehemently denied suicidal ideations or plan. The patient noted it was a foolish thought. It came and went away. She noted that it impulsive thought following sudden severe depression, which did not last very long. The patient had a very pleasant Saturday with family members and after this happened. The patient noted that she had a similar episode when her son dies suddenly after a convulsion at night. The patient was in the same bed. She got rid of the thought and promised to God that she would never take her life. The patient has had no suicidal thoughts since Saturday. She denied feeling Depressed. She did not report any symptoms of depression. The patient noted that she wants to be with her . He is fighting stage 4 lung ca. On leading questions denied depression, anxiety, hopelessness, worthlessness, suicidal or homicidal ideations. The patient denied any symptoms of paranoia, or any other delusional thinking, A/V hallucinations. Current and past medications: As per patient she on Elavil 25 mg, Seroquel 25 mg, Xanax 0.5 mg for depression. She feels stable on the is combination. Out-pt follow-up: She sees a psychiatrist from [facility]. 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 She attended out-pt treatment for one and a half year. She has been to grief counseling twice. No history of suicidal or homicidal ideations or behavior. Past medical history: Coronary artery disease with stent placement, diabetes mellitus, fibromyalgia, GERD, hypertension, hyperlipidemia, osteoarthritis, Substance abuse history: None Family history of psychiatric disorder: None. No h/o suicide or homicide. MSE: Alert and attentive Orientation X3. Pleasant and cooperative. Psychomotor activity: Speech: Normal tone, quality, and quantity Mood: I am feeling fine. Affect: Anxious and apprehensive. SI or HI: None Thought content: Normal Thought process: Normal Perceptual disturbance: Normal Cognition: Intact Judgement and Insight: Intact Diagnosis: Adjustment disorder with depressed mood- stable, H/O of post- depression. Major depressive disorder- stable on medications. Rec: Discontinue suicide precautions. Continue Elavil, Seroquel, and Xanax. intern product marketing manager to arrange out-pt follow-up with 7 days of discharge with her psychiatrist. She missed her regular appointment on Saturday. Please reconsult if MS changes.
[2023-10-27 06:19] LABS: Glucose,Whole Blood 147 mg/dL (70-110)
[2023-10-27 08:10] LABS: ALT 78 U/L (4-34); AST 28 U/L (14-36); African American GFR (CKD) 41 (>60 ml/min/1.73 sqM); Albumin 2.6 g/dL (3.5-5.0); Alkaline Phosphatase 118 U/L (38-126); Anion Gap 8 mmol/L; Blood Urea Nitrogen 44 mg/dL (7-17); Calcium 8.6 mg/dL (8.4-10.2); Carbon Dioxide 17 mmol/L (22-30); Chloride 111 mmol/L (98-107); Glucose 129 mg/dL (74-99); Non-African American GFR(CKD) 35 (>60 ml/min/1.73 sqM); Sodium 136 mmol/L (137-145); Total Bilirubin 0.6 mg/dL (0.2-1.3); Total Protein 6.4 g/dL (6.3-8.2)
--- NOTE | 2023-10-27 08:39 | P.PN ---
Subjective Progress Note Date: 10/27/23 This is a 63-year-old female patient with a past medical history significant for CAD with prior percutaneous revascularization as well as cardiomyopathy and valvular heart disease with mitral regurgitation as well as chronic kidney disease and diabetes and hypertension and dyslipidemia who was admitted to the hospital with UTI/sepsis and we consulted to see the patient because of abnormal troponin which has been treated medically. October 26, 2023 The patient was seen and evaluated this morning which she is feeling better. No cardiovascular symptoms. Hemodynamically she is stable. Currently she is on dual antiplatelet therapy. She is not on a statin because of elevated liver function test. She is not on PAGE inhibitor because she had history of hypotension with PAGE inhibitor before. Kidney function has been improving. The examination is remarkable for regular rhythm with soft systolic murmur at the apical area and clear breathing sounds bilaterally. October 27, 2023 The patient was seen and evaluated this morning. She is asymptomatic with no symptoms of any chest pain or chest discomfort or shortness of breath. She is a stable hemodynamically as well. She remains on dual antiplatelet therapy along with anti-ischemic medications with beta-cristopher. She continues to be on antibiotic regarding the UTI and currently she is on IV antibiotic. Blood work revealed improvement in the creatinine and her creatinine today is 1.54 which is almost her baseline. She is not on a statin because of elevated liver function test when she presented to the hospital but her liver function test has been almost back to normal but I am going to repeat the AST and ALT and if both came in to be normal she will be started on atorvastatin at high intensity. Severe underlying coronary artery disease need to be ruled out either invasively or noninvasively once the UTI/sepsis resolved. The examination is remarkable for regular rhythm with a systolic murmur and clear breathing sounds bilaterally and no edema was noted in the lower extremities Assessment UTI/sepsis Acute on chronic renal failure Evidence of myocardial injury with no evidence of ischemia Cardiomyopathy Valvular heart disease with mitral regurgitation Multiple comorbid conditions Plan Continue dual antiplatelet therapy Continue beta-cristopher Repeat liver function test and consider starting the patient on statin if they unremarkable Consider maximize medical treatment for cardiomyopathy Severe CAD to be ruled out either invasively or noninvasively once the UTI/sepsis resolved Objective - Vital Signs Vital signs: Vital Signs Temp 98.2 F 10/26/23 20:43 Pulse 88 10/27/23 04:49 Resp 18 10/27/23 04:49 BP 126/84 10/27/23 04:49 Pulse Ox 96 10/27/23 04:49 FiO2 Intake & Output 10/26/23 10/27/23 10/27/23 18:59 06:59 18:59 Intake Total 236 540 Output Total 1325 900 Balance -1089 -360 Weight 72.8 kg Intake: Oral 236 540 Output: Urine 1325 900 Other: Voiding Method Indwelling Catheter Indwelling Catheter # Voids 650 - Labs CBC & Chem 7: 10/25/23 05:42 10/27/23 06:44 Labs: Abnormal Lab Results - Last 24 Hours (Table) 10/26/23 10/26/23 10/26/23 Range/Units 11:34 16:56 17:11 Sodium (137-145) mmol/L Chloride (98-107) mmol/L Carbon Dioxide (22-30) mmol/L BUN (7-17) mg/dL Creatinine (0.52-1.04) mg/dL Glucose (74-99) mg/dL POC Glucose (mg/dL) 322 H 147 H (70-110) mg/dL ALT (4-34) U/L Albumin (3.5-5.0) g/dL Urine Appearance Cloudy H (Clear) Urine Protein 1+ H (Negative) Urine Glucose (UA) 2+ H (Negative) Urine Blood Moderate H (Negative) Ur Leukocyte Esterase Large H (Negative) Urine RBC 61 H (0-5) /hpf Urine WBC 148 H (0-5) /hpf Urine Bacteria Few H (None) /hpf Urine Mucus Rare H (None) /hpf Urine Yeast (Budding) Many H (None) /hpf 10/26/23 10/27/23 10/27/23 Range/Units 19:52 06:18 06:44 Sodium 136 L (137-145) mmol/L Chloride 111 H (98-107) mmol/L Carbon Dioxide 17 L (22-30) mmol/L BUN 44 H (7-17) mg/dL Creatinine 1.54 H (0.52-1.04) mg/dL Glucose 129 H (74-99) mg/dL POC Glucose (mg/dL) 245 H 147 H (70-110) mg/dL ALT 78 H (4-34) U/L Albumin 2.6 L (3.5-5.0) g/dL Urine Appearance (Clear) Urine Protein (Negative) Urine Glucose (UA) (Negative) Urine Blood (Negative) Ur Leukocyte Esterase (Negative) Urine RBC (0-5) /hpf Urine WBC (0-5) /hpf Urine Bacteria (None) /hpf Urine Mucus (None) /hpf Urine Yeast (Budding) (None) /hpf Microbiology - Last 24 Hours (Table) 10/23/23 11:30 Blood Culture Gram Stain - Final Blood Blood Culture - Final Enterobacter cloacae Complex 10/23/23 11:45 Blood Culture Gram Stain - Final Blood Blood Culture - Final Enterobacter cloacae Complex Molecular ID
[2023-10-27 11:35] LABS: Glucose,Whole Blood 211 mg/dL (70-110)
--- NOTE | 2023-10-27 12:14 | P.PN ---
Progress Note - Text Progress Note Date: 10/27/23 History of present illness; patient is 63-year-old lady with past medical history significant for coronary artery disease with stent placement, diabetes mellitus, fibromyalgia, GERD, hypertension, hyperlipidemia, osteoarthritis, who presented to hospital for generalized weakness. Patient relates she has not been feeling her usual self for the last 3 to 4 days. Patient complains of increased weakness. Patient also having nausea and vomiting. Patient was also complaining of lower quadrant abdominal pain. Patient history of chronic Cortes in the last Cortes was changed 2 weeks back. Patient denied any fever but complaining of chills at home. Patient was also complaining of loss of appe tite. Denied any chest pain or shortness of breath. Patient was complaining of being confused and lethargic as well. Because of the symptoms, patient was brought to the ER Initial lab work done in the ER showed WBC 8.2, hemoglobin 9.3, platelet count 217, sodium 131, potassium 4, BUN 60, creatinine 2.54, glucose 266, lactate 3.2 AST 485, ALT 321, Chest x-ray done in the ER showed cardiomegaly: From mild venous congestion or chronic distal lung disease/pulm fibrosis Patient admitted to internal medicine service October 23: Admitted with septic shock. UTI. Now on the medical floor. Patient's had a Cortes catheter since January 2023. Does feel a bit depressed. Has a powered wheelchair at home. at home is good stage IV cancer. Feeling Roxanna low and a bit suicidal earlier today. Discussed at length. Sitter. Psychiatry consulted. October 24: Patient feeling better this morning. Did eat better. Did sit up in a chair yesterday. Blood culture positive for Enterobacter cloacae and urine culture positive for Klebsiella pneumonia and Pseudomonas. Antibiotics to continue. LFTs coming down October 25: Oral intake good. Getting IV cefepime. Tired. Creatinine slowly coming down October 26: Did set it in the chair earlier today. Creatinine continues to come down slowly. Eating fair. Resume Lipitor at a lower dose Active Medications Acetaminophen (Acetaminophen Tab 325 Mg Tab) 650 mg PO Q4HR PRN PRN Reason: Fever and/or Mild Pain Al Hydroxide/Mg Hydroxide (Mag Hydrox/Al Hydrox/Simeth 30 Ml Cup) 15 ml PO Q6HR PRN PRN Reason: Indigestion Alprazolam (Alprazolam 0.5 Mg Tab) 0.5 mg PO HS [facility] Last Admin: 10/26/23 20:48 Dose: 0.5 mg Amitriptyline HCl (Amitriptyline Hcl 25 Mg Tab) 25 mg PO HS [facility] Last Admin: 10/26/23 20:48 Dose: 25 mg Aspirin (Aspirin 81 Mg) 81 mg PO DAILY [facility] Last Admin: 10/27/23 08:20 Dose: 81 mg Calcitriol (Calcitriol 0.25 Mcg Cap) 0.25 mcg PO FR [facility] Last Admin: 10/25/23 08:59 Dose: 0.25 mcg Clopidogrel Bisulfate (Clopidogrel 75 Mg Tab) 75 mg PO DAILY [facility] Last Admin: 10/27/23 08:20 Dose: 75 mg Dapagliflozin (Dapagliflozin Propanediol 10 Mg Tablet) 10 mg PO DAILY [facility] Last Admin: 10/27/23 08:20 Dose: 10 mg Darbepoetin Karl (Darbepoetin Karl 60 Mcg/0.3 Ml Syringe) 60 mcg SQ Q7D [facility] Last Admin: 10/24/23 14:28 Dose: 60 mcg Dextrose/Water (Dextrose 50% Syringe 50 Ml) 25 ml IVP PER PROTOCOL PRN; Protocol PRN Reason: Hypoglycemia Dextrose/Water (Dextrose 50% Syringe 50 Ml) 50 ml IVP PER PROTOCOL PRN; Protocol PRN Reason: Hypoglycemia Escitalopram Oxalate (Escitalopram 20 Mg Tab) 20 mg PO [facility] Last Admin: 10/26/23 20:48 Dose: 20 mg Heparin Sodium (Porcine) (Heparin Sodium,Porcine 5,000 Unit/Ml 1 Ml Vial) 5,000 unit SQ Q8HR [facility] Last Admin: 10/27/23 08:20 Dose: 5,000 unit Cefepime HCl 2 gm/ Sodium (Chloride) 100 mls @ 25 mls/hr IVPB Q12HR [facility] Last Admin: 10/27/23 08:20 Dose: 25 mls/hr Lactated Ringer's (Lactated Ringers) 1,000 mls @ 50 mls/hr IV .Q20H [facility] Last Admin: 10/26/23 13:32 Dose: 50 mls/hr Insulin Aspart (Insulin Aspart (Novolog) 100 Unit/Ml Vial) 0 unit SQ ACHS [facility]; Protocol Last Admin: 10/27/23 12:03 Dose: 2 unit Insulin Aspart (Insulin Aspart (Novolog) 100 Unit/Ml Vial) 5 unit SQ AC-TID [facility] Last Admin: 10/27/23 12:04 Dose: 5 unit Insulin Detemir (Insulin Detemir (Levemir) 100 Unit/Ml Syr) 24 unit SQ HS [facility] Last Admin: 10/26/23 20:47 Dose: 24 unit Melatonin (Melatonin 3 Mg Tablet) 3 mg PO HS PRN PRN Reason: Insomnia Metoprolol Tartrate (Metoprolol Tartrate 12.5 Mg Tab) 12.5 mg PO BID [facility] Last Admin: 10/27/23 08:20 Dose: 12.5 mg Naloxone HCl (Naloxone 0.4 Mg/Ml 1 Ml Vial) 0.2 mg IV Q2M PRN PRN Reason: Opioid Reversal Nystatin (Nystatin 100,000 Unit/Gm Powd 15 Gm) 1 applic TOPICAL BID [facility]; Protocol Last Admin: 10/27/23 08:20 Dose: 1 applic Ondansetron HCl (Ondansetron 4 Mg/2 Ml Vial) 4 mg IVP Q8HR PRN PRN Reason: Nausea And Vomiting Last Admin: 10/27/23 10:16 Dose: 4 mg Oxycodone/Acetaminophen (Oxycodone-Apap 10-325mg 1 Each Tab) 1 each PO Q6HR PRN PRN Reason: Pain Last Admin: 10/27/23 06:38 Dose: 1 each Quetiapine Fumarate (Quetiapine 25 Mg Tab) 25 mg PO BID [facility] Last Admin: 10/27/23 08:20 Dose: 25 mg Sodium Bicarbonate (Sodium Bicarbonate Tab 650 Mg Tab) 650 mg PO BID [facility] Last Admin: 10/27/23 08:20 Dose: 650 mg Tizanidine HCl (Tizanidine 4 Mg Tab) 4 mg PO BID PRN PRN Reason: Muscle pain/spasm Social history: . Does use a motorized wheelchair. Patient smoked a pack a day for 20 years stopped in 2014. Physical examination: VITAL SIGNS: 98.2, 89, 18, 126 x 81, 97% room air GENERAL: Laying in bed, comfortable, EYES: Pupils equal. Conjunctiva normal. HEENT: External appearance of nose and ears normal, oral cavity grossly normal. NECK: JVD not raised; masses not palpable. HEART: First and second heart sounds are normal; no edema. LUNGS: Respiratory rate normal; clear to auscultation. ABDOMEN: Soft, nontender, liver spleen not palpable, no masses palpable. Cortes catheter PSYCH: [Alert and oriented x3; mood and affect l are better MUSCULAR skeletal: Evidence of OA INVESTIGATIONS, reviewed in the clinical context: October 26: Potassium 4 BUN 44 creatinine 1.54 AST 28 ALT 78 October 25: Potassium 3.8 BUN 56 creatinine 1.88 bicarb 17 AST 50 ALT 117 October 24: White count 8.3 hemoglobin 8.7 platelets 241 sodium 135 BUN 63 creatinine 2.29. AST 86 ALT 168 October 23: White count 6.4 hemoglobin 8.3 platelets 216 sodium 131 potassium 3.8 BUN 65 creatinine 2.71 AST 191 ALT 229 October 22: AST 45 ALT 321 troponin I 14.4 UA positive for leukoesterase Urine culture: Klebsiella pneumoniae, Pseudomonas aeruginosa Blood culture: Enterobacter cloacae Abdominal ultrasound: Pericholecystic fluid and gallbladder sludge. Distal CBD's dilated at 7 mm. Distal obstruction was occluded. Mild bilateral hydronephrosis Previous labs: May 2023 creatinine 1.7 Assessment and plan: -Septic shock secondary to bacteremia from UTI: Resolved Patient required pressors, fluids -Sepsis with blood cultures positive for Enterobacter cloacae IV fluids. IV cefepime -Acute kidney injury, ATN from septic shock: Improving Baseline creatinine 1.7 in May 2023. Admission creatinine 2.54 -Acute UTI with cystitis cultures positive for Klebsiella pneumonia and Pseudomonas aeruginosa, secondary to chronic Cortes catheter, causing septic shock IV cefepime -Coronary artery disease, prior history of stent Aspirin Plavix -Chronic congestive heart failure, EF not known Follow clinically -Diabetes mellitus type 2 chronically on insulin For Accu-Cheks with sliding scale. Levemir. NovoLog. -Chronic fibromyalgia Pain control when necessary -Chronic Cortes catheter for bladder dysfunction since January 2023 -Acute non-ST elevation SD. Precipitated by septic shock. Known underlying CAD. IV heparin-discontinued. Plavix. Aspirin. Lopressor Cardiology following -Metabolic acidosis from kidney injury Sodium bicarbonate -GERD Pepcid -Hyperlipidemia Lipitor-was held temporarily because increased LFTs. Resume at 40 mg -Essential hypertension Lopressor -Acute ischemic hepatitis from septic shock: improving Continue to hold Lipitor -Primary osteoarthritis Pain control -Chronic kidney disease stage 3 likely nephrosclerosis and diabetic nephropathy Creatinine 1.06 June 2023 -Peripheral arterial disease Aspirin Lipitor -Right above-knee amputation -AICD with a pacemaker Telemetry Anxiety depression otherwise specified, for some acute flareup, with some suicidal ideation Consult psychiatry add sitter Resume home medications Lexapro, Seroquel, Xanax, Chronic insomnia: elavil -Chronic medical debility. Does use a motorized wheelchair -Full code Resume Lipitor at 40 mg. Other medications to continue Past Medical History Past Medical History: Coronary Artery Disease (CAD), Heart Failure, Diabetes Mellitus, Fibromyalgia, GERD/Reflux, Hearing Disorder / Deafness, Hyperlipidemia, Hypertension, Myocardial Infarction (SD), Musculoskeletal Disorder, Osteoarthritis (OA), Renal Disease, Skin Disorder, Vascular Disorder Additional Past Medical History / Comment(s): See Dr Durant's H&P nephrolithiasis and kidney stones- chronic Cortes, peripheral vascular disease, degenerative disc disease-chronic back pain, Rt AKA-working on using prosthesis, going to physical therapy Last Myocardial Infarction Date:: 2004,2006, 2015 History of Any Multi-Drug Resistant Organisms: MRSA Date of last positivie culture/infection: 02/24/16 LT FOOT-VERIFIED PER DR VASQUEZ OFFICE MDRO Source:: LT FOOT Past Surgical History: AICD, Section, Heart Catheterization, Heart Catheterization With Stent, Orthopedic Surgery, Pacemaker, Tonsillectomy Additional Past Surgical History / Comment(s): Right rotator cuff surgery 2, bilateral carpal tunnel release,3 cardiac catheterization 6 stents, above-knee amputation of the right lower extremity, incision and debridement of diabetic wounds, [facility] Biventricular AICD placement Past Anesthesia/Blood Transfusion Reactions: Motion Sickness Additional Past Anesthesia/Blood Transfusion Reaction / Comment(s): SHAN VELEZ PAST BLOOD TRANSFUSION-NO REACTION Date of Last Stent Placement:: 2015 Type of Cardiac Device: AICD Device Placement Date:: Past Psychological History: Anxiety, Depression Smoking Status: Former smoker
--- NOTE | 2023-10-27 12:16 | P.PN ---
Subjective Progress Note Date: 10/27/23 Principal diagnosis: Sepsis. This is a 63-year-old female patient with a known history of coronary artery disease with multiple previous stent placements, cardiomyopathy status post AICD placement, nephrolithiasis, hearing disorder, hypertension, hyperlipidemia, diabetes mellitus, [id number] amputation on the right, former smoker, chronic Cortes due to kidney issues. She presented here to the emergency room earlier this morning with complaints of generalized weakness, nausea vomiting and fall. Chest x-ray revealed cardiomegaly with mild venous congestion or chronic interstitial lung disease/pulmonary fibrosis. More confluent area of consolidation in the left perihilar and upper lobes. Neoplasm not excluded. EKG reveals atrial sensing and ventricular pacing. Ultrasound of the abdomen/bladder is pending. White count 8.2. Hemoglobin 9.3. Platelets 217. Sodium 131. Potassium 4.0. Bicarb 16. BUN 60. Creatinine 2.54. Lactic acid 3.2. Glucose 266. AST 45. ALT 321. Urinalysis turbid with moderate blood. Large leukocyte esterase, greater than 182 WBCs many WBC clumps many bacteria. Culture pending. Procalcitonin pending. She has been initiated on ceftriaxone. She is seen today in consultation in the emergency department. She was having issues with hypotension and is requiring norepinephrine and ICU admission. She is awake and alert. Maintaining O2 saturations in the 90s on 2 L/min per nasal cannula. Currently on norepinephrine at 0.02 mcg/kg/min. He has received 1.5 L of fluid resuscitation. Normal saline at 75 MLS per hour. The patient is seen today October 24, 2023 in follow-up in the emergency department. She is currently awake and alert in no acute distress. She is feeling a bit better today compared to yesterday. She did have issues with chest pain yesterday and was found to have elevated troponins and is currently on a heparin drip. Her mean arterial pressures have been in the 70s and 80s. She is off the norepinephrine. She is afebrile. She is maintaining good O2 saturations up to 100% on 3 L/min per nasal cannula. She is afebrile. Hemodynamically stable. White count 6.4. Hemoglobin 8.3. Platelets 216. Sodium 131. Potassium 3.8. Bicarb 16. BUN 65. Creatinine 2.71. Glucose 127. AST 191. ALT 229. Blood cultures are positive for gram-negative bacilli. She remains on Cefepime. Patient is seen today October 25, 2023 in room 374. She is resting comfortably in bed this morning eating her breakfast. She is satting well on room air. She states her breathing is comfortable and denies any shortness of breath or chest pain. She remains on the heparin drip for the elevated troponins. She remains afebrile. She is hemodynamically stable. White count 8.3. Hemoglobin 8.7. Platelets 241. Sodium 135, Potassium 3.6, Bicard 18. BUN 63. Creatinine 2.29. Glucose 117. Blood cultures show gram-negative bacilli & Enterobacter Cloacae. She remains on Cefepime. Patient is seen today October 26, 2023 in room 374. He is resting comfortably in bed awake alert and in no acute distress. She is satting 90s on room air. He denies any chest shortness of breath or chest pain. She is on subcutaneous heparin per protocol. She remains afebrile. Hemodynamically stable. Sodium 136, potassium 3.8, chloride 112, bicarb 17, BUN 56, creatinine 1.88, glucose 126. He remains on LR at a rate of 75 an hour. Urine culture shows Klebsiella pneumoniae and Pseudomonas aeruginosa. Blood culture shows Enterobacter cloacae. Remains on cefepime which was started on 10/23. Chest x-ray shows stable cardiomegaly with findings suggestive of pulmonary fibrosis. Progress note dated October 27, 2023. 63-year-old female seen today in room 374. The patient is on room air. No IV fluids. Blood cultures were positive for Enterobacter cloacae. Urine cultures were positive for both Klebsiella, and Pseudomonas. The patient continues on cefepime. Current labs include a sodium 136, potassium 4, chlorides 111, CO2 17, anion gap 8, BUN 44, and creatinine 1.54. Glucose is 211. Albumin is 2.6. Objective - Vital Signs Vital signs: Vital Signs Temp 98.1 F 10/27/23 08:00 Pulse 104 H 10/27/23 08:00 Resp 16 10/27/23 08:00 BP 149/80 10/27/23 08:00 Pulse Ox 94 L 10/27/23 08:00 FiO2 Intake & Output 10/26/23 10/27/23 10/27/23 18:59 06:59 18:59 Intake Total 236 540 Output Total 5277 847 2946 Balance -4964 -479 -6939 Weight 72.8 kg Intake: Oral 236 540 Output: Urine 4754 923 1687 Other: Voiding Method Indwelling Catheter Indwelling Catheter Indwelling Catheter # Voids 650 - Exam No acute distress, oriented 3. Currently on room air. HEENT examination is grossly unremarkable. Mucous membranes are moist. No oral lesions. Neck supple. Full range of motion. No adenopathy thyromegaly or neck vein distention. Cardiovascular examination reveals regular rhythm rate. S1-S2 normal. No S3 or S4. No discernible murmur noted. Heart rate 79 bpm. Lungs reveal clear breath sounds. Breath sounds are equal bilaterally. No adventitious lung sounds including wheezes rhonchi or crackles. Abdomen soft bowel sounds are heard. No masses or tenderness. Extremities are intact. No cyanosis clubbing or edema. Right [id number]-ulhp amputation. Skin is without rash or lesion. Neurologic examination is brief but nonfocal. - Labs CBC & Chem 7: 10/25/23 05:42 10/27/23 06:44 Labs: Abnormal Lab Results - Last 24 Hours (Table) 10/26/23 10/26/23 10/26/23 Range/Units 16:56 17:11 19:52 Sodium (137-145) mmol/L Chloride (98-107) mmol/L Carbon Dioxide (22-30) mmol/L BUN (7-17) mg/dL Creatinine (0.52-1.04) mg/dL Glucose (74-99) mg/dL POC Glucose (mg/dL) 147 H 245 H (70-110) mg/dL ALT (4-34) U/L Albumin (3.5-5.0) g/dL Urine Appearance Cloudy H (Clear) Urine Protein 1+ H (Negative) Urine Glucose (UA) 2+ H (Negative) Urine Blood Moderate H (Negative) Ur Leukocyte Esterase Large H (Negative) Urine RBC 61 H (0-5) /hpf Urine WBC 148 H (0-5) /hpf Urine Bacteria Few H (None) /hpf Urine Mucus Rare H (None) /hpf Urine Yeast (Budding) Many H (None) /hpf 10/27/23 10/27/23 10/27/23 Range/Units 06:18 06:44 11:33 Sodium 136 L (137-145) mmol/L Chloride 111 H (98-107) mmol/L Carbon Dioxide 17 L (22-30) mmol/L BUN 44 H (7-17) mg/dL Creatinine 1.54 H (0.52-1.04) mg/dL Glucose 129 H (74-99) mg/dL POC Glucose (mg/dL) 147 H 211 H (70-110) mg/dL ALT 78 H (4-34) U/L Albumin 2.6 L (3.5-5.0) g/dL Urine Appearance (Clear) Urine Protein (Negative) Urine Glucose (UA) (Negative) Urine Blood (Negative) Ur Leukocyte Esterase (Negative) Urine RBC (0-5) /hpf Urine WBC (0-5) /hpf Urine Bacteria (None) /hpf Urine Mucus (None) /hpf Urine Yeast (Budding) (None) /hpf Microbiology - Last 24 Hours (Table) 10/23/23 11:30 Blood Culture Gram Stain - Final Blood Blood Culture - Final Enterobacter cloacae Complex 10/23/23 11:45 Blood Culture Gram Stain - Final Blood Blood Culture - Final Enterobacter cloacae Complex Molecular ID Assessment and Plan Assessment: Weakness, nausea,and vomiting, secondary to urinary tract infection from Klebsiella and Pseudomonas, and Enterobacter cloacae bacteremia. Acute urinary tract infection/urosepsis. Bacteremia. PACHECO with acute tubular necrosis (ATN). NSTEMI. Hx of CAD multiple stents. History of diabetes mellitus. History of peripheral vascular occlusive disease. History of hyperlipidemia. Hx of obesity. Plan: Plan dated October 27, 2023. The patient was seen in room 374. She is resting comfortably. She is on room air. No IV fluids. The patient continues on cefepime, for bacteremia secondary to Enterobacter cloacae, and Klebsiella and Pseudomonas urinary tract infections. Labs, x-rays, and medications are reviewed. The patient is doing much better. She denies any shortness of breath, cough, wheezing, chest tightness, or phlegm production. She also denies any chest pain or chest pressure. We will continue to follow make recommendations. Prognosis is guarded. Time with Patient: Less than 30
--- NOTE | 2023-10-27 13:30 | P.PN ---
Subjective patient is seen for follow-up for acute kidney injury and chronic kidney disease. renal function has improved significantly with serum creatinine down to 1.5 mg/dL from 2.7 at peak. Maintained on antibiotics for gram-negative sepsis. Blood cultures are growing Enterobacter cloacae and urine cultures is growing Klebsiella pneumonia and Pseudomonas complaining of nausea today. Patient remains on IV fluids at 50 mL an hour. No complaints of shortness of breath. Objective - Vital Signs Vital signs: Vital Signs Temp 98.2 F 10/27/23 12:00 Pulse 89 10/27/23 12:00 Resp 18 10/27/23 12:00 BP 126/81 10/27/23 12:00 Pulse Ox 97 10/27/23 12:00 FiO2 Intake & Output 10/26/23 10/27/23 10/27/23 18:59 06:59 18:59 Intake Total 236 540 Output Total 9860 378 6961 Balance -1089 -360 -1000 Weight 72.8 kg Intake: Oral 236 540 Output: Urine 1712 691 9895 Other: Voiding Method Indwelling Catheter Indwelling Catheter Indwelling Catheter # Voids 650 - Exam patient is awake, comfortable, no acute distress. Examination of the heart S1 and S2 Examination of the lungs bilateral breath sounds are heard Abdomen is soft nontender Examination of lower extremities shows no edema, right AKA [employer] exam grossly intact - Labs CBC & Chem 7: 10/25/23 05:42 10/27/23 06:44 Labs: Abnormal Lab Results - Last 24 Hours (Table) 10/26/23 10/26/23 10/26/23 Range/Units 16:56 17:11 19:52 Sodium (137-145) mmol/L Chloride (98-107) mmol/L Carbon Dioxide (22-30) mmol/L BUN (7-17) mg/dL Creatinine (0.52-1.04) mg/dL Glucose (74-99) mg/dL POC Glucose (mg/dL) 147 H 245 H (70-110) mg/dL ALT (4-34) U/L Albumin (3.5-5.0) g/dL Urine Appearance Cloudy H (Clear) Urine Protein 1+ H (Negative) Urine Glucose (UA) 2+ H (Negative) Urine Blood Moderate H (Negative) Ur Leukocyte Esterase Large H (Negative) Urine RBC 61 H (0-5) /hpf Urine WBC 148 H (0-5) /hpf Urine Bacteria Few H (None) /hpf Urine Mucus Rare H (None) /hpf Urine Yeast (Budding) Many H (None) /hpf 10/27/23 10/27/23 10/27/23 Range/Units 06:18 06:44 11:33 Sodium 136 L (137-145) mmol/L Chloride 111 H (98-107) mmol/L Carbon Dioxide 17 L (22-30) mmol/L BUN 44 H (7-17) mg/dL Creatinine 1.54 H (0.52-1.04) mg/dL Glucose 129 H (74-99) mg/dL POC Glucose (mg/dL) 147 H 211 H (70-110) mg/dL ALT 78 H (4-34) U/L Albumin 2.6 L (3.5-5.0) g/dL Urine Appearance (Clear) Urine Protein (Negative) Urine Glucose (UA) (Negative) Urine Blood (Negative) Ur Leukocyte Esterase (Negative) Urine RBC (0-5) /hpf Urine WBC (0-5) /hpf Urine Bacteria (None) /hpf Urine Mucus (None) /hpf Urine Yeast (Budding) (None) /hpf Microbiology - Last 24 Hours (Table) 10/23/23 11:30 Blood Culture Gram Stain - Final Blood Blood Culture - Final Enterobacter cloacae Complex 10/23/23 11:45 Blood Culture Gram Stain - Final Blood Blood Culture - Final Enterobacter cloacae Complex Molecular ID Assessment and Plan Assessment: 1. Acute kidney injury, ATN secondary to sepsis and hypotension, nonoliguric. UA is suggestive of UTI. ultrasound shows mild bilateral hydronephrosis. This is not new and patient has chronic indwelling Cortes catheter. 2. UTI with sepsis, urine culture is growing Klebsiella pneumonia and Pseudomonas 3. Gram-negative sepsis with blood cultures growing Enterobacter cloacae 4. Peripheral vascular disease status post right AKA 5. CK D stage IV secondary to diabetic kidney disease. Baseline creatinine 1.7-1.8 mg/dL. 6. Non-gap metabolic acidosis secondary to acute kidney injury 7. Anemia of chronic disease with mild iron deficiency. I will hold off on IV iron due to active infection. Continue with Aranesp Plan: continue gentle IV hydration continue oral sodium bicarb Continue with antibiotics Continue with indwelling Cortes catheter. Repeat labs in a.m. Continue to avoid nephrotoxic agents continue Aranesp Hold IV iron due to ongoing active infection.
[2023-10-27] MEDS: MAG HYDROX/AL HYDROX/SIMETH 30 ML CUP PO PRN (14:16)
--- NOTE | 2023-10-27 14:38 | P.GSCN ---
History of Present Illness Consult date: 10/27/23 History of present illness: CHIEF COMPLAINT: Abdominal pain HISTORY OF PRESENT ILLNESS: The patient is a 63-year-old female with multiple comorbidities including recent myocardial infarctions, urinary tract infection, hypotension reports eating pizza and ice cream cake 1 week ago 10/20/2023. She then had intractable nausea and vomiting. Her workup at that time demonstrated an acute myocardial infarction. Patient had recent echo performed demonstrating depressed ejection fraction of 20%. Patient reports upper abdominal pain. Last attack was several months ago. She reports chronic nausea. Her pain today has improved the right upper quadrant. General surgery is consulted for abdominal pain. PAST MEDICAL HISTORY: See list and reviewed PAST SURGICAL HISTORY: See list and reviewed MEDICATIONS: See list and reviewed ALLERGIES: See list and reviewed SOCIAL HISTORY: See list and reviewed. Uses medical marijuana. FAMILY HISTORY: See list and reviewed REVIEW OF ORGAN SYSTEMS: CONSTITUTIONAL: No fevers or chills. Morbid obese, BMI over 35 EYES: Denies any trouble with vision. No glasses. HEENT: No difficulties with hearing. No nosebleeds. No difficulty swallowing. RESPIRATORY: Denies pneumonia. Denies any troubles with breathing or dyspnea on exertion. CARDIOVASCULAR: Has coronary artery disease with recent myocardial infarction. Has congestive heart failure. Has hyperlipidemia and history of hypertension. Pre-existing history of myocardial infarction. Has peripheral vascular occlusive disease. Has AICD. Past cardiac catheterization with stent placement. GASTROINTESTINAL: Has gastroesophageal reflux disease. GENITOURINARY: Has chronic kidney disease with kidney stones. NEUROLOGICAL: Has diabetic neuropathy lower extremities. MUSCULOSKELETAL: Has back pain, stiffness or joint arthritis. Has fibromyalgia. Has ijmly-fxw-kduh amputation right lower extremity. SKIN: No current skin cancer. No rash. PSYCHIATRIC: Has generalized anxiety disorder including depression. ENDOCRINE: Denies current thyroid disorders. Has diabetes type 2, insulin- dependent. HEME/LYMPHATIC: Denies any lumps and bumps around the neck. No recent deep venous thrombosis. ALLERGY/IMMUNOLOGY: No immunoglobulin therapy. No immune deficiencies. History of MRSA. BREAST: Denies current breast lumps, pain or nipple discharge. PHYSICAL EXAM: VITALS: Reviewed CONSTITUTIONAL: Well developed and in no acute distress. EYES: Conjuctivae without sclera icterus. Extraocular movements grossly intact. HEAD, EARS, NOSE, THROAT: Moist buccal mucosa. Head is atraumatic, normocephalic. Hears conversational speech. No nasal drainage. NECK: Supple. No JV distention. No thyroidomegaly. RESPIRATORY: Non-labored respirations and equal bilateral excursions. No gross wheezes. CARDIOVASCULAR: Palpable 2+ radial pulses. ABDOMEN: Obese. No peritonitis. Upper abdominal pain. LYMPH: No neck lymphadenopathy. MUSCULOSKELETAL: No clubbing cyanosis or edema. Right fuqxb-bgk-twmn amputation. SKIN: Warm and well perfused with good skin turgor. NEUROLOGIC: Cranial nerves II through XII grossly intact. No focal or lateralizing signs. PSYCH: Appropriate affect. Alert and oriented to person, place and time. Displays appropriate insight. CLINCAL LABS: Reviewed. LFTs moderately elevated to 400s admission now trending down to normal. WBC normal 8.6, 10/25/2023. Anemia, hemoglobin 8.7. Blood sugar glucose 211-300 IMAGING: Independently reviewed. CT of the abdomen pelvis reviewed from 10/26/2023 demonstrates moderate dependent sludge of the gallbladder. Moderate hepatomegaly. No bowel obstruction or free air. Findings consistent with hydropic gallbladder. This is my independent interpretation. RADIOLOGY: Report reviewed CT of the abdomen pelvis confirms cholelithiasis with sludge. ECHO: Report reviewed demonstrate ejection fraction 20%, grade 2 diastolic dysfunction ASSESSMENT: 1. Abdominal pain, upper abdomen likely due to gallstones 2. Acute myocardial infarction 3. Chronic anemia 4. Coronary artery disease 5. Diabetic nephropathy with diabetic neuropathy 6. Insulin-dependent diabetes type 2 with hyperglycemia. 7. Grade 2 diastolic dysfunction with congestive heart failure PLAN: 1. Patient is high surgical risk with recent acute myocardial infarction. Surgical invention at this time is contraindicated unless cleared by cardiology. 2. Recommend low-fat diet avoiding high fatty foods over 3 g per serving 3. Clinically, patient complains mostly of nausea as abdominal pain has improved. Antiemetics as needed 4. On record, patient's weight listed as 72.8 kg however weight is not accurate. Will need to reweigh patient for appropriate medications that are weight-based 5. Overall, patient high surgical risk. Should she continue to have abdominal pain, recommend cholecystostomy tube ADVANCE DIRECTIVE: CODE STATUS in chart Thank you for this kind consultation. Past Medical History Past Medical History: Coronary Artery Disease (CAD), Heart Failure, Diabetes Mellitus, Fibromyalgia, GERD/Reflux, Hyperlipidemia, Hypertension, Myocardial Infarction (PA), Musculoskeletal Disorder, Osteoarthritis (OA), Renal Disease, Skin Disorder, Vascular Disorder Additional Past Medical History / Comment(s): Nephrolithiasis and kidney stones- chronic Cortes, peripheral vascular disease, degenerative disc disease-chronic back pain, going to physical therapy, DM type 2, LLE neuropathy Last Myocardial Infarction Date:: 2004,2006, 2015 History of Any Multi-Drug Resistant Organisms: MRSA Year Discovered:: 02/24/16 LT FOOT MDRO Source:: LT FOOT Past Surgical History: AICD, Section, Heart Catheterization, Heart Catheterization With Stent, Orthopedic Surgery, Pacemaker, Tonsillectomy Additional Past Surgical History / Comment(s): Right rotator cuff surgery 2, bilateral carpal tunnel release, 3 cardiac catheterization 6 stents, above-knee amputation of the right lower extremity, incision and debridement of diabetic wounds, [facility] Biventricular AICD placement, Right AKA in 2013 Past Anesthesia/Blood Transfusion Reactions: No Reported Reaction Additional Past Anesthesia/Blood Transfusion Reaction / Comm: CLAUSTERPHOBIA. PAST BLOOD TRANSFUSION-NO REACTION Date of Last Stent Placement:: 2015 Type of Cardiac Device: AICD Device Placement Date:: Past Psychological History: Anxiety, Depression Smoking Status: Former smoker Past Alcohol Use History: None Reported Additional Past Alcohol Use History / Comment(s): SMOKED 20 YEARS, 1 PPD, QUIT 2013 Past Drug Use History: Marijuana Additional Drug Use History / Comment(s): MEDICAL MARIJUANA-uses 3-4 nights per week. - Past Family History Sister(s) Family Medical History: Cancer Additional Family Medical History / Comment(s): 2 SISTERS HAD CANCER. Mother Family Medical History: Coronary Artery Disease (CAD), Hyperlipidemia, Hypertension Additional Family Medical History / Comment(s): CABG, heart disease Father Family Medical History: CVA/TIA, Hyperlipidemia, Hypertension, Myocardial Infarction (PA) Brother(s) Family Medical History: Cancer Additional Family Medical History / Comment(s): Breast cancer. Medications and Allergies Home Medications Medication Instructions Recorded Confirmed Type Amitriptyline HCl [Elavil] 25 mg PO HS 08/28/13 10/23/23 History oxyCODONE-APAP 10-325MG [Percocet 1 tab PO TID PRN 08/28/13 10/23/23 History 10-325 mg] ALPRAZolam [Xanax] 0.5 mg PO HS 10/06/15 10/23/23 History Clopidogrel [Plavix] 75 mg PO DAILY 10/06/15 10/23/23 History QUEtiapine FUMARATE [SEROquel XR] 50 mg PO HS 10/06/15 10/23/23 History Atorvastatin [Lipitor] 80 mg PO HS #30 tab 03/25/16 10/23/23 Rx Nitroglycerin Sl Tabs [Nitrostat] 0.4 mg SUBLINGUAL Q5M PRN 01/05/19 10/23/23 History INSULIN ASPART (NovoLOG) [NovoLOG 15 - 20 unit SQ AC-TID 07/15/20 10/23/23 History (formulary)] Furosemide [Lasix] 40 mg PO DAILY 03/17/21 10/23/23 History tiZANidine [Zanaflex] 4 mg PO BID PRN 03/17/21 10/23/23 History Dapagliflozin Propanediol [Farxiga] 10 mg PO DAILY 05/15/21 10/23/23 History Metoprolol Succinate (ER) [Toprol 50 mg PO DAILY #90 tab 05/30/21 10/23/23 Rx XL] Docusate [Colace] 100 mg PO Q48H 10/23/23 10/23/23 History Ergocalciferol (Vitamin D2) 1,250 mcg PO FR 10/23/23 10/23/23 History [Drisdol (50,000 Iu)] Escitalopram Oxalate [Lexapro] 20 mg PO HS 10/23/23 10/23/23 History Finerenone [Kerendia] 5 mg PO DAILY 10/23/23 10/23/23 History Insulin Degludec [Tresiba 35 units SQ HS 10/23/23 10/23/23 History Flextouch U-200 Pen] Isosorbide Mononitrate ER [Imdur] 30 mg PO DAILY 10/23/23 10/23/23 History Morphine Sulfate [Ms Contin] 30 mg PO Q12HR 10/23/23 10/23/23 History calcitrioL [Rocaltrol] 0.25 mcg PO FR 10/23/23 10/23/23 History Allergies Allergy/AdvReac Type Severity Reaction Status Date / Time vancomycin Allergy Rash/Hives Verified 10/23/23 13:31 ciprofloxacin [From Cipro] AdvReac Nausea & Verified 10/23/23 13:31 Vomiting ciprofloxacin HCl AdvReac Nausea & Verified 10/23/23 13:31 [From Cipro] Vomiting flu vaccine Allergy Rash/Hives Uncoded 10/23/23 13:31 Surgical - Exam Vital Signs Temp Pulse Resp BP Pulse Ox 98.4 F 79 18 101/75 90 L 10/23/23 09:26 10/23/23 09:26 10/23/23 09:26 10/23/23 09:26 10/23/23 09:26 Results - Labs 10/25/23 05:42 10/27/23 06:44 Abnormal Lab Results - Last 24 Hours (Table) 10/26/23 10/26/23 10/26/23 Range/Units 16:56 17:11 19:52 Sodium (137-145) mmol/L Chloride (98-107) mmol/L Carbon Dioxide (22-30) mmol/L BUN (7-17) mg/dL Creatinine (0.52-1.04) mg/dL Glucose (74-99) mg/dL POC Glucose (mg/dL) 147 H 245 H (70-110) mg/dL ALT (4-34) U/L Albumin (3.5-5.0) g/dL Urine Appearance Cloudy H (Clear) Urine Protein 1+ H (Negative) Urine Glucose (UA) 2+ H (Negative) Urine Blood Moderate H (Negative) Ur Leukocyte Esterase Large H (Negative) Urine RBC 61 H (0-5) /hpf Urine WBC 148 H (0-5) /hpf Urine Bacteria Few H (None) /hpf Urine Mucus Rare H (None) /hpf Urine Yeast (Budding) Many H (None) /hpf 10/27/23 10/27/23 10/27/23 Range/Units 06:18 06:44 11:33 Sodium 136 L (137-145) mmol/L Chloride 111 H (98-107) mmol/L Carbon Dioxide 17 L (22-30) mmol/L BUN 44 H (7-17) mg/dL Creatinine 1.54 H (0.52-1.04) mg/dL Glucose 129 H (74-99) mg/dL POC Glucose (mg/dL) 147 H 211 H (70-110) mg/dL ALT 78 H (4-34) U/L Albumin 2.6 L (3.5-5.0) g/dL Urine Appearance (Clear) Urine Protein (Negative) Urine Glucose (UA) (Negative) Urine Blood (Negative) Ur Leukocyte Esterase (Negative) Urine RBC (0-5) /hpf Urine WBC (0-5) /hpf Urine Bacteria (None) /hpf Urine Mucus (None) /hpf Urine Yeast (Budding) (None) /hpf Microbiology - Last 24 Hours (Table) 10/23/23 11:30 Blood Culture Gram Stain - Final Blood Blood Culture - Final Enterobacter cloacae Complex 10/23/23 11:45 Blood Culture Gram Stain - Final Blood Blood Culture - Final Enterobacter cloacae Complex Molecular ID Diabetes panel 10/27/23 Range/Units 06:44 Sodium 136 L (137-145) mmol/L Potassium 4.0 (3.5-5.1) mmol/L Chloride 111 H (98-107) mmol/L Carbon Dioxide 17 L (22-30) mmol/L BUN 44 H (7-17) mg/dL Creatinine 1.54 H (0.52-1.04) mg/dL Glucose 129 H (74-99) mg/dL Calcium 8.6 (8.4-10.2) mg/dL AST 28 (14-36) U/L ALT 78 H (4-34) U/L Alkaline Phosphatase 118 (38-126) U/L Total Protein 6.4 (6.3-8.2) g/dL Albumin 2.6 L (3.5-5.0) g/dL Calcium panel 10/27/23 Range/Units 06:44 Calcium 8.6 (8.4-10.2) mg/dL Albumin 2.6 L (3.5-5.0) g/dL Pituitary panel 10/27/23 Range/Units 06:44 Sodium 136 L (137-145) mmol/L Potassium 4.0 (3.5-5.1) mmol/L Chloride 111 H (98-107) mmol/L Carbon Dioxide 17 L (22-30) mmol/L BUN 44 H (7-17) mg/dL Creatinine 1.54 H (0.52-1.04) mg/dL Glucose 129 H (74-99) mg/dL Calcium 8.6 (8.4-10.2) mg/dL Adrenal panel 10/27/23 Range/Units 06:44 Sodium 136 L (137-145) mmol/L Potassium 4.0 (3.5-5.1) mmol/L Chloride 111 H (98-107) mmol/L Carbon Dioxide 17 L (22-30) mmol/L BUN 44 H (7-17) mg/dL Creatinine 1.54 H (0.52-1.04) mg/dL Glucose 129 H (74-99) mg/dL Calcium 8.6 (8.4-10.2) mg/dL Total Bilirubin 0.6 (0.2-1.3) mg/dL AST 28 (14-36) U/L ALT 78 H (4-34) U/L Alkaline Phosphatase 118 (38-126) U/L Total Protein 6.4 (6.3-8.2) g/dL Albumin 2.6 L (3.5-5.0) g/dL
[2023-10-27 16:37] LABS: Glucose,Whole Blood 178 mg/dL (70-110)
[2023-10-27 20:15] LABS: Glucose,Whole Blood 152 mg/dL (70-110)
[2023-10-27] MEDS: ATORVASTATIN 40 MG TAB PO SCH (20:29)
[2023-10-28] MEDS: MELATONIN 3 MG TABLET PO PRN (01:57)
[2023-10-28 06:03] LABS: Glucose,Whole Blood 102 mg/dL (70-110)
--- NOTE | 2023-10-28 08:24 | P.PN ---
Subjective Progress Note Date: 10/27/23 Principal diagnosis: Reason for follow-up is UTI and bacteremia Patient is a 63-year-old female with a past medical history significant for diabetes mellitus hypertension hyperlipidemia coronary artery disease, did have history of right diabetic foot infection requiring right [id number] amputation also with a history of urinary Retention requiring Cortes catheter placed that was last changed about 10 days before presentation to the hospital patient presenting with weakness and has been diagnosed with sepsis secondary To UTI blood cultures came back positive with Enterobacter. On today's evaluation that is 10/27/2023,the patient remains to be afebrile, patient is on room air not requiring supplemental oxygen and denies any shortness of breath no chest pain or cough.Patient did have some nausea and upper abdominal pain but no vomiting and no diarrhea has been reported. Patient did have a creatinine 1.54 blood and urine pending negative blood cultures pending CT abdominal pelvis cholelithiasis with layering sludge Objective - Vital Signs Vital signs: Vital Signs Temp 98.7 F 10/27/23 16:00 Pulse 93 10/27/23 16:00 Resp 18 10/27/23 16:00 BP 131/81 10/27/23 16:00 Pulse Ox 97 10/27/23 16:00 FiO2 Intake & Output 10/26/23 10/27/23 10/27/23 18:59 06:59 18:59 Intake Total 236 540 Output Total 1514 120 4164 Balance -7304 -061 -4024 Weight 72.8 kg Intake: Oral 236 540 Output: Urine 6958 136 9712 Other: Voiding Method Indwelling Catheter Indwelling Catheter Indwelling Catheter # Voids 650 - Exam GENERAL DESCRIPTION: Middle-aged female up in the chair in no distress RESPIRATORY SYSTEM: Unlabored breathing , decreased breath sounds at bases HEART: S1 S2 regular rate and rhythm , ABDOMEN: Soft , no tenderness EXTREMITIES: No edema feet - Labs CBC & Chem 7: 10/25/23 05:42 10/27/23 06:44 Labs: Abnormal Lab Results - Last 24 Hours (Table) 10/26/23 10/26/23 10/26/23 Range/Units 16:56 17:11 19:52 Sodium (137-145) mmol/L Chloride (98-107) mmol/L Carbon Dioxide (22-30) mmol/L BUN (7-17) mg/dL Creatinine (0.52-1.04) mg/dL Glucose (74-99) mg/dL POC Glucose (mg/dL) 147 H 245 H (70-110) mg/dL ALT (4-34) U/L Albumin (3.5-5.0) g/dL Urine Appearance Cloudy H (Clear) Urine Protein 1+ H (Negative) Urine Glucose (UA) 2+ H (Negative) Urine Blood Moderate H (Negative) Ur Leukocyte Esterase Large H (Negative) Urine RBC 61 H (0-5) /hpf Urine WBC 148 H (0-5) /hpf Urine Bacteria Few H (None) /hpf Urine Mucus Rare H (None) /hpf Urine Yeast (Budding) Many H (None) /hpf 10/27/23 10/27/23 10/27/23 Range/Units 06:18 06:44 11:33 Sodium 136 L (137-145) mmol/L Chloride 111 H (98-107) mmol/L Carbon Dioxide 17 L (22-30) mmol/L BUN 44 H (7-17) mg/dL Creatinine 1.54 H (0.52-1.04) mg/dL Glucose 129 H (74-99) mg/dL POC Glucose (mg/dL) 147 H 211 H (70-110) mg/dL ALT 78 H (4-34) U/L Albumin 2.6 L (3.5-5.0) g/dL Urine Appearance (Clear) Urine Protein (Negative) Urine Glucose (UA) (Negative) Urine Blood (Negative) Ur Leukocyte Esterase (Negative) Urine RBC (0-5) /hpf Urine WBC (0-5) /hpf Urine Bacteria (None) /hpf Urine Mucus (None) /hpf Urine Yeast (Budding) (None) /hpf Microbiology - Last 24 Hours (Table) 10/23/23 11:30 Blood Culture Gram Stain - Final Blood Blood Culture - Final Enterobacter cloacae Complex 10/23/23 11:45 Blood Culture Gram Stain - Final Blood Blood Culture - Final Enterobacter cloacae Complex Molecular ID Assessment and Plan (1) Sepsis Current Visit: Yes Status: Acute Code(s): A41.9 - SEPSIS, UNSPECIFIED ORGANISM SNOMED Code(s): 57976143 (2) UTI (urinary tract infection) Current Visit: Yes Status: Acute Code(s): N39.0 - URINARY TRACT INFECTION, SITE NOT SPECIFIED SNOMED Code(s): 67796061 (3) Allergy to multiple antibiotics Current Visit: Yes Status: Acute Code(s): Z88.1 - ALLERGY STATUS TO OTHER ANTIBIOTIC AGENTS SNOMED Code(s): 156675299 (4) Bacteremia Current Visit: Yes Status: Acute Code(s): R78.81 - BACTEREMIA SNOMED Code( s): 4632567 Plan: 1patient presented to hospital with sepsis in this patient who did have a hypotension generalized weakness most likely combination of catheters urinary tract infection" cholecystitis not entirely excluded however the patient did not have significant tenderness to the right upper quadrant area 2-patient with multiple antibiotic ALLERGIES that would limit the number of antibiotic safe to use 3-blood culture positive for Enterobacter urine is growing Enterobacter and Pseudomonas 4patient did have CT abdominal pelvis concerning for possible cholelithiasis/cholecystitis has been seen by general surgery recommending medical treatment repeat cultures currently pending patient to continue with the cefepime and monitor clinical course closely Dictation was produced using [employer] dictation software. please excuse any grammatical, word or spelling errors.
--- NOTE | 2023-10-28 10:23 | P.PN ---
Progress Note - Text Progress Note Date: 10/28/23 History of present illness; patient is 63-year-old lady with past medical history significant for coronary artery disease with stent placement, diabetes mellitus, fibromyalgia, GERD, hypertension, hyperlipidemia, osteoarthritis, who presented to hospital for generalized weakness. Patient relates she has not been feeling her usual self for the last 3 to 4 days. Patient complains of increased weakness. Patient also having nausea and vomiting. Patient was also complaining of lower quadrant abdominal pain. Patient history of chronic Cortes in the last Cortes was changed 2 weeks back. Patient denied any fever but complaining of chills at home. Patient was also complaining of loss of appe tite. Denied any chest pain or shortness of breath. Patient was complaining of being confused and lethargic as well. Because of the symptoms, patient was brought to the ER Initial lab work done in the ER showed WBC 8.2, hemoglobin 9.3, platelet count 217, sodium 131, potassium 4, BUN 60, creatinine 2.54, glucose 266, lactate 3.2 AST 485, ALT 321, Chest x-ray done in the ER showed cardiomegaly: From mild venous congestion or chronic distal lung disease/pulm fibrosis Patient admitted to internal medicine service October 23: Admitted with septic shock. UTI. Now on the medical floor. Patient's had a Cortes catheter since January 2023. Does feel a bit depressed. Has a powered wheelchair at home. at home is good stage IV cancer. Feeling Roxanna low and a bit suicidal earlier today. Discussed at length. Sitter. Psychiatry consulted. October 24: Patient feeling better this morning. Did eat better. Did sit up in a chair yesterday. Blood culture positive for Enterobacter cloacae and urine culture positive for Klebsiella pneumonia and Pseudomonas. Antibiotics to continue. LFTs coming down October 25: Oral intake good. Getting IV cefepime. Tired. Creatinine slowly coming down October 26: Did set it in the chair earlier today. Creatinine continues to come down slowly. Eating fair. Resume Lipitor at a lower dose October 27: No further abdominal pain. Only nausea. Seen by Dr. Cuba yesterday. Medical manage of cholecystitis. Will change to full liquid diet. Patient up in a chair. Active Medications Acetaminophen (Acetaminophen Tab 325 Mg Tab) 650 mg PO Q4HR PRN PRN Reason: Fever and/or Mild Pain Al Hydroxide/Mg Hydroxide (Mag Hydrox/Al Hydrox/Simeth 30 Ml Cup) 15 ml PO Q6HR PRN PRN Reason: Indigestion Last Admin: 10/27/23 14:16 Dose: 15 ml Alprazolam (Alprazolam 0.5 Mg Tab) 0.5 mg PO HS [facility] Last Admin: 10/27/23 20:29 Dose: 0.5 mg Amitriptyline HCl (Amitriptyline Hcl 25 Mg Tab) 25 mg PO HS [facility] Last Admin: 10/27/23 20:30 Dose: 25 mg Aspirin (Aspirin 81 Mg) 81 mg PO DAILY [facility] Last Admin: 10/28/23 09:41 Dose: 81 mg Atorvastatin Calcium (Atorvastatin 40 Mg Tab) 40 mg PO HS [facility] Last Admin: 10/27/23 20:29 Dose: 40 mg Calcitriol (Calcitriol 0.25 Mcg Cap) 0.25 mcg PO FR [facility] Last Admin: 10/25/23 08:59 Dose: 0.25 mcg Clopidogrel Bisulfate (Clopidogrel 75 Mg Tab) 75 mg PO DAILY [facility] Last Admin: 10/28/23 09:41 Dose: 75 mg Dapagliflozin (Dapagliflozin Propanediol 10 Mg Tablet) 10 mg PO DAILY [facility] Last Admin: 10/28/23 09:41 Dose: 10 mg Darbepoetin Karl (Darbepoetin Karl 60 Mcg/0.3 Ml Syringe) 60 mcg SQ Q7D [facility] Last Admin: 10/24/23 14:28 Dose: 60 mcg Dextrose/Water (Dextrose 50% Syringe 50 Ml) 25 ml IVP PER PROTOCOL PRN; Protocol PRN Reason: Hypoglycemia Dextrose/Water (Dextrose 50% Syringe 50 Ml) 50 ml IVP PER PROTOCOL PRN; Protocol PRN Reason: Hypoglycemia Escitalopram Oxalate (Escitalopram 20 Mg Tab) 20 mg PO HS [facility] Last Admin: 10/27/23 20:30 Dose: 20 mg Heparin Sodium (Porcine) (Heparin Sodium,Porcine 5,000 Unit/Ml 1 Ml Vial) 5,000 unit SQ Q8HR [facility] Last Admin: 10/28/23 09:41 Dose: 5,000 unit Cefepime HCl 2 gm/ Sodium (Chloride) 100 mls @ 25 mls/hr IVPB Q12HR [facility] Last Admin: 10/28/23 09:42 Dose: 25 mls/hr Lactated Ringer's (Lactated Ringers) 1,000 mls @ 50 mls/hr IV .Q20H [facility] Last Admin: 10/27/23 15:30 Dose: 50 mls/hr Insulin Aspart (Insulin Aspart (Novolog) 100 Unit/Ml Vial) 0 unit SQ ACHS [facility]; Protocol Last Admin: 10/28/23 06:09 Dose: Not Given Insulin Aspart (Insulin Aspart (Novolog) 100 Unit/Ml Vial) 5 unit SQ AC-TID [facility] Last Admin: 10/28/23 09:41 Dose: 5 unit Insulin Detemir (Insulin Detemir (Levemir) 100 Unit/Ml Syr) 24 unit SQ HS [facility] Last Admin: 10/27/23 20:29 Dose: 24 unit Melatonin (Melatonin 3 Mg Tablet) 3 mg PO HS PRN PRN Reason: Insomnia Last Admin: 10/28/23 01:57 Dose: 3 mg Metoprolol Tartrate (Metoprolol Tartrate 12.5 Mg Tab) 12.5 mg PO BID [facility] Last Admin: 10/28/23 09:41 Dose: 12.5 mg Naloxone HCl (Naloxone 0.4 Mg/Ml 1 Ml Vial) 0.2 mg IV Q2M PRN PRN Reason: Opioid Reversal Nystatin (Nystatin 100,000 Unit/Gm Powd 15 Gm) 1 applic TOPICAL BID [facility]; Protocol Last Admin: 10/28/23 09:42 Dose: 1 applic Ondansetron HCl (Ondansetron 4 Mg/2 Ml Vial) 4 mg IVP Q8HR PRN PRN Reason: Nausea And Vomiting Last Admin: 10/27/23 17:43 Dose: 4 mg Oxycodone/Acetaminophen (Oxycodone-Apap 10-325mg 1 Each Tab) 1 each PO Q6HR PRN PRN Reason: Pain Last Admin: 10/28/23 09:44 Dose: 1 each Quetiapine Fumarate (Quetiapine 25 Mg Tab) 25 mg PO BID [facility] Last Admin: 10/28/23 09:42 Dose: 25 mg Sodium Bicarbonate (Sodium Bicarbonate Tab 650 Mg Tab) 650 mg PO BID [facility] Last Admin: 10/28/23 09:41 Dose: 650 mg Tizanidine HCl (Tizanidine 4 Mg Tab) 4 mg PO BID PRN PRN Reason: Muscle pain/spasm Social history: . Does use a motorized wheelchair. Patient smoked a pack a day for 20 years stopped in 2014. Physical examination: VITAL SIGNS: 97.8, 90, 18, 160/92, 97% room air GENERAL: Appears well, comfortable EYES: Pupils equal. Conjunctiva normal. HEENT: External appearance of nose and ears normal, oral cavity grossly normal. NECK: JVD not raised; masses not palpable. HEART: First and second heart sounds are normal; no edema. LUNGS: Respiratory rate normal; clear to auscultation. ABDOMEN: Soft, nontender, liver spleen not palpable, no masses palpable. Cortes catheter PSYCH: [Alert and oriented x3; mood and affect l are better MUSCULAR skeletal: Evidence of OA INVESTIGATIONS, reviewed in the clinical context: October 26: Potassium 4 BUN 44 creatinine 1.54 AST 28 ALT 78 October 25: Potassium 3.8 BUN 56 creatinine 1.88 bicarb 17 AST 50 ALT 117 October 24: White count 8.3 hemoglobin 8.7 platelets 241 sodium 135 BUN 63 creatinine 2.29. AST 86 ALT 168 October 23: White count 6.4 hemoglobin 8.3 platelets 216 sodium 131 potassium 3.8 BUN 65 creatinine 2.71 AST 191 ALT 229 October 22: AST 45 ALT 321 troponin I 14.4 UA positive for leukoesterase Urine culture: Klebsiella pneumoniae, Pseudomonas aeruginosa Blood culture: Enterobacter cloacae Abdominal ultrasound: Pericholecystic fluid and gallbladder sludge. Distal CBD's dilated at 7 mm. Distal obstruction was occluded. Mild bilateral hydronephrosis Previous labs: May 2023 creatinine 1.7 Assessment and plan: -Septic shock secondary to bacteremia from UTI: Resolved Patient required pressors, fluids -Sepsis with blood cultures positive for Enterobacter cloacae IV fluids. IV cefepime -Probable gallstone/cholecystitis Seen by Dr. Cuba from general surgery. For medical management due to high risk for surgery. Continue antibiotics -Acute kidney injury, ATN from septic shock: Improving Baseline creatinine 1.7 in May 2023. Admission creatinine 2.54 -Acute UTI with cystitis cultures positive for Klebsiella pneumonia and Pseudomonas aeruginosa, secondary to chronic Cortes catheter, causing septic shock IV cefepime -Coronary artery disease, prior history of stent Aspirin Plavix -Chronic congestive heart failure, EF not known Follow clinically -Diabetes mellitus type 2 chronically on insulin For Accu-Cheks with sliding scale. Levemir. NovoLog. -Chronic fibromyalgia Pain control when necessary -Chronic Cortes catheter for bladder dysfunction since January 2023 -Acute non-ST elevation DC. Precipitated by septic shock. Known underlying CAD. IV heparin-discontinued. Plavix. Aspirin. Lopressor Cardiology following -Metabolic acidosis from kidney injury Sodium bicarbonate -GERD Pepcid -Hyperlipidemia Lipitor-was held temporarily because increased LFTs. Resume at 40 mg -Essential hypertension Lopressor -Acute ischemic hepatitis from septic shock: improving Continue to hold Lipitor -Primary osteoarthritis Pain control -Chronic kidney disease stage 3 likely nephrosclerosis and diabetic nephropathy Creatinine 1.06 June 2023 -Peripheral arterial disease Aspirin Lipitor -Right above-knee amputation -AICD with a pacemaker Telemetry Anxiety depression otherwise specified, for some acute flareup, with some suicidal ideation Consult psychiatry add sitter Resume home medications Lexapro, Seroquel, Xanax, Chronic insomnia: elavil -Chronic medical debility. Does use a motorized wheelchair -Full code Change patient to full liquid diet because of nausea. No abdominal pain. For medical management per surgery. Repeat labs Past Medical History Past Medical History: Coronary Artery Disease (CAD), Heart Failure, Diabetes Mellitus, Fibromyalgia, GERD/Reflux, Hearing Disorder / Deafness, Hyperlipidemia, Hypertension, Myocardial Infarction (DC), Musculoskeletal Disorder, Osteoarthritis (OA), Renal Disease, Skin Disorder, Vascular Disorder Additional Past Medical History / Comment(s): See Dr Durant's H&P nephrolithiasis and kidney stones- chronic Cortes, peripheral vascular disease, degenerative disc disease-chronic back pain, Rt AKA-working on using prosthesis, going to physical therapy Last Myocardial Infarction Date:: 2004,2006, 2015 History of Any Multi-Drug Resistant Organisms: MRSA Date of last positivie culture/infection: 02/24/16 LT FOOT-VERIFIED PER DR VASQUEZ OFFICE MDRO Source:: LT FOOT Past Surgical History: AICD, Section, Heart Catheterization, Heart Catheterization With Stent, Orthopedic Surgery, Pacemaker, Tonsillectomy Additional Past Surgical History / Comment(s): Right rotator cuff surgery 2, bilateral carpal tunnel release,3 cardiac catheterization 6 stents, above-knee amputation of the right lower extremity, incision and debridement of diabetic wounds, [facility] Biventricular AICD placement Past Anesthesia/Blood Transfusion Reactions: Motion Sickness Additional Past Anesthesia/Blood Transfusion Reaction / Comment(s): CLAUSTERPHOBIA. PAST BLOOD TRANSFUSION-NO REACTION Date of Last Stent Placement:: 2015 Type of Cardiac Device: AICD Device Placement Date:: Past Psychological History: Anxiety, Depression Smoking Status: Former smoker
[2023-10-28 11:33] LABS: Glucose,Whole Blood 146 mg/dL (70-110)
--- NOTE | 2023-10-28 12:42 | P.PN ---
Subjective Progress Note Date: 10/28/23 This is a 63-year-old female patient with a past medical history significant for CAD with prior percutaneous revascularization as well as cardiomyopathy and valvular heart disease with mitral regurgitation as well as chronic kidney disease and diabetes and hypertension and dyslipidemia who was admitted to the hospital with UTI/sepsis and we consulted to see the patient because of abnormal troponin which has been treated medically. October 26, 2023 The patient was seen and evaluated this morning which she is feeling better. No cardiovascular symptoms. Hemodynamically she is stable. Currently she is on dual antiplatelet therapy. She is not on a statin because of elevated liver function test. She is not on PAGE inhibitor because she had history of hypotension with PAGE inhibitor before. Kidney function has been improving. The examination is remarkable for regular rhythm with soft systolic murmur at the apical area and clear breathing sounds bilaterally. October 27, 2023 The patient was seen and evaluated this morning. She is asymptomatic with no symptoms of any chest pain or chest discomfort or shortness of breath. She is a stable hemodynamically as well. She remains on dual antiplatelet therapy along with anti-ischemic medications with beta-cristopher. She continues to be on antibiotic regarding the UTI and currently she is on IV antibiotic. Blood work revealed improvement in the creatinine and her creatinine today is 1.54 which is almost her baseline. She is not on a statin because of elevated liver function test when she presented to the hospital but her liver function test has been almost back to normal but I am going to repeat the AST and ALT and if both came in to be normal she will be started on atorvastatin at high intensity. Severe underlying coronary artery disease need to be ruled out either invasively or noninvasively once the UTI/sepsis resolved. The examination is remarkable for regular rhythm with a systolic murmur and clear breathing sounds bilaterally and no edema was noted in the lower extremities October 28, 2023 Patient was seen and examined at bedside this a.m. She is hemodynamically stable. She is in sinus rhythm with ventricularly paced rhythm with intermittent PVCs on telemetry. No sustained arrhythmias noticed in last 24 hours Labs from yesterday potassium 4, BUN 44, creatinine 1.5, AST 28, ALT 78, trending down. Assessment UTI/sepsis Acute on chronic renal failure Evidence of myocardial injury with no evidence of ischemia. Troponin elevation up to 15, treated medically New worsening cardiomyopathy EF 20 to 25%. Previous documented echo showed an EF of around 35% s/p Primary prevention ICD 2016, s/p icd lead fracture s/p replacement in Valvular heart disease with severe mitral regurgitation Multiple comorbid conditions Plan Continue dual antiplatelet therapy Continue Lipitor, liver function is trending down Metoprolol 12.5 mg twice daily Monitor renal function, repeat labs. If renal function is stable, start some GDMT Stop Dapagliflozin due to concerns of active UTI Start bumex 1 mg p.o. daily Patient will need a heart catheterization procedure prior to discharge to rule out severe CAD as the reason for worsening cardiomyopathy Objective - Vital Signs Vital signs: Vital Signs Temp 97.5 F L 10/28/23 08:00 Pulse 94 10/28/23 08:00 Resp 18 10/28/23 08:00 BP 137/84 10/28/23 08:00 Pulse Ox 95 10/28/23 08:00 FiO2 Intake & Output 10/27/23 10/28/23 10/28/23 18:59 06:59 18:59 Intake Total 100 Output Total 2300 600 675 Balance -2300 -600 -575 Weight 72.8 kg Intake: Intake, IV Titration 100 Amount Cefepime 2 gm In Sodium 100 Chloride 0.9% 100 ml @ 25 mls/hr IVPB Q12HR [facility] Rx #:[id number] Output: Urine 2300 600 675 Other: Voiding Method Indwelling Catheter Indwelling Catheter Indwelling Catheter - Labs CBC & Chem 7: 10/25/23 05:42 10/27/23 06:44 Labs: Abnormal Lab Results - Last 24 Hours (Table) 10/27/23 10/27/23 10/28/23 Range/Units 16:36 20:13 11:32 POC Glucose (mg/dL) 178 H 152 H 146 H (70-110) mg/dL Microbiology - Last 24 Hours (Table) 10/26/23 14:24 Blood Culture - Preliminary Blood 10/26/23 17:11 Urine Culture - Preliminary Urine,Voided
[2023-10-28 12:45] LABS: Glucose,Whole Blood 106 mg/dL (70-110)
--- NOTE | 2023-10-28 14:09 | P.PN ---
Subjective patient is seen for follow-up for acute kidney injury and chronic kidney disease. renal function has improved significantly with serum creatinine down to 1.5 mg/dL from 2.7 at peak. Maintained on antibiotics for gram-negative sepsis. Blood cultures are growing Enterobacter cloacae and urine cultures is growing Klebsiella pneumonia and Pseudomonas no significant complaints today Objective - Vital Signs Vital signs: Vital Signs Temp 97.5 F L 10/28/23 08:00 Pulse 94 10/28/23 08:00 Resp 18 10/28/23 08:00 BP 137/84 10/28/23 08:00 Pulse Ox 95 10/28/23 08:00 FiO2 Intake & Output 10/27/23 10/28/23 10/28/23 18:59 06:59 18:59 Intake Total 100 Output Total 2300 600 675 Balance -2300 600 575 Weight 72.8 kg Intake: Intake, IV Titration 100 Amount Cefepime 2 gm In Sodium 100 Chloride 0.9% 100 ml @ 25 mls/hr IVPB Q12HR [facility] Rx #:[id number] Output: Urine 2300 600 675 Other: Voiding Method Indwelling Catheter Indwelling Catheter Indwelling Catheter - Exam patient is awake, comfortable, no acute distress. Examination of the heart S1 and S2 Examination of the lungs bilateral breath sounds are heard Abdomen is soft nontender Examination of lower extremities shows 1+ edema, right AKA [employer] exam grossly intact - Labs CBC & Chem 7: 10/25/23 05:42 10/27/23 06:44 Labs: Abnormal Lab Results - Last 24 Hours (Table) 10/27/23 10/27/23 10/28/23 Range/Units 16:36 20:13 11:32 POC Glucose (mg/dL) 178 H 152 H 146 H (70-110) mg/dL Microbiology - Last 24 Hours (Table) 10/26/23 14:24 Blood Culture - Preliminary Blood 10/26/23 17:11 Urine Culture - Preliminary Urine,Voided Assessment and Plan Assessment: 1. Acute kidney injury, ATN secondary to sepsis and hypotension, nonoliguric. UA is suggestive of UTI. ultrasound shows mild bilateral hydronephrosis. This is not new and patient has chronic indwelling Cortes catheter. 2. UTI with sepsis, urine culture is growing Klebsiella pneumonia and Pseudomonas 3. Gram-negative sepsis with blood cultures growing Enterobacter cloacae 4. Peripheral vascular disease status post right AKA 5. CK D stage IV secondary to diabetic kidney disease. Baseline creatinine 1.7-1.8 mg/dL. 6. Non-gap metabolic acidosis secondary to acute kidney injury 7. Anemia of chronic disease with mild iron deficiency. I will hold off on IV iron due to active infection. Continue with Aranesp Plan: DC IV fluids continue oral sodium bicarb Continue with antibiotics Continue with indwelling Cotres catheter. Repeat labs in a.m. Continue to avoid nephrotoxic agents continue Aranesp Hold IV iron due to ongoing active infection.
--- NOTE | 2023-10-28 14:12 | P.PN ---
Subjective Progress Note Date: 10/28/23 This is a 63-year-old female patient with a known history of coronary artery disease with multiple previous stent placements, cardiomyopathy status post AICD placement, nephrolithiasis, hearing disorder, hypertension, hyperlipidemia, diabetes mellitus, dirnw-jjo-vsln amputation on the right, former smoker, chronic Cortes due to kidney issues. She presented here to the emergency room earlier this morning with complaints of generalized weakness, nausea vomiting and fall. Chest x-ray revealed cardiomegaly with mild venous congestion or chronic interstitial lung disease/pulmonary fibrosis. More confluent area of consolidation in the left perihilar and upper lobes. Neoplasm not excluded. EKG reveals atrial sensing and ventricular pacing. Ultrasound of the abdomen/bladder is pending. White count 8.2. Hemoglobin 9.3. Platelets 217. Sodium 131. Potassium 4.0. Bicarb 16. BUN 60. Creatinine 2.54. Lactic acid 3.2. Glucose 266. AST 45. ALT 321. Urinalysis turbid with moderate blood. L arge leukocyte esterase, greater than 182 WBCs many WBC clumps many bacteria. Culture pending. Procalcitonin pending. She has been initiated on ceftriaxone. She is seen today in consultation in the emergency department. She was having issues with hypotension and is requiring norepinephrine and ICU admission. She is awake and alert. Maintaining O2 saturations in the 90s on 2 L/min per nasal cannula. Currently on norepinephrine at 0.02 mcg/kg/min. He has received 1.5 L of fluid resuscitation. Normal saline at 75 MLS per hour. The patient is seen today October 24, 2023 in follow-up in the emergency department. She is currently awake and alert in no acute distress. She is feeling a bit better today compared to yesterday. She did have issues with chest pain yesterday and was found to have elevated troponins and is currently on a heparin drip. Her mean arterial pressures have been in the 70s and 80s. She is off the norepinephrine. She is afebrile. She is maintaining good O2 sa turations up to 100% on 3 L/min per nasal cannula. She is afebrile. Hemodynamically stable. White count 6.4. Hemoglobin 8.3. Platelets 216. Sodium 131. Potassium 3.8. Bicarb 16. BUN 65. Creatinine 2.71. Glucose 127. AST 191. ALT 229. Blood cultures are positive for gram-negative bacilli. She remains. Patient is seen today October 25, 2023 in room 374. She is resting comfortably in bed this morning eating her breakfast. She is satting well on room air. She states her breathing is comfortable and denies any shortness of breath or chest pain. She remains on the heparin drip for the elevated troponins. She remains afebrile. She is hemodynamically stable. White count 8.3. Hemoglobin 8.7. Platelets 241. Sodium 135, Potassium 3.6, Bicard 18. BUN 63. Creatinine 2.29. Glucose 117. Blood cultures show gram-negative bacilli & Enterobacter Cloacae. She remains on Cefepime. Patient is seen today October 26, 2023 in room 374. He is resting comfortably in bed awake alert and in no acute distress. She is satting 90s on room air. He denies any chest shortness of breath or chest pain. She is on subcutaneous heparin per protocol. She remains afebrile. Hemodynamically stable. Sodium 136, potassium 3.8, chloride 112, bicarb 17, BUN 56, creatinine 1.88, glucose 126. He remains on LR at a rate of 75 an hour. Urine culture shows Klebsiella pneumoniae and Pseudomonas aeruginosa. Blood culture shows Enterobacter cloacae. Remains on cefepime which was started on 10/23. Chest x-ray shows stable cardiomegaly with findings suggestive of pulmonary fibrosis. Progress note dated October 27, 2023. 63-year-old female seen today in room 374. The patient is on room air. No IV fluids. Blood cultures were positive for Enterobacter cloacae. Urine cultures were positive for both Klebsiella, and Pseudomonas. The patient continues on cefepime. Current labs include a sodium 136, potassium 4, chlorides 111, CO2 17, anion gap 8, BUN 44, and creatinine 1.54. Glucose is 211. Albumin is 2.6. The patient is seen today October 28, 2023 in follow-up on the selective care unit. She is currently sitting up in a chair. Awake and alert in no acute distress. Maintaining O2 saturations in the 90s on room air. She has been having abdominal pain possibly related to gallstones. She is considered high risk surgical candidate with her recent myocardial infarction. Cardiac catheterization pending. Blood cultures were positive for Enterobacter cloacae complex. Follow-up blood culture revealing no growth thus far. Glucose 146. She remains on cefepime. Heparin for DVT prophylaxis. Objective - Vital Signs Vital signs: Vital Signs Temp 97.5 F L 10/28/23 08:00 Pulse 94 10/28/23 08:00 Resp 18 10/28/23 08:00 BP 137/84 10/28/23 08:00 Pulse Ox 95 10/28/23 08:00 FiO2 Intake & Output 10/27/23 10/28/23 10/28/23 18:59 06:59 18:59 Intake Total 100 Output Total 2300 600 675 Balance -2300 -600 57 Weight 72.8 kg Intake: Intake, IV Titration 100 Amount Cefepime 2 gm In Sodium 100 Chloride 0.9% 100 ml @ 25 mls/hr IVPB Q12HR [facility] Rx #:[id number] Output: Urine 2300 600 675 Other: Voiding Method Indwelling Catheter Indwelling Catheter Indwelling Catheter - Exam GENERAL EXAM: Alert, pleasant 63-year-old female, up in a chair, on room air, comfortable in no apparent distress. HEAD: Normocephalic. EYES: Normal reaction of pupils, equal size. NOSE: Clear with pink turbinates. THROAT: No erythema or exudates. NECK: No masses, no JVD. CHEST: No chest wall deformity. LUNGS: Equal air entry with few scattered rhonchi. CVS: S1 and S2 normal with no audible murmur, regular rhythm. ABDOMEN: No hepatosplenomegaly, normal bowel sounds, no guarding or rigidity. SPINE: No scoliosis or deformity SKIN: No rashes CENTRAL NERVOUS SYSTEM: No focal deficits, tone is normal in all 4 extremities. EXTREMITIES: Right hkejt-upa-hukl amputation. There is no peripheral edema. No clubbing, no cyanosis. Peripheral pulses are intact. - Labs CBC & Chem 7: 10/25/23 05:42 10/27/23 06:44 Labs: Abnormal Lab Results - Last 24 Hours (Table) 10/27/23 10/27/23 10/28/23 Range/Units 16:36 20:13 11:32 POC Glucose (mg/dL) 178 H 152 H 146 H (70-110) mg/dL Microbiology - Last 24 Hours (Table) 10/26/23 14:24 Blood Culture - Preliminary Blood 10/26/23 17:11 Urine Culture - Preliminary Urine,Voided Assessment and Plan Assessment: Generalized weakness with fall, nausea, vomiting suspect secondary to urinary tract infection Acute urinary tract infection secondary to Klebsiella pneumoniae and Pseudomonas aeruginosa Acute kidney injury secondary to dehydration, hypotension Chronic Cortes due to urinary retention Bacteremia secondary to Enterobacter cloacae complex, currently on cefepime Sepsis with septic shock requiring pressor support secondary to above, improved and off pressors Acute hypoxemic respiratory failure secondary to mild venous congestion recovered and on room air Non-ST segment elevation myocardial infarction Transaminitis, statins on hold Coronary artery disease with multiple stent placements Ischemic cardiomyopathy status post biventricular AICD placement Obesity Diabetes mellitus Peripheral vascular disease Qrcnh-hoo-ivls amputation of the right lower extremity Hyperlipidemia Anxiety/depression Plan: The patient was seen and evaluated Labs and medications reviewed Continue with cefepime Cardiology planning cardiac catheterization prior to discharge Abdominal pain with gallstones, high risk for surgery at this time Currently stable and on room air We will continue to follow I have personally seen and examined the patient, performed the documentation and the assessment and plan as written. Number of minutes spent on the visit: 10.
--- NOTE | 2023-10-28 14:13 | P.PN ---
Subjective Progress Note Date: 10/28/23 CHIEF COMPLAINT: abdominal pain HISTORY OF PRESENT ILLNESS: The patient is a 63-year-old female with multiple comorbidities including recent myocardial infarctions and urinary tract infection. Patient found to have evidence of gallstones and hydropic gallbladder. Patient reports nausea and episodes of vomiting last night. Reports decreased appetite this morning. Afebrile. This afternoon patient had a full liquid diet with milk based products. And she continues to have nausea PHYSICAL EXAM: VITAL SIGNS: Reviewed GENERAL: Well-developed in no acute distress. HEENT: No sclera icterus. Extraocular movements grossly intact. Moist buccal mucosa. Head is atraumatic, normocephalic. Hears conversational speech. No nasal drainage. NECK: Supple without lymphadenopathy. CHEST: Non-labored respirations and equal bilateral excursions. CARDIOVASCULAR: Palpable 2+ radial pulses. ABDOMEN: Soft. Nondistended. Nontender. MUSCULOSKELETAL: No clubbing or cyanosis. NEUROLOGIC: No focal or lateralizing signs. Cranial nerves II through XII grossly intact. PSYCH: Appropriate affect. Alert and oriented to person, place and time. SKIN: Well perfused. Good skin turgor. ASSESSMENT: 1. Abdominal pain, upper abdomen likely due to gallstones 2. Acute myocardial infarction 3. Chronic anemia 4. Coronary artery disease 5. Diabetic nephropathy with diabetic neuropathy 6. Insulin-dependent diabetes type 2 with hyperglycemia. 7. Grade 2 diastolic dysfunction with congestive heart failure PLAN: -Patient is high surgical risk with recent acute myocardial infarction. Surgical invention at this time is contraindicated unless cleared by cardiology. -Recommend low-fat diet. Avoid milk products -HIDA scan ordered to assess for cholecystitis -Overall, patient high surgical risk. Should she continue to have abdominal pain, recommend cholecystostomy tube Physician [employer] note has been reviewed by physician. Signing provider agrees with the documented findings, assessment, and plan of care. Objective - Vital Signs Vital signs: Vital Signs Temp 97.5 F L 10/28/23 08:00 Pulse 94 10/28/23 08:00 Resp 18 10/28/23 08:00 BP 137/84 10/28/23 08:00 Pulse Ox 95 10/28/23 08:00 FiO2 Intake & Output 10/27/23 10/28/23 10/28/23 18:59 06:59 18:59 Intake Total 100 Output Total 2300 600 675 Balance -2300 -600 -556 Weight 72.8 kg Intake: Intake, IV Titration 100 Amount Cefepime 2 gm In Sodium 100 Chloride 0.9% 100 ml @ 25 mls/hr IVPB Q12HR [facility] Rx #:[id number] Output: Urine 2300 600 675 Other: Voiding Method Indwelling Catheter Indwelling Catheter Indwelling Catheter - Labs CBC & Chem 7: 10/25/23 05:42 10/27/23 06:44 Labs: Abnormal Lab Results - Last 24 Hours (Table) 10/27/23 10/27/23 10/28/23 Range/Units 16:36 20:13 11:32 POC Glucose (mg/dL) 178 H 152 H 146 H (70-110) mg/dL Microbiology - Last 24 Hours (Table) 10/26/23 14:24 Blood Culture - Preliminary Blood 10/26/23 17:11 Urine Culture - Preliminary Urine,Voided
[2023-10-28 16:28] LABS: Glucose,Whole Blood 233 mg/dL (70-110)
[2023-10-28 20:00] LABS: Glucose,Whole Blood 271 mg/dL (70-110)
[2023-10-29 05:29] LABS: Glucose,Whole Blood 114 mg/dL (70-110)
[2023-10-29 07:27] LABS: Anisocytosis Slight; Basophils % (A) 0 %; Eosinophils # (A) 0.3 k/uL (0-0.7); Eosinophils % (A) 3 %; HCT 28.5 % (34.0-46.0); HGB 8.6 gm/dL (11.4-16.0); Hypochromasia Marked; Lymphocytes % (A) 21 %; MCHC 30.3 g/dL (31.0-37.0); MCV 88.9 fL (80.0-100.0); Mean Platelet Volume 8.8; Monocytes # (A) 0.8 k/uL (0-1.0); Monocytes % (A) 8 %; Neutrophils % (A) 65 %; Platelet Count 231 k/uL (150-450); RDW 18.8 % (11.5-15.5); WBC 9.3 k/uL (3.8-10.6)
[2023-10-29 09:10] LABS: ALT 89 U/L (4-34); AST 96 U/L (14-36); African American GFR (CKD) 49 (>60 ml/min/1.73 sqM); Albumin 2.9 g/dL (3.5-5.0); Alkaline Phosphatase 275 U/L (38-126); Anion Gap 8 mmol/L; Blood Urea Nitrogen 33 mg/dL (7-17); Calcium 8.7 mg/dL (8.4-10.2); Carbon Dioxide 18 mmol/L (22-30); Chloride 112 mmol/L (98-107); Glucose 88 mg/dL (74-99); Non-African American GFR(CKD) 42 (>60 ml/min/1.73 sqM); Sodium 138 mmol/L (137-145); Total Bilirubin 0.9 mg/dL (0.2-1.3); Total Protein 6.8 g/dL (6.3-8.2)
[2023-10-29 11:51] LABS: Glucose,Whole Blood 113 mg/dL (70-110)
--- NOTE | 2023-10-29 12:41 | NM ---
EXAMINATION TYPE: NM hepatobiliary wo EF DATE OF EXAM: 10/29/2023 11:17 AM COMPARISON: CT abdomen pelvis most recent from 10/26/2023 CLINICAL INDICATION:Female, 63 years old with history of RUQ pain, nausea, vomiting; TECHNIQUE: The patient was given 5.27 mCi of Technetium 99m-Mebrofenin as a radiotracer and multiple scintigraphic images were obtained of the abdomen. FINDINGS: Early termination of the exam due to patient discomfort. Normal uptake of radiotracer was identified within the liver with excretion into the hepatic and comm on biliary ducts within 15 minutes. There was normal progressive washout of the liver over the cours e of the study. Radiotracer uptake within the gallbladder at 15 minutes.Small bowel activity not defi nitively visualized. IMPRESSION: There is thought to be radiotracer within the gallbladder lumen. Wall thickening on prior CT felt to be due to due to third spacing of fluid in the setting of congestive heart failure and/or hepatic cir rhosis given nodular contour to liver. If there remains clinical concern for acute cholecystitis cons ider repeat exam.
--- NOTE | 2023-10-29 13:18 | P.PN ---
Subjective patient is seen for follow-up for acute kidney injury and chronic kidney disease. Renal function has improved significantly with serum creatinine down to 1.3 mg/dL from 2.7 at peak. Maintained on antibiotics for gram-negative sepsis. Blood cultures are growing Enterobacter cloacae and urine cultures is growing Klebsiella pneumonia and Pseudomonas complaining of shortness of breath today. IV fluids were discontinued yesterday. Objective - Vital Signs Vital signs: Vital Signs Temp 97.5 F L 10/29/23 08:00 Pulse 99 10/29/23 08:00 Resp 20 10/29/23 08:00 BP 114/60 10/29/23 08:00 Pulse Ox 96 10/29/23 08:00 FiO2 Intake & Output 10/28/23 10/29/23 10/29/23 18:59 06:59 18:59 Intake Total 100 200 50 Output Total 675 700 Balance -575 -500 50 Weight 71.5 kg Intake: Intake, IV Titration 100 200 Amount Cefepime 2 gm In Sodium 100 Chloride 0.9% 100 ml @ 25 mls/hr IVPB Q12HR [facility] Rx #:[id number] Lactated Ringers 1,000 ml 200 @ 50 mls/hr IV .Q20H [facility] Rx#:[id number] Oral 50 Output: Urine 675 700 Other: Voiding Method Indwelling Catheter Indwelling Catheter Indwelling Catheter - Exam patient is awake, comfortable, no acute distress. Examination of the heart S1 and S2 Examination of the lungs bilateral breath sounds are heard Abdomen is soft nontender Examination of lower extremities shows 1+ edema, right AKA [employer] exam grossly intact - Labs CBC & Chem 7: 10/29/23 06:58 10/29/23 06:58 Labs: Abnormal Lab Results - Last 24 Hours (Table) 10/28/23 10/28/23 10/29/23 Range/Units 16:27 19:57 05:28 RBC (3.80-5.40) m/uL Hgb (11.4-16.0) gm/dL Hct (34.0-46.0) % MCHC (31.0-37.0) g/dL RDW (11.5-15.5) % Chloride (98-107) mmol/L Carbon Dioxide (22-30) mmol/L BUN (7-17) mg/dL Creatinine (0.52-1.04) mg/dL POC Glucose (mg/dL) 233 H 271 H 114 H (70-110) mg/dL AST (14-36) U/L ALT (4-34) U/L Alkaline Phosphatase (38-126) U/L Albumin (3.5-5.0) g/dL 10/29/23 10/29/23 10/29/23 Range/Units 06:58 06:58 11:48 RBC 3.20 L (3.80-5.40) m/uL Hgb 8.6 L (11.4-16.0) gm/dL Hct 28.5 L (34.0-46.0) % MCHC 30.3 L (31.0-37.0) g/dL RDW 18.8 H (11.5-15.5) % Chloride 112 H (98-107) mmol/L Carbon Dioxide 18 L (22-30) mmol/L BUN 33 H (7-17) mg/dL Creatinine 1.33 H (0.52-1.04) mg/dL POC Glucose (mg/dL) 113 H (70-110) mg/dL AST 96 H (14-36) U/L ALT 89 H (4-34) U/L Alkaline Phosphatase 275 H (38-126) U/L Albumin 2.9 L (3.5-5.0) g/dL Microbiology - Last 24 Hours (Table) 10/26/23 17:11 Urine Culture - Final Urine,Voided Maribell albicans 10/26/23 14:24 Blood Culture - Preliminary Blood Assessment and Plan Assessment: 1. Acute kidney injury, ATN secondary to sepsis and hypotension, nonoliguric. UA is suggestive of UTI. ultrasound shows mild bilateral hydronephrosis. This is not new and patient has chronic indwelling Cortes catheter. 2. UTI with sepsis, urine culture is growing Klebsiella pneumonia and Pseudomonas 3. Gram-negative sepsis with blood cultures growing Enterobacter cloacae 4. Peripheral vascular disease status post right AKA 5. CK D stage IV secondary to diabetic kidney disease. Baseline creatinine 1.7-1.8 mg/dL. 6. Non-gap metabolic acidosis secondary to acute kidney injury 7. Anemia of chronic disease with mild iron deficiency. I will hold off on IV iron due to active infection. Continue with Aranesp Plan: IV Lasix 1 continue oral sodium bicarb Continue with antibiotics Continue with indwelling Cortes catheter. Repeat labs in a.m. Continue to avoid nephrotoxic agents continue Aranesp Hold IV iron due to ongoing active infection.
--- NOTE | 2023-10-29 13:45 | P.PN ---
Subjective Progress Note Date: 10/28/23 Principal diagnosis: Reason for follow-up is UTI and bacteremia Patient is a 63-year-old female with a past medical history significant for diabetes mellitus hypertension hyperlipidemia coronary artery disease, did have history of right diabetic foot infection requiring right aaesi-prj-kaui amputation also with a history of urinary Retention requiring Cortes catheter placed that was last changed about 10 days before presentation to the hospital patient presenting with weakness and has been diagnosed with sepsis secondary To UTI blood cultures came back positive with Enterobacter. On today's evaluation that is 10/28/2023, the patient continues to be afebrile, the patient is on room air and breathing comfortably, the Pt denies having any chest pain or cough, the patient mention abdominal pain has decreased in intensity, no vomiting or any diarrhea has been reported by the nursing staff. No lab draw today Objective - Vital Signs Vital signs: Vital Signs Temp 97.5 F L 10/28/23 08:00 Pulse 94 10/28/23 08:00 Resp 18 10/28/23 08:00 BP 137/84 10/28/23 08:00 Pulse Ox 95 10/28/23 08:00 FiO2 Intake & Output 10/27/23 10/28/23 10/28/23 18:59 06:59 18:59 Intake Total 100 Output Total 2300 600 675 Balance -2300 -600 -575 Weight 72.8 kg Intake: Intake, IV Titration 100 Amount Cefepime 2 gm In Sodium 100 Chloride 0.9% 100 ml @ 25 mls/hr IVPB Q12HR [facility] Rx #:[id number] Output: Urine 2300 600 675 Other: Voiding Method Indwelling Catheter Indwelling Catheter Indwelling Catheter - Exam GENERAL DESCRIPTION: Middle-aged female up in the chair in no distress RESPIRATORY SYSTEM: Unlabored breathing , decreased breath sounds at bases HEART: S1 S2 regular rate and rhythm , ABDOMEN: Soft , no tenderness EXTREMITIES: No edema feet - Labs CBC & Chem 7: 10/29/23 06:58 10/29/23 06:58 Labs: Abnormal Lab Results - Last 24 Hours (Table) 10/27/23 10/27/23 10/28/23 Range/Units 16:36 20:13 11:32 POC Glucose (mg/dL) 178 H 152 H 146 H (70-110) mg/dL Microbiology - Last 24 Hours (Table) 10/26/23 14:24 Blood Culture - Preliminary Blood 10/26/23 17:11 Urine Culture - Preliminary Urine,Voided Assessment and Plan (1) Sepsis Current Visit: Yes Status: Acute Code(s): A41.9 - SEPSIS, UNSPECIFIED ORGANISM SNOMED Code(s): 55618465 (2) UTI (urinary tract infection) Current Visit: Yes Status: Acute Code(s): N39.0 - URINARY TRACT INFECTION, SITE NOT SPECIFIED SNOMED Code(s): 61043778 (3) Allergy to multiple antibiotics Current Visit: Yes Status: Acute Code(s): Z88.1 - ALLERGY STATUS TO OTHER ANTIBIOTIC AGENTS SNOMED Code(s): 267212801 (4) Bacteremia Current Visit: Yes Status: Acute Code(s): R78.81 - BACTEREMIA SNOMED Code(s): 1090095 Plan: 1patient presented to hospital with sepsis in this patient who did have a hypotension generalized weakness most likely combination of catheters urinary tract infection" cholecystitis not entirely excluded however the patient did not have significant tenderness to the right upper quadrant area 2-patient with multiple antibiotic ALLERGIES that would limit the number of antibiotic safe to use 3-blood culture positive for Enterobacter urine is growing Enterobacter and Pseudomonas 4patient did have CT abdominal pelvis concerning for possible ch olelithiasis/cholecystitis has been seen by general surgery recommending medical treatment, HIDA scan has been ordered results will be followed continue the patient on cefepime Dictation was produced using [email or web address] dictation software. please excuse any grammatical, word or spelling errors. Time with Patient: Less than 30
--- NOTE | 2023-10-29 13:47 | P.PN ---
Subjective Progress Note Date: 10/29/23 Principal diagnosis: Reason for follow-up is UTI and bacteremia Patient is a 63-year-old female with a past medical history significant for diabetes mellitus hypertension hyperlipidemia coronary artery disease, did have history of right diabetic foot infection requiring right cqpsh-iqd-nscx amputation also with a history of urinary Retention requiring Cortes catheter placed that was last changed about 10 days before presentation to the hospital patient presenting with weakness and has been diagnosed with sepsis secondary To UTI blood cultures came back positive with Enterobacter. On today's evaluation that is 10/29/2023, Patient is afebrile patient is currently on room air and denies having any shortness of breath, the patient denies any chest pain or cough, the patient is complaining of some nausea and abdominal pain after coming back from [facility] scan no vomiting or diarrhea has been reported. Patient white count is 9.3, creatinine is 1.3 3 repeat urine showing Maribell repeat blood culture negative Objective - Vital Signs Vital signs: Vital Signs Temp 97.5 F L 10/29/23 08:00 Pulse 99 10/29/23 08:00 Resp 20 10/29/23 08:00 BP 114/60 10/29/23 08:00 Pulse Ox 96 10/29/23 08:00 FiO2 Intake & Output 10/28/23 10/29/23 10/29/23 18:59 06:59 18:59 Intake Total 100 200 50 Output Total 675 700 Balance -575 -500 50 Weight 71.5 kg Intake: Intake, IV Titration 100 200 Amount Cefepime 2 gm In Sodium 100 Chloride 0.9% 100 ml @ 25 mls/hr IVPB Q12HR [facility] Rx #:[id number] Lactated Ringers 1,000 ml 200 @ 50 mls/hr IV .Q20H [facility] Rx#:[id number] Oral 50 Output: Urine 675 700 Other: Voiding Method Indwelling Catheter Indwelling Catheter Indwelling Catheter - Exam GENERAL DESCRIPTION: Middle-aged female up in the chair in no distress RESPIRATORY SYSTEM: Unlabored breathing , decreased breath sounds at bases HEART: S1 S2 regular rate and rhythm , ABDOMEN: Soft , no tenderness EXTREMITIES: No edema feet - Labs CBC & Chem 7: 10/29/23 06:58 10/29/23 06:58 Labs: Abnormal Lab Results - Last 24 Hours (Table) 10/28/23 10/28/23 10/29/23 Range/Units 16:27 19:57 05:28 RBC (3.80-5.40) m/uL Hgb (11.4-16.0) gm/dL Hct (34.0-46.0) % MCHC (31.0-37.0) g/dL RDW (11.5-15.5) % Chloride (98-107) mmol/L Carbon Dioxide (22-30) mmol/L BUN (7-17) mg/dL Creatinine (0.52-1.04) mg/dL POC Glucose (mg/dL) 233 H 271 H 114 H (70-110) mg/dL AST (14-36) U/L ALT (4-34) U/L Alkaline Phosphatase (38-126) U/L Albumin (3.5-5.0) g/dL 10/29/23 10/29/23 10/29/23 Range/Units 06:58 06:58 11:48 RBC 3.20 L (3.80-5.40) m/uL Hgb 8.6 L (11.4-16.0) gm/dL Hct 28.5 L (34.0-46.0) % MCHC 30.3 L (31.0-37.0) g/dL RDW 18.8 H (11.5-15.5) % Chloride 112 H (98-107) mmol/L Carbon Dioxide 18 L (22-30) mmol/L BUN 33 H (7-17) mg/dL Creatinine 1.33 H (0.52-1.04) mg/dL POC Glucose (mg/dL) 113 H (70-110) mg/dL AST 96 H (14-36) U/L ALT 89 H (4-34) U/L Alkaline Phosphatase 275 H (38-126) U/L Albumin 2.9 L (3.5-5.0) g/dL Microbiology - Last 24 Hours (Table) 10/26/23 17:11 Urine Culture - Final Urine,Voided Maribell albicans 10/26/23 14:24 Blood Culture - Preliminary Blood Assessment and Plan (1) Sepsis Current Visit: Yes Status: Acute Code(s): A41.9 - SEPSIS, UNSPECIFIED ORGANISM SNOMED Code(s): 02265641 (2) UTI (urinary tract infection) Current Visit: Yes Status: Acute Code(s): N39.0 - URINARY TRACT INFECTION, SITE NOT SPECIFIED SNOMED Code(s): 07813567 (3) Allergy to multiple antibiotics Current Visit: Yes Status: Acute Code(s): Z88.1 - ALLERGY STATUS TO OTHER ANTIBIOTIC AGENTS SNOMED Code(s): 046226700 (4) Bacteremia Current Visit: Yes Status: Acute Code(s): R78.81 - BACTEREMIA SNOMED Code(s): 7096444 Plan: 1patient presented to hospital with sepsis in this patient who did have a hy potension generalized weakness most likely combination of catheters urinary tract infection, cholecystitis not entirely excluded however the patient did not have significant tenderness to the right upper quadrant area, subsequent CT abdominal pelvis was suggestive of cholelithiasis and cholecystitis 2-patient with multiple antibiotic ALLERGIES that would limit the number of antibiotic safe to use 3-blood culture positive for Enterobacter urine is growing Enterobacter and Pseudomonas 4patient did have HIDA scan completed this morning results will be followed 5-patient to continue with cefepime and monitor clinical course closely Dictation was produced using [employer] dictation software. please excuse any grammatical, word or spelling errors. Time with Patient: Less than 30
--- NOTE | 2023-10-29 14:15 | P.PN ---
Subjective Progress Note Date: 10/29/23 This is a 63-year-old female patient with a known history of coronary artery disease with multiple previous stent placements, cardiomyopathy status post AICD placement, nephrolithiasis, hearing disorder, hypertension, hyperlipidemia, diabetes mellitus, [id number] amputation on the right, former smoker, chronic Cortes due to kidney issues. She presented here to the emergency room earlier this morning with complaints of generalized weakness, nausea vomiting and fall. Chest x-ray revealed cardiomegaly with mild venous congestion or chronic interstitial lung disease/pulmonary fibrosis. More confluent area of consolidation in the left perihilar and upper lobes. Neoplasm not excluded. EKG reveals atrial sensing and ventricular pacing. Ultrasound of the abdomen/bladder is pending. White count 8.2. Hemoglobin 9.3. Platelets 217. Sodium 131. Potassium 4.0. Bicarb 16. BUN 60. Creatinine 2.54. Lactic acid 3.2. Glucose 266. AST 45. ALT 321. Urinalysis turbid with moderate blood. L arge leukocyte esterase, greater than 182 WBCs many WBC clumps many bacteria. Culture pending. Procalcitonin pending. She has been initiated on ceftriaxone. She is seen today in consultation in the emergency department. She was having issues with hypotension and is requiring norepinephrine and ICU admission. She is awake and alert. Maintaining O2 saturations in the 90s on 2 L/min per nasal cannula. Currently on norepinephrine at 0.02 mcg/kg/min. He has received 1.5 L of fluid resuscitation. Normal saline at 75 MLS per hour. The patient is seen today October 24, 2023 in follow-up in the emergency department. She is currently awake and alert in no acute distress. She is feeling a bit better today compared to yesterday. She did have issues with chest pain yesterday and was found to have elevated troponins and is currently on a heparin drip. Her mean arterial pressures have been in the 70s and 80s. She is off the norepinephrine. She is afebrile. She is maintaining good O2 sa turations up to 100% on 3 L/min per nasal cannula. She is afebrile. Hemodynamically stable. White count 6.4. Hemoglobin 8.3. Platelets 216. Sodium 131. Potassium 3.8. Bicarb 16. BUN 65. Creatinine 2.71. Glucose 127. AST 191. ALT 229. Blood cultures are positive for gram-negative bacilli. She remains. Patient is seen today October 25, 2023 in room 374. She is resting comfortably in bed this morning eating her breakfast. She is satting well on room air. She states her breathing is comfortable and denies any shortness of breath or chest pain. She remains on the heparin drip for the elevated troponins. She remains afebrile. She is hemodynamically stable. White count 8.3. Hemoglobin 8.7. Platelets 241. Sodium 135, Potassium 3.6, Bicard 18. BUN 63. Creatinine 2.29. Glucose 117. Blood cultures show gram-negative bacilli & Enterobacter Cloacae. She remains on Cefepime. Patient is seen today October 26, 2023 in room 374. He is resting comfortably in bed awake alert and in no acute distress. She is satting 90s on room air. He denies any chest shortness of breath or chest pain. She is on subcutaneous heparin per protocol. She remains afebrile. Hemodynamically stable. Sodium 136, potassium 3.8, chloride 112, bicarb 17, BUN 56, creatinine 1.88, glucose 126. He remains on LR at a rate of 75 an hour. Urine culture shows Klebsiella pneumoniae and Pseudomonas aeruginosa. Blood culture shows Enterobacter cloacae. Remains on cefepime which was started on 10/23. Chest x-ray shows stable cardiomegaly with findings suggestive of pulmonary fibrosis. Progress note dated October 27, 2023. 63-year-old female seen today in room 374. The patient is on room air. No IV fluids. Blood cultures were positive for Enterobacter cloacae. Urine cultures were positive for both Klebsiella, and Pseudomonas. The patient continues on cefepime. Current labs include a sodium 136, potassium 4, chlorides 111, CO2 17, anion gap 8, BUN 44, and creatinine 1.54. Glucose is 211. Albumin is 2.6. The patient is seen today October 28, 2023 in follow-up on the selective care unit. She is currently sitting up in a chair. Awake and alert in no acute distress. Maintaining O2 saturations in the 90s on room air. She has been having abdominal pain possibly related to gallstones. She is considered high risk surgical candidate with her recent myocardial infarction. Cardiac catheterization pending. Blood cultures were positive for Enterobacter cloacae complex. Follow-up blood culture revealing no growth thus far. Glucose 146. She remains on cefepime. Heparin for DVT prophylaxis. The patient is seen today October 29, 2023 in follow-up on the selective care unit. She is currently resting in bed. Awake and alert in no acute distress. She is maintaining O2 saturations in the 90s on room air. Her main complaint is of nausea and abdominal pain. She did undergo a hepatobiliary scan today. Wall thickening of the gallbladder on CT felt to be due to third spacing of fluid in the setting of congestive heart failure or liver disease. Count 9.3. Hemoglobi n 8.6. Platelets 231. Sodium 138. Potassium 4.0. Bicarb 18. BUN 33. Creatinine 1.33. Glucose 88. Remains on cefepime. Heparin for DVT prophylaxis. Objective - Vital Signs Vital signs: Vital Signs Temp 97.5 F L 10/29/23 08:00 Pulse 99 10/29/23 08:00 Resp 20 10/29/23 08:00 BP 114/60 10/29/23 08:00 Pulse Ox 96 10/29/23 08:00 FiO2 Intake & Output 10/28/23 10/29/23 10/29/23 18:59 06:59 18:59 Intake Total 100 200 50 Output Total 675 700 Balance -575 -500 50 Weight 71.5 kg Intake: Intake, IV Titration 100 200 Amount Cefepime 2 gm In Sodium 100 Chloride 0.9% 100 ml @ 25 mls/hr IVPB Q12HR [facility] Rx #:[id number] Lactated Ringers 1,000 ml 200 @ 50 mls/hr IV .Q20H [facility] Rx#:[id number] Oral 50 Output: Urine 675 700 Other: Voiding Method Indwelling Catheter Indwelling Catheter Indwelling Catheter - Exam GENERAL EXAM: Alert, pleasant 63-year-old female, resting in bed, on room air, in no apparent distress. HEAD: Normocephalic. EYES: Normal reaction of pupils, equal size. NOSE: Clear with pink turbinates. THROAT: No erythema or exudates. NECK: No masses, no JVD. CHEST: No chest wall deformity. LUNGS: Equal air entry with few scattered rhonchi. CVS: S1 and S2 normal with no audible murmur, regular rhythm. ABDOMEN: No hepatosplenomegaly, normal bowel sounds, no guarding or rigidity. SPINE: No scoliosis or deformity SKIN: No rashes CENTRAL NERVOUS SYSTEM: No focal deficits, tone is normal in all 4 extremities. EXTREMITIES: Right [id number] amputation. There is no peripheral edema. No clubbing, no cyanosis. Peripheral pulses are intact. - Labs CBC & Chem 7: 10/29/23 06:58 10/29/23 06:58 Labs: Abnormal Lab Results - Last 24 Hours (Table) 10/28/23 10/28/23 10/29/23 Range/Units 16:27 19:57 05:28 RBC (3.80-5.40) m/uL Hgb (11.4-16.0) gm/dL Hct (34.0-46.0) % MCHC (31.0-37.0) g/dL RDW (11.5-15.5) % Chloride (98-107) mmol/L Carbon Dioxide (22-30) mmol/L BUN (7-17) mg/dL Creatinine (0.52-1.04) mg/dL POC Glucose (mg/dL) 233 H 271 H 114 H (70-110) mg/dL AST (14-36) U/L ALT (4-34) U/L Alkaline Phosphatase (38-126) U/L Albumin (3.5-5.0) g/dL 10/29/23 10/29/23 10/29/23 Range/Units 06:58 06:58 11:48 RBC 3.20 L (3.80-5.40) m/uL Hgb 8.6 L (11.4-16.0) gm/dL Hct 28.5 L (34.0-46.0) % MCHC 30.3 L (31.0-37.0) g/dL RDW 18.8 H (11.5-15.5) % Chloride 112 H (98-107) mmol/L Carbon Dioxide 18 L (22-30) mmol/L BUN 33 H (7-17) mg/dL Creatinine 1.33 H (0.52-1.04) mg/dL POC Glucose (mg/dL) 113 H (70-110) mg/dL AST 96 H (14-36) U/L ALT 89 H (4-34) U/L Alkaline Phosphatase 275 H (38-126) U/L Albumin 2.9 L (3.5-5.0) g/dL Microbiology - Last 24 Hours (Table) 10/26/23 17:11 Urine Culture - Final Urine,Voided Maribell albicans 10/26/23 14:24 Blood Culture - Preliminary Blood Assessment and Plan Assessment: Generalized weakness with fall, nausea, vomiting suspect secondary to urinary tract infection Acute urinary tract infection secondary to Klebsiella pneumoniae and Pseudomonas aeruginosa Acute kidney injury secondary to dehydration, hypotension Chronic Cortes due to urinary retention Bacteremia secondary to Enterobacter cloacae complex, currently on cefepime Sepsis with septic shock requiring pressor support secondary to above, improved and off pressors Acute hypoxemic respiratory failure secondary to mild venous congestion recovered and on room air Non-ST segment elevation myocardial infarction Transaminitis, statins on hold Coronary artery disease with multiple stent placements Ischemic cardiomyopathy status post biventricular AICD placement Obesity Diabetes mellitus Peripheral vascular disease [id number] amputation of the right lower extremity Hyperlipidemia Anxiety/depression Plan: The patient was seen and evaluated Labs and medications reviewed Hepatobiliary scan reviewed Continue with cefepime Currently stable and on room air We will continue to follow I have personally seen and examined the patient, performed the documentation and the assessment and plan as written. Number of minutes spent on the visit: 10.
--- NOTE | 2023-10-29 14:33 | P.PN ---
Subjective Progress Note Date: 10/29/23 CHIEF COMPLAINT: abdominal pain HISTORY OF PRESENT ILLNESS: The patient is a 63-year-old female with multiple comorbidities including recent myocardial infarctions and urinary tract infection. Patient found to have evidence of gallstones and hydropic gallbladder. Patient continues to complain of nausea. She has had no further vomiting. She did eat a few bites of dinner last night. She does complain of epigastric pain today. HIDA scan reports there is thought to be radiotracer within the gallbladder lumen. Wall thickening on prior CT felt due to third spacing of fluid in the setting of congestive heart failure or hepatic cirrhosis given nodular contour of liver. PHYSICAL EXAM: VITAL SIGNS: Reviewed GENERAL: Well-developed in no acute distress. HEENT: No sclera icterus. Extraocular movements grossly intact. Moist buccal mucosa. Head is atraumatic, normocephalic. Hears conversational speech. No nasal drainage. NECK: Supple without lymphadenopathy. CHEST: Non-labored respirations and equal bilateral excursions. CARDIOVASCULAR: Palpable 2+ radial pulses. ABDOMEN: Soft. Nondistended. Nontender. MUSCULOSKELETAL: No clubbing or cyanosis. NEUROLOGIC: No focal or lateralizing signs. Cranial nerves II through XII grossly intact. PSYCH: Appropriate affect. Alert and oriented to person, place and time. SKIN: Well perfused. Good skin turgor. ASSESSMENT: 1. Abdominal pain, upper abdomen likely due to gallstones 2. Acute myocardial infarction 3. Chronic anemia 4. Coronary artery disease 5. Diabetic nephropathy with diabetic neuropathy 6. Insulin-dependent diabetes type 2 with hyperglycemia. 7. Grade 2 diastolic dysfunction with congestive heart failure, EF 20-25% PLAN: -No surgical intervention planned. HIDA scan is negative for acute cholecystitis -Patient is high surgical risk with recent acute myocardial infarction. -Resume low-fat diet. Physician Child [facility] Associate note has been reviewed by physician. Signing provider agrees with the documented findings, assessment, and plan of care. Objective - Vital Signs Vital signs: Vital Signs Temp 97.5 F L 10/29/23 08:00 Pulse 99 10/29/23 08:00 Resp 20 10/29/23 08:00 BP 114/60 10/29/23 08:00 Pulse Ox 96 10/29/23 08:00 FiO2 Intake & Output 10/28/23 10/29/23 10/29/23 18:59 06:59 18:59 Intake Total 100 200 50 Output Total 675 700 Balance -575 -500 50 Weight 71.5 kg Intake: Intake, IV Titration 100 200 Amount Cefepime 2 gm In Sodium 100 Chloride 0.9% 100 ml @ 25 mls/hr IVPB Q12HR [facility] Rx #:[id number] Lactated Ringers 1,000 ml 200 @ 50 mls/hr IV .Q20H [facility] Rx#:[id number] Oral 50 Output: Urine 675 700 Other: Voiding Method Indwelling Catheter Indwelling Catheter Indwelling Catheter - Labs CBC & Chem 7: 10/29/23 06:58 10/29/23 06:58 Labs: Abnormal Lab Results - Last 24 Hours (Table) 10/28/23 10/28/23 10/29/23 Range/Units 16:27 19:57 05:28 RBC (3.80-5.40) m/uL Hgb (11.4-16.0) gm/dL Hct (34.0-46.0) % MCHC (31.0-37.0) g/dL RDW (11.5-15.5) % Chloride (98-107) mmol/L Carbon Dioxide (22-30) mmol/L BUN (7-17) mg/dL Creatinine (0.52-1.04) mg/dL POC Glucose (mg/dL) 233 H 271 H 114 H (70-110) mg/dL AST (14-36) U/L ALT (4-34) U/L Alkaline Phosphatase (38-126) U/L Albumin (3.5-5.0) g/dL 10/29/23 10/29/23 10/29/23 Range/Units 06:58 06:58 11:48 RBC 3.20 L (3.80-5.40) m/uL Hgb 8.6 L (11.4-16.0) gm/dL Hct 28.5 L (34.0-46.0) % MCHC 30.3 L (31.0-37.0) g/dL RDW 18.8 H (11.5-15.5) % Chloride 112 H (98-107) mmol/L Carbon Dioxide 18 L (22-30) mmol/L BUN 33 H (7-17) mg/dL Creatinine 1.33 H (0.52-1.04) mg/dL POC Glucose (mg/dL) 113 H (70-110) mg/dL AST 96 H (14-36) U/L ALT 89 H (4-34) U/L Alkaline Phosphatase 275 H (38-126) U/L Albumin 2.9 L (3.5-5.0) g/dL Microbiology - Last 24 Hours (Table) 10/26/23 17:11 Urine Culture - Final Urine,Voided Maribell albicans 10/26/23 14:24 Blood Culture - Preliminary Blood
[2023-10-29 16:38] LABS: Glucose,Whole Blood 102 mg/dL (70-110)
[2023-10-29] MEDS: METOPROLOL TARTRATE 12.5 MG TAB PO STA (17:29)
[2023-10-29] MEDS: SPIRONOLACTONE 25 MG TAB PO SCH (17:29)
[2023-10-29] MEDS: FUROSEMIDE 10 MG/ML 4 ML VIAL IV STA (17:31)
[2023-10-29 20:32] LABS: Glucose,Whole Blood 142 mg/dL (70-110)
[2023-10-29] MEDS: METOPROLOL TARTRATE 25 MG TAB PO SCH (21:06)
--- NOTE | 2023-10-29 23:15 | P.PN ---
Subjective Progress Note Date: 10/29/23 This is a 63-year-old female patient with a past medical history significant for CAD with prior percutaneous revascularization as well as cardiomyopathy and valvular heart disease with mitral regurgitation as well as chronic kidney disease and diabetes and hypertension and dyslipidemia who was admitted to the hospital with UTI/sepsis and we consulted to see the patient because of abnormal troponin which has been treated medically. October 26, 2023 The patient was seen and evaluated this morning which she is feeling better. No cardiovascular symptoms. Hemodynamically she is stable. Currently she is on dual antiplatelet therapy. She is not on a statin because of elevated liver function test. She is not on PAGE inhibitor because she had history of hypotension with PAGE inhibitor before. Kidney function has been improving. The examination is remarkable for regular rhythm with soft systolic murmur at the apical area and clear breathing sounds bilaterally. October 27, 2023 The patient was seen and evaluated this morning. She is asymptomatic with no symptoms of any chest pain or chest discomfort or shortness of breath. She is a stable hemodynamically as well. She remains on dual antiplatelet therapy along with anti-ischemic medications with beta-cristopher. She continues to be on antibiotic regarding the UTI and currently she is on IV antibiotic. Blood work revealed improvement in the creatinine and her creatinine today is 1.54 which is almost her baseline. She is not on a statin because of elevated liver function test when she presented to the hospital but her liver function test has been almost back to normal but I am going to repeat the AST and ALT and if both came in to be normal she will be started on atorvastatin at high intensity. Severe underlying coronary artery disease need to be ruled out either invasively or noninvasively once the UTI/sepsis resolved. The examination is remarkable for regular rhythm with a systolic murmur and clear breathing sounds bilaterally and no edema was noted in the lower extremities October 28, 2023 Patient was seen and examined at bedside this a.m. She is hemodynamically stable. She is in sinus rhythm with ventricularly paced rhythm with intermittent PVCs on telemetry. No sustained arrhythmias noticed in last 24 hours Labs from yesterday potassium 4, BUN 44, creatinine 1.5, AST 28, ALT 78, trending down. October 29, 2023 Patient is seen and examined at bedside this a.m. Patient is hemodynamically stable. She is in sinus rhythm with ventricularly paced rhythm with intermittent PVCs on telemetry. There were no sustained arrhythmias Creatinine is stable with good urine output. Assessment UTI/sepsis Acute on chronic renal failure Evidence of myocardial injury with no evidence of ischemia. Troponin elevation up to 15, treated medically New worsening cardiomyopathy EF 20 to 25%. Previous documented echo showed an EF of around 35% s/p Primary prevention ICD 2015, s/p icd lead fracture s/p replacement in Valvular heart disease with severe mitral regurgitation Multiple comorbid conditions Plan Continue dual antiplatelet therapy Continue Lipitor, liver function is trending down Continue metoprolol Monitor renal function, repeat labs. If renal function is stable, start some GDMT Stop Dapagliflozin due to concerns of active UTI Start bumex 1 mg p.o. daily. Start Aldactone Patient will need a heart catheterization procedure prior to discharge to rule out severe CAD as the reason for worsening cardiomyopathy. Tentative plan to have a heart catheterization admit Dr. Jauregui on Objective - Vital Signs Vital signs: Vital Signs Temp 97.8 F 10/29/23 19:45 Pulse 81 10/29/23 19:45 Resp 20 10/29/23 19:45 BP 129/84 10/29/23 19:45 Pulse Ox 97 10/29/23 19:45 FiO2 Intake & Output 10/29/23 10/29/23 10/30/23 06:59 18:59 06:59 Intake Total 200 150 Output Total 700 Balance -500 150 Weight 71.5 kg Intake: Intake, IV Titration 200 100 Amount Cefepime 2 gm In Sodium 100 Chloride 0.9% 100 ml @ 25 mls/hr IVPB Q12HR [facility] Rx #:[id number] Lactated Ringers 1,000 ml 200 @ 50 mls/hr IV .Q20H [facility] Rx#:[id number] Oral 50 Output: Urine 700 Other: Voiding Method Indwelling Catheter Indwelling Catheter Indwelling Catheter - Labs CBC & Chem 7: 10/29/23 06:58 10/29/23 06:58 Labs: Abnormal Lab Results - Last 24 Hours (Table) 10/29/23 10/29/23 10/29/23 Range/Units 05:28 06:58 06:58 RBC 3.20 L (3.80-5.40) m/uL Hgb 8.6 L (11.4-16.0) gm/dL Hct 28.5 L (34.0-46.0) % MCHC 30.3 L (31.0-37.0) g/dL RDW 18.8 H (11.5-15.5) % Chloride 112 H (98-107) mmol/L Carbon Dioxide 18 L (22-30) mmol/L BUN 33 H (7-17) mg/dL Creatinine 1.33 H (0.52-1.04) mg/dL POC Glucose (mg/dL) 114 H (70-110) mg/dL AST 96 H (14-36) U/L ALT 89 H (4-34) U/L Alkaline Phosphatase 275 H (38-126) U/L Albumin 2.9 L (3.5-5.0) g/dL 10/29/23 10/29/23 Range/Units 11:48 20:30 RBC (3.80-5.40) m/uL Hgb (11.4-16.0) gm/dL Hct (34.0-46.0) % MCHC (31.0-37.0) g/dL RDW (11.5-15.5) % Chloride (98-107) mmol/L Carbon Dioxide (22-30) mmol/L BUN (7-17) mg/dL Creatinine (0.52-1.04) mg/dL POC Glucose (mg/dL) 113 H 142 H (70-110) mg/dL AST (14-36) U/L ALT (4-34) U/L Alkaline Phosphatase (38-126) U/L Albumin (3.5-5.0) g/dL Microbiology - Last 24 Hours (Table) 10/26/23 17:11 Urine Culture - Final Urine,Voided Maribell albicans 10/26/23 14:24 Blood Culture - Preliminary Blood
--- NOTE | 2023-10-29 23:49 | P.PN ---
Progress Note - Text Progress Note Date: 10/29/23 History of present illness; patient is 63-year-old lady with past medical history significant for coronary artery disease with stent placement, diabetes mellitus, fibromyalgia, GERD, hypertension, hyperlipidemia, osteoarthritis, who presented to hospital for generalized weakness. Patient relates she has not been feeling her usual self for the last 3 to 4 days. Patient complains of increased weakness. Patient also having nausea and vomiting. Patient was also complaining of lower quadrant abdominal pain. Patient history of chronic Cortes in the last Cortes was changed 2 weeks back. Patient denied any fever but complaining of chills at home. Patient was also complaining of loss of appe tite. Denied any chest pain or shortness of breath. Patient was complaining of being confused and lethargic as well. Because of the symptoms, patient was brought to the ER Initial lab work done in the ER showed WBC 8.2, hemoglobin 9.3, platelet count 217, sodium 131, potassium 4, BUN 60, creatinine 2.54, glucose 266, lactate 3.2 AST 485, ALT 321, Chest x-ray done in the ER showed cardiomegaly: From mild venous congestion or chronic distal lung disease/pulm fibrosis Patient admitted to internal medicine service October 23: Admitted with septic shock. UTI. Now on the medical floor. Patient's had a Cortes catheter since January 2023. Does feel a bit depressed. Has a powered wheelchair at home. at home is good stage IV cancer. Feeling Roxanna low and a bit suicidal earlier today. Discussed at length. Sitter. Psychiatry consulted. October 24: Patient feeling better this morning. Did eat better. Did sit up in a chair yesterday. Blood culture positive for Enterobacter cloacae and urine culture positive for Klebsiella pneumonia and Pseudomonas. Antibiotics to continue. LFTs coming down October 25: Oral intake good. Getting IV cefepime. Tired. Creatinine slowly coming down October 26: Did set it in the chair earlier today. Creatinine continues to come down slowly. Eating fair. Resume Lipitor at a lower dose October 27: No further abdominal pain. Only nausea. Seen by Dr. Cuba yesterday. Medical manage of cholecystitis. Will change to full liquid diet. Patient up in a chair. October 28: Some nausea. Had a HIDA scan. Low-fat diet. Active Medications Acetaminophen (Acetaminophen Tab 325 Mg Tab) 650 mg PO Q4HR PRN PRN Reason: Fever and/or Mild Pain Al Hydroxide/Mg Hydroxide (Mag Hydrox/Al Hydrox/Simeth 30 Ml Cup) 15 ml PO Q6HR PRN PRN Reason: Indigestion Last Admin: 10/29/23 21:06 Dose: 15 ml Alprazolam (Alprazolam 0.5 Mg Tab) 0.5 mg PO HS [facility] Last Admin: 10/29/23 21:06 Dose: 0.5 mg Amitriptyline HCl (Amitriptyline Hcl 25 Mg Tab) 25 mg PO HS [facility] Last Admin: 10/29/23 21:06 Dose: 25 mg Aspirin (Aspirin 81 Mg) 81 mg PO DAILY [facility] Last Admin: 10/29/23 12:31 Dose: 81 mg Calcitriol (Calcitriol 0.25 Mcg Cap) 0.25 mcg PO FR [facility] Last Admin: 10/25/23 08:59 Dose: 0.25 mcg Clopidogrel Bisulfate (Clopidogrel 75 Mg Tab) 75 mg PO DAILY [facility] Last Admin: 10/29/23 12:31 Dose: 75 mg Darbepoetin Karl (Darbepoetin Karl 60 Mcg/0.3 Ml Syringe) 60 mcg SQ Q7D [facility] Last Admin: 10/24/23 14:28 Dose: 60 mcg Dextrose/Water (Dextrose 50% Syringe 50 Ml) 25 ml IVP PER PROTOCOL PRN; Protocol PRN Reason: Hypoglycemia Dextrose/Water (Dextrose 50% Syringe 50 Ml) 50 ml IVP PER PROTOCOL PRN; Protocol PRN Reason: Hypoglycemia Escitalopram Oxalate (Escitalopram 20 Mg Tab) 20 mg PO [facility] Last Admin: 10/29/23 21:06 Dose: 20 mg Heparin Sodium (Porcine) (Heparin Sodium,Porcine 5,000 Unit/Ml 1 Ml Vial) 5,000 unit SQ Q8HR [facility] Last Admin: 10/29/23 23:25 Dose: 5,000 unit Cefepime HCl 2 gm/ Sodium (Chloride) 100 mls @ 25 mls/hr IVPB Q12HR [facility] Last Admin: 10/29/23 21:07 Dose: 25 mls/hr Insulin Aspart (Insulin Aspart (Novolog) 100 Unit/Ml Vial) 0 unit SQ ACHS [facility]; Protocol Last Admin: 10/29/23 21:08 Dose: Not Given Insulin Aspart (Insulin Aspart (Novolog) 100 Unit/Ml Vial) 5 unit SQ AC-TID [facility] Last Admin: 10/29/23 17:29 Dose: Not Given Insulin Detemir (Insulin Detemir (Levemir) 100 Unit/Ml Syr) 24 unit SQ HS [facility] Last Admin: 10/29/23 21:08 Dose: Not Given Melatonin (Melatonin 3 Mg Tablet) 3 mg PO HS PRN PRN Reason: Insomnia Last Admin: 10/29/23 21:06 Dose: 3 mg Metoprolol Tartrate (Metoprolol Tartrate 25 Mg Tab) 25 mg PO BID [facility] Last Admin: 10/29/23 21:06 Dose: 25 mg Naloxone HCl (Naloxone 0.4 Mg/Ml 1 Ml Vial) 0.2 mg IV Q2M PRN PRN Reason: Opioid Reversal Nystatin (Nystatin 100,000 Unit/Gm Powd 15 Gm) 1 applic TOPICAL BID [facility]; Protocol Last Admin: 10/29/23 21:08 Dose: 1 applic Ondansetron HCl (Ondansetron 4 Mg/2 Ml Vial) 4 mg IVP Q8HR PRN PRN Reason: Nausea And Vomiting Last Admin: 10/27/23 17:43 Dose: 4 mg Oxycodone/Acetaminophen (Oxycodone-Apap 10-325mg 1 Each Tab) 1 each PO Q6HR PRN PRN Reason: Pain Last Admin: 10/29/23 21:07 Dose: 1 each Quetiapine Fumarate (Quetiapine 25 Mg Tab) 25 mg PO BID [facility] Last Admin: 10/29/23 21:07 Dose: 25 mg Sodium Bicarbonate (Sodium Bicarbonate Tab 650 Mg Tab) 650 mg PO BID [facility] Last Admin: 10/29/23 21:06 Dose: 650 mg Spironolactone (Spironolactone 25 Mg Tab) 12.5 mg PO DAILY [facility] Last Admin: 10/29/23 17:29 Dose: 12.5 mg Tizanidine HCl (Tizanidine 4 Mg Tab) 4 mg PO BID PRN PRN Reason: Muscle pain/spasm Social history: . Does use a motorized wheelchair. Patient smoked a pack a day for 20 years stopped in 2014. Physical examination: VITAL SIGNS: Thin, 121 x 74, 95% room air GENERAL: Appears well, comfortable EYES: Pupils equal. Conjunctiva normal. HEENT: External appearance of nose and ears normal, oral cavity grossly normal. NECK: JVD not raised; masses not palpable. HEART: First and second heart sounds are normal; no edema. LUNGS: Respiratory rate normal; clear to auscultation. ABDOMEN: Soft, nontender, liver spleen not palpable, no masses palpable. Cortes catheter PSYCH: [Alert and oriented x3; mood and affect l are better MUSCULAR skeletal: Evidence of OA INVESTIGATIONS, reviewed in the clinical context: October 28: White count 9.3 hemoglobin 8.6 potassium 4 BUN 33 creatinine 1.33 October 26: Potassium 4 BUN 44 creatinine 1.54 AST 28 ALT 78 October 25: Potassium 3.8 BUN 56 creatinine 1.88 bicarb 17 AST 50 ALT 117 October 24: White count 8.3 hemoglobin 8.7 platelets 241 sodium 135 BUN 63 creatinine 2.29. AST 86 ALT 168 October 23: White count 6.4 hemoglobin 8.3 platelets 216 sodium 131 potassium 3.8 BUN 65 creatinine 2.71 AST 191 ALT 229 October 22: AST 45 ALT 321 troponin I 14.4 UA positive for leukoesterase Urine culture: Klebsiella pneumoniae, Pseudomonas aeruginosa Blood culture: Enterobacter cloacae Abdominal ultrasound: Pericholecystic fluid and gallbladder sludge. Distal CBD's dilated at 7 mm. Distal obstruction was occluded. Mild bilateral hydronephrosis Previous labs: May 2023 creatinine 1.7 Assessment and plan: -Septic shock secondary to bacteremia from UTI: Resolved Patient required pressors, fluids -Sepsis with blood cultures positive for Enterobacter cloacae IV fluids. IV cefepime -Probable gallstone/cholecystitis Seen by Dr. Cuba from general surgery. For medical management due to high risk for surgery. Continue antibiotics -Acute kidney injury, ATN from septic shock: Improving Baseline creatinine 1.7 in May 2023. Admission creatinine 2.54 -Acute UTI with cystitis cultures positive for Klebsiella pneumonia and Pseudomonas aeruginosa, secondary to chronic Cortes catheter, causing septic shock IV cefepime -Coronary artery disease, prior history of stent Aspirin Plavix -Chronic congestive heart failure, EF not known Follow clinically -Diabetes mellitus type 2 chronically on insulin For Accu-Cheks with sliding scale. Levemir. NovoLog. -Chronic fibromyalgia Pain control when necessary -Chronic Cortes catheter for bladder dysfunction since January 2023 -Acute non-ST elevation ID. Precipitated by septic shock. Known underlying CAD. IV heparin-discontinued. Plavix. Aspirin. Lopressor Cardiology following -Metabolic acidosis from kidney injury Sodium bicarbonate -GERD Pepcid -Hyperlipidemia Lipitor-was held temporarily because increased LFTs. Resume at 40 mg -Essential hypertension Lopressor -Acute ischemic hepatitis from septic shock: improving Continue to hold Lipitor -Primary osteoarthritis Pain control -Chronic kidney disease stage 3 likely nephrosclerosis and diabetic nephropathy Creatinine 1.06 June 2023 -Peripheral arterial disease Aspirin Lipitor -Right above-knee amputation -AICD with a pacemaker Telemetry Anxiety depression otherwise specified, for some acute flareup, with some suicidal ideation Consult psychiatry add sitter Resume home medications Lexapro, Seroquel, Xanax, Chronic insomnia: elavil -Chronic medical debility. Does use a motorized wheelchair -Full code Improving. No surgical intervention. Past Medical History Past Medical History: Coronary Artery Disease (CAD), Heart Failure, Diabetes Mellitus, Fibromyalgia, GERD/Reflux, Hearing Disorder / Deafness, Hyperlipidemia, Hypertension, Myocardial Infarction (ID), Musculoskeletal Disorder, Osteoarthritis (OA), Renal Disease, Skin Disorder, Vascular Disorder Additional Past Medical History / Comment(s): See Dr Durant's H&P nephrolithiasis and kidney stones- chronic Cortes, peripheral vascular disease, degenerative disc disease-chronic back pain, Rt AKA-working on using prosthesis, going to physical therapy Last Myocardial Infarction Date:: 2004,2006, 2015 History of Any Multi-Drug Resistant Organisms: MRSA Date of last positivie culture/infection: 02/24/16 LT FOOT-VERIFIED PER DR VASQUEZ OFFICE MDRO Source:: LT FOOT Past Surgical History: AICD, Section, Heart Catheterization, Heart Catheterization With Stent, Orthopedic Surgery, Pacemaker, Tonsillectomy Additional Past Surgical History / Comment(s): Right rotator cuff surgery 2, bi lateral carpal tunnel release,3 cardiac catheterization 6 stents, above-knee amputation of the right lower extremity, incision and debridement of diabetic wounds, [facility] Biventricular AICD placement Past Anesthesia/Blood Transfusion Reactions: Motion Sickness Additional Past Anesthesia/Blood Transfusion Reaction / Comment(s): CLAUSTERPHOBIA. PAST BLOOD TRANSFUSION-NO REACTION Date of Last Stent Placement:: 2015 Type of Cardiac Device: AICD Device Placement Date:: Past Psychological History: Anxiety, Depression Smoking Status: Former smoker
[2023-10-30] MEDS: LORazepam 2 MG/ML INJ IV ONE (04:35)
[2023-10-30 06:22] LABS: Glucose,Whole Blood 138 mg/dL (70-110)
[2023-10-30 11:33] LABS: Glucose,Whole Blood 144 mg/dL (70-110)
[2023-10-30] MEDS: BUMETANIDE 1 MG TAB PO SCH (11:50)
--- NOTE | 2023-10-30 12:07 | P.PN ---
Subjective patient is seen for follow-up for acute kidney injury and chronic kidney disease. Renal function has improved significantly with serum creatinine down to 1.3 mg/dL from 2.7 at peak. Maintained on antibiotics for gram-negative sepsis. Blood cultures are growing Enterobacter cloacae and urine cultures is growing Klebsiella pneumonia and Pseudomonas S/p IV Lasix yesterday. No complaints of shortness of breath today. Objective - Vital Signs Vital signs: Vital Signs Temp 97.5 F L 10/30/23 08:30 Pulse 80 10/30/23 08:30 Resp 20 10/30/23 08:30 BP 136/82 10/30/23 08:30 Pulse Ox 95 10/30/23 08:30 FiO2 Intake & Output 10/29/23 10/30/23 10/30/23 18:59 06:59 18:59 Intake Total 150 Output Total 650 Balance 150 -650 Intake: Intake, IV Titration 100 Amount Cefepime 2 gm In Sodium 100 Chloride 0.9% 100 ml @ 25 mls/hr IVPB Q12HR [facility] Rx #:[id number] Oral 50 Output: Urine 650 Other: Voiding Method Indwelling Catheter Indwelling Catheter Indwelling Catheter # Bowel Movements 1 - Exam Patient is awake, comfortable, no acute distress. 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 Acute kidney injury, ATN secondary to sepsis and hypotension, nonoliguric. UA is suggestive of UTI. ultrasound shows mild bilateral hydronephrosis. This is not new and patient has chronic indwelling Cortes catheter. 2. UTI with sepsis, urine culture is growing Klebsiella pneumonia and Pseudomonas 3. Gram-negative sepsis with blood cultures growing Enterobacter cloacae 4. Peripheral vascular disease status post right AKA 5. CK D stage IV secondary to diabetic kidney disease. Baseline creatinine 1.7-1.8 mg/dL. 6. Non-gap metabolic acidosis secondary to acute kidney injury 7. Anemia of chronic disease with mild iron deficiency. I will hold off on IV iron due to active infection. Continue with Aranesp Plan: Resume diuretics. Patient can be switched to torsemide upon discharge. continue oral sodium bicarb Continue with antibiotics Continue with indwelling Cortes catheter. Repeat labs in a.m. Continue to avoid nephrotoxic agents continue Aranesp Hold IV iron due to ongoing active infection.
--- NOTE | 2023-10-30 12:29 | P.PN ---
Subjective Progress Note Date: 10/30/23 Principal diagnosis: Reason for follow-up is UTI and bacteremia Patient is a 63-year-old female with a past medical history significant for diabetes mellitus hypertension hyperlipidemia coronary artery disease, did have history of right diabetic foot infection requiring right [id number] amputation also with a history of urinary Retention requiring Cortes catheter placed that was last changed about 10 days before presentation to the hospital patient presenting with weakness and has been diagnosed with sepsis secondary To UTI blood cultures came back positive with Enterobacter. On today's evaluation that is 10/30/2023, patient has been afebrile, patient is breathing comfortably and is currently on room air, patient did have cough but not bring up any sputum no chest pain shortness of breath, patient did have some nausea complaining of abdominal pain but no vomiting no diarrhea. No new labs were done today blood culture repeat has been negative Objective - Vital Signs Vital signs: Vital Signs Temp 97.4 F L 10/30/23 03:49 Pulse 80 10/30/23 03:49 Resp 20 10/30/23 03:49 BP 135/86 10/30/23 03:49 Pulse Ox 98 10/30/23 03:49 FiO2 Intake & Output 10/29/23 10/30/23 10/30/23 18:59 06:59 18:59 Intake Total 150 Output Total 650 Balance 150 -650 Intake: Intake, IV Titration 100 Amount Cefepime 2 gm In Sodium 100 Chloride 0.9% 100 ml @ 25 mls/hr IVPB Q12HR [facility] Rx #:[id number] Oral 50 Output: Urine 650 Other: Voiding Method Indwelling Catheter Indwelling Catheter # Bowel Movements 1 - Exam GENERAL DESCRIPTION: Middle-aged female up in the chair in no distress RESPIRATORY SYSTEM: Unlabored breathing , decreased breath sounds at bases HEART: S1 S2 regular rate and rhythm , ABDOMEN: Soft , no tenderness EXTREMITIES: No edema feet - Labs CBC & Chem 7: 10/29/23 06:58 10/29/23 06:58 Labs: Abnormal Lab Results - Last 24 Hours (Table) 10/29/23 10/29/23 10/29/23 Range/Units 06:58 11:48 20:30 Chloride 112 H (98-107) mmol/L Carbon Dioxide 18 L (22-30) mmol/L BUN 33 H (7-17) mg/dL Creatinine 1.33 H (0.52-1.04) mg/dL POC Glucose (mg/dL) 113 H 142 H (70-110) mg/dL AST 96 H (14-36) U/L ALT 89 H (4-34) U/L Alkaline Phosphatase 275 H (38-126) U/L Albumin 2.9 L (3.5-5.0) g/dL 10/30/23 Range/Units 06:20 Chloride (98-107) mmol/L Carbon Dioxide (22-30) mmol/L BUN (7-17) mg/dL Creatinine (0.52-1.04) mg/dL POC Glucose (mg/dL) 138 H (70-110) mg/dL AST (14-36) U/L ALT (4-34) U/L Alkaline Phosphatase (38-126) U/L Albumin (3.5-5.0) g/dL Microbiology - Last 24 Hours (Table) 10/26/23 14:24 Blood Culture - Preliminary Blood Assessment and Plan (1) Sepsis Current Visit: Yes Status: Acute Code(s): A41.9 - SEPSIS, UNSPECIFIED ORGANISM SNOMED Code(s): 44621682 (2) UTI (urinary tract infection) Current Visit: Yes Status: Acute Code(s): N39.0 - URINARY TRACT INFECTION, SITE NOT SPECIFIED SNOMED Code(s): 07444239 (3) Allergy to multiple antibiotics Current Visit: Yes Status: Acute Code(s): Z88.1 - ALLERGY STATUS TO OTHER ANTIBIOTIC AGENTS SNOMED Code(s): 362613672 (4) Bacteremia Current Visit: Yes Status: Acute Code(s): R78.81 - BACTEREMIA SNOMED Code(s): 9696311 Plan: 1patient presented to hospital with sepsis in this patient who did have a hypotension generalized weakness most likely combination of catheters urinary tract infection, cholecystitis not entirely excluded however the patient did not have significant tenderness to the right upper quadrant area, subsequent CT abdominal pelvis was suggestive of cholelithiasis and cholecystitis 2-patient with multiple antibiotic ALLERGIES that would limit the number of antibiotic safe to use 3-blood culture positive for Enterobacter urine is growing Enterobacter and Pseudomonas 4patient did have HIDA scan however has to be discontinued earlier because of patient discomfort 5-patient repeat blood cultures been negative to continue with cefepime and continue supportive care Dictation was produced using dragon dictation software. please excuse any grammatical, word or spelling errors. Time with Patient: Less than 30
[2023-10-30 13:24] LABS: African American GFR (CKD) 49 (>60 ml/min/1.73 sqM); Anion Gap 9 mmol/L; Blood Urea Nitrogen 37 mg/dL (7-17); Carbon Dioxide 15 mmol/L (22-30); Chloride 109 mmol/L (98-107); Magnesium 1.8 mg/dL (1.6-2.3); Non-African American GFR(CKD) 42 (>60 ml/min/1.73 sqM); Potassium 4.9 mmol/L (3.5-5.1); Sodium 133 mmol/L (137-145)
--- NOTE | 2023-10-30 15:05 | P.PN ---
Subjective Progress Note Date: 10/30/23 CHIEF COMPLAINT: abdominal pain HISTORY OF PRESENT ILLNESS: The patient is a 63-year-old female with multiple comorbidities including recent myocardial infarctions and urinary tract infection. Patient found to have evidence of gallstones and hydropic gallbladder. HIDA scan is negative. Patient continues to complain of nausea. She has had no vomiting. She denies any abdominal pain. She is scheduled for heart catheterization today. Afebrile. PHYSICAL EXAM: VITAL SIGNS: Reviewed GENERAL: Well-developed in no acute distress. HEENT: No sclera icterus. Extraocular movements grossly intact. Moist buccal mucosa. Head is atraumatic, normocephalic. Hears conversational speech. No nasal drainage. NECK: Supple without lymphadenopathy. CHEST: Non-labored respirations and equal bilateral excursions. CARDIOVASCULAR: Palpable 2+ radial pulses. ABDOMEN: Soft. Nondistended. Nontender. MUSCULOSKELETAL: No clubbing or cyanosis. NEUROLOGIC: No focal or lateralizing signs. Cranial nerves II through XII grossly intact. PSYCH: Appropriate affect. Alert and oriented to person, place and time. SKIN: Well perfused. Good skin turgor. ASSESSMENT: 1. Abdominal pain, upper abdomen likely due to gallstones. Now improved 2. Acute myocardial infarction 3. Chronic anemia 4. Coronary artery disease 5. Diabetic nephropathy with diabetic neuropathy 6. Insulin-dependent diabetes type 2 with hyperglycemia. 7. Grade 2 diastolic dysfunction with congestive heart failure, EF 20-25% PLAN: -No surgical intervention planned -Patient is high surgical risk with recent acute myocardial infarction. -Resume low-fat diet once cardiac workup complete Physician Head Sulfide Operator note has been reviewed by physician. Signing provider agrees with the documented findings, assessment, and plan of care. Objective - Vital Signs Vital signs: Vital Signs Temp 97.5 F L 10/30/23 08:30 Pulse 79 10/30/23 14:00 Resp 20 10/30/23 14:00 BP 132/80 10/30/23 12:00 Pulse Ox 94 L 10/30/23 12:00 FiO2 Intake & Output 10/29/23 10/30/23 10/30/23 18:59 06:59 18:59 Intake Total 150 118 Output Total 650 725 Balance 742 -650 600 Weight 71.5 kg Intake: Intake, IV Titration 100 Amount Cefepime 2 gm In Sodium 100 Chloride 0.9% 100 ml @ 25 mls/hr IVPB Q12HR [facility] Rx #:[id number] Oral 50 118 Output: Urine 650 725 Other: Voiding Method Indwelling Catheter Indwelling Catheter Indwelling Catheter # Bowel Movements 1 - Labs CBC & Chem 7: 10/29/23 06:58 10/30/23 12:33 Labs: Abnormal Lab Results - Last 24 Hours (Table) 10/29/23 10/30/23 10/30/23 Range/Units 20:30 06:20 11:31 Sodium (137-145) mmol/L Chloride (98-107) mmol/L Carbon Dioxide (22-30) mmol/L BUN (7-17) mg/dL Creatinine (0.52-1.04) mg/dL POC Glucose (mg/dL) 142 H 138 H 144 H (70-110) mg/dL 10/30/23 Range/Units 12:33 Sodium 133 L (137-145) mmol/L Chloride 109 H (98-107) mmol/L Carbon Dioxide 15 L (22-30) mmol/L BUN 37 H (7-17) mg/dL Creatinine 1.33 H (0.52-1.04) mg/dL POC Glucose (mg/dL) (70-110) mg/dL Microbiology - Last 24 Hours (Table) 10/26/23 14:24 Blood Culture - Preliminary Blood
[2023-10-30] MEDS: IPRATROPIUM-ALBUTEROL 3 ML NEB INHALATION SCH (15:25)
--- NOTE | 2023-10-30 15:46 | XR ---
EXAMINATION TYPE: XR chest 1V portable DATE OF EXAM: 10/30/2023 3:02 PM CLINICAL INDICATION:Female, 63 years old with history of chf; PH[facility] COMPARISON: Chest radiographs from 10/25/2023 TECHNIQUE: XR chest 1V portable Frontal view of the chest. FINDINGS: Lungs/Pleura: There is no evidence of pleural effusion, focal consolidation, or pneumothorax. Pulmonary vascularity: Pulmonary vascular congestion. Heart/mediastinum: Cardiomediastinal silhouette is enlarged and stable. 4 lead cardiac conduction dev ice overlying the left hemithorax with lead tips projecting over the right ventricle, right atrium an d coronary sinus. Musculoskeletal: No acute osseous pathology. Repair anchors in the right shoulder. IMPRESSION: Cardiomegaly and mild pulmonary vascular congestion. Correlate with BNP for congestive heart failure.
[2023-10-30] MEDS: PROCHLORPERAZINE INJ 10 MG/2 ML VIAL IVP PRN (16:03)
[2023-10-30 17:01] LABS: Glucose,Whole Blood 199 mg/dL (70-110)
--- NOTE | 2023-10-30 17:12 | P.PN ---
Subjective Progress Note Date: 10/30/23 This is a 63-year-old female patient with a known history of coronary artery disease with multiple previous stent placements, cardiomyopathy status post AICD placement, nephrolithiasis, hearing disorder, hypertension, hyperlipidemia, diabetes mellitus, [id number] amputation on the right, former smoker, chronic Cortes due to kidney issues. She presented here to the emergency room earlier this morning with complaints of generalized weakness, nausea vomiting and fall. Chest x-ray revealed cardiomegaly with mild venous congestion or chronic interstitial lung disease/pulmonary fibrosis. More confluent area of consolidation in the left perihilar and upper lobes. Neoplasm not excluded. EKG reveals atrial sensing and ventricular pacing. Ultrasound of the abdomen/bladder is pending. White count 8.2. Hemoglobin 9.3. Platelets 217. Sodium 131. Potassium 4.0. Bicarb 16. BUN 60. Creatinine 2.54. Lactic acid 3.2. Glucose 266. AST 45. ALT 321. Urinalysis turbid with moderate blood. L arge leukocyte esterase, greater than 182 WBCs many WBC clumps many bacteria. Culture pending. Procalcitonin pending. She has been initiated on ceftriaxone. She is seen today in consultation in the emergency department. She was having issues with hypotension and is requiring norepinephrine and ICU admission. She is awake and alert. Maintaining O2 saturations in the 90s on 2 L/min per nasal cannula. Currently on norepinephrine at 0.02 mcg/kg/min. He has received 1.5 L of fluid resuscitation. Normal saline at 75 MLS per hour. The patient is seen today October 24, 2023 in follow-up in the emergency department. She is currently awake and alert in no acute distress. She is feeling a bit better today compared to yesterday. She did have issues with chest pain yesterday and was found to have elevated troponins and is currently on a heparin drip. Her mean arterial pressures have been in the 70s and 80s. She is off the norepinephrine. She is afebrile. She is maintaining good O2 sa turations up to 100% on 3 L/min per nasal cannula. She is afebrile. Hemodynamically stable. White count 6.4. Hemoglobin 8.3. Platelets 216. Sodium 131. Potassium 3.8. Bicarb 16. BUN 65. Creatinine 2.71. Glucose 127. AST 191. ALT 229. Blood cultures are positive for gram-negative bacilli. She remains. Patient is seen today October 25, 2023 in room 374. She is resting comfortably in bed this morning eating her breakfast. She is satting well on room air. She states her breathing is comfortable and denies any shortness of breath or chest pain. She remains on the heparin drip for the elevated troponins. She remains afebrile. She is hemodynamically stable. White count 8.3. Hemoglobin 8.7. Platelets 241. Sodium 135, Potassium 3.6, Bicard 18. BUN 63. Creatinine 2.29. Glucose 117. Blood cultures show gram-negative bacilli & Enterobacter Cloacae. She remains on Cefepime. Patient is seen today October 26, 2023 in room 374. He is resting comfortably in bed awake alert and in no acute distress. She is satting 90s on room air. He denies any chest shortness of breath or chest pain. She is on subcutaneous heparin per protocol. She remains afebrile. Hemodynamically stable. Sodium 136, potassium 3.8, chloride 112, bicarb 17, BUN 56, creatinine 1.88, glucose 126. He remains on LR at a rate of 75 an hour. Urine culture shows Klebsiella pneumoniae and Pseudomonas aeruginosa. Blood culture shows Enterobacter cloacae. Remains on cefepime which was started on 10/23. Chest x-ray shows stable cardiomegaly with findings suggestive of pulmonary fibrosis. Progress note dated October 27, 2023. 63-year-old female seen today in room 374. The patient is on room air. No IV fluids. Blood cultures were positive for Enterobacter cloacae. Urine cultures were positive for both Klebsiella, and Pseudomonas. The patient continues on cefepime. Current labs include a sodium 136, potassium 4, chlorides 111, CO2 17, anion gap 8, BUN 44, and creatinine 1.54. Glucose is 211. Albumin is 2.6. The patient is seen today October 28, 2023 in follow-up on the selective care unit. She is currently sitting up in a chair. Awake and alert in no acute distress. Maintaining O2 saturations in the 90s on room air. She has been having abdominal pain possibly related to gallstones. She is considered high risk surgical candidate with her recent myocardial infarction. Cardiac catheterization pending. Blood cultures were positive for Enterobacter cloacae complex. Follow-up blood culture revealing no growth thus far. Glucose 146. She remains on cefepime. Heparin for DVT prophylaxis. The patient is seen today October 29, 2023 in follow-up on the selective care unit. She is currently resting in bed. Awake and alert in no acute distress. She is maintaining O2 saturations in the 90s on room air. Her main complaint is of nausea and abdominal pain. She did undergo a hepatobiliary scan today. Wall thickening of the gallbladder on CT felt to be due to third spacing of fluid in the setting of congestive heart failure or liver disease. Count 9.3. Hemoglobi n 8.6. Platelets 231. Sodium 138. Potassium 4.0. Bicarb 18. BUN 33. Creatinine 1.33. Glucose 88. Remains on cefepime. Heparin for DVT prophylaxis. The patient is seen today October 30, 2023 in follow-up in the selective care unit. She is currently up in a chair. Awake and alert in no acute distress. She remains weak. She is maintaining O2 saturations in the 90s on room air. She is having some wheezing and shortness of breath. She has been initiated on Bumex and bronchodilators. She remains on antibiotics in the form of cefepime. Plan is for cardiac catheterization tomorrow. Sodium 133. Potassium 4.9. Bicarb 15. BUN 37. Creatinine 1.33. Glucose 199. Objective - Vital Signs Vital signs: Vital Signs Temp 97.5 F L 10/30/23 08:30 Pulse 82 10/30/23 16:00 Resp 20 10/30/23 16:00 BP 141/84 10/30/23 16:00 Pulse Ox 97 10/30/23 16:00 FiO2 Intake & Output 10/29/23 10/30/23 10/30/23 18:59 06:59 18:59 Intake Total 150 118 Output Total 650 725 Balance 150 650 -607 Weight 71.5 kg Intake: Intake, IV Titration 100 Amount Cefepime 2 gm In Sodium 100 Chloride 0.9% 100 ml @ 25 mls/hr IVPB Q12HR [facility] Rx #:[id number] Oral 50 118 Output: Urine 650 725 Other: Voiding Method Indwelling Catheter Indwelling Catheter Indwelling Catheter # Bowel Movements 1 - Exam GENERAL EXAM: Alert, 63-year-old female, up in a chair, on room air, in no apparent distress. HEAD: Normocephalic. EYES: Normal reaction of pupils, equal size. NOSE: Clear with pink turbinates. THROAT: No erythema or exudates. NECK: No masses, no JVD. CHEST: No chest wall deformity. LUNGS: Equal air entry with few scattered rhonchi. CVS: S1 and S2 normal with no audible murmur, regular rhythm. ABDOMEN: No hepatosplenomegaly, normal bowel sounds, no guarding or rigidity. SPINE: No scoliosis or deformity SKIN: No rashes CENTRAL NERVOUS SYSTEM: No focal deficits, tone is normal in all 4 extremities. EXTREMITIES: Right [id number] amputation. There is no peripheral edema. No clubbing, no cyanosis. Peripheral pulses are intact. - Labs CBC & Chem 7: 10/29/23 06:58 10/30/23 12:33 Labs: Abnormal Lab Results - Last 24 Hours (Table) 10/29/23 10/30/23 10/30/23 Range/Units 20:30 06:20 11:31 Sodium (137-145) mmol/L Chloride (98-107) mmol/L Carbon Dioxide (22-30) mmol/L BUN (7-17) mg/dL Creatinine (0.52-1.04) mg/dL POC Glucose (mg/dL) 142 H 138 H 144 H (70-110) mg/dL 10/30/23 10/30/23 Range/Units 12:33 16:59 Sodium 133 L (137-145) mmol/L Chloride 109 H (98-107) mmol/L Carbon Dioxide 15 L (22-30) mmol/L BUN 37 H (7-17) mg/dL Creatinine 1.33 H (0.52-1.04) mg/dL POC Glucose (mg/dL) 199 H (70-110) mg/dL Microbiology - Last 24 Hours (Table) 10/26/23 14:24 Blood Culture - Preliminary Blood Assessment and Plan Assessment: Generalized weakness with fall, nausea, vomiting suspect secondary to urinary tract infection Acute urinary tract infection secondary to Klebsiella pneumoniae and Pseudomonas aeruginosa Acute kidney injury secondary to dehydration, hypotension Chronic Cortes due to urinary retention Bacteremia secondary to Enterobacter cloacae complex, currently on cefepime Sepsis with septic shock requiring pressor support secondary to above, improved and off pressors Acute hypoxemic respiratory failure secondary to mild venous congestion recovered and on room air Non-ST segment elevation myocardial infarction Transaminitis, statins on hold Coronary artery disease with multiple stent placements Ischemic cardiomyopathy status post biventricular AICD placement Obesity Diabetes mellitus Peripheral vascular disease [id number] amputation of the right lower extremity Hyperlipidemia Anxiety/depression Plan: The patient was seen and evaluated Labs and medications reviewed Initiated on Bumex Initiated on bronchodilators Continue with cefepime Currently on room air Plan is for heart cath tomorrow We will continue to follow I have personally seen and examined the patient, performed the documentation and the assessment and plan as written. Number of minutes spent on the visit: 10.
--- NOTE | 2023-10-30 18:13 | P.PN ---
Progress Note - Text Progress Note Date: 10/30/23 History of present illness; patient is 63-year-old lady with past medical history significant for coronary artery disease with stent placement, diabetes mellitus, fibromyalgia, GERD, hypertension, hyperlipidemia, osteoarthritis, who presented to hospital for generalized weakness. Patient relates she has not been feeling her usual self for the last 3 to 4 days. Patient complains of increased weakness. Patient also having nausea and vomiting. Patient was also complaining of lower quadrant abdominal pain. Patient history of chronic Cortes in the last Cortes was changed 2 weeks back. Patient denied any fever but complaining of chills at home. Patient was also complaining of loss of appe tite. Denied any chest pain or shortness of breath. Patient was complaining of being confused and lethargic as well. Because of the symptoms, patient was brought to the ER Initial lab work done in the ER showed WBC 8.2, hemoglobin 9.3, platelet count 217, sodium 131, potassium 4, BUN 60, creatinine 2.54, glucose 266, lactate 3.2 AST 485, ALT 321, Chest x-ray done in the ER showed cardiomegaly: From mild venous congestion or chronic distal lung disease/pulm fibrosis Patient admitted to internal medicine service October 23: Admitted with septic shock. UTI. Now on the medical floor. Patient's had a Cortes catheter since January 2023. Does feel a bit depressed. Has a powered wheelchair at home. at home is good stage IV cancer. Feeling Roxanna low and a bit suicidal earlier today. Discussed at length. Sitter. Psychiatry consulted. October 24: Patient feeling better this morning. Did eat better. Did sit up in a chair yesterday. Blood culture positive for Enterobacter cloacae and urine culture positive for Klebsiella pneumonia and Pseudomonas. Antibiotics to continue. LFTs coming down October 25: Oral intake good. Getting IV cefepime. Tired. Creatinine slowly coming down October 26: Did set it in the chair earlier today. Creatinine continues to come down slowly. Eating fair. Resume Lipitor at a lower dose October 27: No further abdominal pain. Only nausea. Seen by Dr. Cuba yesterday. Medical manage of cholecystitis. Will change to full liquid diet. Patient up in a chair. October 28: Some nausea. Had a HIDA scan. Low-fat diet. October 29: Tired. Per cardiology for cardiac catheterization tomorrow. No surgical intervention per surgery. IV cefepime. Active Medications Acetaminophen (Acetaminophen Tab 325 Mg Tab) 650 mg PO Q4HR PRN PRN Reason: Fever and/or Mild Pain Al Hydroxide/Mg Hydroxide (Mag Hydrox/Al Hydrox/Simeth 30 Ml Cup) 15 ml PO Q6HR PRN PRN Reason: Indigestion Last Admin: 10/29/23 21:06 Dose: 15 ml Albuterol/Ipratropium (Ipratropium-Albuterol 3 Ml Neb) 3 ml INHALATION RT-QID [facility] Last Admin: 10/30/23 15:25 Dose: 3 ml Alprazolam (Alprazolam 0.5 Mg Tab) 0.5 mg PO HS [facility] Last Admin: 10/29/23 21:06 Dose: 0.5 mg Amitriptyline HCl (Amitriptyline Hcl 25 Mg Tab) 25 mg PO HS [facility] Last Admin: 10/29/23 21:06 Dose: 25 mg Aspirin (Aspirin 81 Mg) 81 mg PO DAILY [facility] Last Admin: 10/30/23 09:42 Dose: 81 mg Bumetanide (Bumetanide 1 Mg Tab) 1 mg PO DAILY [facility] Last Admin: 10/30/23 11:50 Dose: 1 mg Calcitriol (Calcitriol 0.25 Mcg Cap) 0.25 mcg PO FR [facility] Last Admin: 10/25/23 08:59 Dose: 0.25 mcg Clopidogrel Bisulfate (Clopidogrel 75 Mg Tab) 75 mg PO DAILY [facility] Last Admin: 10/30/23 09:42 Dose: 75 mg Darbepoetin Karl (Darbepoetin Karl 60 Mcg/0.3 Ml Syringe) 60 mcg SQ Q7D [facility] Last Admin: 10/24/23 14:28 Dose: 60 mcg Dextrose/Water (Dextrose 50% Syringe 50 Ml) 25 ml IVP PER PROTOCOL PRN; Protocol PRN Reason: Hypoglycemia Dextrose/Water (Dextrose 50% Syringe 50 Ml) 50 ml IVP PER PROTOCOL PRN; Protocol PRN Reason: Hypoglycemia Escitalopram Oxalate (Escitalopram 20 Mg Tab) 20 mg PO HS [facility] Last Admin: 10/29/23 21:06 Dose: 20 mg Heparin Sodium (Porcine) (Heparin Sodium,Porcine 5,000 Unit/Ml 1 Ml Vial) 5,000 unit SQ Q8HR [facility] Last Admin: 07/31/24 17:24 Dose: 5,000 unit Cefepime HCl 2 gm/ Sodium (Chloride) 100 mls @ 25 mls/hr IVPB Q12HR [facility] Last Admin: 10/30/23 09:42 Dose: 25 mls/hr Heparin Sodium (Porcine) 10, (000 unit/ Sodium Chloride) 1,001 mls @ 999 mls/hr IRRIGATION ONCE PRN PRN Reason: INTRA-OP Stop: 10/31/23 23:00 Heparin Sodium (Porcine) 2,500 (unit/ Sodium Chloride) 250.5 mls @ 250 mls/hr IRRIGATION ONCE PRN PRN Reason: INTRA-OP Stop: 10/31/23 23:00 Sodium Chloride 1,000 ml/ IV (Solution) 1,000 mls @ 75 mls/hr IV .[id number] [facility] Stop: 10/31/23 08:59 Insulin Aspart (Insulin Aspart (Novolog) 100 Unit/Ml Vial) 0 unit SQ ACHS [facility]; Protocol Last Admin: 10/30/23 17:22 Dose: 1 unit Insulin Aspart (Insulin Aspart (Novolog) 100 Unit/Ml Vial) 5 unit SQ AC-TID [facility] Last Admin: 10/30/23 17:22 Dose: 5 unit Insulin Detemir (Insulin Detemir (Levemir) 100 Unit/Ml Syr) 24 unit SQ HS [facility] Last Admin: 10/29/23 21:08 Dose: Not Given Melatonin (Melatonin 3 Mg Tablet) 3 mg PO HS PRN PRN Reason: Insomnia Last Admin: 10/29/23 21:06 Dose: 3 mg Metoprolol Tartrate (Metoprolol Tartrate 25 Mg Tab) 25 mg PO BID [facility] Last Admin: 10/30/23 09:42 Dose: 25 mg Naloxone HCl (Naloxone 0.4 Mg/Ml 1 Ml Vial) 0.2 mg IV Q2M PRN PRN Reason: Opioid Reversal Nystatin (Nystatin 100,000 Unit/Gm Powd 15 Gm) 1 applic TOPICAL BID [facility]; Protocol Last Admin: 10/30/23 09:43 Dose: 1 applic Oxycodone/Acetaminophen (Oxycodone-Apap 10-325mg 1 Each Tab) 1 each PO Q6HR PRN PRN Reason: Pain Last Admin: 10/30/23 02:34 Dose: 1 each Prochlorperazine Edisylate (Prochlorperazine Inj 10 Mg/2 Ml Vial) 5 mg IVP Q6HR PRN PRN Reason: Nausea And Vomiting Last Admin: 10/30/23 16:03 Dose: 5 mg Quetiapine Fumarate (Quetiapine 50 Mg Tab) 50 mg PO BID [facility] Sodium Bicarbonate (Sodium Bicarbonate Tab 650 Mg Tab) 650 mg PO BID [facility] Last Admin: 10/30/23 09:42 Dose: 650 mg Spironolactone (Spironolactone 25 Mg Tab) 12.5 mg PO DAILY [facility] Last Admin: 10/30/23 09:42 Dose: 12.5 mg Tizanidine HCl (Tizanidine 4 Mg Tab) 4 mg PO BID PRN PRN Reason: Muscle pain/spasm Social history: . Does use a motorized wheelchair. Patient smoked a pack a day for 20 years stopped in 2014. Physical examination: VITAL SIGNS: Afebrile, 82, 20, 141/84, 97% room air GENERAL: Laying in bed, a bit tired EYES: Pupils equal. Conjunctiva normal. HEENT: External appearance of nose and ears normal, oral cavity grossly normal. NECK: JVD not raised; masses not palpable. HEART: First and second heart sounds are normal; no edema. LUNGS: Respiratory rate normal; clear to auscultation. ABDOMEN: Soft, nontender, liver spleen not palpable, no masses palpable. Cortes catheter PSYCH: [Alert and oriented x3; mood and affect normal r MUSCULAR skeletal: Evidence of OA INVESTIGATIONS, reviewed in the clinical context: October 29: Potassium 4.9 BUN 37 creatinine 1.33 October 24: White count 8.3 hemoglobin 8.7 platelets 241 sodium 135 BUN 63 creatinine 2.29. AST 86 ALT 168 October 23: White count 6.4 hemoglobin 8.3 platelets 216 sodium 131 potassium 3.8 BUN 65 creatinine 2.71 AST 191 ALT 229 October 22: AST 45 ALT 321 troponin I 14.4 UA positive for leukoesterase Urine culture: Klebsiella pneumoniae, Pseudomonas aeruginosa Blood culture: Enterobacter cloacae Abdominal ultrasound: Pericholecystic fluid and gallbladder sludge. Distal CBD's dilated at 7 mm. Distal obstruction was occluded. Mild bilateral hydronephrosis Previous labs: May 2023 creatinine 1.7 Assessment and plan: -Septic shock secondary to bacteremia from UTI: Resolved Patient required pressors, fluids -Sepsis with blood cultures positive for Enterobacter cloacae IV fluids. IV cefepime -Probable gallstone/cholecystitis Seen by Dr. Cuba from general surgery. For medical management due to high risk for surgery. Continue antibiotics -Acute kidney injury, ATN from septic shock: Improving Baseline creatinine 1.7 in May 2023. Admission creatinine 2.54 -Acute UTI with cystitis cultures positive for Klebsiella pneumonia and Pseudomonas aeruginosa, secondary to chronic Cortes catheter, causing septic shock IV cefepime -Coronary artery disease, prior history of stent Aspirin Plavix -Chronic congestive heart failure, EF not known Follow clinically -Diabetes mellitus type 2 chronically on insulin For Accu-Cheks with sliding scale. Levemir. NovoLog. -Chronic fibromyalgia Pain control when necessary -Chronic Cortes catheter for bladder dysfunction since January 2023 -Acute non-ST elevation [place]. Precipitated by septic shock. Known underlying CAD. IV heparin-discontinued. Plavix. Aspirin. Lopressor Cardiology-for cardiac catheterization tomorrow -Metabolic acidosis from kidney injury Sodium bicarbonate -GERD Pepcid -Hyperlipidemia Lipitor-was held temporarily because increased LFTs. Resume at 40 mg -Essential hypertension Lopressor -Acute ischemic hepatitis from septic shock: improving Continue to hold Lipitor -Primary osteoarthritis Pain control -Metabolic acidosis secondary to kidney disease Sodium bicarbonate -Chronic kidney disease stage 3 likely nephrosclerosis and diabetic nephropathy Creatinine 1.06 June 2023 -Peripheral arterial disease Aspirin Lipitor -Right above-knee amputation -AICD with a pacemaker Telemetry Anxiety depression otherwise specified, for some acute flareup, with some suicidal ideation Consult psychiatry add sitter Resume home medications Lexapro, Seroquel, Xanax, Chronic insomnia: elavil -Chronic medical debility. Does use a motorized wheelchair -Full code Remains on IV cefepime. For cardiac catheterization tomorrow. Creatinine seems to leveled off at 1.33. Discussed with patient. Getting IV fluids. Past Medical History Past Medical History: Coronary Artery Disease (CAD), Heart Failure, Diabetes Mellitus, Fibromyalgia, GERD/Reflux, Hearing Disorder / Deafness, Hyperlipidemia, Hypertension, Myocardial Infarction ([place]), Musculoskeletal Disorder, Osteoarthritis (OA), Renal Disease, Skin Disorder, Vascular Disorder Additional Past Medical History / Comment(s): See Dr Durant's H&P nephrolithiasis and kidney stones- chronic Cortes, peripheral vascular disease, degenerative disc disease-chronic back pain, Rt AKA-working on using prosthesis, going to physical therapy Last Myocardial Infarction Date:: 2004,2006, 2015 History of Any Multi-Drug Resistant Organisms: MRSA Date of last positivie culture/infection: 02/24/16 LT FOOT-VERIFIED PER DR VASQUEZ OFFICE MDRO Source:: LT FOOT Past Surgical History: AICD, Section, Heart Catheterization, Heart Catheterization With Stent, Orthopedic Surgery, Pacemaker, Tonsillectomy Additional Past Surgical History / Comment(s): Right rotator cuff surgery 2, bilateral carpal tunnel release,3 cardiac catheterization 6 stents, above-knee amputation of the right lower extremity, incision and debridement of diabetic wounds, [facility] Biventricular AICD placement Past Anesthesia/Blood Transfusion Reactions: Motion Sickness Additional Past Anesthesia/Blood Transfusion Reaction / Comment(s): CLAUSTERPHOBIA. PAST BLOOD TRANSFUSION-NO REACTION Date of Last Stent Placement:: 2015 Type of Cardiac Device: AICD Device Placement Date:: Past Psychological History: Anxiety, Depression Smoking Status: Former smoker
[2023-10-30] MEDS: QUEtiapine 50 MG TAB PO SCH (20:10)
[2023-10-30 20:24] LABS: Glucose,Whole Blood 291 mg/dL (70-110)
[2023-10-31] MEDS: SODIUM CHLORIDE 0.9% 1,000 ML in EMPTY BAG 1 BAG IV SCH (03:34)
[2023-10-31 06:06] LABS: Glucose,Whole Blood 244 mg/dL (70-110)
[2023-10-31 09:20] LABS: African American GFR (CKD) 37 (>60 ml/min/1.73 sqM); Anion Gap 5 mmol/L; Blood Urea Nitrogen 41 mg/dL (7-17); Calcium 8.2 mg/dL (8.4-10.2); Carbon Dioxide 19 mmol/L (22-30); Chloride 108 mmol/L (98-107); Glucose 173 mg/dL (74-99); Non-African American GFR(CKD) 32 (>60 ml/min/1.73 sqM); Potassium 4.5 mmol/L (3.5-5.1); Sodium 132 mmol/L (137-145)
[2023-10-31 11:24] LABS: Glucose,Whole Blood 181 mg/dL (70-110)
[2023-10-31] MEDS: IV FLUID CONTINUATION 500 ML IV ONE (11:49)
[2023-10-31] MEDS: NYSTATIN 100,000 UNIT/ML SUSP 500,000 UNIT/5 ML CUP PO SCH (12:07)
[2023-10-31] MEDS ORDERED: fentaNYL (PF) 50 MCG/ML 2 ML AMP ONE (12:20)
[2023-10-31] MEDS ORDERED: HEPARIN SODIUM 1,000 UN/ML (10ML VL) ONE (12:20)
[2023-10-31] MEDS: fentaNYL (PF) 50 MCG/ML 2 ML AMP IVP ONE (12:28)
[2023-10-31] MEDS: LIDOCAINE 1% INJ 10MG/ML (20 ML MDV) SQ ONE ×4 (12:29→12:48)
[2023-10-31] MEDS: HEPARIN SODIUM,PORCINE 10,000 UNIT in SODIUM CHLORIDE 0.9% 1,000 ML IRRIGATION PRN (12:37)
[2023-10-31] MEDS: HEPARIN SODIUM,PORCINE (1 ML) 2,500 UNIT in SODIUM CHLORIDE 0.9% 250 ML IRRIGATION PRN (12:37)
[2023-10-31] MEDS ORDERED: LIDOCAINE 1% INJ 10MG/ML (20 ML MDV) ONE (12:46)
--- NOTE | 2023-10-31 12:57 | P.PN ---
Subjective patient is seen for follow-up for acute kidney injury and chronic kidney disease. Renal function has improved significantly with serum creatinine down to 1.3 mg/dL from 2.7 at peak. Maintained on antibiotics for gram-negative sepsis. Blood cultures are growing Enterobacter cloacae and urine cultures is growing Klebsiella pneumonia and Pseudomonas Restarted on diuretics. No complaints of shortness of breath today. Objective - Vital Signs Vital signs: Vital Signs Temp 96.9 F L 10/31/23 08:00 Pulse 64 10/31/23 11:43 Resp 18 10/31/23 08:00 BP 108/72 10/31/23 08:00 Pulse Ox 95 10/31/23 08:05 FiO2 Intake & Output 10/30/23 10/31/23 10/31/23 18:59 06:59 18:59 Intake Total 118 Output Total 725 1300 200 Balance -607 -1300 -200 Weight 71.5 kg 86.4 kg Intake: Oral 118 Output: Urine 725 1300 200 Other: Voiding Method Indwelling Catheter Indwelling Catheter Indwelling Catheter - Exam Patient is awake, comfortable, no acute distress. Examination of the heart S1 and S2 Examination of the lungs bilateral breath sounds are heard Abdomen is soft nontender Examination of lower extremities shows 1+ edema, right AKA [employer] exam grossly intact - Labs CBC & Chem 7: 10/29/23 06:58 10/31/23 08:47 Labs: Abnormal Lab Results - Last 24 Hours (Table) 10/30/23 10/30/23 10/30/23 Range/Units 12:33 16:59 20:22 Sodium 133 L (137-145) mmol/L Chloride 109 H (98-107) mmol/L Carbon Dioxide 15 L (22-30) mmol/L BUN 37 H (7-17) mg/dL Creatinine 1.33 H (0.52-1.04) mg/dL Glucose (74-99) mg/dL POC Glucose (mg/dL) 199 H 291 H (70-110) mg/dL Calcium (8.4-10.2) mg/dL 10/31/23 10/31/23 10/31/23 Range/Units 06:05 08:47 11:22 Sodium 132 L (137-145) mmol/L Chloride 108 H (98-107) mmol/L Carbon Dioxide 19 L (22-30) mmol/L BUN 41 H (7-17) mg/dL Creatinine 1.67 H (0.52-1.04) mg/dL Glucose 173 H (74-99) mg/dL POC Glucose (mg/dL) 244 H 181 H (70-110) mg/dL Calcium 8.2 L (8.4-10.2) mg/dL Assessment and Plan Assessment: 1. Acute kidney injury, ATN secondary to sepsis and hypotension, nonoliguric. UA is suggestive of UTI. ultrasound shows mild bilateral hydronephrosis. This is not new and patient has chronic indwelling Cortes catheter. 2. UTI with sepsis, urine culture is growing Klebsiella pneumonia and Pseudomonas 3. Gram-negative sepsis with blood cultures growing Enterobacter cloacae 4. Peripheral vascular disease status post right AKA 5. CK D stage IV secondary to diabetic kidney disease. Baseline creatinine 1.7-1.8 mg/dL. 6. Non-gap metabolic acidosis secondary to acute kidney injury 7. Anemia of chronic disease with mild iron deficiency. I will hold off on IV iron due to active infection. Continue with Aranesp Plan: Continue diuretics. Patient can be switched to torsemide upon discharge. continue oral sodium bicarb Continue with antibiotics Continue with indwelling Cortes catheter. Repeat labs in a.m. Continue to avoid nephrotoxic agents continue Aranesp Hold IV iron due to ongoing active infection.
[2023-10-31] MEDS: MIDAZOLAM 2 MG/2 ML VIAL IVP ONE (13:04)
[2023-10-31] MEDS: IOPAMIDOL-370 100ML BTL INJ ONE (13:23)
[2023-10-31] MEDS ORDERED: RX INFO: IV CONTRAST WAS GIVEN 1 EACH MISC MISCELLANE PRN (13:32)
--- NOTE | 2023-10-31 13:42 | P.CARDCATH ---
Date of Procedure: 10/31/23 Description of Procedure: Cardiac Catheterization: The patient is a 63-year-old female with a known history of multivessel stenting severe, cardiomyopathy status post ICD implantation and severe PAD who presented with symptoms of hypertension, infectious process and had troponin elevation. Her echocardiogram showed a severely impaired left ventricular systolic function and she had worsening renal function. After improving her renal function and after evaluation by Dr. Kaur further evaluation was recommended. Recommendations were made regarding cardiac catheterization, the risks and the complications were discussed with the patient who is in full understanding and agreement. Procedure Description: Patient was brought to [facility] in fasting semi-sedated state after receiving Fentanyl and Benadryl achieiving moderate conscious sedated state. Using Xylocaine Anesthesia and modified Seldinger technique, and using a micropuncture catheter a 6-[place] sheath was introduced in the left femoral artery, there was inability to cannulate the right radial artery . Subsequently, selective coronary angiography was performed using a 6-[place] 4 bend Deangelo catheter. Multiple views of the coronary artery including hemiaxial views were obtained. The right Deangelo catheter was used to cross the aortic valve and LVEDP was calculated. Following that, catheter and sheath were removed. Hemostasis was obtained with deployment of Angio-Seal. There was no immediate complication. Patient was returned to room in stable condition. Findings: Fluoroscopy: Severe calcifications of all the coronary arteries was noted Left main: This is a short size vessel bifurcating into LAD and left circumflex, left main has 10 to 20% plaque distally LAD: This is a large size vessel, giving rise to a moderately sized diagonal branch in the midsegment. The vessel is heavily calcified. The stented segment in the proximal and mid LAD are patent. There is a 50% plaque in the proximal LAD the LAD beyond the diagonal branch is totally occluded with no significant antegrade flow. It appears to be a chronic occlusion. Left circumflex: This is a nondominant vessel, large in caliber, giving rise to 3 obtuse marginal branch. The stented segment is patent with diffuse intimal disease throughout the vessel up to 30 to 40%. RCA: This is a dominant vessel, bifurcating to PDA and PLV diffusely diseased throughout its course the RCA has stents in the proximal and mid segment there are patent. There is a mid RCA plaque at the takeoff of the acute marginal branch of 50 to 60% with no significant progression compared to 2016. There is a 60% plaque distally prior to the bifurcation with diffuse intimal disease d istally. Left Ventriculogram: Not performed Hemodynamics: There was no gradient across the aortic valve, LVEDP was 20-22 mmHg Conclusion: 1. Calcified coronary arteries 2. Chronically occluded mid LAD 3. Moderate disease in the left circumflex and the RCA 4. Right dominance 5. Elevated LVEDP Recommendations: In view of her anatomy and prior history I have recommended to continue medical therapy. The occlusion of the LAD appears to be chronic and she has diffuse disease in the RCA with no significant progression. The findings and the recommendations were discussed with the patient and the family and they were in full understanding and agreement. Duration of sedation is 48 minutes.
--- NOTE | 2023-10-31 15:24 | P.PN ---
Subjective Progress Note Date: 10/31/23 Principal diagnosis: Acute urinary tract infection with bacteremia sepsis and septic shock and ischemic cardiomyopathy. 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 She presented here to the emergency room earlier this morning with complaints of generalized weakness, nausea vomiting and fall. Chest x-ray revealed cardiomegaly with mild venous congestion or chronic interstitial lung disease/pulmonary fibrosis. More confluent area of consolidation in the left perihilar and upper lobes. Neoplasm not excluded. EKG reveals atrial sensing and ventricular pacing. Ultrasound of the abdomen/bladder is pending. White count 8.2. Hemoglobin 9.3. Platelets 217. Sodium 131. Potassium 4.0. Bicarb 16. BUN 60. Creatinine 2.54. Lactic acid 3.2. Glucose 266. AST 45. ALT 321. Urinalysis turbid with moderate blood. Large leukocyte esterase, greater than 182 WBCs many WBC clumps many bacteria. Culture pending. Procalcitonin pending. She has been initiated on ceftriaxone. She is seen today in consultation in the emergency department. She was having issues with hypotension and is requiring norepinephrine and ICU admission. She is awake and alert. Maintaining O2 saturations in the 90s on 2 L/min per nasal cannula. Currently on norepinephrine at 0.02 mcg/kg/min. He has received 1.5 L of fluid resuscitation. Normal saline at 75 MLS per hour. The patient is seen today October 24, 2023 in follow-up in the emergency department. She is currently awake and alert in no acute distress. She is feeling a bit better today compared to yesterday. She did have issues with chest pain yesterday and was found to have elevated troponins and is currently on a heparin drip. Her mean arterial pressures have been in the 70s and 80s. She is off the norepinephrine. She is afebrile. She is maintaining good O2 saturations up to 100% on 3 L/min per nasal cannula. She is afebrile. Hemodynamically stable. White count 6.4. Hemoglobin 8.3. Platelets 216. Sodium 131. Potassium 3.8. Bicarb 16. BUN 65. Creatinine 2.71. Glucose 127. AST 191. ALT 229. Blood cultures are positive for gram-negative bacilli. She remains. Patient is seen today October 25, 2023 in room 374. She is resting comfortably in bed this morning eating her breakfast. She is satting well on room air. She states her breathing is comfortable and denies any shortness of breath or chest pain. She remains on the heparin drip for the elevated troponins. She remains afebrile. She is hemodynamically stable. White count 8.3. Hemoglobin 8.7. Platelets 241. Sodium 135, Potassium 3.6, Bicard 18. BUN 63. Creatinine 2.29. Glucose 117. Blood cultures show gram-negative bacilli & Enterobacter Cloacae. She remains on Cefepime. Patient is seen today October 26, 2023 in room 374. He is resting comfortably in bed awake alert and in no acute distress. She is satting 90s on room air. He denies any chest shortness of breath or chest pain. She is on subcutaneous heparin per protocol. She remains afebrile. Hemodynamically stable. Sodium 136, potassium 3.8, chloride 112, bicarb 17, BUN 56, creatinine 1.88, glucose 126. He remains on LR at a rate of 75 an hour. Urine culture shows Klebsiella pneumoniae and Pseudomonas aeruginosa. Blood culture shows Enterobacter cloacae. Remains on cefepime which was started on 10/23. Chest x-ray shows stable cardiomegaly with findings suggestive of pulmonary fibrosis. Progress note dated October 27, 2023. 63-year-old female seen today in room 374. The patient is on room air. No IV fluids. Blood cultures were positive for Enterobacter cloacae. Urine cultures were positive for both Klebsiella, and Pseudomonas. The patient continues on cefepime. Current labs include a sodium 136, potassium 4, chlorides 111, CO2 17 , anion gap 8, BUN 44, and creatinine 1.54. Glucose is 211. Albumin is 2.6. The patient is seen today October 28, 2023 in follow-up on the selective care unit. She is currently sitting up in a chair. Awake and alert in no acute distress. Maintaining O2 saturations in the 90s on room air. She has been having abdominal pain possibly related to gallstones. She is considered high risk surgical candidate with her recent myocardial infarction. Cardiac catheterization pending. Blood cultures were positive for Enterobacter cloacae complex. Follow-up blood culture revealing no growth thus far. Glucose 146. She remains on cefepime. Heparin for DVT prophylaxis. The patient is seen today October 29, 2023 in follow-up on the selective care unit. She is currently resting in bed. Awake and alert in no acute distress. She is maintaining O2 saturations in the 90s on room air. Her main complaint is of nausea and abdominal pain. She did undergo a hepatobiliary scan today. Wall thickening of the gallbladder on CT felt to be due to third spacing of fluid in the setting of congestive heart failure or liver disease. Count 9.3. Hemoglobin 8.6. Platelets 231. Sodium 138. Potassium 4.0. Bicarb 18. BUN 33. Creatinine 1.33. Glucose 88. Remains on cefepime. Heparin for DVT prophylaxis. The patient is seen today October 30, 2023 in follow-up in the selective care unit. She is currently up in a chair. Awake and alert in no acute distress. She remains weak. She is maintaining O2 saturations in the 90s on room air. She is having some wheezing and shortness of breath. She has been initiated on Bumex and bronchodilators. She remains on antibiotics in the form of cefepime. Plan is for cardiac catheterization tomorrow. Sodium 133. Potassium 4.9. Bicarb 15. BUN 37. Creatinine 1.33. Glucose 199. Patient was evaluated today on 10/31/2023, patient remains on the same bron chodilators and diuretics she is also on antibiotics for her bacteremia and UTI. Underwent cardiac catheterization today, however she was found to have calcified coronary arteries and chronically occluded mid LAD with moderate disease in the left circumflex and in the RCA. She was also noted to have left ventricular end-diastolic pressure elevation. Recommendation is to continue medical therapy, no intervention was recommended labs today showed relatively normal electrolytes, BUN is 41 creatinine 1.67 Objective - Vital Signs Vital signs: Vital Signs Temp 96.9 F L 10/31/23 08:00 Pulse 64 10/31/23 11:43 Resp 18 10/31/23 08:00 BP 108/72 10/31/23 08:00 Pulse Ox 95 10/31/23 08:05 FiO2 Intake & Output 10/30/23 10/31/23 10/31/23 18:59 06:59 18:59 Intake Total 118 300 Output Total 725 1300 200 Balance -607 -1300 100 Weight 71.5 kg 86.4 kg Intake: IV 300 Oral 118 Output: Urine 725 1300 200 Other: Voiding Method Indwelling Catheter Indwelling Catheter Indwelling Catheter - Exam General: Reveals 63-year-old female in no distress HEAD: Normocephalic. EYES: Normal reaction of pupils, equal size. NOSE: Clear with pink turbinates. THROAT: No erythema or exudates. NECK: No masses, no JVD. CHEST: No chest wall deformity. LUNGS: Equal air entry with few scattered rhonchi. CVS: S1 and S2 normal with no audible murmur, regular rhythm. ABDOMEN: No hepatosplenomegaly, normal bowel sounds, no guarding or rigidity. SKIN: No rashes CENTRAL NERVOUS SYSTEM: No focal deficits, tone is normal in all 4 extremities. EXTREMITIES: Right [id number] amputation. There is no peripheral edema. No clubbing, no cyanosis. Peripheral pulses are intact. - Labs CBC & Chem 7: 10/29/23 06:58 10/31/23 08:47 Labs: Abnormal Lab Results - Last 24 Hours (Table) 10/30/23 10/30/23 10/31/23 Range/Units 16:59 20:22 06:05 Sodium (137-145) mmol/L Chloride (98-107) mmol/L Carbon Dioxide (22-30) mmol/L BUN (7-17) mg/dL Creatinine (0.52-1.04) mg/dL Glucose (74-99) mg/dL POC Glucose (mg/dL) 199 H 291 H 244 H (70-110) mg/dL Calcium (8.4-10.2) mg/dL 10/31/23 10/31/23 Range/Units 08:47 11:22 Sodium 132 L (137-145) mmol/L Chloride 108 H (98-107) mmol/L Carbon Dioxide 19 L (22-30) mmol/L BUN 41 H (7-17) mg/dL Creatinine 1.67 H (0.52-1.04) mg/dL Glucose 173 H (74-99) mg/dL POC Glucose (mg/dL) 181 H (70-110) mg/dL Calcium 8.2 L (8.4-10.2) mg/dL Assessment and Plan Assessment: Impression: Generalized weakness with fall, nausea, vomiting suspect secondary to urinary tract infection Acute urinary tract infection secondary to Klebsiella pneumoniae and Pseudomonas aeruginosa Acute kidney injury secondary to dehydration, hypotension Chronic Cortes due to urinary retention Bacteremia secondary to Enterobacter cloacae complex, currently on cefepime Sepsis with septic shock requiring pressor support secondary to above, improved and off pressors Acute hypoxemic respiratory failure secondary to mild venous congestion recovered and on room air Non-ST segment elevation myocardial infarction Transaminitis, statins on hold Coronary artery disease with multiple stent placements Ischemic cardiomyopathy status post biventricular AICD placement Obesity Diabetes mellitus Peripheral vascular disease Tiyja-yyw-hqvo amputation of the right lower extremity Hyperlipidemia Anxiety/depression Recommendation: Continue diuretics Continue bronchodilators Continue antibiotics Cardiac catheterization report was reviewed, this was done by Dr. Jauregui Continue present supportive care measures Will continue to follow Time with Patient: Less than 30
--- NOTE | 2023-10-31 15:26 | P.PN ---
Subjective Progress Note Date: 10/31/23 CHIEF COMPLAINT: abdominal pain HISTORY OF PRESENT ILLNESS: The patient is a 63-year-old female with multiple comorbidities including recent myocardial infarctions and urinary tract infection. Patient found to have evidence of gallstones and hydropic gallbladder. HIDA scan is negative. Patient reports her nausea is better. She is status post heart catheterization and cardiology is recommending medical management of her coronary disease. She denies any abdominal pain. PHYSICAL EXAM: VITAL SIGNS: Reviewed GENERAL: Well-developed in no acute distress. HEENT: No sclera icterus. Extraocular movements grossly intact. Moist buccal mucosa. Head is atraumatic, normocephalic. Hears conversational speech. No nasal drainage. NECK: Supple without lymphadenopathy. CHEST: Non-labored respirations and equal bilateral excursions. CARDIOVASCULAR: Palpable 2+ radial pulses. ABDOMEN: Soft. Nondistended. Nontender. MUSCULOSKELETAL: No clubbing or cyanosis. NEUROLOGIC: No focal or lateralizing signs. Cranial nerves II through XII grossly intact. PSYCH: Appropriate affect. Alert and oriented to person, place and time. SKIN: Well perfused. Good skin turgor. ASSESSMENT: 1. Abdominal pain, upper abdomen likely due to gallstones. Now improved 2. Acute myocardial infarction 3. Chronic anemia 4. Coronary artery disease 5. Diabetic nephropathy with diabetic neuropathy 6. Insulin-dependent diabetes type 2 with hyperglycemia. 7. Grade 2 diastolic dysfunction with congestive heart failure, EF 20-25% PLAN: -No surgical intervention planned -Patient is high surgical risk with recent acute myocardial infarction. -Recommend low-fat diet -Surgical service will sign off. Please call with any questions or concerns Physician Radios[employer] Operator note has been reviewed by physician. Signing provider agrees with the documented findings, assessment, and plan of care. Objective - Vital Signs Vital signs: Vital Signs Temp 96.9 F L 10/31/23 08:00 Pulse 64 10/31/23 11:43 Resp 18 10/31/23 08:00 BP 108/72 10/31/23 08:00 Pulse Ox 95 10/31/23 08:05 FiO2 Intake & Output 10/30/23 10/31/23 10/31/23 18:59 06:59 18:59 Intake Total 118 300 Output Total 725 1300 200 Balance -607 -1300 100 Weight 71.5 kg 86.4 kg Intake: IV 300 Oral 118 Output: Urine 725 1300 200 Other: Voiding Method Indwelling Catheter Indwelling Catheter Indwelling Catheter - Labs CBC & Chem 7: 10/29/23 06:58 10/31/23 08:47 Labs: Abnormal Lab Results - Last 24 Hours (Table) 10/30/23 10/30/23 10/31/23 Range/Units 16:59 20:22 06:05 Sodium (137-145) mmol/L Chloride (98-107) mmol/L Carbon Dioxide (22-30) mmol/L BUN (7-17) mg/dL Creatinine (0.52-1.04) mg/dL Glucose (74-99) mg/dL POC Glucose (mg/dL) 199 H 291 H 244 H (70-110) mg/dL Calcium (8.4-10.2) mg/dL 10/31/23 10/31/23 Range/Units 08:47 11:22 Sodium 132 L (137-145) mmol/L Chloride 108 H (98-107) mmol/L Carbon Dioxide 19 L (22-30) mmol/L BUN 41 H (7-17) mg/dL Creatinine 1.67 H (0.52-1.04) mg/dL Glucose 173 H (74-99) mg/dL POC Glucose (mg/dL) 181 H (70-110) mg/dL Calcium 8.2 L (8.4-10.2) mg/dL
[2023-10-31 15:33] LABS: African American GFR (CKD) 36 (>60 ml/min/1.73 sqM); Anion Gap 6 mmol/L; Blood Urea Nitrogen 43 mg/dL (7-17); Calcium 8.3 mg/dL (8.4-10.2); Carbon Dioxide 19 mmol/L (22-30); Chloride 107 mmol/L (98-107); Glucose 149 mg/dL (74-99); Non-African American GFR(CKD) 32 (>60 ml/min/1.73 sqM); Potassium 4.4 mmol/L (3.5-5.1); Sodium 132 mmol/L (137-145)
[2023-10-31 16:42] LABS: Glucose,Whole Blood 178 mg/dL (70-110)
--- NOTE | 2023-10-31 17:00 | P.PN ---
Progress Note - Text Progress Note Date: 10/31/23 History of present illness; patient is 63-year-old lady with past medical history significant for coronary artery disease with stent placement, diabetes mellitus, fibromyalgia, GERD, hypertension, hyperlipidemia, osteoarthritis, who presented to hospital for generalized weakness. Patient relates she has not been feeling her usual self for the last 3 to 4 days. Patient complains of increased weakness. Patient also having nausea and vomiting. Patient was also complaining of lower quadrant abdominal pain. Patient history of chronic Cortes in the last Cortes was changed 2 weeks back. Patient denied any fever but complaining of chills at home. Patient was also complaining of loss of appe tite. Denied any chest pain or shortness of breath. Patient was complaining of being confused and lethargic as well. Because of the symptoms, patient was brought to the ER Initial lab work done in the ER showed WBC 8.2, hemoglobin 9.3, platelet count 217, sodium 131, potassium 4, BUN 60, creatinine 2.54, glucose 266, lactate 3.2 AST 485, ALT 321, Chest x-ray done in the ER showed cardiomegaly: From mild venous congestion or chronic distal lung disease/pulm fibrosis Patient admitted to internal medicine service October 23: Admitted with septic shock. UTI. Now on the medical floor. Patient's had a Cortes catheter since January 2023. Does feel a bit depressed. Has a powered wheelchair at home. at home is good stage IV cancer. Feeling Roxanna low and a bit suicidal earlier today. Discussed at length. Sitter. Psychiatry consulted. October 24: Patient feeling better this morning. Did eat better. Did sit up in a chair yesterday. Blood culture positive for Enterobacter cloacae and urine culture positive for Klebsiella pneumonia and Pseudomonas. Antibiotics to continue. LFTs coming down October 25: Oral intake good. Getting IV cefepime. Tired. Creatinine slowly coming down October 26: Did set it in the chair earlier today. Creatinine continues to come down slowly. Eating fair. Resume Lipitor at a lower dose October 27: No further abdominal pain. Only nausea. Seen by Dr. Cuba yesterday. Medical manage of cholecystitis. Will change to full liquid diet. Patient up in a chair. October 28: Some nausea. Had a HIDA scan. Low-fat diet. October 29: Tired. Per cardiology for cardiac catheterization tomorrow. No surgical intervention per surgery. IV cefepime. October 30: Saw the patient this morning. No abdominal pain. No nausea. Later in the afternoon underwent cardiac catheterization. By Dr. Jauregui. Found to have defied coronary arteries.. Chronically occluded mid LAD. Moderate disease in the left circumflex and RCA. For medical management. Active Medications Acetaminophen (Acetaminophen Tab 325 Mg Tab) 650 mg PO Q4HR PRN PRN Reason: Fever and/or Mild Pain Al Hydroxide/Mg Hydroxide (Mag Hydrox/Al Hydrox/Simeth 30 Ml Cup) 15 ml PO Q6HR PRN PRN Reason: Indigestion Last Admin: 10/29/23 21:06 Dose: 15 ml Albuterol/Ipratropium (Ipratropium-Albuterol 3 Ml Neb) 3 ml INHALATION RT-QID [facility] Last Admin: 10/31/23 15:20 Dose: Not Given Alprazolam (Alprazolam 0.5 Mg Tab) 0.5 mg PO [facility] Last Admin: 10/30/23 20:10 Dose: 0.5 mg Amitriptyline HCl (Amitriptyline Hcl 25 Mg Tab) 25 mg PO [facility] Last Admin: 10/30/23 20:10 Dose: 25 mg Aspirin (Aspirin 81 Mg) 81 mg PO DAILY [facility] Last Admin: 10/31/23 09:22 Dose: 81 mg Bumetanide (Bumetanide 1 Mg Tab) 1 mg PO DAILY [facility] Last Admin: 10/31/23 09:22 Dose: 1 mg Calcitriol (Calcitriol 0.25 Mcg Cap) 0.25 mcg PO FR [facility] Last Admin: 10/25/23 08:59 Dose: 0.25 mcg Clopidogrel Bisulfate (Clopidogrel 75 Mg Tab) 75 mg PO DAILY [facility] Last Admin: 10/31/23 09:22 Dose: 75 mg Darbepoetin Karl (Darbepoetin Karl 60 Mcg/0.3 Ml Syringe) 60 mcg SQ Q7D [facility] Last Admin: 10/24/23 14:28 Dose: 60 mcg Dextrose/Water (Dextrose 50% Syringe 50 Ml) 25 ml IVP PER PROTOCOL PRN; Protocol PRN Reason: Hypoglycemia Dextrose/Water (Dextrose 50% Syringe 50 Ml) 50 ml IVP PER PROTOCOL PRN; Protocol PRN Reason: Hypoglycemia Escitalopram Oxalate (Escitalopram 20 Mg Tab) 20 mg PO [facility] Last Admin: 10/30/23 20:10 Dose: 20 mg Heparin Sodium (Porcine) (Heparin Sodium,Porcine 5,000 Unit/Ml 1 Ml Vial) 5,000 unit SQ Q8HR [facility] Last Admin: 10/31/23 09:22 Dose: 5,000 unit Cefepime HCl 2 gm/ Sodium (Chloride) 100 mls @ 25 mls/hr IVPB Q12HR [facility] Last Admin: 10/31/23 09:22 Dose: 25 mls/hr Insulin Aspart (Insulin Aspart (Novolog) 100 Unit/Ml Vial) 0 unit SQ ACHS [facility]; Protocol Last Admin: 10/31/23 12:07 Dose: Not Given Insulin Aspart (Insulin Aspart (Novolog) 100 Unit/Ml Vial) 5 unit SQ AC-TID [facility] Last Admin: 10/31/23 12:07 Dose: Not Given Insulin Detemir (Insulin Detemir (Levemir) 100 Unit/Ml Syr) 24 unit SQ HS [facility] Last Admin: 10/30/23 20:05 Dose: Not Given Melatonin (Melatonin 3 Mg Tablet) 3 mg PO HS PRN PRN Reason: Insomnia Last Admin: 10/29/23 21:06 Dose: 3 mg Metoprolol Tartrate (Metoprolol Tartrate 12.5 Mg Tab) 12.5 mg PO BID [facility] Miscellaneous Information (Rx Info: Iv Contrast Was Given 1 Each Misc) 1 each MISCELLANE DAILY PRN PRN Reason: Per Protocol Stop: 11/02/23 13:32 Naloxone HCl (Naloxone 0.4 Mg/Ml 1 Ml Vial) 0.2 mg IV Q2M PRN PRN Reason: Opioid Reversal Nystatin (Nystatin 100,000 Unit/Gm Powd 15 Gm) 1 applic TOPICAL BID [facility]; Protocol Last Admin: 10/31/23 09:23 Dose: 1 applic Nystatin (Nystatin 100,000 Unit/Ml Susp 500,000 Unit/5 Ml Cup) 500,000 unit PO QID [facility]; Protocol Last Admin: 10/31/23 12:07 Dose: Not Given Oxycodone/Acetaminophen (Oxycodone-Apap 10-325mg 1 Each Tab) 1 each PO Q6HR PRN PRN Reason: Pain Last Admin: 10/31/23 04:25 Dose: 1 each Prochlorperazine Edisylate (Prochlorperazine Inj 10 Mg/2 Ml Vial) 5 mg IVP Q6HR PRN PRN Reason: Nausea And Vomiting Last Admin: 10/30/23 16:03 Dose: 5 mg Quetiapine Fumarate (Quetiapine 50 Mg Tab) 50 mg PO BID [facility] Last Admin: 10/31/23 09:22 Dose: 50 mg Sodium Bicarbonate (Sodium Bicarbonate Tab 650 Mg Tab) 650 mg PO BID [facility] Last Admin: 10/31/23 09:21 Dose: 650 mg Spironolactone (Spironolactone 25 Mg Tab) 12.5 mg PO DAILY [facility] Last Admin: 10/31/23 09:21 Dose: 12.5 mg Tizanidine HCl (Tizanidine 4 Mg Tab) 4 mg PO BID PRN PRN Reason: Muscle pain/spasm Social history: . Does use a motorized wheelchair. Patient smoked a pack a day for 20 years stopped in 2014. Physical examination: VITAL SIGNS: 56, 16, 105/68, 95% room air GENERAL: Laying in bed, comfortable EYES: Pupils equal. Conjunctiva normal. HEENT: External appearance of nose and ears normal, oral cavity grossly normal. NECK: JVD not raised; masses not palpable. HEART: First and second heart sounds are normal; no edema. LUNGS: Respiratory rate normal; clear to auscultation. ABDOMEN: Soft, nontender, liver spleen not palpable, no masses palpable. Cortes catheter PSYCH: [Alert and oriented x3; mood and affect normal r MUSCULAR skeletal: Evidence of OA INVESTIGATIONS, reviewed in the clinical context: October 30: Sodium 132 potassium 4.4 BUN 43 creatinine 1.7 October 29: Potassium 4.9 BUN 37 creatinine 1.33 October 24: White count 8.3 hemoglobin 8.7 platelets 241 sodium 135 BUN 63 creatinine 2.29. AST 86 ALT 168 October 23: White count 6.4 hemoglobin 8.3 platelets 216 sodium 131 potassium 3.8 BUN 65 creatinine 2.71 AST 191 ALT 229 October 22: AST 45 ALT 321 troponin I 14.4 UA positive for leukoesterase Urine culture: Klebsiella pneumoniae, Pseudomonas aeruginosa Blood culture: Enterobacter cloacae Abdominal ultrasound: Pericholecystic fluid and gallbladder sludge. Distal CBD's dilated at 7 mm. Distal obstruction was occluded. Mild bilateral hydronephrosis Previous labs: May 2023 creatinine 1.7 Assessment and plan: -Septic shock secondary to bacteremia from UTI: Resolved Patient required pressors, fluids -Sepsis with blood cultures positive for Enterobacter cloacae IV fluids. IV cefepime -Probable gallstone/cholecystitis Seen by Dr. Cuba from general surgery. For medical management due to high risk for surgery. Continue antibiotics -Acute kidney injury, ATN from septic shock: Improving Baseline creatinine 1.7 in May 2023. Admission creatinine 2.54 -Acute UTI with cystitis cultures positive for Klebsiella pneumonia and Pseudomonas aeruginosa, secondary to chronic Cortes catheter, causing septic shock IV cefepime -Coronary artery disease, prior history of stent Aspirin Plavix -Chronic congestive heart failure, secondary to CAD Follow clinically -Diabetes mellitus type 2 chronically on insulin For Accu-Cheks with sliding scale. Levemir. NovoLog. -Chronic fibromyalgia Pain control when necessary -Chronic Cortes catheter for bladder dysfunction since January 2023 -Acute non-ST elevation VA. Precipitated by septic shock. Known underlying CAD. IV heparin-discontinued. Plavix. Aspirin. Lopressor -CAD: Cardiac cath showing: Calcified coronary arteries. Chronically occluded mid LAD. Moderate disease in the left circumflex and RCA. -Metabolic acidosis from kidney injury Sodium bicarbonate -GERD Pepcid -Hyperlipidemia Lipitor-was held temporarily because increased LFTs. Resume at 40 mg -Essential hypertension Lopressor -Acute ischemic hepatitis from septic shock: improving Continue to hold Lipitor -Primary osteoarthritis Pain control -Metabolic acidosis secondary to kidney disease Sodium bicarbonate -Chronic kidney disease stage 3 likely nephrosclerosis and diabetic nephropathy Creatinine 1.06 June 2023 -Peripheral arterial disease Aspirin Lipitor -Right above-knee amputation -AICD with a pacemaker Telemetry Anxiety depression otherwise specified, for some acute flareup, with some suicidal ideation Consult psychiatry add sitter Resume home medications Lexapro, Seroquel, Xanax, Chronic insomnia: elavil -Chronic medical debility. Does use a motorized wheelchair -Full code Cardiac cath today. For medical management. Extensive disease. For medical management. BMP tomorrow. Should be able to be discharged to home tomorrow Past Medical History Past Medical History: Coronary Artery Disease (CAD), Heart Failure, Diabetes Mellitus, Fibromyalgia, GERD/Reflux, Hearing Disorder / Deafness, Hyperlipidemia, Hypertension, Myocardial Infarction (VA), Musculoskeletal Disorder, Osteoarthritis (OA), Renal Disease, Skin Disorder, Vascular Disorder Additional Past Medical History / Comment(s): See Dr Durant's H&P nephrolithiasis and kidney stones- chronic Cortes, peripheral vascular disease, degenerative disc disease-chronic back pain, Rt AKA-working on using prosthesis, going to physical therapy Last Myocardial Infarction Date:: 2004,2006, 2015 History of Any Multi-Drug Resistant Organisms: MRSA Date of last positivie culture/infection: 02/24/16 LT FOOT-VERIFIED PER DR Ayleen LINO OFFICE MDRO Source:: LT FOOT Past Surgical History: AICD, Section, Heart Catheterization, Heart Catheterization With Stent, Orthopedic Surgery, Pacemaker, Tonsillectomy Additional Past Surgical History / Comment(s): Right rotator cuff surgery 2, bilateral carpal tunnel release,3 cardiac catheterization 6 stents, above-knee amputation of the right lower extremity, incision and debridement of diabetic wounds, [facility] Biventricular AICD placement Past Anesthesia/Blood Transfusion Reactions: Motion Sickness Additional Past Anesthesia/Blood Transfusion Reaction / Comment(s): CLAUSTERPHOBIA. PAST BLOOD TRANSFUSION-NO REACTION Date of Last Stent Placement:: 2015 Type of Cardiac Device: AICD Device Placement Date:: Past Psychological History: Anxiety, Depression Smoking Status: Former smoker
[2023-10-31] MEDS: SODIUM CHLORIDE 0.9% 1,000 ML IV SCH (18:04)
[2023-10-31 19:58] LABS: Glucose,Whole Blood 254 mg/dL (70-110)
[2023-10-31] MEDS: METOPROLOL TARTRATE 12.5 MG TAB PO SCH (20:14)
--- NOTE | 2023-10-31 20:45 | P.PN ---
Subjective Progress Note Date: 10/31/23 Principal diagnosis: Reason for follow-up is UTI and bacteremia Patient is a 63-year-old female with a past medical history significant for diabetes mellitus hypertension hyperlipidemia coronary artery disease, did have history of right diabetic foot infection requiring right [id number] amputation also with a history of urinary Retention requiring Cortes catheter placed that was last changed about 10 days before presentation to the hospital patient presenting with weakness and has been diagnosed with sepsis secondary To UTI blood cultures came back positive with Enterobacter. On today's evaluation that is 10/31/2023, Patient is afebrile this morning patient denies having any chest pain shortness of breath or cough, the patient is breathing comfortably and currently on room air, patient abdominal pain has decreased intensity some nausea but no vomiting complaining of soreness in the mouth concerning for thrush. Patient creatinine is 1.70 no CBC was done today repeat blood pressure has been negative Objective - Vital Signs Vital signs: Vital Signs Temp 96.9 F L 10/31/23 08:00 Pulse 65 10/31/23 17:17 Resp 18 10/31/23 14:00 BP 108/60 10/31/23 17:17 Pulse Ox 96 10/31/23 16:17 FiO2 Intake & Output 10/31/23 10/31/23 11/01/23 06:59 18:59 06:59 Intake Total 300 Output Total 1300 200 Balance -1300 100 Weight 86.4 kg Intake: IV 300 Output: Urine 1300 200 Other: Voiding Method Indwelling Catheter Indwelling Catheter - Exam GENERAL DESCRIPTION: Middle-aged female up in the chair in no distress RESPIRATORY SYSTEM: Unlabored breathing , decreased breath sounds at bases HEART: S1 S2 regular rate and rhythm , ABDOMEN: Soft , no tenderness EXTREMITIES: No edema feet - Labs CBC & Chem 7: 10/29/23 06:58 10/31/23 14:42 Labs: Abnormal Lab Results - Last 24 Hours (Table) 10/30/23 10/31/23 10/31/23 Range/Units 20:22 06:05 08:47 Sodium 132 L (137-145) mmol/L Chloride 108 H (98-107) mmol/L Carbon Dioxide 19 L (22-30) mmol/L BUN 41 H (7-17) mg/dL Creatinine 1.67 H (0.52-1.04) mg/dL Glucose 173 H (74-99) mg/dL POC Glucose (mg/dL) 291 H 244 H (70-110) mg/dL Calcium 8.2 L (8.4-10.2) mg/dL 10/31/23 10/31/23 10/31/23 Range/Units 11:22 14:42 16:36 Sodium 132 L (137-145) mmol/L Chloride (98-107) mmol/L Carbon Dioxide 19 L (22-30) mmol/L BUN 43 H (7-17) mg/dL Creatinine 1.70 H (0.52-1.04) mg/dL Glucose 149 H (74-99) mg/dL POC Glucose (mg/dL) 181 H 178 H (70-110) mg/dL Calcium 8.3 L (8.4-10.2) mg/dL Assessment and Plan (1) Sepsis Current Visit: Yes Status: Acute Code(s): A41.9 - SEPSIS, UNSPECIFIED ORGANISM SNOMED Code(s): 46548865 (2) UTI (urinary tract infection) Current Visit: Yes Status: Acute Code(s): N39.0 - URINARY TRACT INFECTION, SITE NOT SPECIFIED SNOMED Code(s): 87523005 (3) Allergy to multiple antibiotics Current Visit: Yes Status: Acute Code(s): Z88.1 - ALLERGY STATUS TO OTHER ANTIBIOTIC AGENTS SNOMED Code(s): 192821369 (4) Bacteremia Current Visit: Yes Status: Acute Code(s): R78.81 - BACTEREMIA SNOMED Code(s): 0189749 Plan: 1patient presented to hospital with sepsis in this patient who did have a hypo tension generalized weakness most likely combination of catheters urinary tract infection, cholecystitis not entirely excluded however the patient did not have significant tenderness to the right upper quadrant area, subsequent CT abdominal pelvis was suggestive of cholelithiasis and cholecystitis 2-patient with multiple antibiotic ALLERGIES that would limit the number of antibiotic safe to use 3-blood culture positive for Enterobacter urine is growing Enterobacter and Pseudomonas, repeat blood culture has been negative 4patient did have HIDA scan however has to be discontinued earlier because of patient discomfort 5-patient seem to have shown overall clinical improvement and received adequate cefepime but have suggested oral Cipro on discharge for her Enterobacter bacteremia and the patient is allergic to it we will consider a 7-day course of oral Ceftin on discharge Dictation was produced using [employer] dictation software. please excuse any grammatical, word or spelling errors. Time with Patient: Less than 30
[2023-10-31] MEDS: ZINC OXIDE PASTE (Z-GUARD) 1 APPLIC TOPICAL PRN (20:47)
[2023-11-01 06:41] LABS: Glucose,Whole Blood 252 mg/dL (70-110)
--- NOTE | 2023-11-01 08:38 | XR ---
EXAMINATION TYPE: XR chest 2V DATE OF EXAM: 11/01/2023 8:06 AM CLINICAL INDICATION:Female, 63 years old with history of shortness of breath; PHH COMPARISON: Chest radiographs from 10/30/2023 TECHNIQUE: XR chest 2V Frontal view of the chest. FINDINGS: Lungs/Pleura: There is no evidence of pleural effusion, focal consolidation, or pneumothorax. Pulmonary vascularity: Unremarkable. Heart/mediastinum: Cardiomediastinal silhouette is enlarged and stable. Atherosclerotic calcificatio ns are seen in the aorta. 4 lead cardiac conduction device overlying the left hemithorax with lead ti ps projecting over the right ventricle, right atrium and coronary sinus. Musculoskeletal: No acute osseous pathology. Right shoulder rotator cuff repair anchors. Other findings: None IMPRESSION: Cardiomegaly and mild pulmonary vascular congestion. Correlate with BNP for congestive heart failure.
[2023-11-01 08:55] LABS: ALT 33 U/L (4-34); AST 20 U/L (14-36); African American GFR (CKD) 32 (>60 ml/min/1.73 sqM); Albumin 2.6 g/dL (3.5-5.0); Alkaline Phosphatase 160 U/L (38-126); Anion Gap 9 mmol/L; Blood Urea Nitrogen 48 mg/dL (7-17); Calcium 8.4 mg/dL (8.4-10.2); Carbon Dioxide 16 mmol/L (22-30); Chloride 107 mmol/L (98-107); Glucose 161 mg/dL (74-99); Non-African American GFR(CKD) 28 (>60 ml/min/1.73 sqM); Potassium 4.4 mmol/L (3.5-5.1); Sodium 132 mmol/L (137-145); Total Bilirubin 0.6 mg/dL (0.2-1.3); Total Protein 6.3 g/dL (6.3-8.2)
[2023-11-01] MEDS: BUMETANIDE 0.25 MG/ML 4 ML VIAL IVP STA (09:54)
[2023-11-01 11:33] LABS: Glucose,Whole Blood 186 mg/dL (70-110)
--- NOTE | 2023-11-01 11:58 | P.PN ---
Subjective patient is seen for follow-up for acute kidney injury and chronic kidney disease. Renal function had improved with serum creatinine down to 1.6 mg/dL. Patient has been restarted on diuretics and also received cardiac catheterization yesterday. Serum creatinine is 1.89 today. complaining of nausea this morning. 24 hour urine output at 2.0 L. BP remains on the lower side. Metoprolol dose has been decreased and parameters and it. Objective - Vital Signs Vital signs: Vital Signs Temp 97.5 F L 11/01/23 08:20 Pulse 60 11/01/23 11:45 Resp 18 11/01/23 08:20 BP 105/69 11/01/23 08:20 Pulse Ox 100 11/01/23 08:20 FiO2 Intake & Output 10/31/23 11/01/23 11/01/23 18:59 06:59 18:59 Intake Total 300 Output Total 200 775 Balance 100 -775 Intake: IV 300 Output: Urine 200 775 Other: Voiding Method Indwelling Catheter Indwelling Catheter Indwelling Catheter - Exam Patient is awake, comfortable, no acute distress. Examination of the heart S1 and S2 Examination of the lungs bilateral breath sounds are heard Abdomen is soft nontender Examination of lower extremities shows no edema, right AKA THERMAL INTELLIGENCE ANALYST exam grossly intact - Labs CBC & Chem 7: 10/29/23 06:58 11/01/23 08:03 Labs: Abnormal Lab Results - Last 24 Hours (Table) 10/31/23 10/31/23 10/31/23 Range/Units 14:42 16:36 19:56 Sodium 132 L (137-145) mmol/L Carbon Dioxide 19 L (22-30) mmol/L BUN 43 H (7-17) mg/dL Creatinine 1.70 H (0.52-1.04) mg/dL Glucose 149 H (74-99) mg/dL POC Glucose (mg/dL) 178 H 254 H (70-110) mg/dL Calcium 8.3 L (8.4-10.2) mg/dL Alkaline Phosphatase (38-126) U/L Albumin (3.5-5.0) g/dL 11/01/23 11/01/23 11/01/23 Range/Units 06:35 08:03 11:31 Sodium 132 L (137-145) mmol/L Carbon Dioxide 16 L (22-30) mmol/L BUN 48 H (7-17) mg/dL Creatinine 1.89 H (0.52-1.04) mg/dL Glucose 161 H (74-99) mg/dL POC Glucose (mg/dL) 252 H 186 H (70-110) mg/dL Calcium (8.4-10.2) mg/dL Alkaline Phosphatase 160 H (38-126) U/L Albumin 2.6 L (3.5-5.0) g/dL Microbiology - Last 24 Hours (Table) 10/26/23 14:24 Blood Culture - Final Blood Assessment and Plan Assessment: 1. Acute kidney injury, ATN secondary to sepsis and hypotension, nonoliguric. UA is suggestive of UTI. ultrasound shows mild bilateral hydronephrosis. This is not new and patient has chronic indwelling Cortes catheter. 2. UTI with sepsis, urine culture is growing Klebsiella pneumonia and Pseudomonas 3. Gram-negative sepsis with blood cultures growing Enterobacter cloacae 4. Peripheral vascular disease status post right AKA 5. CK D stage IV secondary to diabetic kidney disease. Baseline creatinine 1.7-1.8 mg/dL. 6. Non-gap metabolic acidosis secondary to acute kidney injury 7. Anemia of chronic disease with mild iron deficiency. I will hold off on IV iron due to active infection. Continue with Aranesp Plan: hold Bumex continue oral sodium bicarb Continue with antibiotics Continue with indwelling Cortes catheter. Repeat labs in a.m. Continue to avoid nephrotoxic agents continue Aranesp Hold IV iron due to ongoing active infection.
[2023-11-01 13:34] VITALS: BMI 31.6
--- NOTE | 2023-11-01 14:05 | P.PN ---
Subjective Progress Note Date: 11/01/23 Principal diagnosis: Acute urinary tract infection with bacteremia sepsis and septic shock and ischemic cardiomyopathy. This is a 63-year-old female patient with a known history of coronary artery disease with multiple previous stent placements, cardiomyopathy status post AICD placement, nephrolithiasis, hearing disorder, hypertension, hyperlipidemia, diabetes mellitus, jluos-rsn-wlys amputation on the right, former smoker, chronic Cortes due to kidney issues. She presented here to the emergency room earlier this morning with complaints of generalized weakness, nausea vomiting and fall. Chest x-ray revealed cardiomegaly with mild venous congestion or chronic interstitial lung disease/pulmonary fibrosis. More confluent area of consolidation in the left perihilar and upper lobes. Neoplasm not excluded. EKG reveals atrial sensing and ventricular pacing. Ultrasound of the abdomen/bladder is pending. White count 8.2. Hemoglobin 9.3. Platelets 217. Sodium 131. Potassium 4.0. Bicarb 16. BUN 60. Creatinine 2.54. Lactic acid 3.2. Glucose 266. AST 45. ALT 321. Urinalysis turbid with moderate blood. Large leukocyte esterase, greater than 182 WBCs many WBC clumps many bacteria. Culture pending. Procalcitonin pending. She has been initiated on ceftriaxone. She is seen today in consultation in the emergency department. She was having issues with hypotension and is requiring norepinephrine and ICU admission. She is awake and alert. Maintaining O2 saturations in the 90s on 2 L/min per nasal cannula. Currently on norepinephrine at 0.02 mcg/kg/min. He has received 1.5 L of fluid resuscitation. Normal saline at 75 MLS per hour. The patient is seen today October 24, 2023 in follow-up in the emergency department. She is currently awake and alert in no acute distress. She is feeling a bit better today compared to yesterday. She did have issues with chest pain yesterday and was found to have elevated troponins and is currently on a heparin drip. Her mean arterial pressures have been in the 70s and 80s. She is off the norepinephrine. She is afebrile. She is maintaining good O2 saturations up to 100% on 3 L/min per nasal cannula. She is afebrile. Hemodynamically stable. White count 6.4. Hemoglobin 8.3. Platelets 216. Sodium 131. Potassium 3.8. Bicarb 16. BUN 65. Creatinine 2.71. Glucose 127. AST 191. ALT 229. Blood cultures are positive for gram-negative bacilli. She remains. Patient is seen today October 25, 2023 in room 374. She is resting comfortably in bed this morning eating her breakfast. She is satting well on room air. She states her breathing is comfortable and denies any shortness of breath or chest pain. She remains on the heparin drip for the elevated troponins. She remains afebrile. She is hemodynamically stable. White count 8.3. Hemoglobin 8.7. Platelets 241. Sodium 135, Potassium 3.6, Bicard 18. BUN 63. Creatinine 2.29. Glucose 117. Blood cultures show gram-negative bacilli & Enterobacter Cloacae. She remains on Cefepime. Patient is seen today October 26, 2023 in room 374. He is resting comfortably in bed awake alert and in no acute distress. She is satting 90s on room air. He denies any chest shortness of breath or chest pain. She is on subcutaneous heparin per protocol. She remains afebrile. Hemodynamically stable. Sodium 136, potassium 3.8, chloride 112, bicarb 17, BUN 56, creatinine 1.88, glucose 126. He remains on LR at a rate of 75 an hour. Urine culture shows Klebsiella pneumoniae and Pseudomonas aeruginosa. Blood culture shows Enterobacter cloacae. Remains on cefepime which was started on 10/23. Chest x-ray shows stable cardiomegaly with findings suggestive of pulmonary fibrosis. Progress note dated October 27, 2023. 63-year-old female seen today in room 374. The patient is on room air. No IV fluids. Blood cultures were positive for Enterobacter cloacae. Urine cultures were positive for both Klebsiella, and Pseudomonas. The patient continues on cefepime. Current labs include a sodium 136, potassium 4, chlorides 111, CO2 17 , anion gap 8, BUN 44, and creatinine 1.54. Glucose is 211. Albumin is 2.6. The patient is seen today October 28, 2023 in follow-up on the selective care unit. She is currently sitting up in a chair. Awake and alert in no acute distress. Maintaining O2 saturations in the 90s on room air. She has been having abdominal pain possibly related to gallstones. She is considered high risk surgical candidate with her recent myocardial infarction. Cardiac catheterization pending. Blood cultures were positive for Enterobacter cloacae complex. Follow-up blood culture revealing no growth thus far. Glucose 146. She remains on cefepime. Heparin for DVT prophylaxis. The patient is seen today October 29, 2023 in follow-up on the selective care unit. She is currently resting in bed. Awake and alert in no acute distress. She is maintaining O2 saturations in the 90s on room air. Her main complaint is of nausea and abdominal pain. She did undergo a hepatobiliary scan today. Wall thickening of the gallbladder on CT felt to be due to third spacing of fluid in the setting of congestive heart failure or liver disease. Count 9.3. Hemoglobin 8.6. Platelets 231. Sodium 138. Potassium 4.0. Bicarb 18. BUN 33. Creatinine 1.33. Glucose 88. Remains on cefepime. Heparin for DVT prophylaxis. The patient is seen today October 30, 2023 in follow-up in the selective care unit. She is currently up in a chair. Awake and alert in no acute distress. She remains weak. She is maintaining O2 saturations in the 90s on room air. She is having some wheezing and shortness of breath. She has been initiated on Bumex and bronchodilators. She remains on antibiotics in the form of cefepime. Plan is for cardiac catheterization tomorrow. Sodium 133. Potassium 4.9. Bicarb 15. BUN 37. Creatinine 1.33. Glucose 199. Patient was evaluated today on 10/31/2023, patient remains on the same bron chodilators and diuretics she is also on antibiotics for her bacteremia and UTI. Underwent cardiac catheterization today, however she was found to have calcified coronary arteries and chronically occluded mid LAD with moderate disease in the left circumflex and in the RCA. She was also noted to have left ventricular end-diastolic pressure elevation. Recommendation is to continue medical therapy, no intervention was recommended labs today showed relatively normal electrolytes, BUN is 41 creatinine 1.67 Patient was evaluated today on 11/01/2023, patient is on 2 L nasal cannula, O2 sat 99%, remains on diuretics, she is also on antibiotics for bacteremia and UTI, still receiving antibiotics for positive blood cultures showing Enterobacter cloacae complex, urine cultures have been positive for Klebsiella pneumonia and Pseudomonas aeruginosa. Remains on cefepime, which is being addressed by infectious disease on the case. Cardiac catheterization report was noted, patient was found to have calcified coronary arteries and chronically occluded mid LAD with moderate disease involving the left circumflex and the RCA. Patient also had left ventricular end-diastolic pressure elevation consistent with congestive heart failure. Objective - Vital Signs Vital signs: Vital Signs Temp 97.9 F 11/01/23 11:45 Pulse 64 11/01/23 11:55 Resp 18 11/01/23 11:45 BP 113/72 11/01/23 11:45 Pulse Ox 99 11/01/23 11:45 FiO2 Intake & Output 10/31/23 11/01/23 11/01/23 18:59 06:59 18:59 Intake Total 300 Output Total 200 775 Balance 100 -775 Weight 86.4 kg Intake: IV 300 Output: Urine 200 775 Other: Voiding Method Indwelling Catheter Indwelling Catheter Indwelling Catheter - Exam General: Reveals 63-year-old female in no distress, on 2 L nasal cannula HEAD: Normocephalic. EYES: Normal reaction of pupils, equal size. NOSE: Clear with pink turbinates. THROAT: No erythema or exudates. NECK: No masses, no JVD. CHEST: No chest wall deformity. LUNGS: Equal air entry with few scattered rhonchi. CVS: S1 and S2 normal with no audible murmur, regular rhythm. ABDOMEN: No hepatosplenomegaly, normal bowel sounds, no guarding or rigidity. SKIN: No rashes CENTRAL NERVOUS SYSTEM: No focal deficits, tone is normal in all 4 extremities. EXTREMITIES: Right [id number]-gmqm amputation. There is no peripheral edema. No clubbing, no cyanosis. Peripheral pulses are intact. - Labs CBC & Chem 7: 10/29/23 06:58 11/01/23 08:03 Labs: Abnormal Lab Results - Last 24 Hours (Table) 10/31/23 10/31/23 10/31/23 Range/Units 14:42 16:36 19:56 Sodium 132 L (137-145) mmol/L Carbon Dioxide 19 L (22-30) mmol/L BUN 43 H (7-17) mg/dL Creatinine 1.70 H (0.52-1.04) mg/dL Glucose 149 H (74-99) mg/dL POC Glucose (mg/dL) 178 H 254 H (70-110) mg/dL Calcium 8.3 L (8.4-10.2) mg/dL Alkaline Phosphatase (38-126) U/L Albumin (3.5-5.0) g/dL 11/01/23 11/01/23 11/01/23 Range/Units 06:35 08:03 11:31 Sodium 132 L (137-145) mmol/L Carbon Dioxide 16 L (22-30) mmol/L BUN 48 H (7-17) mg/dL Creatinine 1.89 H (0.52-1.04) mg/dL Glucose 161 H (74-99) mg/dL POC Glucose (mg/dL) 252 H 186 H (70-110) mg/dL Calcium (8.4-10.2) mg/dL Alkaline Phosphatase 160 H (38-126) U/L Albumin 2.6 L (3.5-5.0) g/dL Microbiology - Last 24 Hours (Table) 10/26/23 14:24 Blood Culture - Final Blood Assessment and Plan Assessment: Impression: Generalized weakness with fall, nausea, vomiting suspect secondary to urinary tract infection Acute urinary tract infection secondary to Klebsiella pneumoniae and Pseudomonas aeruginosa Acute kidney injury secondary to dehydration, hypotension Chronic Cortes due to urinary retention Bacteremia secondary to Enterobacter cloacae complex, currently on cefepime Sepsis with septic shock requiring pressor support secondary to above, improved and off pressors Acute hypoxemic respiratory failure secondary to mild venous congestion recovered and on room air Non-ST segment elevation myocardial infarction Transaminitis, statins on hold Coronary artery disease with multiple stent placements Ischemic cardiomyopathy status post biventricular AICD placement Obesity Diabetes mellitus Peripheral vascular disease Dvuze-dbn-ctje amputation of the right lower extremity Hyperlipidemia Anxiety/depression Recommendation: Continue diuretics Continue bronchodilators Continue antibiotics, patient is on cefepime for her bacteremia and her sepsis. Continue diuretics, cardiac catheterization report was noted Infectious disease to decide or outline future treatment on outpatient basis with antibiotics Once cleared by infectious disease, patient could be considered for discharge planning Continue present supportive care measures Will continue to follow Time with Patient: Less than 30
--- NOTE | 2023-11-01 16:21 | P.PN ---
Subjective Progress Note Date: 11/01/23 63-year-old lady with past medical history significant for coronary artery disease with stent placement, diabetes mellitus, fibromyalgia, GERD, hypertension, hyperlipidemia, osteoarthritis, who presented to hospital for generalized weakness. Patient relates she has not been feeling her usual self for the last 3 to 4 days. Patient complains of increased weakness. Patient also having nausea and vomiting. Patient was also complaining of lower quadrant abdominal pain. Patient history of chronic Cortes in the last Cortes was changed 2 weeks back. Patient denied any fever but complaining of chills at home. Patient was also complaining of loss of appetite. Denied any chest pain or shortness of breath. Patient was complaining of being confused and lethargic as well. Because of the symptoms, patient was brought to the ER Initial lab work done in the ER showed WBC 8.2, hemoglobin 9.3, platelet count 217, sodium 131, potassium 4, BUN 60, creatinine 2.54, glucose 266, lactate 3.2 AST 485, ALT 321, Chest x-ray done in the ER showed cardiomegaly: From mild venous congestion or chronic distal lung disease/pulm fibrosis Patient admitted to internal medicine service 11/01/2023 -patient is seen and evaluated in room at bedside; reports feeling markedly weak and unable to get out of bed; PT is consulted Patient remains on 2 L nasal cannula, O2 sat 99%, remains on diuretics, she is also on antibiotics for bacteremia and UTI, still receiving antibiotics for positive blood cultures showing Enterobacter cloacae complex, urine cultures have been positive for Klebsiella pneumonia and Pseudomonas aeruginosa. Remains on cefepime, which is being addressed by infectious disease on the case. Cardiac catheterization report was noted, patient was found to have calcified coronary arteries and chronically occluded mid LAD with moderate disease involving the left circumflex and the RCA. Patient also had left ventricular end-diastolic pressure elevation consistent with congestive heart failure. -- Patient has been evaluated by PT and is recommended skilled rehab Objective - Vital Signs Vital signs: Vital Signs Temp 97.5 F L 11/01/23 08:20 Pulse 56 L 11/01/23 08:31 Resp 18 11/01/23 08:20 BP 105/69 11/01/23 08:20 Pulse Ox 100 11/01/23 08:20 FiO2 Intake & Output 10/31/23 11/01/23 11/01/23 18:59 06:59 18:59 Intake Total 300 Output Total 200 775 Balance 100 -775 Intake: IV 300 Output: Urine 200 775 Other: Voiding Method Indwelling Catheter Indwelling Catheter Indwelling Catheter - Exam HEAD: Normocephalic. EYES: Normal reaction of pupils, equal size. NOSE: Clear with pink turbinates. THROAT: No erythema or exudates. NECK: No masses, no JVD. CHEST: No chest wall deformity. LUNGS: Equal air entry with few scattered rhonchi. CVS: S1 and S2 normal with no audible murmur, regular rhythm. ABDOMEN: No hepatosplenomegaly, normal bowel sounds, no guarding or rigidity. SKIN: No rashes CENTRAL NERVOUS SYSTEM: No focal deficits, tone is normal in all 4 extremities. EXTREMITIES: Right kacpm-srw-fjyk amputation. There is no peripheral edema. No clubbing, no cyanosis. Peripheral pulses are intact. - Labs CBC & Chem 7: 10/29/23 06:58 11/01/23 08:03 Labs: Abnormal Lab Results - Last 24 Hours (Table) 10/31/23 10/31/23 10/31/23 Range/Units 11:22 14:42 16:36 Sodium 132 L (137-145) mmol/L Carbon Dioxide 19 L (22-30) mmol/L BUN 43 H (7-17) mg/dL Creatinine 1.70 H (0.52-1.04) mg/dL Glucose 149 H (74-99) mg/dL POC Glucose (mg/dL) 181 H 178 H (70-110) mg/dL Calcium 8.3 L (8.4-10.2) mg/dL Alkaline Phosphatase (38-126) U/L Albumin (3.5-5.0) g/dL 10/31/23 11/01/23 11/01/23 Range/Units 19:56 06:35 08:03 Sodium 132 L (137-145) mmol/L Carbon Dioxide 16 L (22-30) mmol/L BUN 48 H (7-17) mg/dL Creatinine 1.89 H (0.52-1.04) mg/dL Glucose 161 H (74-99) mg/dL POC Glucose (mg/dL) 254 H 252 H (70-110) mg/dL Calcium (8.4-10.2) mg/dL Alkaline Phosphatase 160 H (38-126) U/L Albumin 2.6 L (3.5-5.0) g/dL Microbiology - Last 24 Hours (Table) 10/26/23 14:24 Blood Culture - Final Blood Assessment and Plan Assessment: -Septic shock secondary to bacteremia from UTI: Resolved Patient required pressors, fluids -Sepsis with blood cultures positive for Enterobacter cloacae IV fluids. IV cefepime -Probable gallstone/cholecystitis Seen by Dr. Cuba from general surgery. For medical management due to high risk for surgery. Continue antibiotics -Acute kidney injury, ATN from septic shock: Improving Baseline creatinine 1.7 in May 2023. Admission creatinine 2.54 -Acute UTI with cystitis cultures positive for Klebsiella pneumonia and Pseudomonas aeruginosa, secondary to chronic Cortes catheter, causing septic shock IV cefepime -Coronary artery disease, prior history of stent Aspirin Plavix -Chronic congestive heart failure, secondary to CAD Follow clinically -Diabetes mellitus type 2 chronically on insulin For Accu-Cheks with sliding scale. Levemir. NovoLog. -Chronic fibromyalgia Pain control when necessary -Chronic Cortes catheter for bladder dysfunction since January 2023 -Acute non-ST elevation NV. Precipitated by septic shock. Known underlying CAD. IV heparin-discontinued. Plavix. Aspirin. Lopressor -CAD: Cardiac cath showing: Calcified coronary arteries. Chronically occluded mid LAD. Moderate disease in the left circumflex and RCA. -Metabolic acidosis from kidney injury Sodium bicarbonate -GERD Pepcid -Hyperlipidemia Lipitor-was held temporarily because increased LFTs. Resume at 40 mg -Essential hypertension Lopressor -Acute ischemic hepatitis from septic shock: improving Continue to hold Lipitor -Primary osteoarthritis Pain control -Metabolic acidosis secondary to kidney disease Sodium bicarbonate -Chronic kidney disease stage 3 likely nephrosclerosis and diabetic nephropathy Creatinine 1.06 June 2023 -Peripheral arterial disease Aspirin Lipitor -Right above-knee amputation -AICD with a pacemaker Telemetry Anxiety depression otherwise specified, for some acute flareup, with some suicidal ideation Consult psychiatry add sitter Resume home medications Lexapro, Seroquel, Xanax, Chronic insomnia: elavil -Chronic medical debility. Does use a motorized wheelchair
[2023-11-01 16:33] LABS: Glucose,Whole Blood 252 mg/dL (70-110)
--- NOTE | 2023-11-01 17:04 | P.PN ---
Subjective Progress Note Date: 11/01/23 Principal diagnosis: Reason for follow-up is UTI and bacteremia Patient is a 63-year-old female with a past medical history significant for diabetes mellitus hypertension hyperlipidemia coronary artery disease, did have history of right diabetic foot infection requiring right sdxrh-qno-amgr amputation also with a history of urinary Retention requiring Cortes catheter placed that was last changed about 10 days before presentation to the hospital patient presenting with weakness and has been diagnosed with sepsis secondary To UTI blood cultures came back positive with Enterobacter. On today's evaluation that is 11/01/2023,the patient denies any fever or any chills, patient is breathing comfortably on 2 L nasal cannula oxygen, the patient denies chest pain shortness of breath and no significant cough, patient has been complaining of epigastric abdominal pain and nausea but no vomiting did have a bowel movement. Patient did have a creatinine 1.89 no CBC was done today repeat blood culture negative Objective - Vital Signs Vital signs: Vital Signs Temp 97.5 F L 11/01/23 08:20 Pulse 64 11/01/23 11:55 Resp 18 11/01/23 08:20 BP 105/69 11/01/23 08:20 Pulse Ox 100 11/01/23 08:20 FiO2 Intake & Output 10/31/23 11/01/23 11/01/23 18:59 06:59 18:59 Intake Total 300 Output Total 200 775 Balance 100 -775 Intake: IV 300 Output: Urine 200 775 Other: Voiding Method Indwelling Catheter Indwelling Catheter Indwelling Catheter - Exam GENERAL DESCRIPTION: Middle-aged female up in the chair in no distress RESPIRATORY SYSTEM: Unlabored breathing , decreased breath sounds at bases HEART: S1 S2 regular rate and rhythm , ABDOMEN: Soft , no tenderness EXTREMITIES: No edema feet - Labs CBC & Chem 7: 10/29/23 06:58 11/01/23 08:03 Labs: Abnormal Lab Results - Last 24 Hours (Table) 10/31/23 10/31/23 10/31/23 Range/Units 14:42 16:36 19:56 Sodium 132 L (137-145) mmol/L Carbon Dioxide 19 L (22-30) mmol/L BUN 43 H (7-17) mg/dL Creatinine 1.70 H (0.52-1.04) mg/dL Glucose 149 H (74-99) mg/dL POC Glucose (mg/dL) 178 H 254 H (70-110) mg/dL Calcium 8.3 L (8.4-10.2) mg/dL Alkaline Phosphatase (38-126) U/L Albumin (3.5-5.0) g/dL 11/01/23 11/01/23 11/01/23 Range/Units 06:35 08:03 11:31 Sodium 132 L (137-145) mmol/L Carbon Dioxide 16 L (22-30) mmol/L BUN 48 H (7-17) mg/dL Creatinine 1.89 H (0.52-1.04) mg/dL Glucose 161 H (74-99) mg/dL POC Glucose (mg/dL) 252 H 186 H (70-110) mg/dL Calcium (8.4-10.2) mg/dL Alkaline Phosphatase 160 H (38-126) U/L Albumin 2.6 L (3.5-5.0) g/dL Microbiology - Last 24 Hours (Table) 10/26/23 14:24 Blood Culture - Final Blood Assessment and Plan (1) Sepsis Current Visit: Yes Status: Acute Code(s): A41.9 - SEPSIS, UNSPECIFIED ORGANISM SNOMED Code(s): 57889115 (2) UTI (urinary tract infection) Current Visit: Yes Status: Acute Code(s): N39.0 - URINARY TRACT INFECTION, SITE NOT SPECIFIED SNOMED Code(s): 42851482 (3) Allergy to multiple antibiotics Current Visit: Yes Status: Acute Code(s): Z88.1 - ALLERGY STATUS TO OTHER ANTIBIOTIC AGENTS SNOMED Code(s): 767359775 (4) Bacteremia Current Visit: Yes Status: Acute Code(s): R78.81 - BACTEREMIA SNOMED Code(s): 4868148 Plan: 1patient presented to hospital with sepsis in this patient who did have a hypotension generalized weakness most likely combination of catheters urinary tract infection, cholecystitis not entirely excluded however the patient did not have significant tenderness to the right upper quadrant area, subsequent CT abdominal pelvis was suggestive of cholelithiasis and cholecystitis 2-patient with multiple antibiotic ALLERGIES that would limit the number of antibiotic safe to use 3-blood culture positive for Enterobacter urine is growing Enterobacter and Pseudomonas, repeat blood culture has been negative 4patient did have HIDA scan however has to be discontinued earlier because of patient discomfort 5-patient is afebrile complaining of mostly epigastric discomfort today we will continue with cefepime however will be able to finish therapy with oral Ceftin on discharge Dictation was produced using [employer] dictation software. please excuse any grammatical, word or spelling errors. Time with Patient: Less than 30
[2023-11-01 19:53] LABS: Glucose,Whole Blood 275 mg/dL (70-110)
[2023-11-01] MEDS: FAMOTIDINE 20 MG TAB PO SCH (20:31)
--- NOTE | 2023-11-01 21:54 | P.PN ---
Subjective Progress Note Date: 11/01/23 This is a 63-year-old female patient with a past medical history significant for CAD with prior percutaneous revascularization as well as cardiomyopathy and valvular heart disease with mitral regurgitation as well as chronic kidney disease and diabetes and hypertension and dyslipidemia who was admitted to the hospital with UTI/sepsis and we consulted to see the patient because of abnormal troponin which has been treated medically. October 26, 2023 The patient was seen and evaluated this morning which she is feeling better. No cardiovascular symptoms. Hemodynamically she is stable. Currently she is on dual antiplatelet therapy. She is not on a statin because of elevated liver function test. She is not on PAGE inhibitor because she had history of hypotension with PAGE inhibitor before. Kidney function has been improving. The examination is remarkable for regular rhythm with soft systolic murmur at the apical area and clear breathing sounds bilaterally. October 27, 2023 The patient was seen and evaluated this morning. She is asymptomatic with no symptoms of any chest pain or chest discomfort or shortness of breath. She is a stable hemodynamically as well. She remains on dual antiplatelet therapy along with anti-ischemic medications with beta-cristopher. She continues to be on antibiotic regarding the UTI and currently she is on IV antibiotic. Blood work revealed improvement in the creatinine and her creatinine today is 1.54 which is almost her baseline. She is not on a statin because of elevated liver function test when she presented to the hospital but her liver function test has been almost back to normal but I am going to repeat the AST and ALT and if both came in to be normal she will be started on atorvastatin at high intensity. Severe underlying coronary artery disease need to be ruled out either invasively or noninvasively once the UTI/sepsis resolved. The examination is remarkable for regular rhythm with a systolic murmur and clear breathing sounds bilaterally and no edema was noted in the lower extremities October 28, 2023 Patient was seen and examined at bedside this a.m. She is hemodynamically stable. She is in sinus rhythm with ventricularly paced rhythm with intermittent PVCs on telemetry. No sustained arrhythmias noticed in last 24 hours Labs from yesterday potassium 4, BUN 44, creatinine 1.5, AST 28, ALT 78, trending down. October 29, 2023 Patient is seen and examined at bedside this a.m. Patient is hemodynamically stable. She is in sinus rhythm with ventricularly paced rhythm with intermittent PVCs on telemetry. There were no sustained arrhythmias Creatinine is stable with good urine output. Nov 01 2023 Patient's renal function is slightly worsened as compared to before. Therefore her diuretics were held. Assessment UTI/sepsis Acute on chronic renal failure Evidence of myocardial injury with no evidence of ischemia. Troponin elevation up to 15, treated medically New worsening cardiomyopathy EF 20 to 25%. Previous documented echo showed an EF of around 35% Moderate to severe coronary artery disease, not amenable for intervention s/p Primary prevention ICD 2015, s/p icd lead fracture s/p replacement in Valvular heart disease with severe mitral regurgitation Multiple comorbid conditions Plan Stop Aldactone reduce Bumex Continue dual antiplatelet therapy Continue Lipitor, liver function is trending down Continue metoprolol Monitor renal function, repeat labs. If renal function is stable, start some GDMT Stop Dapagliflozin due to concerns of active UTI Objective - Vital Signs Vital signs: Vital Signs Temp 97.5 F L 11/01/23 20:41 Pulse 69 11/01/23 20:41 Resp 18 11/01/23 20:41 BP 105/64 11/01/23 20:41 Pulse Ox 99 11/01/23 20:41 FiO2 Intake & Output 11/01/23 11/01/23 11/02/23 06:59 18:59 06:59 Intake Total 100 Output Total 775 700 Balance -775 -600 Weight 86.4 kg Intake: Intake, IV Titration 100 Amount Cefepime 2 gm In Sodium 100 Chloride 0.9% 100 ml @ 25 mls/hr IVPB Q12HR [facility] Rx #:[id number] Output: Urine 775 700 Other: Voiding Method Indwelling Catheter Indwelling Catheter - Labs CBC & Chem 7: 10/29/23 06:58 11/01/23 08:03 Labs: Abnormal Lab Results - Last 24 Hours (Table) 11/01/23 11/01/23 11/01/23 Range/Units 06:35 08:03 11:31 Sodium 132 L (137-145) mmol/L Carbon Dioxide 16 L (22-30) mmol/L BUN 48 H (7-17) mg/dL Creatinine 1.89 H (0.52-1.04) mg/dL Glucose 161 H (74-99) mg/dL POC Glucose (mg/dL) 252 H 186 H (70-110) mg/dL Alkaline Phosphatase 160 H (38-126) U/L Albumin 2.6 L (3.5-5.0) g/dL 11/01/23 11/01/23 Range/Units 16:30 19:51 Sodium (137-145) mmol/L Carbon Dioxide (22-30) mmol/L BUN (7-17) mg/dL Creatinine (0.52-1.04) mg/dL Glucose (74-99) mg/dL POC Glucose (mg/dL) 252 H 275 H (70-110) mg/dL Alkaline Phosphatase (38-126) U/L Albumin (3.5-5.0) g/dL Microbiology - Last 24 Hours (Table) 10/26/23 14:24 Blood Culture - Final Blood
[2023-11-02 06:02] LABS: Glucose,Whole Blood 201 mg/dL (70-110)
[2023-11-02] MEDS: FAMOTIDINE 20 MG TAB PO SCH (09:31)
[2023-11-02] MEDS: FUROSEMIDE 10 MG/ML 4 ML VIAL IV STA (09:35)
[2023-11-02 11:34] LABS: Glucose,Whole Blood 259 mg/dL (70-110)
[2023-11-02 12:09] LABS: African American GFR (CKD) 34 (>60 ml/min/1.73 sqM); Anion Gap 9 mmol/L; Blood Urea Nitrogen 46 mg/dL (7-17); Calcium 8.7 mg/dL (8.4-10.2); Carbon Dioxide 14 mmol/L (22-30); Chloride 109 mmol/L (98-107); Glucose 198 mg/dL (74-99); Non-African American GFR(CKD) 30 (>60 ml/min/1.73 sqM); Potassium 4.7 mmol/L (3.5-5.1); Sodium 132 mmol/L (137-145)
--- NOTE | 2023-11-02 12:25 | P.PN ---
Subjective Progress Note Date: 11/02/23 Principal diagnosis: Acute urinary tract infection with bacteremia sepsis and septic shock and ischemic cardiomyopathy. This is a 63-year-old female patient with a known history of coronary artery disease with multiple previous stent placements, cardiomyopathy status post AICD placement, nephrolithiasis, hearing disorder, hypertension, hyperlipidemia, diabetes mellitus, [id number] amputation on the right, former smoker, chronic Cortes due to kidney issues. She presented here to the emergency room earlier this morning with complaints of generalized weakness, nausea vomiting and fall. Chest x-ray revealed cardiomegaly with mild venous congestion or chronic interstitial lung disease/pulmonary fibrosis. More confluent area of consolidation in the left perihilar and upper lobes. Neoplasm not excluded. EKG reveals atrial sensing and ventricular pacing. Ultrasound of the abdomen/bladder is pending. White count 8.2. Hemoglobin 9.3. Platelets 217. Sodium 131. Potassium 4.0. Bicarb 16. BUN 60. Creatinine 2.54. Lactic acid 3.2. Glucose 266. AST 45. ALT 321. Urinalysis turbid with moderate blood. Large leukocyte esterase, greater than 182 WBCs many WBC clumps many bacteria. Culture pending. Procalcitonin pending. She has been initiated on ceftriaxone. She is seen today in consultation in the emergency department. She was having issues with hypotension and is requiring norepinephrine and ICU admission. She is awake and alert. Maintaining O2 saturations in the 90s on 2 L/min per nasal cannula. Currently on norepinephrine at 0.02 mcg/kg/min. He has received 1.5 L of fluid resuscitation. Normal saline at 75 MLS per hour. The patient is seen today October 24, 2023 in follow-up in the emergency department. She is currently awake and alert in no acute distress. She is feeling a bit better today compared to yesterday. She did have issues with chest pain yesterday and was found to have elevated troponins and is currently on a heparin drip. Her mean arterial pressures have been in the 70s and 80s. She is off the norepinephrine. She is afebrile. She is maintaining good O2 saturations up to 100% on 3 L/min per nasal cannula. She is afebrile. Hemodynamically stable. White count 6.4. Hemoglobin 8.3. Platelets 216. Sodium 131. Potassium 3.8. Bicarb 16. BUN 65. Creatinine 2.71. Glucose 127. AST 191. ALT 229. Blood cultures are positive for gram-negative bacilli. She remains. Patient is seen today October 25, 2023 in room 374. She is resting comfortably in bed this morning eating her breakfast. She is satting well on room air. She states her breathing is comfortable and denies any shortness of breath or chest pain. She remains on the heparin drip for the elevated troponins. She remains afebrile. She is hemodynamically stable. White count 8.3. Hemoglobin 8.7. Platelets 241. Sodium 135, Potassium 3.6, Bicard 18. BUN 63. Creatinine 2.29. Glucose 117. Blood cultures show gram-negative bacilli & Enterobacter Cloacae. She remains on Cefepime. Patient is seen today October 26, 2023 in room 374. He is resting comfortably in bed awake alert and in no acute distress. She is satting 90s on room air. He denies any chest shortness of breath or chest pain. She is on subcutaneous heparin per protocol. She remains afebrile. Hemodynamically stable. Sodium 136, potassium 3.8, chloride 112, bicarb 17, BUN 56, creatinine 1.88, glucose 126. He remains on LR at a rate of 75 an hour. Urine culture shows Klebsiella pneumoniae and Pseudomonas aeruginosa. Blood culture shows Enterobacter cloacae. Remains on cefepime which was started on 10/23. Chest x-ray shows stable cardiomegaly with findings suggestive of pulmonary fibrosis. Progress note dated October 27, 2023. 63-year-old female seen today in room 374. The patient is on room air. No IV fluids. Blood cultures were positive for Enterobacter cloacae. Urine cultures were positive for both Klebsiella, and Pseudomonas. The patient continues on cefepime. Current labs include a sodium 136, potassium 4, chlorides 111, CO2 17 , anion gap 8, BUN 44, and creatinine 1.54. Glucose is 211. Albumin is 2.6. The patient is seen today October 28, 2023 in follow-up on the selective care unit. She is currently sitting up in a chair. Awake and alert in no acute distress. Maintaining O2 saturations in the 90s on room air. She has been having abdominal pain possibly related to gallstones. She is considered high risk surgical candidate with her recent myocardial infarction. Cardiac catheterization pending. Blood cultures were positive for Enterobacter cloacae complex. Follow-up blood culture revealing no growth thus far. Glucose 146. She remains on cefepime. Heparin for DVT prophylaxis. The patient is seen today October 29, 2023 in follow-up on the selective care unit. She is currently resting in bed. Awake and alert in no acute distress. She is maintaining O2 saturations in the 90s on room air. Her main complaint is of nausea and abdominal pain. She did undergo a hepatobiliary scan today. Wall thickening of the gallbladder on CT felt to be due to third spacing of fluid in the setting of congestive heart failure or liver disease. Count 9.3. Hemoglobin 8.6. Platelets 231. Sodium 138. Potassium 4.0. Bicarb 18. BUN 33. Creatinine 1.33. Glucose 88. Remains on cefepime. Heparin for DVT prophylaxis. The patient is seen today October 30, 2023 in follow-up in the selective care unit. She is currently up in a chair. Awake and alert in no acute distress. She remains weak. She is maintaining O2 saturations in the 90s on room air. She is having some wheezing and shortness of breath. She has been initiated on Bumex and bronchodilators. She remains on antibiotics in the form of cefepime. Plan is for cardiac catheterization tomorrow. Sodium 133. Potassium 4.9. Bicarb 15. BUN 37. Creatinine 1.33. Glucose 199. Patient was evaluated today on 10/31/2023, patient remains on the same bron chodilators and diuretics she is also on antibiotics for her bacteremia and UTI. Underwent cardiac catheterization today, however she was found to have calcified coronary arteries and chronically occluded mid LAD with moderate disease in the left circumflex and in the RCA. She was also noted to have left ventricular end-diastolic pressure elevation. Recommendation is to continue medical therapy, no intervention was recommended labs today showed relatively normal electrolytes, BUN is 41 creatinine 1.67 Patient was evaluated today on 11/01/2023, patient is on 2 L nasal cannula, O2 sat 99%, remains on diuretics, she is also on antibiotics for bacteremia and UTI, still receiving antibiotics for positive blood cultures showing Enterobacter cloacae complex, urine cultures have been positive for Klebsiella pneumonia and Pseudomonas aeruginosa. Remains on cefepime, which is being addressed by infectious disease on the case. Cardiac catheterization report was noted, patient was found to have calcified coronary arteries and chronically occluded mid LAD with moderate disease involving the left circumflex and the RCA. Patient also had left ventricular end-diastolic pressure elevation consistent with congestive heart failure. Patient was evaluated today on 11/29/2023, feeling better, chest x-ray continues to show evidence of pulmonary edema but clinically the patient is improving. Urology is addressing her heart failure. Patient is also being treated for positive blood cultures and urine cultures remains on cefepime covering basically all her infections. At this point I believe the patient will benefit from more diuretics, however cardiology seems to be concerned about her renal status and creatinine 1.78 which is not far off from her baseline ranging between 1.3 up to 2.54 Objective - Vital Signs Vital signs: Vital Signs Temp 98.1 F 11/02/23 10:06 Pulse 80 11/02/23 12:09 Resp 16 11/02/23 10:06 BP 127/68 11/02/23 10:06 Pulse Ox 97 11/02/23 10:06 FiO2 Intake & Output 11/01/23 11/02/23 11/02/23 18:59 06:59 18:59 Intake Total 100 240 Output Total 700 500 900 Balance -600 -500 -660 Weight 86.4 kg 86.5 kg Intake: Intake, IV Titration 100 Amount Cefepime 2 gm In Sodium 100 Chloride 0.9% 100 ml @ 25 mls/hr IVPB Q12HR [facility] Rx #:[id number] Oral 240 Output: Urine 700 500 900 Other: Voiding Method Indwelling Catheter Indwelling Catheter Indwelling Catheter # Bowel Movements 1 - Exam General: Reveals 63-year-old female in no distress, on room air HEAD: Normocephalic. EYES: Normal reaction of pupils, equal size. NOSE: Clear with pink turbinates. THROAT: No erythema or exudates. NECK: No masses, no JVD. CHEST: No chest wall deformity. LUNGS: Fine crackles at the bases CVS: S1 and S2 normal with no audible murmur, regular rhythm. ABDOMEN: No hepatosplenomegaly, normal bowel sounds, no guarding or rigidity. SKIN: No rashes CENTRAL NERVOUS SYSTEM: No focal deficits, tone is normal in all 4 extremities. EXTREMITIES: Right [id number] amputation. There is no peripheral edema. No clubbing, no cyanosis. Peripheral pulses are intact. - Labs CBC & Chem 7: 10/29/23 06:58 11/02/23 11:00 Labs: Abnormal Lab Results - Last 24 Hours (Table) 11/01/23 11/01/23 11/02/23 Range/Units 16:30 19:51 06:00 Sodium (137-145) mmol/L Chloride (98-107) mmol/L Carbon Dioxide (22-30) mmol/L BUN (7-17) mg/dL Creatinine (0.52-1.04) mg/dL Glucose (74-99) mg/dL POC Glucose (mg/dL) 252 H 275 H 201 H (70-110) mg/dL 11/02/23 11/02/23 Range/Units 11:00 11:33 Sodium 132 L (137-145) mmol/L Chloride 109 H (98-107) mmol/L Carbon Dioxide 14 L (22-30) mmol/L BUN 46 H (7-17) mg/dL Creatinine 1.78 H (0.52-1.04) mg/dL Glucose 198 H (74-99) mg/dL POC Glucose (mg/dL) 259 H (70-110) mg/dL Assessment and Plan Assessment: Impression: Generalized weakness with fall, nausea, vomiting suspect secondary to urinary tract infection Acute urinary tract infection secondary to Klebsiella pneumoniae and Pseudomonas aeruginosa Acute kidney injury secondary to dehydration, hypotension Chronic Cortes due to urinary retention Bacteremia secondary to Enterobacter cloacae complex, currently on cefepime Sepsis with septic shock requiring pressor support secondary to above, improved and off pressors Acute hypoxemic respiratory failure secondary to mild venous congestion recovered and on room air Non-ST segment elevation myocardial infarction Transaminitis, statins on hold Coronary artery disease with multiple stent placements Ischemic cardiomyopathy status post biventricular AICD placement Obesity Diabetes mellitus Peripheral vascular disease [id number]-[id number] amputation of the right lower extremity Hyperlipidemia Anxiety/depression Recommendation: Continue diuretics, suggest increase diuretics doses. Continue bronchodilators Continue antibiotics, patient is on cefepime for her bacteremia and her sepsis. Infectious disease to decide or outline future treatment on outpatient basis with antibiotics Once cleared by infectious disease, and cardiology patient could be considered for discharge planning Continue present supportive care measures Will continue to follow Time with Patient: Less than 30
[2023-11-02] MEDS: INSULIN ASPART (NovoLOG) 100 UNIT/ML VIAL SQ SCH (12:26)
--- NOTE | 2023-11-02 16:04 | P.PN ---
Subjective Progress Note Date: 11/02/23 63-year-old lady with past medical history significant for coronary artery disease with stent placement, diabetes mellitus, fibromyalgia, GERD, hypertension, hyperlipidemia, osteoarthritis, who presented to hospital for generalized weakness. Patient relates she has not been feeling her usual self for the last 3 to 4 days. Patient complains of increased weakness. Patient also having nausea and vomiting. Patient was also complaining of lower quadrant abdominal pain. Patient history of chronic Cortes in the last Cortes was changed 2 weeks back. Patient denied any fever but complaining of chills at home. Patient was also complaining of loss of appetite. Denied any chest pain or shortness of breath. Patient was complaining of being confused and lethargic as well. Because of the symptoms, patient was brought to the ER Initial lab work done in the ER showed WBC 8.2, hemoglobin 9.3, platelet count 217, sodium 131, potassium 4, BUN 60, creatinine 2.54, glucose 266, lactate 3.2 AST 485, ALT 321, Chest x-ray done in the ER showed cardiomegaly: From mild venous congestion or chronic distal lung disease/pulm fibrosis Patient admitted to internal medicine service 11/01/2023 -patient is seen and evaluated in room at bedside; reports feeling markedly weak and unable to get out of bed; PT is consulted Patient remains on 2 L nasal cannula, O2 sat 99%, remains on diuretics, she is also on antibiotics for bacteremia and UTI, still receiving antibiotics for positive blood cultures showing Enterobacter cloacae complex, urine cultures have been positive for Klebsiella pneumonia and Pseudomonas aeruginosa. Remains on cefepime, which is being addressed by infectious disease on the case. Cardiac catheterization report was noted, patient was found to have calcified coronary arteries and chronically occluded mid LAD with moderate disease involving the left circumflex and the RCA. Patient also had left ventricular end-diastolic pressure elevation consistent with congestive heart failure. -- Patient has been evaluated by PT and is recommended skilled rehab 24-hour interval change 11/02/2023, -Patient is seen and evaluated in room at bedside; reports feeling better -- chest x-ray continues to show evidence of pulmonary edema but clinically the patient is improving. - Patient is also being treated for positive blood cultures and urine cultures remains on cefepime covering basically all her infections. Pulmonary service on board and recommending the patient will benefit from more diuretics, cardiology service on board and recommending to continue with current dose of diuretic therapy with close monitoring of renal function Objective - Vital Signs Vital signs: Vital Signs Temp 98.1 F 11/02/23 10:06 Pulse 83 11/02/23 10:06 Resp 16 11/02/23 10:06 BP 127/68 11/02/23 10:06 Pulse Ox 97 11/02/23 10:06 FiO2 Intake & Output 11/01/23 11/02/23 11/02/23 18:59 06:59 18:59 Intake Total 100 240 Output Total 700 500 900 Balance -600 -500 -660 Weight 86.4 kg 86.5 kg Intake: Intake, IV Titration 100 Amount Cefepime 2 gm In Sodium 100 Chloride 0.9% 100 ml @ 25 mls/hr IVPB Q12HR [facility] Rx #:[id number] Oral 240 Output: Urine 700 500 900 Other: Voiding Method Indwelling Catheter Indwelling Catheter Indwelling Catheter # Bowel Movements 1 - Exam HEAD: Normocephalic. EYES: Normal reaction of pupils, equal size. NOSE: Clear with pink turbinates. THROAT: No erythema or exudates. NECK: No masses, no JVD. CHEST: No chest wall deformity. LUNGS: Equal air entry with few scattered rhonchi. CVS: S1 and S2 normal with no audible murmur, regular rhythm. ABDOMEN: No hepatosplenomegaly, normal bowel sounds, no guarding or rigidity. SKIN: No rashes CENTRAL NERVOUS SYSTEM: No focal deficits, tone is normal in all 4 extremities. EXTREMITIES: Right kxirr-bhc-[id number] amputation. There is no peripheral edema. No clubbing, no cyanosis. Peripheral pulses are intact. - Labs CBC & Chem 7: 10/29/23 06:58 11/02/23 11:00 Labs: Abnormal Lab Results - Last 24 Hours (Table) 11/01/23 11/01/23 11/01/23 Range/Units 11:31 16:30 19:51 POC Glucose (mg/dL) 186 H 252 H 275 H (70-110) mg/dL 11/02/23 Range/Units 06:00 POC Glucose (mg/dL) 201 H (70-110) mg/dL Assessment and Plan Assessment: -Septic shock secondary to bacteremia from UTI: Resolved Patient required pressors, fluids -Sepsis with blood cultures positive for Enterobacter cloacae IV fluids. IV cefepime -Probable gallstone/cholecystitis Seen by Dr. Cuba from general surgery. For medical management due to high risk for surgery. Continue antibiotics -Acute kidney injury, ATN from septic shock: Improving Baseline creatinine 1.7 in May 2023. Admission creatinine 2.54 -Acute UTI with cystitis cultures positive for Klebsiella pneumonia and Pseudomonas aeruginosa, secondary to chronic Cortes catheter, causing septic shock IV cefepime -Coronary artery disease, prior history of stent Aspirin Plavix -Chronic congestive heart failure, secondary to CAD Follow clinically -Diabetes mellitus type 2 chronically on insulin For Accu-Cheks with sliding scale. Levemir. NovoLog. -Chronic fibromyalgia Pain control when necessary -Chronic Cortes catheter for bladder dysfunction since January 2023 -Acute non-ST elevation HI. Precipitated by septic shock. Known underlying CAD. IV heparin-discontinued. Plavix. Aspirin. Lopressor -CAD: Cardiac cath showing: Calcified coronary arteries. Chronically occluded mid LAD. Moderate disease in the left circumflex and RCA. -Metabolic acidosis from kidney injury Sodium bicarbonate -GERD Pepcid -Hyperlipidemia Lipitor-was held temporarily because increased LFTs. Resume at 40 mg -Essential hypertension Lopressor -Acute ischemic hepatitis from septic shock: improving Continue to hold Lipitor -Primary osteoarthritis Pain control -Metabolic acidosis secondary to kidney disease Sodium bicarbonate -Chronic kidney disease stage 3 likely nephrosclerosis and diabetic nephropathy Creatinine 1.06 June 2023 -Peripheral arterial disease Aspirin Lipitor -Right above-knee amputation -AICD with a pacemaker Telemetry Anxiety depression otherwise specified, for some acute flareup, with some suicidal ideation Consult psychiatry add sitter Resume home medications Lexapro, Seroquel, Xanax, Chronic insomnia: elavil -Chronic medical debility. Does use a motorized wheelchair
[2023-11-02 16:36] LABS: Glucose,Whole Blood 165 mg/dL (70-110)
--- NOTE | 2023-11-02 16:54 | P.PN ---
Subjective Progress Note Date: 11/02/23 Principal diagnosis: Reason for follow-up is UTI and bacteremia Patient is a 63-year-old female with a past medical history significant for diabetes mellitus hypertension hyperlipidemia coronary artery disease, did have history of right diabetic foot infection requiring right shfym-[id number]-xbxy amputation also with a history of urinary Retention requiring Cortes catheter placed that was last changed about 10 days before presentation to the hospital patient presenting with weakness and has been diagnosed with sepsis secondary To UTI blood cultures came back positive with Enterobacter. On today's evaluation that is 11/02/2023,the patient remains to be afebrile, patient is on room air not requiring supplemental oxygen and denies any shortness of breath no chest pain or cough.Patient denies having any nausea or vomiting, no abdominal pain and no diarrhea has been reported, has been complaining of wound to the right second toe tip but no pain no drainage. The patient creatinine is 1.78 Objective - Vital Signs Vital signs: Vital Signs Temp 97.8 F 11/02/23 12:00 Pulse 76 11/02/23 16:21 Resp 16 11/02/23 12:00 BP 125/74 11/02/23 12:00 Pulse Ox 94 L 11/02/23 12:00 FiO2 Intake & Output 11/01/23 11/02/23 11/02/23 18:59 06:59 18:59 Intake Total 100 240 Output Total 550 654 8043 Balance -600 -500 -1560 Weight 86.4 kg 86.5 kg Intake: Intake, IV Titration 100 Amount Cefepime 2 gm In Sodium 100 Chloride 0.9% 100 ml @ 25 mls/hr IVPB Q12HR [facility] Rx #:[id number] Oral 240 Output: Urine 220 [id number] Other: Voiding Method Indwelling Catheter Indwelling Catheter Indwelling Catheter # Bowel Movements 1 - Exam GENERAL DESCRIPTION: Middle-aged female up in the chair in no distress RESPIRATORY SYSTEM: Unlabored breathing , decreased breath sounds at bases HEART: S1 S2 regular rate and rhythm , ABDOMEN: Soft , no tenderness EXTREMITIES: Right second toe dorsum did have superficial wound no significant redness - Labs CBC & Chem 7: 10/29/23 06:58 11/02/23 11:00 Labs: Abnormal Lab Results - Last 24 Hours (Table) 11/01/23 11/02/23 11/02/23 Range/Units 19:51 06:00 11:00 Sodium 132 L (137-145) mmol/L Chloride 109 H (98-107) mmol/L Carbon Dioxide 14 L (22-30) mmol/L BUN 46 H (7-17) mg/dL Creatinine 1.78 H (0.52-1.04) mg/dL Glucose 198 H (74-99) mg/dL POC Glucose (mg/dL) 275 H 201 H (70-110) mg/dL 11/02/23 11/02/23 Range/Units 11:33 16:30 Sodium (137-145) mmol/L Chloride (98-107) mmol/L Carbon Dioxide (22-30) mmol/L BUN (7-17) mg/dL Creatinine (0.52-1.04) mg/dL Glucose (74-99) mg/dL POC Glucose (mg/dL) 259 H 165 H (70-110) mg/dL Assessment and Plan (1) Sepsis Current Visit: Yes Status: Acute Code(s): A41.9 - SEPSIS, UNSPECIFIED ORGANISM SNOMED Code(s): 98698326 (2) UTI (urinary tract infection) Current Visit: Yes Status: Acute Code(s): N39.0 - URINARY TRACT INFECTION, SITE NOT SPECIFIED SNOMED Code(s): 46626864 (3) Allergy to multiple antibiotics Current Visit: Yes Status: Acute Code(s): Z88.1 - ALLERGY STATUS TO OTHER ANTIBIOTIC AGENTS SNOMED Code(s): 363429573 (4) Bacteremia Current Visit: Yes Status: Acute Code(s): R78.81 - BACTEREMIA SNOMED Co de(s): 8977745 Plan: 1patient presented to hospital with sepsis in this patient who did have a hypotension generalized weakness most likely combination of catheters urinary tract infection, cholecystitis not entirely excluded however the patient did not have significant tenderness to the right upper quadrant area, subsequent CT abdominal pelvis was suggestive of cholelithiasis and cholecystitis 2-patient with multiple antibiotic ALLERGIES that would limit the number of antibiotic safe to use 3-blood culture positive for Enterobacter urine is growing Enterobacter and Pseudomonas, repeat blood culture has been negative 4patient did have HIDA scan however has to be discontinued earlier because of patient discomfort 5-patient is afebrile complaining of mostly epigastric discomfort today we will continue with cefepime however will be able to finish therapy with oral Ceftin on discharge 6right second toe tip wound with no cellulitis will apply Aquacel dressing change every 48 hours Dictation was produced using [facility] dictation software. please excuse any grammatical, word or spelling errors. Time with Patient: Less than 30
--- NOTE | 2023-11-02 18:12 | P.PN ---
Subjective patient is seen for follow-up for acute kidney injury and chronic kidney disease. Renal function had improved with serum creatinine down to 1.6 mg/dL. Patient has been restarted on diuretics and also s/p cardiac catheterization on 10/31/23. Serum creatinine is 1.7 today. Objective - Vital Signs Vital signs: Vital Signs Temp 98.1 F 11/02/23 16:00 Pulse 76 11/02/23 16:21 Resp 16 11/02/23 16:00 BP 134/75 11/02/23 16:00 Pulse Ox 99 11/02/23 16:00 FiO2 Intake & Output 11/01/23 11/02/23 11/02/23 18:59 06:59 18:59 Intake Total 100 240 Output Total 716 739 9890 Balance -600 -500 -2110 Weight 86.4 kg 86.5 kg Intake: Intake, IV Titration 100 Amount Cefepime 2 gm In Sodium 100 Chloride 0.9% 100 ml @ 25 mls/hr IVPB Q12HR [facility] Rx #:[id number] Oral 240 Output: Urine 370 [id number] Other: Voiding Method Indwelling Catheter Indwelling Catheter Indwelling Catheter # Bowel Movements 1 - Exam Patient is awake, comfortable, no acute distress. Examination of the heart S1 and S2 Examination of the lungs bilateral breath sounds are heard Abdomen is soft nontender Examination of lower extremities shows 1+ edema, right AKA BILLING COORDINATOR exam grossly intact - Labs CBC & Chem 7: 10/29/23 06:58 11/02/23 11:00 Labs: Abnormal Lab Results - Last 24 Hours (Table) 11/01/23 11/02/23 11/02/23 Range/Units 19:51 06:00 11:00 Sodium 132 L (137-145) mmol/L Chloride 109 H (98-107) mmol/L Carbon Dioxide 14 L (22-30) mmol/L BUN 46 H (7-17) mg/dL Creatinine 1.78 H (0.52-1.04) mg/dL Glucose 198 H (74-99) mg/dL POC Glucose (mg/dL) 275 H 201 H (70-110) mg/dL 11/02/23 11/02/23 Range/Units 11:33 16:30 Sodium (137-145) mmol/L Chloride (98-107) mmol/L Carbon Dioxide (22-30) mmol/L BUN (7-17) mg/dL Creatinine (0.52-1.04) mg/dL Glucose (74-99) mg/dL POC Glucose (mg/dL) 259 H 165 H (70-110) mg/dL Assessment and Plan Assessment: 1. Acute kidney injury, ATN secondary to sepsis and hypotension, nonoliguric. UA is suggestive of UTI. Ultrasound shows mild bilateral hydronephrosis. This is not new and patient has chronic indwelling Cortes catheter. 2. UTI with sepsis, urine culture is growing Klebsiella pneumonia and Pseudom onas 3. Gram-negative sepsis with blood cultures growing Enterobacter cloacae 4. Peripheral vascular disease status post right AKA 5. CK D stage IV secondary to diabetic kidney disease. Baseline creatinine 1.7-1.8 mg/dL. 6. Non-gap metabolic acidosis secondary to acute kidney injury, maintained on oral sodium bicarb 7. Anemia of chronic disease with mild iron deficiency. I will hold off on IV iron due to active infection. Continue with Aranesp 8. Volume overload Plan: Add scheduled dose of loop diuretics continue oral sodium bicarb, increased dose Continue with antibiotics Continue with indwelling Cortes catheter. Repeat labs in a.m. Continue to avoid nephrotoxic agents continue Aranesp Hold IV iron due to ongoing active infection.
--- NOTE | 2023-11-02 20:08 | P.PN ---
Subjective Progress Note Date: 11/02/23 This is a 63-year-old female patient with a past medical history significant for CAD with prior percutaneous revascularization as well as cardiomyopathy and valvular heart disease with mitral regurgitation as well as chronic kidney disease and diabetes and hypertension and dyslipidemia who was admitted to the hospital with UTI/sepsis and we consulted to see the patient because of abnormal troponin which has been treated medically. October 26, 2023 The patient was seen and evaluated this morning which she is feeling better. No cardiovascular symptoms. Hemodynamically she is stable. Currently she is on dual antiplatelet therapy. She is not on a statin because of elevated liver function test. She is not on PAGE inhibitor because she had history of hypotension with PAGE inhibitor before. Kidney function has been improving. The examination is remarkable for regular rhythm with soft systolic murmur at the apical area and clear breathing sounds bilaterally. October 27, 2023 The patient was seen and evaluated this morning. She is asymptomatic with no symptoms of any chest pain or chest discomfort or shortness of breath. She is a stable hemodynamically as well. She remains on dual antiplatelet therapy along with anti-ischemic medications with beta-cristopher. She continues to be on antibiotic regarding the UTI and currently she is on IV antibiotic. Blood work revealed improvement in the creatinine and her creatinine today is 1.54 which is almost her baseline. She is not on a statin because of elevated liver function test when she presented to the hospital but her liver function test has been almost back to normal but I am going to repeat the AST and ALT and if both came in to be normal she will be started on atorvastatin at high intensity. Severe underlying coronary artery disease need to be ruled out either invasively or noninvasively once the UTI/sepsis resolved. The examination is remarkable for regular rhythm with a systolic murmur and clear breathing sounds bilaterally and no edema was noted in the lower extremities October 28, 2023 Patient was seen and examined at bedside this a.m. She is hemodynamically stable. She is in sinus rhythm with ventricularly paced rhythm with intermittent PVCs on telemetry. No sustained arrhythmias noticed in last 24 hours Labs from yesterday potassium 4, BUN 44, creatinine 1.5, AST 28, ALT 78, trending down. October 29, 2023 Patient is seen and examined at bedside this a.m. Patient is hemodynamically stable. She is in sinus rhythm with ventricularly paced rhythm with intermittent PVCs on telemetry. There were no sustained arrhythmias Creatinine is stable with good urine output. Nov 01 2023 Patient's renal function is slightly worsened as compared to before. Therefore her diuretics were held. November 02, 2023 Kidney function is stabilizing now. Hemodynamically stable Assessment UTI/sepsis Acute on chronic renal failure Evidence of myocardial injury with no evidence of ischemia. Troponin elevation up to 15, treated medically New worsening cardiomyopathy EF 20 to 25%. Previous documented echo showed an EF of around 35% Moderate to severe coronary artery disease, not amenable for intervention s/p Primary prevention ICD 2015, s/p icd lead fracture s/p replacement in Valvular heart disease with severe mitral regurgitation Multiple comorbid conditions Plan Stop Aldactone reduce Bumex Continue dual antiplatelet therapy Continue Lipitor, liver function is trending down Continue metoprolol Monitor renal function, repeat labs. If renal function is stable, start some GDMT Stop Dapagliflozin due to concerns of active UTI Objective - Vital Signs Vital signs: Vital Signs Temp 98.1 F 11/02/23 16:00 Pulse 76 11/02/23 16:21 Resp 16 11/02/23 16:00 BP 134/75 11/02/23 16:00 Pulse Ox 99 11/02/23 16:00 FiO2 Intake & Output 11/02/23 11/02/23 11/03/23 06:59 18:59 06:59 Intake Total 358 Output Total 500 2350 Weight 86.5 kg Intake: Oral 358 Output: Urine 500 2350 Other: Voiding Method Indwelling Catheter Indwelling Catheter Indwelling Catheter # Bowel Movements 1 - Labs CBC & Chem 7: 10/29/23 06:58 11/02/23 11:00 Labs: Abnormal Lab Results - Last 24 Hours (Table) 11/02/23 11/02/23 11/02/23 Range/Units 06:00 11:00 11:33 Sodium 132 L (137-145) mmol/L Chloride 109 H (98-107) mmol/L Carbon Dioxide 14 L (22-30) mmol/L BUN 46 H (7-17) mg/dL Creatinine 1.78 H (0.52-1.04) mg/dL Glucose 198 H (74-99) mg/dL POC Glucose (mg/dL) 201 H 259 H (70-110) mg/dL 11/02/23 Range/Units 16:30 Sodium (137-145) mmol/L Chloride (98-107) mmol/L Carbon Dioxide (22-30) mmol/L BUN (7-17) mg/dL Creatinine (0.52-1.04) mg/dL Glucose (74-99) mg/dL POC Glucose (mg/dL) 165 H (70-110) mg/dL
[2023-11-02] MEDS: SODIUM BICARBONATE TAB 650 MG TAB PO SCH (20:25)
[2023-11-02 20:32] LABS: Glucose,Whole Blood 170 mg/dL (70-110)
[2023-11-03 06:22] LABS: Glucose,Whole Blood 210 mg/dL (70-110)
[2023-11-03 08:12] LABS: African American GFR (CKD) 38 (>60 ml/min/1.73 sqM); Anion Gap 8 mmol/L; Blood Urea Nitrogen 43 mg/dL (7-17); Calcium 8.8 mg/dL (8.4-10.2); Carbon Dioxide 16 mmol/L (22-30); Chloride 111 mmol/L (98-107); Glucose 176 mg/dL (74-99); Non-African American GFR(CKD) 33 (>60 ml/min/1.73 sqM); Potassium 4.6 mmol/L (3.5-5.1); Sodium 135 mmol/L (137-145)
[2023-11-03 08:12] LABS: Anisocytosis Slight; Basophils % (A) 0 %; Eosinophils # (A) 0.2 k/uL (0-0.7); Eosinophils % (A) 2 %; HCT 28.3 % (34.0-46.0); HGB 8.5 gm/dL (11.4-16.0); Hypochromasia Marked; Lymphocytes # (A) 1.4 k/uL (1.0-4.8); Lymphocytes % (A) 15 %; MCH 27.6 pg (25.0-35.0); MCV 91.9 fL (80.0-100.0); Macrocytosis Slight; Mean Platelet Volume 8.8; Monocytes # (A) 0.5 k/uL (0-1.0); Monocytes % (A) 5 %; Neutrophils # (A) 7.4 k/uL (1.3-7.7); Neutrophils % (A) 77 %; Platelet Count 206 k/uL (150-450); RBC 3.08 m/uL (3.80-5.40); RDW 19.9 % (11.5-15.5); WBC 9.5 k/uL (3.8-10.6)
[2023-11-03] MEDS: TORSEMIDE 20 MG TAB PO SCH (09:54)
--- NOTE | 2023-11-03 11:25 | P.PN ---
Subjective Progress Note Date: 11/03/23 Principal diagnosis: Acute urinary tract infection with bacteremia sepsis and septic shock and ischemic cardiomyopathy. This is a 63-year-old female patient with a known history of coronary artery disease with multiple previous stent placements, cardiomyopathy status post AICD placement, nephrolithiasis, hearing disorder, hypertension, hyperlipidemia, diabetes mellitus, lyidq-pah-gisa amputation on the right, former smoker, chronic Cortes due to kidney issues. She presented here to the emergency room earlier this morning with complaints of generalized weakness, nausea vomiting and fall. Chest x-ray revealed cardiomegaly with mild venous congestion or chronic interstitial lung disease/pulmonary fibrosis. More confluent area of consolidation in the left perihilar and upper lobes. Neoplasm not excluded. EKG reveals atrial sensing and ventricular pacing. Ultrasound of the abdomen/bladder is pending. White count 8.2. Hemoglobin 9.3. Platelets 217. Sodium 131. Potassium 4.0. Bicarb 16. BUN 60. Creatinine 2.54. Lactic acid 3.2. Glucose 266. AST 45. ALT 321. Urinalysis turbid with moderate blood. Large leukocyte esterase, greater than 182 WBCs many WBC clumps many bacteria. Culture pending. Procalcitonin pending. She has been initiated on ceftriaxone. She is seen today in consultation in the emergency department. She was having issues with hypotension and is requiring norepinephrine and ICU admission. She is awake and alert. Maintaining O2 saturations in the 90s on 2 L/min per nasal cannula. Currently on norepinephrine at 0.02 mcg/kg/min. He has received 1.5 L of fluid resuscitation. Normal saline at 75 MLS per hour. The patient is seen today October 24, 2023 in follow-up in the emergency department. She is currently awake and alert in no acute distress. She is feeling a bit better today compared to yesterday. She did have issues with chest pain yesterday and was found to have elevated troponins and is currently on a heparin drip. Her mean arterial pressures have been in the 70s and 80s. She is off the norepinephrine. She is afebrile. She is maintaining good O2 saturations up to 100% on 3 L/min per nasal cannula. She is afebrile. Hemodynamically stable. White count 6.4. Hemoglobin 8.3. Platelets 216. Sodium 131. Potassium 3.8. Bicarb 16. BUN 65. Creatinine 2.71. Glucose 127. AST 191. ALT 229. Blood cultures are positive for gram-negative bacilli. She remains. Patient is seen today October 25, 2023 in room 374. She is resting comfortably in bed this morning eating her breakfast. She is satting well on room air. She states her breathing is comfortable and denies any shortness of breath or chest pain. She remains on the heparin drip for the elevated troponins. She remains afebrile. She is hemodynamically stable. White count 8.3. Hemoglobin 8.7. Platelets 241. Sodium 135, Potassium 3.6, Bicard 18. BUN 63. Creatinine 2.29. Glucose 117. Blood cultures show gram-negative bacilli & Enterobacter Cloacae. She remains on Cefepime. Patient is seen today October 26, 2023 in room 374. He is resting comfortably in bed awake alert and in no acute distress. She is satting 90s on room air. He denies any chest shortness of breath or chest pain. She is on subcutaneous heparin per protocol. She remains afebrile. Hemodynamically stable. Sodium 136, potassium 3.8, chloride 112, bicarb 17, BUN 56, creatinine 1.88, glucose 126. He remains on LR at a rate of 75 an hour. Urine culture shows Klebsiella pneumoniae and Pseudomonas aeruginosa. Blood culture shows Enterobacter cloacae. Remains on cefepime which was started on 10/23. Chest x-ray shows stable cardiomegaly with findings suggestive of pulmonary fibrosis. Progress note dated October 27, 2023. 63-year-old female seen today in room 374. The patient is on room air. No IV fluids. Blood cultures were positive for Enterobacter cloacae. Urine cultures were positive for both Klebsiella, and Pseudomonas. The patient continues on cefepime. Current labs include a sodium 136, potassium 4, chlorides 111, CO2 17 , anion gap 8, BUN 44, and creatinine 1.54. Glucose is 211. Albumin is 2.6. The patient is seen today October 28, 2023 in follow-up on the selective care unit. She is currently sitting up in a chair. Awake and alert in no acute distress. Maintaining O2 saturations in the 90s on room air. She has been having abdominal pain possibly related to gallstones. She is considered high risk surgical candidate with her recent myocardial infarction. Cardiac catheterization pending. Blood cultures were positive for Enterobacter cloacae complex. Follow-up blood culture revealing no growth thus far. Glucose 146. She remains on cefepime. Heparin for DVT prophylaxis. The patient is seen today October 29, 2023 in follow-up on the selective care unit. She is currently resting in bed. Awake and alert in no acute distress. She is maintaining O2 saturations in the 90s on room air. Her main complaint is of nausea and abdominal pain. She did undergo a hepatobiliary scan today. Wall thickening of the gallbladder on CT felt to be due to third spacing of fluid in the setting of congestive heart failure or liver disease. Count 9.3. Hemoglobin 8.6. Platelets 231. Sodium 138. Potassium 4.0. Bicarb 18. BUN 33. Creatinine 1.33. Glucose 88. Remains on cefepime. Heparin for DVT prophylaxis. The patient is seen today October 30, 2023 in follow-up in the selective care unit. She is currently up in a chair. Awake and alert in no acute distress. She remains weak. She is maintaining O2 saturations in the 90s on room air. She is having some wheezing and shortness of breath. She has been initiated on Bumex and bronchodilators. She remains on antibiotics in the form of cefepime. Plan is for cardiac catheterization tomorrow. Sodium 133. Potassium 4.9. Bicarb 15. BUN 37. Creatinine 1.33. Glucose 199. Patient was evaluated today on 10/31/2023, patient remains on the same bron chodilators and diuretics she is also on antibiotics for her bacteremia and UTI. Underwent cardiac catheterization today, however she was found to have calcified coronary arteries and chronically occluded mid LAD with moderate disease in the left circumflex and in the RCA. She was also noted to have left ventricular end-diastolic pressure elevation. Recommendation is to continue medical therapy, no intervention was recommended labs today showed relatively normal electrolytes, BUN is 41 creatinine 1.67 Patient was evaluated today on 11/01/2023, patient is on 2 L nasal cannula, O2 sat 99%, remains on diuretics, she is also on antibiotics for bacteremia and UTI, still receiving antibiotics for positive blood cultures showing Enterobacter cloacae complex, urine cultures have been positive for Klebsiella pneumonia and Pseudomonas aeruginosa. Remains on cefepime, which is being addressed by infectious disease on the case. Cardiac catheterization report was noted, patient was found to have calcified coronary arteries and chronically occluded mid LAD with moderate disease involving the left circumflex and the RCA. Patient also had left ventricular end-diastolic pressure elevation consistent with congestive heart failure. Patient was evaluated today on 11/02/2023, feeling better, chest x-ray continues to show evidence of pulmonary edema but clinically the patient is improving. Cardiology is addressing her heart failure. Patient is also being treated for positive blood cultures and urine cultures remains on cefepime covering basically all her infections. At this point I believe the patient will benefit from more diuretics, however cardiology seems to be concerned about her renal status and creatinine 1.78 which is not far off from her baseline ranging between 1.3 up to 2.54 Patient was seen today on 11/03/2023, patient is feeling better breathing easier. Remains on diuretics for congestive heart failure, remains on antibiotics for her multiple positive cultures including blood cultures and urine cultures patient had Enterobacter cloacae in the blood she also had Klebsiella pneumonia and Pseudomonas aeruginosa in the urine from 10/22. WBC count today is 9.5 hemoglobin 8.5 electrolytes are normal BUN is 43 creatinine 1.65This was done on 10/30 patient is on room air and O2 saturation is 94%, she is hemodynamically stable. No fever. Objective - Vital Signs Vital signs: Vital Signs Temp 98.3 F 11/03/23 09:52 Pulse 97 11/03/23 09:52 Resp 18 11/03/23 09:52 BP 137/84 11/03/23 09:52 Pulse Ox 94 L 11/03/23 09:52 FiO2 Intake & Output 11/02/23 11/03/23 11/03/23 18:59 06:59 18:59 Intake Total 358 Output Total 2350 1600 Balance -1991 Intake: Oral 358 Output: Urine 2350 1600 Other: Voiding Method Indwelling Catheter Indwelling Catheter Indwelling Catheter # Bowel Movements 1 - Exam General: Reveals 63-year-old female in no distress, on room air HEAD: Normocephalic. EYES: Normal reaction of pupils, equal size. NOSE: Clear with pink turbinates. THROAT: No erythema or exudates. NECK: No masses, no JVD. CHEST: No chest wall deformity. LUNGS: Fine crackles at the bases CVS: S1 and S2 normal with no audible murmur, regular rhythm. ABDOMEN: No hepatosplenomegaly, normal bowel sounds, no guarding or rigidity. SKIN: No rashes CENTRAL NERVOUS SYSTEM: No focal deficits, tone is normal in all 4 extremities. EXTREMITIES: Right [id number] amputation. There is no peripheral edema. No clubbing, no cyanosis. Peripheral pulses are intact. - Labs CBC & Chem 7: 11/03/23 07:12 11/03/23 07:09 Labs: Abnormal Lab Results - Last 24 Hours (Table) 11/02/23 11/02/23 11/02/23 Range/Units 11:00 11:33 16:30 RBC (3.80-5.40) m/uL Hgb (11.4-16.0) gm/dL Hct (34.0-46.0) % MCHC (31.0-37.0) g/dL RDW (11.5-15.5) % Sodium 132 L (137-145) mmol/L Chloride 109 H (98-107) mmol/L Carbon Dioxide 14 L (22-30) mmol/L BUN 46 H (7-17) mg/dL Creatinine 1.78 H (0.52-1.04) mg/dL Glucose 198 H (74-99) mg/dL POC Glucose (mg/dL) 259 H 165 H (70-110) mg/dL 11/02/23 11/03/23 11/03/23 Range/Units 20:31 06:21 07:09 RBC (3.80-5.40) m/uL Hgb (11.4-16.0) gm/dL Hct (34.0-46.0) % MCHC (31.0-37.0) g/dL RDW (11.5-15.5) % Sodium 135 L (137-145) mmol/L Chloride 111 H (98-107) mmol/L Carbon Dioxide 16 L (22-30) mmol/L BUN 43 H (7-17) mg/dL Creatinine 1.65 H (0.52-1.04) mg/dL Glucose 176 H (74-99) mg/dL POC Glucose (mg/dL) 170 H 210 H (70-110) mg/dL 11/03/23 Range/Units 07:12 RBC 3.08 L (3.80-5.40) m/uL Hgb 8.5 L (11.4-16.0) gm/dL Hct 28.3 L (34.0-46.0) % MCHC 30.0 L (31.0-37.0) g/dL RDW 19.9 H (11.5-15.5) % Sodium (137-145) mmol/L Chloride (98-107) mmol/L Carbon Dioxide (22-30) mmol/L BUN (7-17) mg/dL Creatinine (0.52-1.04) mg/dL Glucose (74-99) mg/dL POC Glucose (mg/dL) (70-110) mg/dL Assessment and Plan Assessment: Impression: Generalized weakness with fall, nausea, vomiting suspect secondary to urinary tract infection Acute urinary tract infection secondary to Klebsiella pneumoniae and Pseudomonas aeruginosa Acute kidney injury secondary to dehydration, hypotension Chronic Cortes due to urinary retention Bacteremia secondary to Enterobacter cloacae complex, currently on cefepime Sepsis with septic shock requiring pressor support secondary to above, improved and off pressors Acute hypoxemic respiratory failure secondary to mild venous congestion recovered and on room air Non-ST segment elevation myocardial infarction Transaminitis, statins on hold Coronary artery disease with multiple stent placements Ischemic cardiomyopathy status post biventricular AICD placement Obesity Diabetes mellitus Peripheral vascular disease Awzca-[id number] amputation of the right lower extremity Hyperlipidemia Anxiety/depression Recommendation: Continue diuretics Continue bronchodilators Continue antibiotics, patient is on cefepime for her bacteremia and her sepsis. Once cleared by infectious disease, and cardiology patient could be considered for discharge planning Continue present supportive care measures Will continue to follow Time with Patient: Less than 30
[2023-11-03 11:53] LABS: Glucose,Whole Blood 216 mg/dL (70-110)
--- NOTE | 2023-11-03 12:41 | P.PN ---
Subjective patient is seen for follow-up for acute kidney injury and chronic kidney disease. Renal function had improved with serum creatinine down to 1.6 mg/dL. Patient has been restarted on diuretics and also s/p cardiac catheterization on 10/31/23. C/o feeling bloated with abdominal distention. No significant shortness of breath. Objective - Vital Signs Vital signs: Vital Signs Temp 97.9 F 11/03/23 12:10 Pulse 107 H 11/03/23 12:10 Resp 20 11/03/23 12:10 BP 130/83 11/03/23 12:10 Pulse Ox 93 L 11/03/23 12:10 FiO2 Intake & Output 11/02/23 11/03/23 11/03/23 18:59 06:59 18:59 Intake Total 358 Output Total 2350 1600 Balance -1991 -1599 Intake: Oral 358 Output: Urine 2350 1600 Other: Voiding Method Indwelling Catheter Indwelling Catheter Indwelling Catheter # Bowel Movements 1 - Exam Patient is awake, comfortable, no acute distress. Examination of the heart S1 and S2 Examination of the lungs bilateral breath sounds are heard Abdomen is soft nontender Examination of lower extremities shows 1+ edema, right AKA [employer] exam grossly intact - Labs CBC & Chem 7: 11/03/23 07:12 11/03/23 07:09 Labs: Abnormal Lab Results - Last 24 Hours (Table) 11/02/23 11/02/23 11/03/23 Range/Units 16:30 20:31 06:21 RBC (3.80-5.40) m/uL Hgb (11.4-16.0) gm/dL Hct (34.0-46.0) % MCHC (31.0-37.0) g/dL RDW (11.5-15.5) % Sodium (137-145) mmol/L Chloride (98-107) mmol/L Carbon Dioxide (22-30) mmol/L BUN (7-17) mg/dL Creatinine (0.52-1.04) mg/dL Glucose (74-99) mg/dL POC Glucose (mg/dL) 165 H 170 H 210 H (70-110) mg/dL 11/03/23 11/03/23 11/03/23 Range/Units 07:09 07:12 11:43 RBC 3.08 L (3.80-5.40) m/uL Hgb 8.5 L (11.4-16.0) gm/dL Hct 28.3 L (34.0-46.0) % MCHC 30.0 L (31.0-37.0) g/dL RDW 19.9 H (11.5-15.5) % Sodium 135 L (137-145) mmol/L Chloride 111 H (98-107) mmol/L Carbon Dioxide 16 L (22-30) mmol/L BUN 43 H (7-17) mg/dL Creatinine 1.65 H (0.52-1.04) mg/dL Glucose 176 H (74-99) mg/dL POC Glucose (mg/dL) 216 H (70-110) mg/dL Assessment and Plan Assessment: 1. Acute kidney injury, ATN secondary to sepsis and hypotension, nonoliguric. UA is suggestive of UTI. Ultrasound shows mild bilateral hydronephrosis. This is not new and patient has chronic indwelling Cortes catheter. 2. UTI with sepsis, urine culture is growing Klebsiella pneumonia and Pseudomonas 3. Gram-negative sepsis with blood cultures growing Enterobacter cloacae 4. Peripheral vascular disease status post right AKA 5. CK D stage IV secondary to diabetic kidney disease. Baseline creatinine 1.7-1.8 mg/dL. 6. Non-gap metabolic acidosis secondary to acute kidney injury, maintained on oral sodium bicarb 7. Anemia of chronic disease with mild iron deficiency. IV iron was on hold due to active infection. Continue with Aranesp 8. Volume overload Plan: continue torsemide. Lasix IV 1 continue oral sodium bicarb, increased dose Continue with antibiotics Continue with indwelling Cortes catheter. Repeat labs in a.m. Continue to avoid nephrotoxic agents continue Aranesp add IV iron as patient has been on antibiotics for a few days now.
[2023-11-03] MEDS: SODIUM FERRIC GLUCONAT-SUCROSE 125 MG in SODIUM CHLORIDE 0.9% 100 ML IVPB SCH (14:23)
[2023-11-03] MEDS: FUROSEMIDE 10 MG/ML 4 ML VIAL IV STA (14:23)
--- NOTE | 2023-11-03 15:29 | P.PN ---
Subjective Progress Note Date: 11/03/23 Principal diagnosis: Reason for follow-up is UTI and bacteremia Patient is a 63-year-old female with a past medical history significant for diabetes mellitus hypertension hyperlipidemia coronary artery disease, did have history of right diabetic foot infection requiring right [id number] amputation also with a history of urinary Retention requiring Cortes catheter placed that was last changed about 10 days before presentation to the hospital patient presenting with weakness and has been diagnosed with sepsis secondary To UTI blood cultures came back positive with Enterobacter. On today's evaluation that is 11/03/2023, the patient continues to be afebrile, the patient is on room air and breathing comfortably, the Pt denies having any chest pain or cough, the patient denies having any abdominal pain no vomiting or any diarrhea, mention feeling better. Patient white count is 9.5, creatinine is 1.65 Objective - Vital Signs Vital signs: Vital Signs Temp 97.9 F 11/03/23 12:10 Pulse 107 H 11/03/23 14:00 Resp 20 11/03/23 14:00 BP 130/83 11/03/23 12:10 Pulse Ox 93 L 11/03/23 12:10 FiO2 Intake & Output 11/02/23 11/03/23 11/03/23 18:59 06:59 18:59 Intake Total 358 0 Output Total 2350 1600 Balance -1991 -1599 0 Intake: Oral 358 0 Output: Urine 2350 1600 Other: Voiding Method Indwelling Catheter Indwelling Catheter Indwelling Catheter # Bowel Movements 1 - Exam GENERAL DESCRIPTION: Middle-aged female up in the chair in no distress RESPIRATORY SYSTEM: Unlabored breathing , decreased breath sounds at bases HEART: S1 S2 regular rate and rhythm , ABDOMEN: Soft , no tenderness EXTREMITIES: Left second toe dorsum did have superficial wound no significant redness - Labs CBC & Chem 7: 11/03/23 07:12 11/03/23 07:09 Labs: Abnormal Lab Results - Last 24 Hours (Table) 11/02/23 11/02/23 11/03/23 Range/Units 16:30 20:31 06:21 RBC (3.80-5.40) m/uL Hgb (11.4-16.0) gm/dL Hct (34.0-46.0) % MCHC (31.0-37.0) g/dL RDW (11.5-15.5) % Sodium (137-145) mmol/L Chloride (98-107) mmol/L Carbon Dioxide (22-30) mmol/L BUN (7-17) mg/dL Creatinine (0.52-1.04) mg/dL Glucose (74-99) mg/dL POC Glucose (mg/dL) 165 H 170 H 210 H (70-110) mg/dL 11/03/23 11/03/23 11/03/23 Range/Units 07:09 07:12 11:43 RBC 3.08 L (3.80-5.40) m/uL Hgb 8.5 L (11.4-16.0) gm/dL Hct 28.3 L (34.0-46.0) % MCHC 30.0 L (31.0-37.0) g/dL RDW 19.9 H (11.5-15.5) % Sodium 135 L (137-145) mmol/L Chloride 111 H (98-107) mmol/L Carbon Dioxide 16 L (22-30) mmol/L BUN 43 H (7-17) mg/dL Creatinine 1.65 H (0.52-1.04) mg/dL Glucose 176 H (74-99) mg/dL POC Glucose (mg/dL) 216 H (70-110) mg/dL Assessment and Plan (1) Sepsis Current Visit: Yes Status: Acute Code(s): A41.9 - SEPSIS, UNSPECIFIED ORGANISM SNOMED Code(s): 32219995 (2) UTI (urinary tract infection) Current Visit: Yes Status: Acute Code(s): N39.0 - URINARY TRACT INFECTION, SITE NOT SPECIFIED SNOMED Code(s): 24914706 (3) Allergy to multiple antibiotics Current Visit: Yes Status: Acute Code(s): Z88.1 - ALLERGY STATUS TO OTHER ANTIBIOTIC AGENTS SNOMED Code(s): 046293065 (4) Bacteremia Current Visit: Yes Status: Acute Code(s): R78.81 - BACTEREMIA SNOMED Code(s): 9843736 Plan: 1patient presented to hospital with sepsis in this patient who did have a hypotension generalized weakness most likely combination of catheters urinary tract infection, cholecystitis not entirely excluded however the patient did not have significant tenderness to the right upper quadrant area, subsequent CT abdominal pelvis was suggestive of cholelithiasis and cholecystitis 2-patient with multiple antibiotic ALLERGIES that would limit the number of antibiotic safe to use 3-blood culture positive for Enterobacter urine is growing Enterobacter and Pseudomonas, repeat blood culture has been negative 4patient did have HIDA scan however has to be discontinued earlier because of patient discomfort 5-patient is afebrile, white count has normalized we will continue with cefepime however will be able to finish therapy with oral Ceftin on discharge 6left second toe tip wound with no cellulitis will apply Aquacel dressing change every 48 hours, discussed with the nursing staff Dictation was produced using [employer] dictation software. please excuse any grammatical, word or spelling errors. Time with Patient: Less than 30
[2023-11-03 16:41] LABS: Glucose,Whole Blood 218 mg/dL (70-110)
--- NOTE | 2023-11-03 18:22 | P.PN ---
Subjective Progress Note Date: 11/03/23 This is a 63-year-old female patient with a past medical history significant for CAD with prior percutaneous revascularization as well as cardiomyopathy and valvular heart disease with mitral regurgitation as well as chronic kidney disease and diabetes and hypertension and dyslipidemia who was admitted to the hospital with UTI/sepsis and we consulted to see the patient because of abnormal troponin which has been treated medically. October 26, 2023 The patient was seen and evaluated this morning which she is feeling better. No cardiovascular symptoms. Hemodynamically she is stable. Currently she is on dual antiplatelet therapy. She is not on a statin because of elevated liver function test. She is not on PAGE inhibitor because she had history of hypotension with PAGE inhibitor before. Kidney function has been improving. The examination is remarkable for regular rhythm with soft systolic murmur at the apical area and clear breathing sounds bilaterally. October 27, 2023 The patient was seen and evaluated this morning. She is asymptomatic with no symptoms of any chest pain or chest discomfort or shortness of breath. She is a stable hemodynamically as well. She remains on dual antiplatelet therapy along with anti-ischemic medications with beta-cristopher. She continues to be on antibiotic regarding the UTI and currently she is on IV antibiotic. Blood work revealed improvement in the creatinine and her creatinine today is 1.54 which is almost her baseline. She is not on a statin because of elevated liver function test when she presented to the hospital but her liver function test has been almost back to normal but I am going to repeat the AST and ALT and if both came in to be normal she will be started on atorvastatin at high intensity. Severe underlying coronary artery disease need to be ruled out either invasively or noninvasively once the UTI/sepsis resolved. The examination is remarkable for regular rhythm with a systolic murmur and clear breathing sounds bilaterally and no edema was noted in the lower extremities October 28, 2023 Patient was seen and examined at bedside this a.m. She is hemodynamically stable. She is in sinus rhythm with ventricularly paced rhythm with intermittent PVCs on telemetry. No sustained arrhythmias noticed in last 24 hours Labs from yesterday potassium 4, BUN 44, creatinine 1.5, AST 28, ALT 78, trending down. October 29, 2023 Patient is seen and examined at bedside this a.m. Patient is hemodynamically stable. She is in sinus rhythm with ventricularly paced rhythm with intermittent PVCs on telemetry. There were no sustained arrhythmias Creatinine is stable with good urine output. Nov 01 2023 Patient's renal function is slightly worsened as compared to before. Therefore her diuretics were held. November 02, 2023 Kidney function is stabilizing now. Hemodynamically stable Nov 02 Kidney function improved to creatinine 1.6. Dr. Prado added torsemide 40 mg daily. I agree with this change. Assessment UTI/sepsis Acute on chronic renal failure Evidence of myocardial injury with no evidence of ischemia. Troponin elevation up to 15, treated medically New worsening cardiomyopathy EF 20 to 25%. Previous documented echo showed an EF of around 35% Moderate to severe coronary artery disease, not amenable for intervention s/p Primary prevention ICD 2015, s/p icd lead fracture s/p replacement in Valvular heart disease with severe mitral regurgitation Multiple comorbid conditions Plan Stop Aldactone . Reconsider Aldactone. Continue torsemide 40 mg daily. If patient has recurrent hospitalizations with CHF, consider HFMS device Continue dual antiplatelet therapy Continue Lipitor, liver function is trending down Continue metoprolol Monitor renal function, repeat labs. If renal function is stable, start some GDMT Stop Dapagliflozin due to concerns of active UTI Objective - Vital Signs Vital signs: Vital Signs Temp 98.0 F 11/03/23 17:06 Pulse 85 11/03/23 17:06 Resp 16 11/03/23 17:06 BP 125/77 11/03/23 17:06 Pulse Ox 96 11/03/23 17:06 FiO2 Intake & Output 11/02/23 11/03/23 11/03/23 18:59 06:59 18:59 Intake Total 358 118 Output Total 2350 1600 1999 Balance -1991 Intake: Oral 358 118 Output: Urine 2350 1600 1999 Other: Voiding Method Indwelling Catheter Indwelling Catheter Indwelling Catheter # Bowel Movements 1 - Labs CBC & Chem 7: 11/03/23 07:12 11/03/23 07:09 Labs: Abnormal Lab Results - Last 24 Hours (Table) 11/02/23 11/03/23 11/03/23 Range/Units 20:31 06:21 07:09 RBC (3.80-5.40) m/uL Hgb (11.4-16.0) gm/dL Hct (34.0-46.0) % MCHC (31.0-37.0) g/dL RDW (11.5-15.5) % Sodium 135 L (137-145) mmol/L Chloride 111 H (98-107) mmol/L Carbon Dioxide 16 L (22-30) mmol/L BUN 43 H (7-17) mg/dL Creatinine 1.65 H (0.52-1.04) mg/dL Glucose 176 H (74-99) mg/dL POC Glucose (mg/dL) 170 H 210 H (70-110) mg/dL 11/03/23 11/03/23 11/03/23 Range/Units 07:12 11:43 16:40 RBC 3.08 L (3.80-5.40) m/uL Hgb 8.5 L (11.4-16.0) gm/dL Hct 28.3 L (34.0-46.0) % MCHC 30.0 L (31.0-37.0) g/dL RDW 19.9 H (11.5-15.5) % Sodium (137-145) mmol/L Chloride (98-107) mmol/L Carbon Dioxide (22-30) mmol/L BUN (7-17) mg/dL Creatinine (0.52-1.04) mg/dL Glucose (74-99) mg/dL POC Glucose (mg/dL) 216 H 218 H (70-110) mg/dL
[2023-11-03 20:15] LABS: Glucose,Whole Blood 265 mg/dL (70-110)
[2023-11-03] MEDS: INSULIN DETEMIR (LEVEMIR) 100 UNIT/ML SYR SQ SCH (21:39)
[2023-11-03 23:32] VITALS: TEMP 98.1
[2023-11-04 03:25] VITALS: BP 129/85; PULSE 94; RESP 17
[2023-11-04 06:12] LABS: Glucose,Whole Blood 163 mg/dL (70-110)
[2023-11-04] MEDS ORDERED: METOPROLOL TARTRATE 12.5 MG TAB ONE (09:16)
[2023-11-04] MEDS ORDERED: SODIUM BICARBONATE TAB 650 MG TAB ONE ×2 (09:16→20:47)
[2023-11-04] MEDS ORDERED: HEPARIN SODIUM,PORCINE 5,000 UNIT/ML 1 ML VIAL ONE ×2 (09:17→23:39)
[2023-11-04] MEDS ORDERED: ASPIRIN 81 MG ONE (09:17)
[2023-11-04] MEDS ORDERED: CLOPIDOGREL 75 MG TAB ONE (09:17)
[2023-11-04] MEDS ORDERED: CEFEPIME 2 GM VIAL IVPB ONE ×2 (09:17→20:45)
[2023-11-04] MEDS ORDERED: SODIUM CHLORIDE 0.9% 100 ML ONE ×2 (09:17→20:45)
[2023-11-04] MEDS ORDERED: FAMOTIDINE 20 MG TAB ONE (09:17)
[2023-11-04] MEDS ORDERED: TORSEMIDE 20 MG TAB ONE (09:17)
[2023-11-04] MEDS ORDERED: QUEtiapine 50 MG TAB ONE ×2 (09:17→20:48)
[2023-11-04 11:30] LABS: Glucose,Whole Blood 208 mg/dL (70-110)
[2023-11-04 16:32] LABS: Glucose,Whole Blood 337 mg/dL (70-110)
[2023-11-04] MEDS ORDERED: IPRATROPIUM-ALBUTEROL 3 ML NEB ONE (19:36)
[2023-11-04 20:34] LABS: Glucose,Whole Blood 267 mg/dL (70-110)
[2023-11-04] MEDS ORDERED: INSULIN ASPART (NovoLOG) 100 UNIT/ML VIAL SQ ONE (20:45)
[2023-11-04] MEDS ORDERED: ESCITALOPRAM 20 MG TAB ONE (20:45)
[2023-11-04] MEDS ORDERED: AMITRIPTYLINE HCL 25 MG TAB ONE (20:45)
[2023-11-04] MEDS ORDERED: ALPRAZolam 0.5 MG TAB ONE (20:45)
[2023-11-04] MEDS ORDERED: METOPROLOL SUCCINATE (ER) 25 MG TAB.ER.24H PO ONE (20:48)
[2023-11-05] MEDS ORDERED: INSULIN DETEMIR (LEVEMIR) 100 UNIT/ML SYR SQ ONE ×2 (00:01)
[2023-11-05] MEDS ORDERED: SODIUM FERRIC GLUCONAT-SUCROSE 62.5 MG/5 ML VIAL ONE ×2 (00:01)
[2023-11-05] MEDS ORDERED: NYSTATIN 100,000 UNIT/ML SUSP 500,000 UNIT/5 ML CUP ONE ×2 (00:01)
[2023-11-05] MEDS ORDERED: INSULIN ASPART (NovoLOG) 100 UNIT/ML VIAL SQ ONE ×7 (00:01→21:27)
[2023-11-05] MEDS ORDERED: SODIUM CHLORIDE 0.9% 100 ML BAG ONE (00:01)
[2023-11-05] MEDS ORDERED: SODIUM CHLORIDE 0.9% 100 ML BAG IV ONE (00:01)
[2023-11-05] MEDS ORDERED: oxyCODONE-APAP 10-325MG 1 EACH TAB ONE (00:21)
[2023-11-05 05:57] LABS: Glucose,Whole Blood 168 mg/dL (70-110)
[2023-11-05] MEDS ORDERED: IPRATROPIUM-ALBUTEROL 3 ML NEB ONE ×3 (07:55→15:17)
[2023-11-05] MEDS ORDERED: SODIUM BICARBONATE TAB 650 MG TAB ONE ×2 (09:15→21:24)
[2023-11-05] MEDS ORDERED: FAMOTIDINE 20 MG TAB ONE (09:15)
[2023-11-05] MEDS ORDERED: ASPIRIN 81 MG ONE (09:15)
[2023-11-05] MEDS ORDERED: METOPROLOL TARTRATE 12.5 MG TAB ONE (09:15)
[2023-11-05] MEDS ORDERED: HEPARIN SODIUM,PORCINE 5,000 UNIT/ML 1 ML VIAL ONE ×2 (09:16→23:14)
[2023-11-05] MEDS ORDERED: QUEtiapine 50 MG TAB ONE ×2 (09:16→21:25)
[2023-11-05] MEDS ORDERED: CLOPIDOGREL 75 MG TAB ONE (09:16)
[2023-11-05] MEDS ORDERED: SODIUM CHLORIDE 0.9% 100 ML ONE ×2 (09:16→21:27)
[2023-11-05] MEDS ORDERED: TORSEMIDE 20 MG TAB ONE (09:16)
[2023-11-05] MEDS ORDERED: CEFEPIME 2 GM VIAL IVPB ONE ×2 (09:16→21:27)
[2023-11-05] MEDS ORDERED: DAPAGLIFLOZIN PROPANEDIOL 10 MG TABLET ONE (09:31)
[2023-11-05] MEDS ORDERED: ISOSORBIDE MONONITRATE ER 30 MG TAB.ER.24H PO ONE (09:31)
[2023-11-05 11:36] LABS: Glucose,Whole Blood 125 mg/dL (70-110)
[2023-11-05 16:35] LABS: Glucose,Whole Blood 268 mg/dL (70-110)
[2023-11-05 20:11] LABS: Glucose,Whole Blood 268 mg/dL (70-110)
[2023-11-05] MEDS ORDERED: METOPROLOL SUCCINATE (ER) 25 MG TAB.ER.24H PO ONE (21:24)
[2023-11-05] MEDS ORDERED: ALPRAZolam 0.5 MG TAB ONE (21:24)
[2023-11-05] MEDS ORDERED: MELATONIN 3 MG TABLET ONE (21:24)
[2023-11-05] MEDS ORDERED: ESCITALOPRAM 20 MG TAB ONE (21:24)
[2023-11-05] MEDS ORDERED: AMITRIPTYLINE HCL 25 MG TAB ONE (21:25)
[2023-11-06] MEDS ORDERED: SODIUM BICARB 8.4% 50 ML SYR (1 MEQ/ML) ONE ×3 (00:01→13:59)
[2023-11-06] MEDS ORDERED: IPRATROPIUM-ALBUTEROL 3 ML NEB ONE ×4 (00:01→15:18)
[2023-11-06] MEDS ORDERED: SODIUM CHLORIDE 0.9% 100 ML BAG IV ONE (00:01)
[2023-11-06] MEDS ORDERED: SODIUM CHLORIDE 0.9% 100 ML BAG ONE (00:01)
[2023-11-06] MEDS ORDERED: SODIUM FERRIC GLUCONAT-SUCROSE 62.5 MG/5 ML VIAL ONE (00:01)
[2023-11-06] MEDS ORDERED: INSULIN DETEMIR (LEVEMIR) 100 UNIT/ML SYR SQ ONE (00:01)
[2023-11-06] MEDS ORDERED: NYSTATIN 100,000 UNIT/ML SUSP 500,000 UNIT/5 ML CUP ONE (00:01)
[2023-11-06 05:49] LABS: Glucose,Whole Blood 200 mg/dL (70-110)
[2023-11-06] MEDS ORDERED: INSULIN ASPART (NovoLOG) 100 UNIT/ML VIAL SQ ONE ×2 (06:09→12:55)
[2023-11-06] MEDS ORDERED: SODIUM BICARBONATE TAB 650 MG TAB ONE (09:06)
[2023-11-06] MEDS ORDERED: ASPIRIN 81 MG ONE (09:07)
[2023-11-06] MEDS ORDERED: FAMOTIDINE 20 MG TAB ONE (09:07)
[2023-11-06] MEDS ORDERED: CLOPIDOGREL 75 MG TAB ONE (09:07)
[2023-11-06] MEDS ORDERED: oxyCODONE-APAP 10-325MG 1 EACH TAB ONE (09:07)
[2023-11-06] MEDS ORDERED: QUEtiapine 50 MG TAB ONE (09:08)
[2023-11-06] MEDS ORDERED: ISOSORBIDE MONONITRATE ER 30 MG TAB.ER.24H PO ONE (09:08)
[2023-11-06] MEDS ORDERED: METOPROLOL SUCCINATE (ER) 25 MG TAB.ER.24H PO ONE (09:08)
[2023-11-06] MEDS ORDERED: DAPAGLIFLOZIN PROPANEDIOL 10 MG TABLET ONE (09:08)
[2023-11-06] MEDS ORDERED: TORSEMIDE 20 MG TAB ONE (09:08)
[2023-11-06] MEDS ORDERED: CEFEPIME 2 GM VIAL IVPB ONE (09:09)
[2023-11-06 11:26] LABS: Glucose,Whole Blood 121 mg/dL (70-110)
[2023-11-06 16:24] LABS: Glucose,Whole Blood 136 mg/dL (70-110)
[2023-11-06 20:00] LABS: Glucose,Whole Blood 141 mg/dL (70-110)
[2023-11-07] MEDS ORDERED: IPRATROPIUM-ALBUTEROL 3 ML NEB ONE ×3 (00:01→15:37)
[2023-11-07] MEDS ORDERED: SODIUM BICARBONATE TAB 650 MG TAB ONE ×2 (01:38→09:08)
[2023-11-07] MEDS ORDERED: ESCITALOPRAM 20 MG TAB ONE (01:39)
[2023-11-07] MEDS ORDERED: ALPRAZolam 0.5 MG TAB ONE (01:39)
[2023-11-07] MEDS ORDERED: METOPROLOL SUCCINATE (ER) 25 MG TAB.ER.24H PO ONE ×2 (01:39→09:08)
[2023-11-07] MEDS ORDERED: QUEtiapine 50 MG TAB ONE ×2 (01:39→09:09)
[2023-11-07] MEDS ORDERED: HEPARIN SODIUM,PORCINE 5,000 UNIT/ML 1 ML VIAL ONE ×2 (01:40→09:09)
[2023-11-07] MEDS ORDERED: CEFEPIME 2 GM VIAL IVPB ONE ×2 (01:40→09:09)
[2023-11-07] MEDS ORDERED: SODIUM CHLORIDE 0.9% 100 ML ONE ×2 (01:40→09:09)
[2023-11-07] MEDS ORDERED: AMITRIPTYLINE HCL 25 MG TAB ONE (01:40)
[2023-11-07 01:50] LABS: Glucose,Whole Blood 149 mg/dL (70-110)
[2023-11-07] MEDS ORDERED: oxyCODONE-APAP 10-325MG 1 EACH TAB ONE (02:04)
[2023-11-07] MEDS ORDERED: CLOPIDOGREL 75 MG TAB ONE (09:08)
[2023-11-07] MEDS ORDERED: ISOSORBIDE MONONITRATE ER 30 MG TAB.ER.24H PO ONE (09:08)
[2023-11-07] MEDS ORDERED: ASPIRIN 81 MG ONE (09:08)
[2023-11-07] MEDS ORDERED: FAMOTIDINE 20 MG TAB ONE (09:08)
[2023-11-07] MEDS ORDERED: DAPAGLIFLOZIN PROPANEDIOL 10 MG TABLET ONE (09:09)
[2023-11-07] MEDS ORDERED: TORSEMIDE 20 MG TAB ONE (09:09)
[2023-11-07 11:24] LABS: Glucose,Whole Blood 276 mg/dL (70-110)
[2023-11-07] MEDS ORDERED: INSULIN ASPART (NovoLOG) 100 UNIT/ML VIAL SQ ONE (12:55)
[2023-11-07 16:16] LABS: Glucose,Whole Blood 194 mg/dL (70-110)
[2023-11-27 13:43] LABS: Glucose 117 mg/dL (74-99)
[2023-11-27 13:44] LABS: African American GFR (CKD) 39 (>60 ml/min/1.73 sqM); Anion Gap 10 mmol/L; Blood Urea Nitrogen 42 mg/dL (7-17); Calcium 8.9 mg/dL (8.4-10.2); Carbon Dioxide 16 mmol/L (22-30); Chloride 107 mmol/L (98-107); Non-African American GFR(CKD) 34 (>60 ml/min/1.73 sqM); Potassium 4.4 mmol/L (3.5-5.1); Sodium 133 mmol/L (137-145)
== END 2023-11-07 17:00 | DRG 698 ==
LOC: EC 09:22 → 2SICU 13:30 → 3SCARD 10-24 08:54
PROVIDERS: ADMIT Hospitalist; ATTEND Hospitalist
PROC: 02HV33Z Insertion of Infusion Device into Superior Vena Cava, Percutaneous Approach (ICD-10-PCS; principal; 2023-10-23)
PROC: 3E043XZ Introduction of Vasopressor into Central Vein, Percutaneous Approach (ICD-10-PCS; principal; 2023-10-23)
PROC: B2111ZZ Fluoroscopy of Multiple Coronary Arteries using Low Osmolar Contrast (ICD-10-PCS; 2023-10-31)
PROC: 4A023N7 Measurement of Cardiac Sampling and Pressure, Left Heart, Percutaneous Approach (ICD-10-PCS; 2023-10-31)
DX: T83.511A Infection and inflammatory reaction due to indwelling urethral catheter, initial encounter (principal); A41.59 Other Gram-negative sepsis; N17.0 Acute kidney failure with tubular necrosis; R65.21 Severe sepsis with septic shock; J96.01 Acute respiratory failure with hypoxia; I21.4 Non-ST elevation (NSTEMI) myocardial infarction; K72.00 Acute and subacute hepatic failure without coma; J18.9 Pneumonia, unspecified organism; N13.6 Pyonephrosis; E87.20 Acidosis, unspecified; N18.4 Chronic kidney disease, stage 4 (severe); R45.851 Suicidal ideations; K82.1 Hydrops of gallbladder; K80.10 Calculus of gallbladder with chronic cholecystitis without obstruction; I13.0 Hypertensive heart and chronic kidney disease with heart failure and stage 1 through stage 4 chronic kidney disease, or unspecified chronic kidney disease; I50.32 Chronic diastolic (congestive) heart failure; N30.00 Acute cystitis without hematuria; D63.1 Anemia in chronic kidney disease; E66.9 Obesity, unspecified; E11.51 Type 2 diabetes mellitus with diabetic peripheral angiopathy without gangrene; J84.10 Pulmonary fibrosis, unspecified; E11.22 Type 2 diabetes mellitus with diabetic chronic kidney disease; Z79.4 Long term (current) use of insulin; Z68.32 Body mass index [BMI] 32.0-32.9, adult; Z89.611 Acquired absence of right leg above knee; E11.65 Type 2 diabetes mellitus with hyperglycemia; E11.40 Type 2 diabetes mellitus with diabetic neuropathy, unspecified; I34.0 Nonrheumatic mitral (valve) insufficiency; D50.9 Iron deficiency anemia, unspecified; F32.9 Major depressive disorder, single episode, unspecified; B96.1 Klebsiella pneumoniae [K. pneumoniae] as the cause of diseases classified elsewhere; B96.5 Pseudomonas (aeruginosa) (mallei) (pseudomallei) as the cause of diseases classified elsewhere; R33.9 Retention of urine, unspecified; R74.01 Elevation of levels of liver transaminase levels; I25.10 Atherosclerotic heart disease of native coronary artery without angina pectoris; I25.5 Ischemic cardiomyopathy; E78.5 Hyperlipidemia, unspecified; F41.9 Anxiety disorder, unspecified; M79.7 Fibromyalgia; M19.91 Primary osteoarthritis, unspecified site; H91.90 Unspecified hearing loss, unspecified ear; F43.21 Adjustment disorder with depressed mood; F51.04 Psychophysiologic insomnia; K21.9 Gastro-esophageal reflux disease without esophagitis; E86.0 Dehydration; Z88.1 Allergy status to other antibiotic agents; Z88.7 Allergy status to serum and vaccine; Z95.810 Presence of automatic (implantable) cardiac defibrillator; Z91.81 History of falling; Z95.5 Presence of coronary angioplasty implant and graft; Z87.891 Personal history of nicotine dependence; Z79.899 Other long term (current) drug therapy; Z79.84 Long term (current) use of oral hypoglycemic drugs; Z79.82 Long term (current) use of aspirin; Z79.02 Long term (current) use of antithrombotics/antiplatelets; I45.10 Unspecified right bundle-branch block; I25.2 Old myocardial infarction
CPT/HCPCS: 36415; 36556; 51702; 71045; 71046; 74176; 76705; 76770; 78226; 80048; 80051; 80053; 81001; 82565; 83036; 83540; 83550; 83605; 83690; 83735; 83880; 84145; 84484; 84520; 85025; 85610; 85652; 85730; 86140; 87040; 87077; 87086; 87186; 93005; 93306; 93458; 94640; 94760; 96361; 96365; 96366; 96368; 96372; 96375; 99291; 99292

== ENCOUNTER → 2023-11-13 | Outpatient (CLI) | payer MEDICARE, OTHER | END | disposition E | LOC: LABPRL 05:49 | PROVIDERS: ATTEND Family Medicine | DX: A41.9 Sepsis, unspecified organism (principal); I11.0 Hypertensive heart disease with heart failure; I50.9 Heart failure, unspecified; E11.9 Type 2 diabetes mellitus without complications | CPT/HCPCS: 82306; 83036 ==

== ENCOUNTER 2023-11-14 12:34 | Inpatient (IN) | payer MEDICARE, OTHER ==
[2023-11-14] MEDS ORDERED: ACETAMINOPHEN TAB 325 MG TAB ONE ×2 (16:59→18:01)
[2023-11-14] MEDS ORDERED: ONDANSETRON 4 MG/2 ML VIAL ONE (18:58)
[2023-11-14] MEDS ORDERED: FAMOTIDINE 20 MG/2 ML VIAL ONE (18:58)
[2023-11-14] MEDS ORDERED: HYDROcodone/APAP 7.5-325MG 1 EACH TAB ONE (18:58)
[2023-11-14] MEDS ORDERED: cefTRIAXone IN SWFI 1,000 MG/10 ML SYRINGE IVP ONE (18:59)
[2023-11-14] MEDS ORDERED: EPINEPHrine 10 ML SYRINGE (0.1 MG/ML) ONE (20:00)
[2023-11-14] MEDS ORDERED: MAGNESIUM SULFATE 500 MG/ML 20 ML VIAL ONE (20:00)
[2023-11-14] MEDS ORDERED: CALCIUM CHLORIDE 100 MG/ML 10 ML SYRINGE ONE (20:00)
[2023-11-14] MEDS ORDERED: SODIUM BICARB 8.4% 50 ML SYR (1 MEQ/ML) ONE (20:00)
--- NOTE | 2024-01-07 10:44 | CDI ---
Documentation Clarification Form Date: 01/07/2024 10:19:06 AM From: Cha Ugalde RN, CCDS Phone: [phone] Admit Date: 11/14/2023 12:34:00 PM Patient Name: More Spann Visit Number: [id number] Discharge Date: 11/14/2023 09:02:00 PM ATTENTION: The Clinical Documentation Specialists (CDI) and [facility] Coding Staff appreciate your assistance in clarifying documentation. Please respond to the clarification below the line at the bottom and electronically sign. The CDI & [facility] Coding staff will review the response and follow-up if needed. Please note: Queries are made part of the Legal Health Record. If you have any questions, please contact the author of this message via ITS. Doctor Willie E Sheet Fever, Sepsis and UTI is documented in the H&P and 11/13 Nursing note indicates the patient has a chronic Cortes catheter. Additional clarification regarding the etiology of the UTI is requested. History/Risk Factors: chronic UTI's, chronic Cortes catheter, CKD 4, DM T2, depression and right leg amputation. [facility]. Admitted with Fever, Sepsis and UTI and ultimately went into asystole. Clinical Indicators: 11/13 Nursing Note: "Chronic UTI, chronic Cortes." 11/13 Urinalysis: moderate blood, large leukocytes, 2487 white blood cells, many white blood cell clumps 11/13 Urine culture: Enterococcus faecalis H&P: "Fever & Sepsis. UTI. Elevated lactic acid." Treatment: IV Rocephin 1000 mg 11/13 Please clarify the etiology of the UTI, if known: [ x ] Cortes catheter [ ] UTI not related to catheter [ ] Other condition, please specify [ ] Unable to determine MTDD
== END 2023-11-14 21:02 | disposition expired | DRG 698 ==
LOC: 2SICU 12:34
PROVIDERS: ADMIT Internal Medicine; ATTEND Internal Medicine
PROC: 0BH17EZ Insertion of Endotracheal Airway into Trachea, Via Natural or Artificial Opening (ICD-10-PCS; principal; 2023-11-14)
PROC: 5A12012 Performance of Cardiac Output, Single, Manual (ICD-10-PCS; principal; 2023-11-14)
PROC: 3E033XZ Introduction of Vasopressor into Peripheral Vein, Percutaneous Approach (ICD-10-PCS; principal; 2023-11-14)
PROC: 5A1935Z Respiratory Ventilation, Less than 24 Consecutive Hours (ICD-10-PCS; principal; 2023-11-14)
DX: T83.511A Infection and inflammatory reaction due to indwelling urethral catheter, initial encounter (principal); A41.9 Sepsis, unspecified organism; G92.8 Other toxic encephalopathy; J96.01 Acute respiratory failure with hypoxia; N17.9 Acute kidney failure, unspecified; E87.20 Acidosis, unspecified; N18.4 Chronic kidney disease, stage 4 (severe); N39.0 Urinary tract infection, site not specified; Z66 Do not resuscitate; I46.9 Cardiac arrest, cause unspecified; I44.0 Atrioventricular block, first degree; Z88.1 Allergy status to other antibiotic agents; Z88.7 Allergy status to serum and vaccine; Z79.899 Other long term (current) drug therapy; Z79.02 Long term (current) use of antithrombotics/antiplatelets; Z79.4 Long term (current) use of insulin; F32.A Depression, unspecified; Z89.611 Acquired absence of right leg above knee; E11.22 Type 2 diabetes mellitus with diabetic chronic kidney disease
CPT/HCPCS: 87040; 87077; 87086; 87186; 92950; 94002; 94640; 94760; 96374; 96375; 99285